=== PATIENT | female | born 1995 | race Caucasian/White ===

== ENCOUNTER 2025-02-17 19:46 | Outpatient (CLI) | payer OTHER, SELFPAY ==
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
--- OUTSIDE RECORDS SUMMARY | 2025-02-17 19:56 | XMS_ITS | Clinical Summary ---
Author Organization [facility] Address [address] [place] [address] Phone Care Team Providers Care Sinker Winder Name Role Phone Ophelia Belle MD Primary Care Provider [phone] Allergies Active Allergy Reactions Criticality Noted Date Comments Amoxicillin-Pot Clavulanate Unknown 03/10/20 24 Clavulanic Acid Vomiting High 02/14/2022 Iodine Unknown 03/10/2024 Medications albuterol 108 (90 Base) MCG/ACT Aerosol Solution take 2 Puffs by inhalation every 6 hours as needed for Cough. 6.7 g 1 Active famotidine (PEPCID) 40 MG Tablet Take 1 Tablet by mouth every evening. 90 Tablet 3 4 Active ondansetron (ZOFRAN) 4 MG TabletIndicatio ns:Nausea and Vomiting Take 1 Tablet by mouth every 8 hours as needed for Nausea - 1st line. Indications: Nausea and Vomiting 10 Tablet 5 Active Active Problems No known active problems Resolved Problems Problem Noted Date Diagnosed Date Resolved Date Ovarian cyst rupture 11/24/2017 018 Social History Tobacco Use Types Packs/Day Years Used Date Smoking Tobacco: Never Smokeless Tobacco: Never Tobacco Cessation:Counseling Given: Not Answered Alcohol Use Standard Drinks/Week Comments No 4 (1 standard drink = 0.6 oz pur e alcohol) Sexually Active Control Partners Comments Not Currently Comments No Sex and Gender Information Value Date Recorded Sex Assigned at Female 11/11/2023 4:58 AM CDT Legal Sex Female 8:11 PM CDT Gender Identity Female 11/11/2023 4:58 AM CDT Sexual Orientation Not on file Last Filed Vital Signs Vital Sign Reading Time Taken Comments Blood Pressure 127/73 08/18/2024 8:01 PM CDT Pulse 97 08/18/2024 8:01 PM CDT Temperature 37.1 C (98.8 F) 08/18/2024 5:13 PM CDT Respiratory Rate 17 08/18/2024 8:01 PM CDT Oxygen Saturation 100% 08/18/2024 8:01 PM CDT Inhaled Oxygen Concentration - - Weight 77.3 kg (170 lb 6.4 oz) 08/18/2024 5:13 P M CDT Height 154.9 cm (5' 1) 08/18/2024 5:13 PM CDT Body Mass Index 32.2 08/18/2024 5:13 PM CDT Plan of Treatment Health Maintenance Due Date Last Done Comments Hepatitis C Virus (HCV) Screening 1993 Human Papillomavirus (HPV) Immunization (2 - 2-dose series) 07/13/2007 01/11/2007 Pap Smear 2014 Varicella Immunization (2 of 2 - 13+ 2-dose series) 09/12/2020 08/15/2020 Cervical Cancer Screening (CCS) 11/19/2023 HPV/Cotest 11/19/2023 Influenza Immunization (#1) 2024 01/12/2021 SARS-COV-2 Immunization (2 - season) 2024 01/12/2021 Respiratory Syncytial Virus (RSV) Immunization (Adult) (1 - 1-dose 75+ series) 2068 Hepatitis B Immunization Completed 995, 1993, 1993 DTaP/Tdap/Td Immunization Discontinued 2020, 01/11/2007, 02/09/1998, Additional history exists TdaP Immunization Completed 08/15/2020, 01/11/2007 Meningococcal Immunization (ACWY) Aged Out No longer eligible based on patient's age to complete this topic Pneumococcal Immunization Combined Aged Out No longer eligible based on patient's age to complete this topic Rotavirus Immunization Aged Out No lo nger eligible based on patient's age to complete this topic Insurance MEDICAID [place] Advance Directives * Full Code (Latest Code Status on File) Date Activated Date Inactivated Comments 11/24/2017 3:10 PM 11/26/2017 3:43 PM CPR-Full Treat ment: FULL ARREST: Attempt Resuscitation/CPR wit intubation and mechanical ventilation. PRE-ARREST: Use entire range of life support measures to stabilize the patient. Care Teams Sinker Winder Relationship Specialty Start Date End Date Ophelia Belle MD PCP - General Family Medicine 09/22/23
--- OUTSIDE RECORDS SUMMARY | 2025-02-17 19:56 | XMS_ITS | Continuity of Care Document ---
Author Organization [facility] Address [address] [place] [address] [place] [address] Assessment No assessment recorded. Plan of Treatment Reminders Order Date Submit Date Provider Last Modified By Organization Details Last Modified Time Details Appointments U/S OB GROWTH 2024 03:30P M ULTRASOUND Not available Not available Not available OB ROUTINE 2024 03:45P M TRUONG MCGOWAN MD Not available Not available Not available U/S OB GROWTH 2024 11:30A M ULTRASOUND Not available Not available Not available OB ROUTINE 2024 01:00P Harriett MCGOWAN MD Not available Not available Not available SURG CSectio n 2025 07:30A M TRUONG MCGOWAN MD Not available Not available Not available SURG POST OP 2025 01:00P Harriett MCGOWAN MD Not available Not available Not available Lab None recorde d. Referral None recorde d. Procedures None recorde d. Surgeries None recorde d. Imaging US, obstetr ic, follow- up 2024 025 [email or web address] [place], [facility] [address], [place], [address], 01/26/2025 15:12:32 Medication Orders None recorde d. Patient TargetsNo targets recorded. Patient InstructionsNo instructions recorded. Reason for Referral None Reported. Results Created Date Observation Date Name Description Value Unit Range Abnormal Flag Note LastModifiedBy Organization Detail LastModifiedTime 10/18/19 25 10/17/2024 [UNIT Y] ANEUP LOIDY NIPT fraction 7.5% normal Not Available [facility] [address], [place], [address], 10/17/2024 23:58:00 10/18/19 25 10/17/2024 [UNIT Y] ANEUP LOIDY NIPT 22Q11.2 microdeletio n LOW RISK <1 in 10,000 normal Not Available [facility] [address], [place], [address], 10/17/2024 23:58:00 10/18/19 25 10/17/2024 [UNIT Y] ANEUP LOIDY NIPT sex chromosome aneuploidy NOT DETECT ED normal Not Available [facility] [address], [place], [address], 10/17/2024 23:58:00 10/18/19 25 10/17/2024 [UNIT Y] ANEUP LOIDY NIPT monosomy X LOW RISK <1 in 10,000 normal Not Available [facility] [address], [place], [address], 10/17/2024 23:58:00 10/18/19 25 10/17/2024 [UNIT Y] ANEUP LOIDY NIPT trisomy 13 LOW RISK <1 in 10,000 normal Not Available [facility] [address], [place], [address], 10/17/2024 23:58:00 10/18/19 25 10/17/2024 [UNIT Y] ANEUP LOIDY NIPT trisomy 18 LOW RISK <1 in 10,000 normal Not Available [facility] [address], [place], [address], 10/17/2024 23:58:00 10/18/19 25 10/17/2024 [UNIT Y] ANEUP LOIDY NIPT trisomy 21 LOW RISK <1 in 10,000 normal Not Available [facility] [address], [place], [address], 10/17/2024 23:58:00 10/18/19 25 10/17/2024 [UNIT Y] ANEUP LOIDY NIPT sex MALE normal Not Available [facility] [address], [place], [address], 10/17/2024 23:58:00 10/18/19 25 10/17/2024 [UNIT Y] ANEUP LOIDY NIPT gestation SINGLE TON normal Not Available [facility] [address], [place], [address], 10/17/2024 23:58:00 10/18/19 25 10/17/2024 [UNIT Y] ANEUP LOIDY NIPT for detailed report, see pdf See PDF normal Not Available [facility] [address], [place], [address], 10/17/2024 23:58:00 10/22/19 25 10/21/2024 [UNIT Y] MIKE Galvez sickle cell disease/beta -thalassemia /hemoglobino pathies carrier screen NEGATI VE normal Not Available [facility] [address], [place], [address], 10/21/2024 17:38:31 10/22/19 25 10/21/2024 [UNIT Y] MIKE Galvez alpha-thalas semia carrier screen NEGATI VE normal Not Available [facility] [address], [place], [address], 10/21/2024 17:38:31 10/22/19 25 10/21/2024 [UNIT Y] MIKE Galvez cystic fibrosis carrier screen NEGATI VE normal Not Available [facility] [address], [place], [address], 10/21/2024 17:38:31 10/22/19 25 10/21/2024 [UNIT Y] MIKE Galvez spinal muscular atrophy carrier screen NEGATI VE 2 SMN1 copies , SNP not presen t normal Not Available [facility] [address], [place], [address], 10/21/2024 17:38:31 10/22/19 25 10/21/2024 [UNIT Y] MIKE MACIAS Leonor for detailed report, see pdf See PDF normal Not Available [facility] [address], [place], [address], 10/21/2024 17:38:31 10/12/19 25 10/11/2024 CBC W/DIF F WBC 7.0 10'3/ uL 3.5-10 .5 Not Available [facility] (Lab) [address], [place], [address], 10/12/2024 13:07:49 10/12/19 25 10/11/2024 CBC W/DIF F RBC 3.94 10'6/ uL (based on docume nted legal sex) 3.80-5 .20 Not Available [facility] (Lab) [address], [place], [address], 10/12/2024 13:07:49 10/12/19 25 10/11/2024 CBC W/DIF F HGB 12.1 g/dL (based on docume nted legal sex) 11.6-1 5.4 Not Available [facility] (Lab) [address], [place], [address], 10/12/2024 13:07:49 10/12/19 25 10/11/2024 CBC W/DIF F HCT 36.3 % (based on docume nted legal sex) 34.0-4 5.0 Not Available [facility] (Lab) [address], [place], [address], 10/12/2024 13:07:49 10/12/19 25 10/11/2024 CBC W/DIF F MCV 92.1 fL 80.0-9 9.0 Not Available [facility] (Lab) [address], [place], [address], 10/12/2024 13:07:49 10/12/19 25 10/11/2024 CBC W/DIF F MCH 30.7 pg 27.0-3 4.0 Not Available [facility] (Lab) [address], [place], [address], 10/12/2024 13:07:49 10/12/19 25 10/11/2024 CBC W/DIF F MCHC 33.3 g/dL 32.0-3 5.5 Not Available [facility] (Lab) [address], [place], [address], 10/12/2024 13:07:49 10/12/19 25 10/11/2024 CBC W/DIF F RDW 12.4 % 11.0-1 5.0 Not Available [facility] (Lab) [address], [place], [address], 10/12/2024 13:07:49 10/12/19 25 10/11/2024 CBC W/DIF F plt 278 10'3/ uL 150-40 0 Not Available [facility] (Lab) [address], [place], [address], 10/12/2024 13:07:49 10/12/19 25 10/11/2024 CBC W/DIF F MPV 11.7 fL 8.8-12 .1 Not Available [facility] (Lab) [address], [place], [address], 10/12/2024 13:07:49 10/12/19 25 10/11/2024 CBC W/DIF F NRBC's 0.0 % 0.0 Not Available [facility] (Lab) [address], [place], [address], 10/12/2024 13:07:49 10/12/19 25 10/11/2024 CBC W/DIF F absolute NRBCs 0.0 10'3/ uL no refere nce range establ ished Not Available [facility] (Lab) [address], [place], [address], 10/12/2024 13:07:49 10/12/19 25 10/11/2024 CBC W/DIF F neutrophils 71.6 % 34.0-7 3.0 Not Available [facility] (Lab) [address], [place], [address], 10/12/2024 13:07:49 10/12/19 25 10/11/2024 CBC W/DIF F lymphocytes 22.8 % 15.0-5 0.0 Not Available [facility] (Lab) [address], [place], [address], 10/12/2024 13:07:49 10/12/19 25 10/11/2024 CBC W/DIF F monocytes 4.7 % 1.0-15 .0 Not Available [facility] (Lab) [address], [place], [address], 10/12/2024 13:07:49 10/12/19 25 10/11/2024 CBC W/DIF F eosinophils 0.3 % 0.0-8. 0 Not Available [facility] (Lab) [address], [place], [address], 10/12/2024 13:07:49 10/12/19 25 10/11/2024 CBC W/DIF F basophils 0.3 % 0.0-2. 0 Not Available [facility] (Lab) [address], [place], [address], 10/12/2024 13:07:49 10/12/19 25 10/11/2024 CBC W/DIF F immature granulocytes 0.3 % no define d refere nce range Immat ure Granu locyt es (IG) repre sents autom ated enume ratio n of Metam yeloc ytes, Myelo cytes and Promy elocy brenna when IG is < 5%. Blast s are not inclu ded in IG and repor nishant separ ately if prese nt. Not Available [facility] (Lab) [address], [place], [address], 10/12/2024 13:07:49 10/12/19 25 10/11/2024 CBC W/DIF F absolute neutrophils 5.0 10'3/ uL 1.5-8. 0 Not Available [facility] (Lab) [address], [place], [address], 10/12/2024 13:07:49 10/12/19 25 10/11/2024 CBC W/DIF F absolute lymphocytes 1.6 10'3/ uL 1.0-4. 0 Not Available [facility] (Lab) [address], [place], [address], 10/12/2024 13:07:49 10/12/19 25 10/11/2024 CBC W/DIF F absolute monocytes 0.3 10'3/ uL 0.2-1. 0 Not Available [facility] (Lab) [address], [place], [address], 10/12/2024 13:07:49 10/12/19 25 10/11/2024 CBC W/DIF F absolute eosinophils 0.0 10'3/ uL 0.0-0. 6 Not Available [facility] (Lab) [address], [place], [address], 10/12/2024 13:07:49 10/12/19 25 10/11/2024 CBC W/DIF F absolute basophils 0.0 10'3/ uL 0.0-0. 3 Not Available [facility] (Lab) [address], [place], [address], 10/12/2024 13:07:49 10/12/19 25 10/11/2024 CBC W/DIF F absolute immature granulocytes 0.0 10'3/ uL 0.00-0 .10 Refer ence range s for nonbi nary/ inter sex or unspe cifie d gende r patie nts have not been estab lishe d. Pleas e refer to the follo wing table for range s estab lishe d for cisge nder patie nts and evalu ate in the clini robinson leonard xt of the indiv idual patie nt: https :[email or web address] patterson book. nm.or g/gen derx Not Available [facility] (Lab) [address], [place], [address], 10/12/2024 13:07:49 10/12/19 25 10/11/2024 HIV 1/2 ANTIG EN/AN TIBOD Y, REFLE X CONFI RMATI ON HIV antigen/anti body Nonrea ctive nonrea ctive HIV-1 antig en and HIV-1 /HIV- 2 antib odies were not detec nishant. No labor atory evide nce of HIV infec tion. Not Available [facility] (Lab) [address], [place], [address], 10/12/2024 13:07:50 10/12/19 25 10/11/2024 HEPAT ITIS B SURFA CE ANTIG EN hepatitis B surface antigen Non-re active non-re active This assay was perfo rmed using [employer] ratio n reage nts and test kits. Value s obtai francois with other assay metho ds or kits canno t be used inter serna eably . Not Available [facility] (Lab) [address], [place], [address], 10/12/2024 13:07:50 10/12/19 25 10/11/2024 HEPAT ITIS C ANTIB KERI SCREE N, REFLE X TO CONFI RMATI ON hepatitis C antibody Non-re active non-re active Antib odies to HCV Not Detec nishant, does not exclu de the possi bilit y of expos ure to HCV. Not Available [facility] (Lab) [address] [place], [address], 10/12/2024 13:07:51 10/12/19 25 10/11/2024 RUBEL LA IGG ANTIB KERI, QUANT rubella antibodies, IgG Reacti ve reacti ve Not Available [facility] (Lab) [address], [place], [address], 10/12/2024 13:07:51 10/12/19 25 10/11/2024 RUBEL LA IGG ANTIB KERI, QUANT rubella antibodies, IgG quant 18.4 IU/mL >=10 Non-r eacti ve (Non- Immun e) <10 IU/mL React filippo (Immu ne) > or = 10 IU/mL Not Available [facility] (Lab) [address], [place], [address], 10/12/2024 13:07:51 10/12/19 25 10/11/2024 TYPE/ RH/SC REEN ABO/Rh type O POS Not Available [facility] (Lab) [address], [place], [address], 10/12/2024 13:07:51 10/12/19 25 10/11/2024 TYPE/ RH/SC REEN antibody screen NEG Not Available [facility] (Lab) [address], [place], [address], 10/12/2024 13:07:51 10/12/19 25 10/11/2024 TYPE/ RH/SC REEN exp date 2024 23:59 Not Available [facility] (Lab) [address], [place], [address], 10/12/2024 13:07:51 10/12/19 25 10/11/2024 HEMOG LOBIN A1C hemoglobin A1C 5.3 % 4.0-5. 6 The Ameri can Diabe brenna [employer] iatio n recom mends that a prima ry goal of thera py naima hand be a HBA1C of < 7% and that physi cians naima d reeva luate the treat ment regim en in patie nts with HBA1C value s consi stent ly > 8%. <5.7% Pooja l 5.7 - 6.4% Incre ased risk for diabe brenna >=6.5 % Diagn ostic of diabe brenna <7.0% Goal of thera py >8.0% Actio n sugge sted Not Available [facility] (Lab) [address], [place], [address], 10/12/2024 13:07:52 10/12/19 25 10/11/2024 RPR SCREE N, REFLE X TITER /CONF IRMAT ION RPR qualitative Nonrea ctive nonrea ctive Not Available [facility] (Lab) [address], [place], [address], 10/12/2024 13:07:53 10/12/19 25 10/11/2024 CULTU RE: URINE result report SEE RESULT S BELOW Test: Cultu re: Urine Speci men Sourc e: Urine Voide d Speci men Type: Urine Speci men Date: 2024 1251 Resul t Date: 2024 2146 Resul t Statu s: Final resul t Abnor mal: No Resul ting Lab: [facility] [address] [facility] [address] Tel: CULTU RE ----- ----- ----- --- No growt h in 1 day (dete ction level of 10,00 0 colon ies / ml.) Not Available [facility] (Lab) [address] [place], [address], 10/12/2024 22:51:14 10/12/19 25 10/11/2024 drug scree n, urine Amphetamines : negati ve Not Available [facility] [facility] [address], [place], [address], 10/11/2024 12:03:44 10/12/19 25 10/11/2024 drug scree n, urine Cannabinoids : negati ve Not Available [place] [address], [place], [address], 10/11/2024 12:03:44 10/12/19 25 10/11/2024 drug scree n, urine Cocaine: negati ve Not Available [place] [address], [place], [address], 10/11/2024 12:03:44 10/12/19 25 10/11/2024 drug scree n, urine Opiates: negati ve Not Available [place] [facility] [address], [place], [address], 10/11/2024 12:03:44 10/12/19 25 10/11/2024 drug scree n, urine Phenocyclidi ne: negati ve Not Available [place] [address], [place], [address], 10/11/2024 12:03:44 10/12/19 25 10/11/2024 drug scree n, urine Barbiturates : negati ve Not Available [place] [address], [place], [address], 10/11/2024 12:03:44 10/12/19 25 10/11/2024 drug scree n, urine Benzodiazepi aaron: negati ve Not Available [place] [address], [place], [address], 10/11/2024 12:03:44 10/12/19 25 10/11/2024 drug scree n, urine Ethanol: negati ve Not Available [place] [address], [place], [address], 10/11/2024 12:03:44 10/12/19 25 10/11/2024 drug scree n, urine Hallucinogen s: negati ve Not Available [place] [address], [place], [address], 10/11/2024 12:03:44 10/12/19 25 10/11/2024 drug scree n, urine Inhalants: negati ve Not Available [place] [address], [place], [address], 10/11/2024 12:03:44 12/03/1912/02/2024 CMP(C OMPRE HENSI VE METAB OLIC PANEL ) sodium 136 mmol/ L 133-14 6 Not Available [facility] (Lab) [address], [place], [address], 12/08/2024 16:08:48 12/03/19 25 12/02/2024 CMP(C OMPRE HENSI VE METAB OLIC PANEL ) potassium 4.4 mmol/ L 3.5-5. 1 Not Available [facility] (Lab) [address], [place], [address], 12/08/2024 16:08:48 12/03/19 25 12/02/2024 CMP(C OMPRE HENSI VE METAB OLIC PANEL ) chloride 107 mmol/ L 98-107 Not Available [facility] (Lab) [address], [place], [address], 12/08/2024 16:08:48 12/03/19 25 12/02/2024 CMP(C OMPRE HENSI VE METAB OLIC PANEL ) carbon dioxide 19 mmol/ L 21-31 low Not Available [facility] (Lab) [address], [place], [address], 12/08/2024 16:08:48 12/03/19 25 12/02/2024 CMP(C OMPRE HENSI VE METAB OLIC PANEL ) anion gap 10 mmol/ L 4-13 Not Available [facility] (Lab) [address], [place], [address], 12/08/2024 16:08:48 12/03/19 25 12/02/2024 CMP(C OMPRE HENSI VE METAB OLIC PANEL ) blood urea nitrogen 7 mg/dL 7-25 Not Available [facility] (Lab) [address], [place], [address], 12/08/2024 16:08:48 12/03/19 25 12/02/2024 CMP(C OMPRE HENSI VE METAB OLIC PANEL ) creatinine 0.48 mg/dL 0.60-1 .30 low Not Available [facility] (Lab) [address], [place], [address], 12/08/2024 16:08:48 12/03/19 25 12/02/2024 CMP(C OMPRE HENSI VE METAB OLIC PANEL ) egfrcr (CKD-epi 2020) >90 mL/mi n/1.7 3_m2 >=60 Not Available [facility] (Lab) [address], [place], [address], 12/08/2024 16:08:48 12/03/19 25 12/02/2024 CMP(C OMPRE HENSI VE METAB OLIC PANEL ) calcium 8.5 mg/dL 8.3-10 .5 Not Available [facility] (Lab) [address], [place], [address], 12/08/2024 16:08:48 12/03/19 25 12/02/2024 CMP(C OMPRE HENSI VE METAB OLIC PANEL ) glucose 74 mg/dL 70-100 Not Available [facility] (Lab) [address], [place], [address], 12/08/2024 16:08:48 12/03/19 25 12/02/2024 CMP(C OMPRE HENSI VE METAB OLIC PANEL ) protein, total 6.3 g/dL 6.4-8. 3 low Not Available [facility] (Lab) [address], [place], [address], 12/08/2024 16:08:48 12/03/19 25 12/02/2024 CMP(C OMPRE HENSI VE METAB OLIC PANEL ) albumin 3.5 g/dL 3.5-5. 0 Not Available [facility] (Lab) [address], [place], [address], 12/08/2024 16:08:48 12/03/19 25 12/02/2024 CMP(C OMPRE HENSI VE METAB OLIC PANEL ) ALT 8 units /L 9-43 low Not Available [facility] (Lab) [address], [place], [address], 12/08/2024 16:08:48 12/03/19 25 12/02/2024 CMP(C OMPRE HENSI VE METAB OLIC PANEL ) alkaline phosphatase 57 units /L 34-104 Not Available [facility] (Lab) [address], [place], [address], 12/08/2024 16:08:48 12/03/19 25 12/02/2024 CMP(C OMPRE HENSI VE METAB OLIC PANEL ) AST 17 units /L 13-39 Not Available [facility] (Lab) [address], [place], [address], 12/08/2024 16:08:48 12/03/19 25 12/02/2024 CMP(C OMPRE HENSI VE METAB OLIC PANEL ) bilirubin, total 0.4 mg/dL 0.2-1. 2 Not Available [facility] (Lab) [address], [place], [address], 12/08/2024 16:08:48 12/03/19 25 12/02/2024 FABIOLA TIN / IRON / TRANS FABIOLA N / TIBC iron 83 ug/dL 40-170 Not Available [facility] (Lab) [address] [place], [address], 12/08/2024 16:08:49 12/03/19 25 12/02/2024 FABIOLA TIN / IRON / TRANS FABIOLA N / TIBC transferrin 305 mg/dL 200-36 0 Not Available [facility] (Lab) [address] [place], [address], 12/08/2024 16:08:49 12/03/19 25 12/02/2024 FABIOLA TIN / IRON / TRANS FABIOLA N / TIBC ferritin 82.3 NG/mL 8.0-25 2.0 Not Available [facility] (Lab) [address], [place], [address], 12/08/2024 16:08:49 12/03/19 25 12/02/2024 FABIOLA TIN / IRON / TRANS FABIOLA N / TIBC TIBC 427 ug/dL 250-45 0 Not Available [facility] (Lab) [address], [place], [address], 12/08/2024 16:08:49 12/03/19 25 12/02/2024 FABIOLA TIN / IRON / TRANS FABIOLA N / TIBC iron saturation 19 % 20-55 low Not Available [facility] (Lab) [address], [place], [address], 12/08/2024 16:08:49 12/03/1912/02/2024 VITAM IN B12 / FOLAT E PANEL vitamin B12 202 pg/mL 180-91 4 Pooja l Range : 180-9 14 pg/mL . Indet ermin ate Range : 145-1 80 pg/mL . Defic ient Range : <=145 pg/mL . Not Available [facility] (Lab) [address], [place], [address], 12/08/2024 16:08:49 12/03/1912/02/2024 VITAM IN B12 / FOLAT E PANEL folate, serum >20.0 NG/mL 6.0-20 .0 high Not Available [facility] (Lab) [address], [place], [address], 12/08/2024 16:08:49 12/03/19 25 12/02/2024 VITAM IN D, 25-OH (TOTA L D2/D3 ) vitamin D, 25-hydroxy, total 28.2 NG/mL 30.0-1 00.0 low Sugge stive of Defic iency : <20 ng/mL Sugge stive of Insuf ficie ncy: 20-29 ng/mL Sugge stive of Suffi cienc y: 30-10 0 ng/mL Sugge stive of Toxic ity: >150 ng/mL Not Available [facility] (Lab) [address], [place], [address], 12/08/2024 16:08:49 12/03/1912/02/2024 LEAD, BLOOD (ADUL T/PED IATRI C) lead, whole blood <1.0 mcg/d L <3.5 See Note 1 Linda sis was perfo rmed by Gertrude Holloway ed Plasm a Mass Spect romet ry (ICPM S) Note 1 This test was devel oped and its linda tical perfo rmanc e che cteri stics have been deter mined by [facility]. It has not been clear ed or appro doug by the FDA. This assay has been valid ated pursu ant to the CLIA regul ation s and is used for clini robinson purpo ses. Perfo rming Organ izati on Infor naresh n: Site ID: [id number] Name: cisimple ostic s-Jared Lowry Addre ss: [address] [place] [address] Dire tor: Stanleyo anny V Lavon s Not Available [facility] (Lab) [address], [place], [address], 12/08/2024 16:08:50 12/03/1912/02/2024 VITAM IN A (RETI NOL) vitamin A 32 mcg/d L 38-98 low (Note ) Cli n Chem Vol. 34.No .8. pp162 5-162 1997 Vitam in suppl ement ation withi n 24 hours prior to blood draw may affec t the accur acy of resul ts. This test was devel oped and its linda tical perfo rmanc e che cteri stics have been deter mined by [facility]. It has not been clear ed or appro doug by the FDA. This assay has been valid ated pursu ant to the CLIA regul ation s and is used for clini robinson purpo ses. MDF med fusio n [address] [facility] [place] [address] [phone] Victorina Johnson MD, PhD Perfo rming Organ izati on Infor matio n: Site ID: [id number] Name: Park mariee Addre ss: [id number] [place] [address] Direc tor: Victorina Johnson MD,Ph D Not Available [facility] (Lab) [address], [place], [address], 12/08/2024 16:08:50 10/12/19 25 10/11/2024 US, obste tric, nucha l trans lucen cy No observ ation record ed. [email or web address] [facility] [address] [facility] [address], [place], [address], 10/11/2024 13:10:00 10/12/19 25 10/11/2024 US, obste tric, 1st trime ster No observ ation record ed. [email or web address] [place] [address] [facility] [address], [place], [address], 10/11/2024 13:10:09 10/12/19 25 10/11/2024 US, obste tric, nucha l trans lucen cy No observ ation record ed. [email or web address] [place] [address] [place] [address], [place], [address], 10/14/2024 09:45:42 11/17/19 25 11/16/2024 imagi ng/di agnos tic resul t No observ ation record ed. [facility] [address] [place], [address], 2024 21:39:44 11/19/19 25 11/16/2024 imagi ng/di agnos tic resul t No observ ation record ed. [facility] [address] [place], [address], 2024 21:39:44 12/17/19 25 12/16/2024 US, obste tric, follo w-up No observ ation record ed. [email or web address] [facility] [address], [address], 12/23/2024 13:18:27 12/17/19 25 12/16/2024 US, obste tric, follo w-up No observ ation record ed. [email or web address] [facility] [address], [address], 12/20/2024 09:13:00 01/14/2001/13/2025 US, obste tric, follo w-up No observ ation record ed. [email or web address] [facility] [address], [address], 01/17/2025 11:47:51 01/14/20 25 01/13/2025 US, obste tric, follo w-up No observ ation record ed. [email or web address] [facility] [address], [address], 01/17/2025 16:04:16 01/27/20 25 01/26/2025 US, obste tric, follo w-up No observ ation record ed. [email or web address] [address], [place], [address], 01/26/2025 15:11:31 01/27/20 25 01/26/2025 US, obste tric, follo w-up No observ ation record ed. NORI Haro [address], [place], [address], 01/29/2025 15:19:23 Result Notes None recorded. Problems Name Problem SNOMED Code Status Onset Date Resolution Date Notes Provider Name and Address Organization Details Recorded Time Pregnanc y 61361144 Active 2024 Freida Morales [place], [place] - [facility] 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 11:26:50 Past pregnanc y history of section 242661882 Active 2024 G2 under GETA, umbilical cord prolapse desires RCS TRUONG MCGOWAN MD [address], [place], [address], [facility] 11:24:36 Migraine 13973847 Active 2024 Eduar Gautam MD [address], [place], [address], [facility] 10:20:53 Problem Notes None recorded. Procedures Surgical History Date Name Laterality Status Provider Name and Address Organization Details Recorded Time 09/15/19 25 Date of Last Pap Smear completed [facility] 09/14/2024 10:20:33 05/11/19 25 Bariatric Surgery completed [facility] 09/14/2024 10:10:08 03/23/19 19 Appendectomy completed [facility] 09/14/2024 10:26:43 07/28/19 18 Caesarean Section completed [facility] 09/14/2024 10:10:08 03/23/19 09 Cholecystectomy completed [facility] 09/14/2024 10:26:22 03/23/19 00 Tonsillectomy completed [facility] 09/14/2024 10:26:04 Imaging Results None recorded. Procedure Notes None recorded. Medical Equipment None Reported. Allergies Allergen ID Allergen Name Allergen Category Reaction Reaction Severity Criticality Documentation Date Start Date Code Code System Note Provider Name and Address Organization Details Recorded Time 28865 iodine medicatio n palpitati ons severe Not available 09/14/2024 5933 RxNorm Elizabeth Hatfield [facility], [facility] 5 10:09:38 01794 Augmentin medicatio n hives moderate Not available 09/14/2024 13334 2 RxNorm Elizabeth Hatfield [facility], [facility] 5 10:09:38 52600 clavulani c acid Not available vomiting Not available high 02/03/20252021 46182 RxNorm Not Available [employer] - prod 09:16:51 68862 amoxicill in / clavulana te medicatio n hives rash Not available Not available high 02/03/20252023 75457 RxNorm VOMIT ING Not Available [employer] - prod 09:16:55 Medications Name Sig Start Date Stop Date Status Note LastModified by Organization Details LastModified Time benzonatate 200 mg capsule TAKE 1 CAPSULE BY MOUTH THREE TIMES DAILY FOR UP TO 14 DAYS NEEDED FOR COUGH 09/14 completed Not Available Not Available Not Available sumatriptan 50 mg tablet TAKE 1 TABLET BY MOUTH NEEDED active Not Available Not Available No t Available Reglan 10 mg tablet Take 1 tablet 4 times a day by oral route. 10/19 completed Not Available Not Available Not Available zolmitripta n 2.5 mg disintegrat ing tablet DISSOLVE ONE TABLET ON THE TONGUE EVERY 2 HOURS. MAX OF 2 TABLETS PER 24 HOURS. active Not Available Not Available No t Available dexamethaso ne 4 mg tablet TAKE 1 TABLET BY MOUTH TWICE DAILY FOR 5 DAYS 09/14 completed Not Available Not Available Not Available docusate sodium 100 mg capsule TAKE ONE CAPSULE BY MOUTH TWICE DAILY FOR 14 DAYS 09/14 completed Not Available Not Available Not Available furosemide 20 mg tablet TAKE 1 TABLET BY MOUTH EVERY DAY FOR 5 DAYS 09/14 completed Not Available Not Available Not Available nitrofurant oin monohydrate /macrocryst als 100 mg capsule TAKE 1 CAPSULE BY MOUTH TWICE DAILY FOR 7 DAYS FOR UTI 09/14 completed Not Available Not Available Not Available Excedrin Migraine active Not Available Not Available Not Available active Not Available Not Avai lable Not Available Vitals None Recorded Social History Question Answer Notes LastModified by Organizat ion Details LastModified Time Do You Have An Advance Directive? No Information n ot available 09/14/2024 Are You Blind Or Do You Have Difficulty Seeing? No Information n ot available 09/14/2024 What Is Your Level Of Caffeine Consumption? Occasional Information not available 09/14/2024 In The 14 Days Before Symptom Onset, Have You Had Close Contact With A Laboratory-confirm ed COVID-19 While That Case Was Ill? No Information n ot available 09/14/2024 In The 14 Days Before Symptom Onset, Have You Had Close Contact With A Person Who Is Under Investigation For COVID-19 While That Person Was Ill? No Information not available 09/14/2024 Have You Been To An Area Known To Be High Risk For COVID-19? No Information not available 09/14/2024 Are You Deaf Or Do You Have Serious Difficulty Hearing? No Information not available 09/14/2024 What Type Of Diet Are You Following? SPECIFIC Information n ot available 09/14/2024 What Is The Highest Grade Or Level Of School You Have Completed Or The Highest Degree You Have Received? [id number] Information not available 09/14/2024 Are There Any Guns Present In Your Home? Yes Information not available 09/14/2024 Do You Use Protection During Sex? No Information not available 09/14/2024 Do You Use Your Seat Belt Or Car Seat Routinely? No Information not available 09/14/2024 Do You Have Smoke And Carbon Monoxide Detectors In Your Home? Yes Information not available 09/14/2024 How Much Tobacco Do You Smoke? No Information not available 09/14/2024 Do You Use Sunscreen Routinely? Yes Information not available 09/14/2024 Have You Used IV Drugs? No Information not available 09/14/2024 Sex: Unknown Functional Status Question Answer Note LastModified by Organizat ion Details LastModified Time Do you use any illicit or recreational drugs? No Information not available 09/14/2024 What is your level of alcohol consumption? None Information not available 09/14/2024 Are you able to walk independently without assistance or assistive devices? 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 Moderate Information not available 09/14/2024 Mental Status Question Answer Note LastModified by Organization D etails LastModified Time Do you feel stressed (tense, restless, nervous, or anxious, or unable to sleep at night)? [id number] Information not available 09/14/2024 Family History Relationship Description Onset Age of this Age Resolved Age Notes LastModified by Organization Details LastModified Time Sister Diabetes mellitus Not available 2024 10:09:43 Father Heart disease Not available 2024 10:25:23 Father Malignant neoplasm of colon Not available 2024 10:25:38 Medical History Condition Response Polyps Y GI Problems Y Asthma Y Gynecological History Statement/Question Response Abnormal Pap N Flow Moderate Date of LMP 07/11/2024 On BCP's at Conception? N N Was last menstrual period normal Y STIs/STDs Y HPV Vaccine N Duration of Flow (days) 3 Current Control Method Age at First Child 21 Are cycles usually normal Y Frequency of Cycle (Q days) 26 Sexually Active? Y Menses Monthly Y Age of first menstrual cycle 11 Date of Last Pap Smear 09/14/2024 Sexual Problems? N LMP Definite N Obstetrics History GPAL:G 3 P 1 0 1 1 Type Value Full Term 1 Spontaneous 1 Living 1 Total 3 Past Encounters Encounter ID Performer Location Encounter Start Date Encounter Closed Date Diagnosis/Indication Diagnosis SNOMED-CT Code Diagnosis ICD10 Code Diagnosis IMO Codes Diagnosis Note [id number] Eduar Gautam MD [place] [address] [address] 12/30/2024 14:31:08 12/30/2024 16:29:45 care status 073862948 Z34.82 [id number] TRUONG MCGOWAN MD [place] [address] [address] 01/26/2025 11:47:35 01/26/2025 13:17:13 History of sleeve gastrectomy 3478254294 18215 Z90.3 O99.891 Z3A.28 [id number] - partial sleeve gastrectom y 04/2024- baseline labs ordered 10/11- plan for serial growth US Health Concerns Section Related Observation LastModified by Organization Detai ls LastModified Time None Recorded Concern Status LastModified by Organization Details LastModified Time None Recorded Payers Encounter Date Sequence Insurance Name Policy Number Policy Paez Covered Member ID Paez Member ID Guarantor Name 01/26/2025 1 [facility] (MEDICAID HMO) [id number] Radha Sheppard [id number] Radha Sheppard OBGyn Episode Ob Episode Information Episode Created Date Number of Fetuses Patient Bloodtype Patient rh Status Prepregnancy Weight lbs Domestic Partner Domestic Partner Phone Father Name Vascular Technologist Sonographer Status 10/12/19 25 1 O Positive 165 Kentrel l Harley OPEN Fetus Data First Name Last Name Admitted to NICU Weight (g) Sex Living Outcome Pediatric Complications Fetus ID Race Codes Race Delivery Type [id number] Problems Problem Notes Scheduled 11/16 1:00PM Level II US & office visit scheduled [facility] 01/13 0730 us only Problem Name Start Date End Date Resolution Snomed Code Not e Migraine 12/02/2024 35722252 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 597217641645196 - partial sl eeve gastrectomy 04/2024- baseline vitamin labs ordered at 12 weeks- serial growth US Past history of section 10/11/2024 [id number] G2 under GE TA, umbilical cord prolapsedesires RCS Mario Calculation Initial Mario Date Initial Exam Date Initial Exam Provider Initial Ultrasound Date Last Menstrual Period Date Ultra Sound Weeks Gestation 04/17/2025 10/11/2024 09/14/2024 07/11/2024 9 Eighteen To Twenty Week Mario Update Ultra Sound Date Fundal Height At Umbil Quickening Date Ultra Sound Latest Weeks Gestation Final Mario Confirmed By Final Mario Confirmed Date Final Mario Date Ultra Sound Latest Days Gestation 11/17/19 25 18 [email or web address] 10/11/2024 04/17/19 26 2 Pre-kaykay Flowsheet Flowsheet Date 10/11/2024 Espinoza Score Blood Edema Fundus Height Fundus Units Glucose Ketones Leukocytes Nitrite Labor Signs Protein Cervic Dilation Cervic Effacement Cervic Station Type Weight in lbs Pre/Post Dialysis Refused Weight 163.292536063035 BP Diastolic BP Location Tested BP Systolic BP Type 74 L arm 115 sitting Fetus Heart Rate Present Fetus Movement Comments Patient presents to [facility] care. Headaches still worsening, will send reglan and discussed B2. complicated by hx of 17 week delivery due to possible placental abruption, as well as c section under general anesthesia in G2 due to umbilical cord prolapse. She has a history of partial sleeve gastrectomy in 04/2024. Discussed vitamin labs q trimester, serial growth US q4 weeks. No nausea or cramping. NT/NB wnl today, desires NIPT. Will draw today with new OB labs. RTC 4 weeks for routine care. Flowsheet Date 11/02/2024 Espinoza Score Blood Edema Fundus Height Fundus Units Glucose Ketones Leukocytes Nitrite Labor Signs Protein Cervic Dilation Cervic Effacement Cervic Station Type Weight in lbs Pre/Post Dialysis Refused Weight 161.043651048954 BP Diastolic BP Location Tested BP Systolic BP Type 74 L arm 116 sitting Fetus Heart Rate Present Fetus Movement A Yes Comments Still having some nausea. Mi graines not improved with tylenol, reglan, and sumatriptan. Will send [facility] referral. LR male NIPT! All other OB labs wnl. Anatomy US next visit. RTC 4 weeks. Flowsheet Date 12/02/2024 Espinoza Score Blood Edema Fundus Height Fundus Units Glucose Ketones Leukocytes Nitrite Labor Signs Protein Cervic Dilation Cervic Effacement Cervic Station Type Weight in lbs Pre/Post Dialysis Refused 167.105634476213 BP Diastolic BP Location Tested BP Systolic BP Type 78 L arm 116 sitting Fetus Heart Rate Present A 140 Present Fetus Movement A Yes Comments Seen recently in the emergen cy department for migraine, patient was treated with sumatriptan, it was mostly ineffective. To try Zomig. We will consider other treatment options at future visits. Asked to return if she is still suffering. Seen at [facility]. Flowsheet Date 12/30/2024 Espinoza Score Blood Edema Fundus Height Fundus Units Glucose Ketones Leukocytes Nitrite Labor Signs Protein Cervic Dilation Cervic Effacement Cervic Station Type Weight in lbs Pre/Post Dialysis Refused 168.178829073819 BP Diastolic BP Location Tested BP Systolic BP Type 74 L arm 118 sitting Fetus Heart Rate Present A 139 Present Fetus Movement A Yes Comments no complaints, no problems, routine care, no contractions, no vaginal bleeding, no loss of fluid, no cramping Flowsheet Date 01/26/2025 Espinoza Score Blood Edema Fundus Height Fundus Units Glucose Ketones Leukocytes Nitrite Labor Signs Protein Cervic Dilation Cervic Effacement Cervic Station Type Weight in lbs Pre/Post Dialysis Refused BP Diastolic BP Location Tested BP Systolic BP Type Fetus Heart Rate Present Fetus Movement Comments Flowsheet Date 02/03/2025 Espinoza Score Blood Edema Fundus Height Fundus Units Glucose Ketones Leukocytes Nitrite Labor Signs Protein Cervic Dilation Cervic Effacement Cervic Station Type Weight in lbs Pre/Post Dialysis Refused 170.587291446555 BP Diastolic BP Location Tested BP Systolic BP Type 74 L arm 122 sitting Fetus Heart Rate Present A 140 Fetus Movement A Yes Comments Doing well, good movem ent. No cramping or bleeding. Having some gum pain, going to dentist. 28 week labs today, doing 2 weeks of glucose monitoring, all normal so far. Growth US last week wnl, EFW 30%. Transverse lie. RTC 2 weeks. Flowsheet Date 02/14/2025 Espinoza Score Blood Edema Fundus Height Fundus Units Glucose Ketones Leukocytes Nitrite Labor Signs Protein Cervic Dilation Cervic Effacement Cervic Station Type Weight in lbs Pre/Post Dialysis Refused Weight 172.821679084711 BP Diastolic BP Location Tested BP Systolic BP Type 72 L arm 108 sitting Fetus Heart Rate Present A 140 Fetus Movement A Yes Comments Good movement. No cram ping or bleeding. Still having gum pain. Glucose monitoring wnl, ok to d/c. No evidence of GDM. Would like repeat c section on 04/10. Discussed preadmission. RTC 2 weeks. Menstrual History Last Menstrual Date Menses Monthly On Bcp Conception Prior Menses Frequency Hcg Plus Date Menarche Onset Age 0407/11/20[birth year] Delivery Information Delivery Date Delivery Type Labor Anesthesia Weeks Gestation Incision Type Labor Labor Length Hrs Delivered By Post Complications Tubal Sterilization Discharge Date Comments Discharge Information Feeding Method Contraceptive Method Maternal HG B and HCT Levels
--- OUTSIDE RECORDS SUMMARY | 2025-02-17 19:56 | XMS_ITS | Continuity of Care Document ---
Author Organization [facility] Address [address] [place] [address] [place] [address] Assessment No assessment recorded. Plan of Treatment [...] available Not available OB ROUTINE 2024 01:00P M TRUONG MCGOWAN MD Not available Not available Not available SURG CSectio n 2025 07:30A M TRUONG MCGOWAN MD Not available Not available Not available SURG POST OP 2025 01:00P Harriett MCGOWAN MD Not available Not available Not available Lab None recorde d. Referral None recorde d. Procedures None recorde d. Surgeries cesarea n section (SURG) 2024 026 [id number] [facility], [facility] [address], [address], 02/14/2025 12:10:15 Imaging None recorde d. Medication Orders None recorde d. Patient TargetsNo targets recorded. Patient InstructionsNo instructions recorded. Reason for Referral None Reported. Results Created Date Observation Date Name Description Value Unit Range Abnormal Flag Note LastModifiedBy Organization Detail LastModifiedTime 10/18/19 25 10/17/2024 [UNIT Y] ANEUP LOIDY NIPT fraction 7.5% normal Not Available [facility] [address], [place], [address], 10/17/2024 23:58:00 10/18/19 25 10/17/2024 [UNIT Y] ANEUP LOIDY NIPT 22Q11.2 microdeletio n LOW RISK <1 in 10,000 normal Not Available [facility] [address], [place], [address], 10/17/2024 23:58:00 10/18/19 25 10/17/2024 [UNIT Y] ANEUP LOIDY NIPT sex chromosome aneuploidy NOT DETECT ED normal Not Available [facility] [address], [place], [address], 10/17/2024 23:58:00 10/18/19 25 10/17/2024 [UNIT Y] ANEUP LOIDY NIPT monosomy X LOW RISK <1 in 10,000 normal Not Available [facility] [address], [place], [address], 10/17/2024 23:58:00 10/18/19 25 10/17/2024 [UNIT Y] ANEUP LOIDY NIPT trisomy 13 LOW RISK <1 in 10,000 normal Not Available [facility] [address], [place], [address], 10/17/2024 23:58:00 10/18/19 25 10/17/2024 [UNIT Y] ANEUP LOIDY NIPT trisomy 18 LOW RISK <1 in 10,000 normal Not Available [facility] [address], [place], [address], 10/17/2024 23:58:00 10/18/19 25 10/17/2024 [UNIT Y] ANEUP LOIDY NIPT trisomy 21 LOW RISK <1 in 10,000 normal Not Available [facility] [address], [place], [address], 10/17/2024 23:58:00 10/18/19 25 10/17/2024 [UNIT Y] ANEUP LOIDY NIPT sex MALE normal Not Available [facility] [address], [place], [address], 10/17/2024 23:58:00 10/18/19 25 10/17/2024 [UNIT Y] ANEUP LOIDY NIPT gestation SINGLE TON normal Not Available [facility] [address], [place], [address], 10/17/2024 23:58:00 10/18/19 25 10/17/2024 [UNIT Y] ANEUP LOIDY NIPT for detailed report, see pdf See PDF normal Not Available [facility] [address], [place], [address], 10/17/2024 23:58:00 10/22/19 25 10/21/2024 [UNIT Y] MIKE Galvez sickle cell disease/beta -thalassemia /hemoglobino pathies carrier screen NEGATI VE normal Not Available [facility] [address], [place], [address], 10/21/2024 17:38:31 10/22/19 25 10/21/2024 [UNIT Y] MIKE Galvez alpha-thalas semia carrier screen NEGATI VE normal Not Available [facility] [address], [place], [address], 10/21/2024 17:38:31 10/22/19 25 10/21/2024 [UNIT Y] MIKE Galvez cystic fibrosis carrier screen NEGATI VE normal Not Available [facility] [address], [place], [address], 10/21/2024 17:38:31 10/22/19 25 10/21/2024 [UNIT Y] MIKE Galvez spinal muscular atrophy carrier screen NEGATI VE 2 SMN1 copies , SNP not presen t normal Not Available [facility] [address] [place], [address], 10/21/2024 17:38:31 10/22/19 25 10/21/2024 [UNIT Y] MIKE MACIAS Leonor for detailed report, see pdf See PDF normal Not Available [facility] [address], [place], [address], 10/21/2024 17:38:31 10/12/19 25 10/11/2024 CBC W/DIF F WBC 7.0 10'3/ uL 3.5-10 .5 Not Available [facility] (Lab) [address] [facility], [place], [address], 10/12/2024 13:07:49 10/12/19 25 10/11/2024 CBC W/DIF F RBC 3.94 10'6/ uL (based on docume nted legal sex) 3.80-5 .20 Not Available [facility] (Lab) [address], [place], [address], 10/12/2024 13:07:49 10/12/19 25 10/11/2024 CBC W/DIF F HGB 12.1 g/dL (based on docume nted legal sex) 11.6-1 5.4 Not Available [facility] (Lab) [address], [place], [address], 10/12/2024 13:07:49 10/12/19 25 10/11/2024 CBC W/DIF F HCT 36.3 % (based on docume nted legal sex) 34.0-4 5.0 Not Available [facility] (Lab) [address] , [place], [address], 10/12/2024 13:07:49 10/12/19 25 10/11/2024 CBC W/DIF F MCV 92.1 fL 80.0-9 9.0 Not Available [facility] (Lab) [address], [place], [address], 10/12/2024 13:07:49 10/12/19 25 10/11/2024 CBC W/DIF F MCH 30.7 pg 27.0-3 4.0 Not Available [facility] (Lab) [address], [place], [address], 10/12/2024 13:07:49 10/12/19 25 10/11/2024 CBC W/DIF F MCHC 33.3 g/dL 32.0-3 5.5 Not Available [facility] (Lab) [address], [place], [address], 10/12/2024 13:07:49 10/12/19 25 10/11/2024 CBC W/DIF F RDW 12.4 % 11.0-1 5.0 Not Available [facility] (Lab) [address], [place], [address], 10/12/2024 13:07:49 10/12/19 25 10/11/2024 CBC W/DIF F plt 278 10'3/ uL 150-40 0 Not Available [facility] (Lab) [address] [facility], [place], [address], 10/12/2024 13:07:49 10/12/19 25 10/11/2024 CBC W/DIF F MPV 11.7 fL 8.8-12 .1 Not Available [facility] (Lab) [address], [place], [address], 10/12/2024 13:07:49 10/12/19 25 10/11/2024 CBC W/DIF F NRBC's 0.0 % 0.0 Not Available [facility] (Lab) [address], [place], [address], 10/12/2024 13:07:49 10/12/19 25 10/11/2024 CBC W/DIF F absolute NRBCs 0.0 10'3/ uL no refere nce range establ ished Not Available [facility] (Lab) [address], [place], [address], 10/12/2024 13:07:49 10/12/19 25 10/11/2024 CBC W/DIF F neutrophils 71.6 % 34.0-7 3.0 Not Available [facility] (Lab) [address] [facility], [place], [address], 10/12/2024 13:07:49 10/12/19 25 10/11/2024 CBC W/DIF F lymphocytes 22.8 % 15.0-5 0.0 Not Available [facility] (Lab) [address] [facility], [place], [address], 10/12/2024 13:07:49 10/12/19 25 10/11/2024 CBC W/DIF F monocytes 4.7 % 1.0-15 .0 Not Available [facility] (Lab) [address] [place], [address], 10/12/2024 13:07:49 10/12/19 25 10/11/2024 CBC W/DIF F eosinophils 0.3 % 0.0-8. 0 Not Available [facility] (Lab) [address] [facility], [place], [address], 10/12/2024 13:07:49 10/12/19 25 10/11/2024 CBC W/DIF F basophils 0.3 % 0.0-2. 0 Not Available [facility] (Lab) [address] [facility], [place], [address], 10/12/2024 13:07:49 10/12/19 25 10/11/2024 CBC W/DIF [...] separ ately if prese nt. Not Available [facility] (Lab) [address] [facility], [place], [address], 10/12/2024 13:07:49 10/12/19 25 10/11/2024 CBC W/DIF F absolute neutrophils 5.0 10'3/ uL 1.5-8. 0 Not Available [facility] (Lab) [address] [facility], [place], [address], 10/12/2024 13:07:49 10/12/19 25 10/11/2024 CBC W/DIF F absolute lymphocytes 1.6 10'3/ uL 1.0-4. 0 Not Available [facility] (Lab) [address] [facility], [place], [address], 10/12/2024 13:07:49 10/12/19 25 10/11/2024 CBC W/DIF F absolute monocytes 0.3 10'3/ uL 0.2-1. 0 Not Available [facility] (Lab) [address] [facility], [place], [address], 10/12/2024 13:07:49 10/12/19 25 10/11/2024 CBC W/DIF F absolute eosinophils 0.0 10'3/ uL 0.0-0. 6 Not Available [facility] (Lab) [address] [facility], [place], [address], 10/12/2024 13:07:49 10/12/19 25 10/11/2024 CBC W/DIF F absolute basophils 0.0 10'3/ uL 0.0-0. 3 Not Available [facility] (Lab) [address] [facility], [place], [address], 10/12/2024 13:07:49 10/12/19 25 10/11/2024 CBC W/DIF F absolute immature granulocytes 0.0 10'3/ uL 0.00-0 .10 Refer ence range s for nonbi nary/ inter sex or unspe cifie d gende r patie nts have not been estab lishe d. Pleas e [facility] for range s estab lishe d for cisge nder patie nts and evalu ate in the clini robinson leonard xt of the indiv idual patie nt: https ://la yesenia book. nm.or g/gen derx Not Available [facility] (Lab) [address], [place], [address], 10/12/2024 13:07:49 10/12/19 25 10/11/2024 HIV 1/2 ANTIG EN/AN TIBOD Y, REFLE X CONFI RMATI ON HIV antigen/anti body Nonrea ctive nonrea ctive HIV-1 antig en and HIV-1 /HIV- 2 antib odies were not detec nishant. No labor atory evide nce of HIV infec tion. Not Available [facility] (Lab) [address], [place], [address], 10/12/2024 13:07:50 10/12/19 25 10/11/2024 HEPAT ITIS B SURFA CE ANTIG EN hepatitis B surface antigen Non-re active non-re active This assay was perfo rmed using [employer] ratio n reage nts and test kits. Value s obtai francois with other assay metho ds or kits canno t be used inter serna eably . Not Available [facility] (Lab) [address], [place], [address], 10/12/2024 13:07:50 10/12/19 25 10/11/2024 HEPAT ITIS C ANTIB KERI SCREE N, REFLE X TO CONFI RMATI ON hepatitis C antibody Non-re active non-re active Antib odies to HCV Not Detec nishant, does not exclu de the possi bilit y of expos ure to HCV. Not Available [facility] (Lab) [address], [place], [address], 10/12/2024 13:07:51 10/12/19 25 10/11/2024 RUBEL LA IGG ANTIB KERI, QUANT rubella antibodies, IgG Reacti ve reacti ve Not Available [facility] (Lab) [address] [place], [address], 10/12/2024 13:07:51 10/12/19 25 10/11/2024 RUBEL LA IGG ANTIB KERI, QUANT rubella antibodies, IgG quant 18.4 IU/mL >=10 Non-r eacti ve (Non- Immun e) <10 IU/mL React filippo (Immu ne) > or = 10 IU/mL Not Available [facility] (Lab) [address] [facility], [place], [address], 10/12/2024 13:07:51 10/12/19 25 10/11/2024 TYPE/ RH/SC REEN ABO/Rh type O POS Not Available [facility] (Lab) [address] [facility], [place], [address], 10/12/2024 13:07:51 10/12/19 25 10/11/2024 TYPE/ RH/SC REEN antibody screen NEG Not Available [facility] (Lab) [address] [facility], [place], [address], 10/12/2024 13:07:51 10/12/19 25 10/11/2024 TYPE/ RH/SC REEN exp date 2024 23:59 Not Available [facility] (Lab) [address] [facility], [place], [address], 10/12/2024 13:07:51 10/12/19 25 10/11/2024 HEMOG LOBIN [...] >8.0% Actio n sugge sted Not Available [facility] (Lab) [address] [facility], [place], [address], 10/12/2024 13:07:52 10/12/19 25 10/11/2024 RPR SCREE N, REFLE X TITER /CONF IRMAT ION RPR qualitative Nonrea ctive nonrea ctive Not Available [facility] (Lab) [address] [facility], [place], [address], 10/12/2024 13:07:53 10/12/19 25 10/11/2024 CULTU RE: URINE result report SEE RESULT S BELOW Test: Cultu re: Urine Speci men Sourc e: Urine Voide d Speci men Type: Urine Speci men Date: 2024 1251 Resul t Date: 20246 Resul t Statu s: Final resul t Abnor mal: No Resul ting Lab: [facility] [address] [facility] [address] Tel: CULTU RE ----- ----- ----- --- No growt h in 1 day (dete ction level of 10,00 0 colon ies / ml.) Not Available [facility] (Lab) [address] [facility], [place], [address], 10/12/2024 22:51:14 10/12/19 25 10/11/2024 drug scree n, urine Amphetamines : negati ve Not Available [facility] [address], [place], [address], 10/11/2024 12:03:44 10/12/19 25 10/11/2024 drug scree n, urine Cannabinoids : negati ve Not Available [facility] [address], [place], [address], 10/11/2024 12:03:44 10/12/19 25 10/11/2024 drug scree n, urine Cocaine: negati ve Not Available [facility] [address], [place], [address], 10/11/2024 12:03:44 10/12/19 25 10/11/2024 drug scree n, urine Opiates: negati ve Not Available [facility] [address], [place], [address], 10/11/2024 12:03:44 10/12/19 25 10/11/2024 drug scree n, urine Phenocyclidi ne: negati ve Not Available [facility] [address], [place], [address], 10/11/2024 12:03:44 10/12/19 25 10/11/2024 drug scree n, urine Barbiturates : negati ve Not Available [facility] [address], [place], [address], 10/11/2024 12:03:44 10/12/19 25 10/11/2024 drug scree n, urine Benzodiazepi aaron: negati ve Not Available [facility] [address], [place], [address], 10/11/2024 12:03:44 10/12/19 25 10/11/2024 drug scree n, urine Ethanol: negati ve Not Available [facility] [address], [place], [address], 10/11/2024 12:03:44 10/12/19 25 10/11/2024 drug scree n, urine Hallucinogen s: negati ve Not Available [facility] [address], [place], [address], 10/11/2024 12:03:44 10/12/19 25 10/11/2024 drug scree n, urine Inhalants: negati ve Not Available [facility] [address], [place], [address], 10/11/2024 12:03:44 12/03/19 25 12/02/2024 CMP(C OMPRE HENSI VE METAB OLIC PANEL ) sodium 136 mmol/ L 133-14 6 Not Available [facility] (Lab) [address] [facility], [place], [address], 12/08/2024 16:08:48 12/03/19 25 12/02/2024 CMP(C OMPRE HENSI VE METAB OLIC PANEL ) potassium 4.4 mmol/ L 3.5-5. 1 Not Available [facility] (Lab) [address] [facility], [place], [address], 12/08/2024 16:08:48 12/03/19 25 12/02/2024 CMP(C OMPRE HENSI VE METAB OLIC PANEL ) chloride 107 mmol/ L 98-107 Not Available [facility] (Lab) [address] [facility], [place], [address], 12/08/2024 16:08:48 12/03/19 25 12/02/2024 CMP(C OMPRE HENSI VE METAB OLIC PANEL ) carbon dioxide 19 mmol/ L 21-31 low Not Available [facility] (Lab) [address] [facility], [place], [address], 12/08/2024 16:08:48 12/03/19 25 12/02/2024 CMP(C OMPRE HENSI VE METAB OLIC PANEL ) anion gap 10 mmol/ L 4-13 Not Available [facility] (Lab) [address] [facility], [place], [address], 12/08/2024 16:08:48 12/03/19 25 12/02/2024 CMP(C OMPRE HENSI VE METAB OLIC PANEL ) blood urea nitrogen 7 mg/dL 7-25 Not Available [facility] (Lab) [address] [facility], [place], [address], 12/08/2024 16:08:48 12/03/19 25 12/02/2024 CMP(C OMPRE HENSI VE METAB OLIC PANEL ) creatinine 0.48 mg/dL 0.60-1 .30 low Not Available [facility] (Lab) [address] [facility], [place], [address], 12/08/2024 16:08:48 12/03/1912/02/2024 CMP(C OMPRE HENSI VE METAB OLIC PANEL ) egfrcr (CKD-epi 2020) >90 mL/mi n/1.7 3_m2 >=60 Not Available [facility] (Lab) [address] [facility], [place], [address], 12/08/2024 16:08:48 12/03/1912/02/2024 CMP(C OMPRE HENSI VE METAB OLIC PANEL ) calcium 8.5 mg/dL 8.3-10 .5 Not Available [facility] (Lab) [address] [facility], [place], [address], 12/08/2024 16:08:48 12/03/1912/02/2024 CMP(C OMPRE HENSI VE METAB OLIC PANEL ) glucose 74 mg/dL 70-100 Not Available [facility] (Lab) [address] [facility], [place], [address], 12/08/2024 16:08:48 12/03/1912/02/2024 CMP(C OMPRE HENSI VE METAB OLIC PANEL ) protein, total 6.3 g/dL 6.4-8. 3 low Not Available [facility] (Lab) [address] [facility], [place], [address], 12/08/2024 16:08:48 12/03/1912/02/2024 CMP(C OMPRE HENSI VE METAB OLIC PANEL ) albumin 3.5 g/dL 3.5-5. 0 Not Available [facility] (Lab) [address] [facility], [place], [address], 12/08/2024 16:08:48 12/03/19 25 12/02/2024 CMP(C OMPRE HENSI VE METAB OLIC PANEL ) ALT 8 units /L 9-43 low Not Available [facility] (Lab) [address] [facility], [place], [address], 12/08/2024 16:08:48 12/03/19 25 12/02/2024 CMP(C OMPRE HENSI VE METAB OLIC PANEL ) alkaline phosphatase 57 units /L 34-104 Not Available [facility] (Lab) [address] [facility], [place], [address], 12/08/2024 16:08:48 12/03/19 25 12/02/2024 CMP(C OMPRE HENSI VE METAB OLIC PANEL ) AST 17 units /L 13-39 Not Available [facility] (Lab) [address] [facility], [place], [address], 12/08/2024 16:08:48 12/03/19 25 12/02/2024 CMP(C OMPRE HENSI VE METAB OLIC PANEL ) bilirubin, total 0.4 mg/dL 0.2-1. 2 Not Available [facility] (Lab) [address] [facility], [place], [address], 12/08/2024 16:08:48 12/03/19 25 12/02/2024 FABIOLA TIN / IRON / TRANS FABIOLA N / TIBC iron 83 ug/dL 40-170 Not Available [facility] (Lab) [address] [place], [address], 12/08/2024 16:08:49 12/03/19 25 12/02/2024 FABIOLA TIN / IRON / TRANS FABIOLA N / TIBC transferrin 305 mg/dL 200-36 0 Not Available [facility] (Lab) [address] [place], [address], 12/08/2024 16:08:49 12/03/19 25 12/02/2024 FABIOLA TIN / IRON / TRANS FABIOLA N / TIBC ferritin 82.3 NG/mL 8.0-25 2.0 Not Available [facility] (Lab) [address] [facility], [place], [address], 12/08/2024 16:08:49 12/03/1912/02/2024 FABIOLA TIN / IRON / TRANS FABIOLA N / TIBC TIBC 427 ug/dL 250-45 0 Not Available [facility] (Lab) [address] [facility], [place], [address], 12/08/2024 16:08:49 12/03/1912/02/2024 FABIOLA TIN / IRON / TRANS FABIOLA N / TIBC iron saturation 19 % 20-55 low Not Available [facility] (Lab) [address] [facility], [place], [address], 12/08/2024 16:08:49 12/03/1912/02/2024 VITAM IN B12 / FOLAT E PANEL vitamin B12 202 pg/mL 180-91 4 Pooja l Range : 180-9 14 pg/mL . Indet ermin ate Range : 145-1 80 pg/mL . Defic ient Range : <=145 pg/mL . Not Available [facility] (Lab) [address] [facility], [place], [address], 12/08/2024 16:08:49 12/03/1912/02/2024 VITAM IN B12 / FOLAT E PANEL folate, serum >20.0 NG/mL 6.0-20 .0 high Not Available [facility] (Lab) [address] [place], [address], 12/08/2024 16:08:49 12/03/19 25 12/02/2024 VITAM IN D, 25-OH (TOTA L D2/D3 ) vitamin D, 25-hydroxy, total 28.2 NG/mL 30.0-1 00.0 low Sugge stive of Defic iency : <20 ng/mL Sugge stive of Insuf ficie ncy: 20-29 ng/mL Sugge stive of Suffi cienc y: 30-10 0 ng/mL Sugge stive of Toxic ity: >150 ng/mL Not Available [facility] (Lab) [address] [facility], [place], [address], 12/08/2024 16:08:49 12/03/19 25 12/02/2024 LEAD, BLOOD (ADUL T/PED IATRI C) lead, whole blood <1.0 mcg/d L <3.5 See Note 1 Linda sis was perfo rmed by Gertrude Holloway ed Plasm a Mass Spect romet ry (ICPM S) Note 1 This test was devel oped and its linda tical perfo rmanc e che cteri stics have been deter mined by [employer]. It has not been clear ed or appro doug by the FDA. This assay has been valid ated pursu ant to the CLIA regul ation s and is used for clini robinson purpo ses. Perfo rming Organ izati on Infor matmery n: Site ID: [id number] Name: [employer]stic [employer]-Jared Lowry Addre ss: [id number] [place] [address] Dire tor: Bhaskar Doll s Not Available [facility] (Lab) [address] [facility], [place], [address], 12/08/2024 16:08:50 12/03/1912/02/2024 VITAM IN A (RETI [...] stics have been deter mined by [facility]. It has not been clear ed or appro doug by the FDA. This assay has been valid ated pursu ant to the CLIA regul ation s and is used for clini robinson purpo ses. MDF med fusio n [address] [facility] [address] [facility] [address] [phone] Victorina Johnson MD, PhD Perfo rming Organ izati on Infor naresh n: Site ID: [id number] Name: Park mariee- Park mariee Addre ss: [address] [facility] [address] [place] [address] Direc tor: Victorina Johnson MD,Ph D Not Available [facility] (Lab) [address] [facility], [place], [address], 12/08/2024 16:08:50 02/04/20 25 02/03/2025 HEMAT OCRIT (HCT) HCT 31.1 % (based on docume nted legal sex) 34.0-4 5.0 low Not Available [facility] (Lab) [address] [facility], [place], [address], 02/06/2025 17:22:48 02/04/20 25 02/03/2025 HEMOG LOBIN (HGB) HGB 10.0 g/dL (based on docume nted legal sex) 11.6-1 5.4 low Not Available [facility] (Lab) [address] [facility], [place], [address], 02/06/2025 17:22:48 02/04/20 25 02/03/2025 HIV 1/2 ANTIG EN/AN TIBOD Y, REFLE X CONFI RMATI ON HIV antigen/anti body Nonrea ctive nonrea ctive HIV-1 antig en and HIV-1 /HIV- 2 antib odies were not detec nishant. No labor atory evide nce of HIV infec tion. Not Available [facility] (Lab) [address] [facility], [place], [address], 02/06/2025 17:22:48 02/04/20 25 02/03/2025 RPR SCREE N, REFLE X TITER /CONF IRMAT ION RPR qualitative Nonrea ctive nonrea ctive Not Available [facility] (Lab) [address] [facility], [place], [address], 02/06/2025 17:22:49 02/04/20 25 02/03/2025 LEAD, BLOOD (ADUL T/PED IATRI C) lead, whole blood <1.0 mcg/d L <3.5 See Note 1 Linda sis was perfo rmed by Gertrude Holloway ed Plasm a Mass Spect romet ry (ICPM S) Note 1 This test was devel oped and its linda tical perfo rmanc e che cteri stics have been deter mined by [employer]. It has not been clear ed or appro doug by the FDA. This assay has been valid ated pursu ant to the CLIA regul ation s and is used for clini robinson purpo ses. Perfo rming Organ izati on Infor matio n: Site ID: [id number] Name: [employer]-Coleman yazan Alen Addre ss: [id number] [place] [address] Direc tor: Bhaskar Doll s Not Available [facility] (Lab) [address] [facility], [place], [address], 02/06/2025 17:22:49 10/12/19 25 10/11/2024 US, obste tric, nucha l trans lucen cy No observ ation record ed. [email or web address] [facility] [address] [facility] [address], [place], [address], 10/11/2024 13:10:00 10/12/19 25 10/11/2024 , evgeny tric, 1st trime ster No observ ation record ed. [email or web address] [facility] [address], [place], [address], 10/11/2024 13:10:09 10/12/19 25 10/11/2024 US, obste tric, nucha l trans lucen cy No observ ation record ed. [email or web address] [place] [address] [address], [place], [address], 10/14/2024 09:45:42 08/27/11/16/2024 imagi ng/di agnos tic resul t No observ ation record ed. [facility] [address], [address], 2024 21:39:44 11/19/19 25 11/16/2024 imagi ng/di agnos tic resul t No observ ation record ed. [facility] [address], [id number], 2024 21:39:44 12/17/19 25 12/16/2024 US, obste tric, follo w-up No observ ation record ed. [facility] [address], [address], 12/23/2024 13:18:27 12/17/19 25 12/16/2024 US, obste tric, follo w-up No observ ation record ed. [email or web address] [facility] [address], [address], 12/20/2024 09:13:00 01/14/20 25 01/13/2025 US, obste tric, follo w-up No observ ation record ed. [email or web address] [facility] [address], [address], 01/17/2025 11:47:51 01/14/20 25 01/13/2025 US, obste tric, follo w-up No observ ation record ed. [email or web address] [facility] [address], [address], 01/17/2025 16:04:16 01/27/20 25 01/26/2025 US, obste tric, follo w-up No observ ation record ed. [email or web address] [address], [place], [address], 01/26/2025 15:11:31 01/27/20 25 01/26/2025 US, obste tric, follo w-up No observ ation record ed. NORI Haro [address], [place], [address], 01/29/2025 15:19:23 Result Notes None recorded. Problems Name Problem SNOMED Code Status Onset Date Resolution Date Notes Provider Name and Address Organization Details Recorded Time Pregnanc y 71615750 Active 2024 Freida Morales null, [facility] 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 11:26:50 Past pregnanc y history of section 015142565 Active 2024 G2 under GETA, umbilical cord prolapse desires RCS TRUONG MCGOWAN MD [address], [place], [address], [facility] 11:24:36 Migraine 54971672 Active 2024 Eduar Gautam MD [address], [place], [address], [facility] 10:20:53 Problem Notes None recorded. Procedures Surgical History Date Name Laterality Status Provider Name and Address Organization Details Recorded Time 09/15/19 Date of Last Pap Smear completed [facility] 09/14/2024 10:20:33 05/11/19 Bariatric Surgery completed Elizabeth Hatfield [facility] 09/14/2024 10:10:08 03/23/19 Appendectomy completed [facility] 09/14/2024 10:26:43 07/28/19 18 Caesarean Section completed [facility] 09/14/2024 10:10:08 03/23/19 09 Cholecystectomy [facility] 09/14/2024 10:26:22 03/23/19 00 Tonsillectomy completed [facility] 09/14/2024 10:26:04 Imaging Results None recorded. Procedure Notes None recorded. Medical Equipment None Reported. Allergies Allergen ID Allergen Name Allergen Category Reaction Reaction Severity Criticality Documentation Date Start Date Code Code System Note Provider Name and Address Organization Details Recorded Time 11631 iodine medicatio n palpitati ons severe Not available 09/14/2024 5933 RxNorm [facility] 5 10:09:38 08745 Augmentin medicatio n hives moderate Not available 09/14/2024 74639 2 RxNorm [facility] 10:09:38 51872 clavulani c acid Not available vomiting Not available high 02/03/20252021 97942 RxNorm Not Available [employer] - External Data Service - prod 09:16:51 07917 amoxicill in / clavulana te medicatio n hives rash Not available Not available high 02/03/20252023 92649 RxNorm VOMIT ING Not Available [employer] External Data Service - prod 09:16:55 Medications Name [...] 4 times a day by oral route. 10/195 completed Not Available Not Available Not Available [...] Available Not Avai lable Not Available Vitals Date Recorded Body height Body mass index (BMI) Body weight Systolic And Diastolic Provider Name and Address Organization Details Last Updated DateTime 02/14/2025 154.94 cm 32.5 kg/m2 74535.89 g 108/72 mm[Hg] Cristina Tubbs [facility] 02/14/2025 10:38:32 Social History Question Answer Notes LastModified by [...] Or The Highest Degree You Have Received? [id number] Information not available 09/14/2024 Are There Any [...] Functional Status Question Answer Note LastModified by [employer] ion Details LastModified Time Do you use [...] anxious, or unable to sleep at night)? [id number] Information not available 09/14/2024 Family History Relationship Description Onset Age of this Age Resolved Age Notes LastModified by Organization Details LastModified Time Sister Diabetes mellitus Not available 2024 10:09:43 Father Heart disease Not available 2024 10:25:23 Father Malignant neoplasm of colon Not available 2024 10:25:38 Medical History Condition Response Polyps Y Asthma Y GI Problems Y Gynecological History Statement/Question Response Abnormal Pap [...] ICD10 Code Diagnosis IMO Codes Diagnosis Note [id number] TRUONG MCGOWAN MD [facility] [address] [address] 01/26/2025 11:47:35 01/26/2025 13:17:13 History of sleeve gastrectomy 0934798565 47948 Z90.3 O99.891 Z3A.28 4438661061 - partial sleeve gastrectom y 04/2024- baseline labs ordered 10/11- plan for serial growth [place] [id number] TRUONG MCGOWAN MD [facility] [address] [address] 02/03/2025 09:16:35 02/03/2025 10:15:39 Past history of section 607084919 Z98.891 597839 - PLTCS under GETA for cord prolapse- desires RCS History of sleeve gastrectomy 7623381959 40872 Z90.3 9555472274 - partial sleeve gastrectom y 04/2024- baseline labs with mild vitamin A and vitamin D deficiency 10/11- plan for serial growth US q4 weeks Gestation period, 29 weeks 80054689 Z3A.29 5297049 - continue PNV [id number] TRUONG MCGOWAN MD [facility] [address] [address] 02/14/2025 10:26:25 02/14/2025 10:54:43 Past history of section 400485144 Z98.891 039099 - PLTCS under GETA for cord prolapse- desires RCS History of sleeve gastrectomy 7360262481 61329 Z90.3 2974939356 - partial sleeve gastrectom y 04/2024- baseline labs with mild vitamin A and vitamin D deficiency 10/11- plan for serial growth US q4 weeks Gestation period, 31 weeks 51970693 Z3A.31 1107290 - continue PNV Health Concerns Section Related Observation LastModified by Organization Detai ls LastModified Time None Recorded Concern Status LastModified by Organization Details LastModified Time None Recorded Payers Encounter Date Sequence Insurance Name Policy Number Policy Paez Covered Member ID Paez Member ID Guarantor Name 02/14/2025 1 [facility] (MEDICAID HMO) [id number] Radha Sheppard [id number] Radha Sheppard Notes Date Note Type Note Provider Name and Address Organization Details Recorded Time 02/14/2025 text/html Generic HPI TemplateReported by Patient TRUONG MCGOWAN MD [address], [place], [address], [facility] 02/14/2025 10:54:19 OBGyn Episode Ob Episode Information Episode Created Date Number of Fetuses Patient Bloodtype Patient rh Status Prepregnancy Weight lbs Domestic Partner Domestic Partner Phone Father Name [employer] Status 10/12/19 25 1 O Positive 165 [address] l Harley OPEN Fetus Data First Name Last Name Admitted to NICU Weight (g) Sex Living Outcome Pediatric Complications Fetus ID Race Codes Race Delivery Type [id number] Problems Problem Notes Scheduled 11/16 1:00PM Level II US & office visit scheduled [facility] 01/13 0730 us only Problem Name Start Date End Date Resolution Snomed Code Not e Migraine 12/02/2024 51149823 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 314378370511520 - partial sl eeve gastrectomy 04/2024- baseline vitamin labs ordered at 12 weeks- serial growth US Past history of section 10/11/2024 847180542 G2 under GE TA, umbilical cord prolapsedesires [facility] Mario Calculation Initial Mario Date Initial Exam Date Initial Exam Provider Initial Ultrasound Date Last Menstrual Period Date Ultra Sound Weeks Gestation 04/17/2025 10/11/2024 09/14/2024 07/11/2024 9 Eighteen To Twenty Week Mario Update Ultra Sound Date Fundal Height At Umbil Quickening Date Ultra Sound Latest Weeks Gestation Final Mario Confirmed By Final Amrio Confirmed Date Final Mario Date Ultra Sound Latest Days Gestation 11/17/19 25 18 [email or web address] 10/11/2024 04/17/19 26 2 Pre-kaykay Flowsheet Flowsheet Date 10/11/2024 Espinoza Score Blood Edema Fundus Height Fundus Units Glucose Ketones Leukocytes Nitrite Labor Signs Protein Cervic Dilation Cervic Effacement Cervic Station Type Weight in lbs Pre/Post Dialysis Refused Weight 163.496019757408 BP Diastolic BP Location Tested BP Systolic BP Type 74 L arm 115 sitting Fetus Heart Rate Present Fetus Movement Comments Patient presents to [facility]. Headaches still worsening, will send reglan [...] Weight in lbs Pre/Post Dialysis Refused Weight 161.646262112902 BP Diastolic BP Location Tested BP Systolic BP Type 74 L arm 116 sitting Fetus Heart Rate Present Fetus Movement A Yes Comments Still having some nausea. Mi graines not improved with tylenol, reglan, and sumatriptan. Will send MFM referral. LR male NIPT! All other OB labs wnl. Anatomy US next visit. RTC 4 weeks. Flowsheet Date 12/02/2024 Espinoza Score Blood Edema Fundus Height Fundus Units Glucose Ketones Leukocytes Nitrite Labor Signs Protein Cervic Dilation Cervic Effacement Cervic Station Type Weight in lbs Pre/Post Dialysis Refused 167.550411474328 BP Diastolic BP Location Tested BP Systolic [...] if she is still suffering. Seen at [facility]. Flowsheet Date 12/30/2024 Espinoza Score Blood Edema Fundus Height Fundus Units Glucose Ketones Leukocytes Nitrite Labor Signs Protein Cervic Dilation Cervic Effacement Cervic Station Type Weight in lbs Pre/Post Dialysis Refused 168.942128850127 BP Diastolic BP Location Tested BP Systolic [...] Type Weight in lbs Pre/Post Dialysis Refused 170.564265024513 BP Diastolic BP Location Tested BP Systolic [...] Weight in lbs Pre/Post Dialysis Refused Weight 172.349685223152 BP Diastolic BP Location Tested BP Systolic [...]
--- OUTSIDE RECORDS SUMMARY | 2025-02-17 19:56 | XMS_ITS | Data Portability ---
Author Organization [facility] Address [address] [place] [address] Assessment Encounter Date Assessment Date Assessment LastModified by Organization Details LastModified Time 12/02/2024 12/02/2024 Patient is ___weeks . Discussed plan. Not available 12/02/2024 10:03:37 12/30/2024 12/30/2024 Patient is ___weeks . Discussed plan. Not available 12/30/2024 15:30:45 Plan of Treatment Reminders Order Date Submit Date Provider Last Modified By Organization Details Last Modified Time Details Appointments U/S OB GROWTH 2024 03:30P M ULTRASOUND Not available Not available Not available OB ROUTINE 2024 03:45P Harriett MCGOWAN MD Not available Not available Not available U/S OB GROWTH 2024 11:30A M ULTRASOUND Not available Not available Not available OB ROUTINE 2024 01:00P Harriett MCGOWAN MD Not available Not available Not available SURG CSectio n 2025 07:30A Harriett MCGOWAN MD Not available Not available Not available SURG POST OP 2025 01:00P Harriett MCGOWAN MD Not available Not available Not available Lab None recorde d. Referral None recorde d. Procedures None recorde d. Surgeries cesarea n section (SURG) 2024 026 [email or web address] [facility], [address] [address], [place], [address], 02/14/2025 12:10:15 Imaging US, obstetr ic, follow- up 2024 025 [email or web address] , [address], [place], [address], 01/26/2025 15:12:32 Medication Orders zolmitr iptan 2.5 mg disinte grating tablet 2024 025 [id number], [address], [place], [place], [id number], 12/02/2024 10:26:46 Patient TargetsNo targets recorded. Patient InstructionsNo instructions recorded. Reason for Referral None Reported. Results Created Date Observation Date Name Description Value Unit Range Abnormal Flag Note LastModifiedBy Organization Detail LastModifiedTime 12/03/1912/02/2024 CMP(C OMPRE HENSI VE METAB OLIC PANEL ) sodium 136 mmol/ L 133-14 6 Not Available [facility] (Lab) [address], [place], [address], 12/08/2024 16:08:48 12/03/19 25 12/02/2024 CMP(C OMPRE HENSI VE METAB OLIC PANEL ) potassium 4.4 mmol/ L 3.5-5. 1 Not Available [facility] (Lab) [address], [place], [address], 12/08/2024 16:08:48 12/03/19 25 12/02/2024 CMP(C OMPRE HENSI VE METAB OLIC PANEL ) chloride 107 mmol/ L 98-107 Not Available [facility] (Lab) [address], [place], [address], 12/08/2024 16:08:48 12/03/19 25 12/02/2024 CMP(C OMPRE HENSI VE METAB OLIC PANEL ) carbon dioxide 19 mmol/ L 21-31 low Not Available [facility] (Lab) [address] [place], [address], 12/08/2024 16:08:48 12/03/19 25 12/02/2024 CMP(C OMPRE HENSI VE METAB OLIC PANEL ) anion gap 10 mmol/ L 4-13 Not Available [facility] (Lab) [address], [place], [address], 12/08/2024 16:08:48 12/03/19 25 12/02/2024 CMP(C OMPRE HENSI VE METAB OLIC PANEL ) blood urea nitrogen 7 mg/dL 7-25 Not Available [facility] (Lab) [address], [place], [address], 12/08/2024 16:08:48 12/03/19 25 12/02/2024 CMP(C OMPRE HENSI VE METAB OLIC PANEL ) creatinine 0.48 mg/dL 0.60-1 .30 low Not Available [facility] (Lab) [address], [place], [address], 12/08/2024 16:08:48 12/03/19 25 12/02/2024 CMP(C OMPRE HENSI VE METAB OLIC PANEL ) egfrcr (CKD-epi 2020) >90 mL/mi n/1.7 3_m2 >=60 Not Available [facility] (Lab) [address], [place], [address], 12/08/2024 16:08:48 12/03/19 25 12/02/2024 CMP(C OMPRE HENSI VE METAB OLIC PANEL ) calcium 8.5 mg/dL 8.3-10 .5 Not Available [facility] (Lab) [address], [place], [address], 12/08/2024 16:08:48 12/03/19 25 12/02/2024 CMP(C OMPRE HENSI VE METAB OLIC PANEL ) glucose 74 mg/dL 70-100 Not Available [facility] (Lab) [address] [place], [address], 12/08/2024 16:08:48 12/03/19 25 12/02/2024 CMP(C OMPRE HENSI VE METAB OLIC PANEL ) protein, total 6.3 g/dL 6.4-8. 3 low Not Available [facility] (Lab) [address], [place], [address], 12/08/2024 16:08:48 12/03/19 25 12/02/2024 CMP(C OMPRE HENSI VE METAB OLIC PANEL ) albumin 3.5 g/dL 3.5-5. 0 Not Available [facility] (Lab) [address], [place], [address], 12/08/2024 16:08:48 12/03/19 25 12/02/2024 CMP(C OMPRE HENSI VE METAB OLIC PANEL ) ALT 8 units /L 9-43 low Not Available [facility] (Lab) [address], [place], [address], 12/08/2024 16:08:48 12/03/19 25 12/02/2024 CMP(C OMPRE HENSI VE METAB OLIC PANEL ) alkaline phosphatase 57 units /L 34-104 Not Available [facility] (Lab) [address], [place], [address], 12/08/2024 16:08:48 12/03/19 25 12/02/2024 CMP(C OMPRE HENSI VE METAB OLIC PANEL ) AST 17 units /L 13-39 Not Available [facility] (Lab) [address], [place], [address], 12/08/2024 16:08:48 12/03/1912/02/2024 CMP(C OMPRE HENSI VE METAB OLIC PANEL ) bilirubin, total 0.4 mg/dL 0.2-1. 2 Not Available [facility] (Lab) [address], [place], [address], 12/08/2024 16:08:48 12/03/19 25 12/02/2024 FABIOLA TIN / IRON / TRANS FABIOLA N / TIBC iron 83 ug/dL 40-170 Not Available [facility] (Lab) [address], [place], [address], 12/08/2024 16:08:49 12/03/1912/02/2024 FABIOLA TIN / IRON / TRANS FABIOLA N / TIBC transferrin 305 mg/dL 200-36 0 Not Available [facility] (Lab) [address], [place], [address], 12/08/2024 16:08:49 12/03/1912/02/2024 FABIOLA TIN / IRON / TRANS FABIOLA N / TIBC ferritin 82.3 NG/mL 8.0-25 2.0 Not Available [facility] (Lab) [address] [facility] [address], [place], [address], 12/08/2024 16:08:49 12/03/1912/02/2024 FABIOLA TIN / IRON / TRANS FABIOLA N / TIBC TIBC 427 ug/dL 250-45 0 Not Available [facility] (Lab) [address], [place], [address], 12/08/2024 16:08:49 12/03/1912/02/2024 FABIOLA TIN / IRON / TRANS FABIOLA N / TIBC iron saturation 19 % 20-[address] [facility] (Lab) [address], [place], [address], 12/08/2024 16:08:49 12/03/1912/02/2024 VITAM IN B12 / FOLAT E PANEL vitamin B12 202 pg/mL 180-91 4 Pooja l Range : 180-9 14 pg/mL . Indet ermin ate Range : 145-1 80 pg/mL . Defic ient Range : <=145 pg/mL . Not Available [facility] (Lab) [address], [place], [address], 12/08/2024 16:08:49 12/03/19 25 12/02/2024 VITAM IN B12 / FOLAT E PANEL folate, serum >20.0 NG/mL 6.0-20 .0 high Not Available [facility] (Lab) [address], [place], [address], 12/08/2024 16:08:49 12/03/19 25 12/02/2024 VITAM IN D, 25-OH (TOTA L D2/D3 ) vitamin D, 25-hydroxy, total 28.2 NG/mL 30.0-1 00.0 [address] Sugge stive of Defic iency : <20 ng/mL Sugge stive of Insuf ficie ncy: 20-29 ng/mL Sugge stive of Suffi cienc y: 30-10 0 ng/mL Sugge stive of Toxic ity: >150 ng/mL Not Available [facility] (Lab) [address], [place], [address], 12/08/2024 16:08:49 12/03/19 25 12/02/2024 LEAD, BLOOD (ADUL T/PED IATRI C) lead, whole blood <1.0 mcg/d L <3.5 See Note 1 Linda sis was perfo rmed by Gertrude Holloway ed Plasm a Mass Spect romet ry (ICPM S) Note 1 This test was devel oped and its linda tical perfo rmanc e che cteri stics have been deter mined by [employer] [facility]. It has not been clear ed or appro doug by the FDA. This assay has been valid ated pursu ant to the CLIA regul ation s and is used for clini robinson purpo ses. Perfo rming Organ izati on Infor naresh n: Site ID: [id number] Name: [employer] [facility] [facility]-Jared Lowry Addre ss: [address] [place] [address] Direc tor: Bhaskar sears Not Available [facility] (Lab) [address], [place], [address], 12/08/2024 16:08:50 12/03/19 25 12/02/2024 VITAM IN A (RETI NOL) vitamin A 32 mcg/d L 38-98 low (Note ) Cli n Chem Vol. 34.No .8. pp162 5-162 81997 Vitam in suppl ement tristin withi n 24 hours prior to blood draw may affec t the accur acy of [facility]. This test was devel oped and its linda tical perfo rmanc e che cteri stics have been deter mined by [employer] [facility]. It has not been clear ed or appro doug by the FDA. This assay has been valid ated pursu ant to the CLIA regul ation s and is used for clini robinson purpo ses. MDF med fusio n [address] [place] [address] [phone] Victorina Johnson MD, PhD Perfo rming Organ izati on Infor matio n: Site ID: [id number] Name: [employer] jaylene- [facility] jaylene Addre ss: [address] [place] [address] Direc tor: Victorina Johnson MD,Ph D Not Available [facility] (Lab) [address], [place], [address], 12/08/2024 16:08:50 02/04/20 25 02/03/2025 HEMAT OCRIT (HCT) HCT 31.1 % (based on docume nted legal sex) 34.0-4 5.0 low Not Available [facility] (Lab) [address], [place], [address], 02/06/2025 17:22:48 02/04/20 25 02/03/2025 HEMOG LOBIN (HGB) HGB 10.0 g/dL (based on docume nted legal sex) 11.6-1 5.4 low Not Available [facility] (Lab) [address], [place], [address], 02/06/2025 17:22:48 02/04/20 25 02/03/2025 HIV 1/2 ANTIG EN/AN TIBOD Y, REFLE X CONFI RMATI ON HIV antigen/anti body Nonrea ctive nonrea ctive HIV-1 antig en and HIV-1 /HIV- 2 antib odies were not detec nishant. No labor atory evide nce of HIV infec tion. Not Available [facility] (Lab) [address], [place], [address], 02/06/2025 17:22:48 02/04/20 25 02/03/2025 RPR SCREE N, REFLE X TITER /CONF IRMAT ION RPR qualitative Nonrea ctive nonrea ctive Not Available [facility] (Lab) [address] [facility], [place], [address], 02/06/2025 17:22:49 02/04/2002/03/2025 LEAD, BLOOD (ADUL T/PED IATRI C) lead, whole blood <1.0 mcg/d L <3.5 See Note 1 Linda sis was perfo rmed by Gertrude Holloway ed Plasm a Mass Spect romet ry (ICPM S) Note 1 This test was devel oped and its linda tical perfo rmanc e che cteri stics have been deter mined by [employer] [facility]. It has not been clear ed or appro doug by the FDA. This assay has been valid ated pursu ant to the CLIA regul ation s and is used for clini robinson purpo ses. Perfo rming Organ izati on Infor matmery n: Site ID: CB Name: [facility]-Jared Lowry Addre ss: [address] [place] [address] Direc tor: Bhaskar Doll s Not Available [facility] (Lab) [address], [place], [address], 02/06/2025 17:22:49 11/17/1911/16/2024 imagi ng/di agnos tic resul t No observ ation record ed. NORI [facility] [address] [place] [address], [address], 2024 21:39:44 0811/16/2024 imagi ng/di agnos tic resul t No observ ation record ed. NORI [facility] [address] [place] [address], [address], 2024 21:39:44 12/17/19 25 12/16/2024 US, obste tric, follo w-up No observ ation record ed. [email or web address] [facility] [address], [address], 12/23/2024 13:18:27 12/17/19 25 12/16/2024 US, obste tric, follo w-up No observ ation record ed. [email or web address] [facility] [address], [address], 12/20/2024 09:13:00 01/14/20 25 01/13/2025 US, obste tric, follo w-up No observ ation record ed. [email or web address] [facility] [address], [address], 01/17/2025 11:47:51 01/14/2001/13/2025 US, obste tric, follo w-up No observ ation record ed. [email or web address] [facility] [address], [address], 01/17/2025 16:04:16 01/27/20 25 01/26/2025 US, obste tric, follo w-up No observ ation record ed. [email or web address] [place] [address], [place], [address], 01/26/2025 15:11:31 01/27/20 25 01/26/2025 US, obste tric, follo w-up No observ ation record ed. NORI Haro [address], [place], [address], 01/29/2025 15:19:23 Result Notes None recorded. Problems Name Problem SNOMED Code Status Onset Date Resolution Date Notes Provider Name and Address Organization Details Recorded Time Pregnanc y 68010503 Active 2024 Freida hand, [facility] 5 10:40:36 History of sleeve gastrect lety 84264506163 9107 Active 2024 - partial sleeve gastrecto my 04/2024 - baseline vitamin labs ordered at 12 weeks - serial growth TRUONG MCGOWAN MD [address], [place], [address], [facility] 11:26:50 Past pregnanc y history of section 396992737 Active 2024 G2 under GETA, umbilical cord prolapse desires [email or web address]] TRUONG MCGOWAN MD [address], [place], [address], [facility] 11:24:36 Migraine 18683358 Active 2024 Eduar Gautam MD [address], [place], [address], [facility] 10:20:53 Problem Notes None recorded. Procedures Surgical History Date Name Laterality Status Provider Name and Address Organization Details Recorded Time 09/15/19 25 Date of Last Pap Smear completed [facility] 09/14/2024 10:20:33 05/11/19 25 Bariatric Surgery completed [facility] 09/14/2024 10:10:08 03/23/19 19 Appendectomy completed [facility] 09/14/2024 10:26:43 07/28/19 18 Caesarean Section completed [facility] 09/14/2024 10:10:08 03/23/19 09 Cholecystectomy completed [facility] 09/14/2024 10:26:22 03/23/19 00 Tonsillectomy completed Elizabeth Hatfield [facility] 09/14/2024 10:26:04 Imaging Results None recorded. Procedure Notes None recorded. Medical Equipment None Reported. Allergies Allergen ID Allergen Name Allergen Category Reaction Reaction Severity Criticality Documentation Date Start Date Code Code System Note Provider Name and Address Organization Details Recorded Time 36212 iodine medicatio n palpitati ons severe Not available 09/14/2024 5933 [facility] 10:09:38 79486 Augmentin medicatio n hives moderate Not available 09/14/2024 67655 2 [facility] 10:09:38 85550 clavulani c acid Not available vomiting Not available high 02/03/20252021 63557 RxNorm Not Available [employer] - prod 09:16:51 15839 amoxicill in / clavulana te medicatio n hives rash Not available Not available high 02/03/20252023 21777 RxNorm VOMIT ING Not Available [employer] - prod 09:16:55 Medications Name [...] lable Not Available Vitals Date Recorded Body weight Systolic And Diastolic Provider Name and Address Organization Details Last Updated DateTime 12/02/2024 61874.39596 g 116/78 mm[Hg] [facility] 12/02/2024 10:07:28 Date Recorded Body weight Body mass index (BMI) Body height Systolic And Diastolic Provider Name and Address Organization Details Last Updated DateTime 12/30/2024 87867.518 16 g 31.7 kg/m2 154.94 cm 118/74 mm[Hg] [facility] 12/30/2024 15:31:43 Date Recorded Body weight Systolic And Diastolic Provider Name and Address Organization Details Last Updated DateTime 02/03/2025 52308.7029 g 122/74 mm[Hg] [facility] 02/03/2025 09:47:14 Date Recorded Body height Body mass index (BMI) Body weight Systolic And Diastolic Provider Name and Address Organization Details Last Updated DateTime 02/14/2025 154.94 cm 32.5 kg/m2 22650.89 g 108/72 mm[Hg] [facility] 02/14/2025 10:38:32 Social History Question Answer [...] Or The Highest Degree You Have Received? [id number] Information not available 09/14/2024 Are There Any [...] anxious, or unable to sleep at night)? [id number] Information not available 09/14/2024 Family History Relationship [...] ICD10 Code Diagnosis IMO Codes Diagnosis Note [id number] TRUONG MCGOWAN MD [place] [address] [address] 09/14/2024 09:13:31 09/14/2024 09:57:25 [id number] TRUONG MCGOWAN MD [place] [address] [address] 09/14/2024 09:14:41 09/14/2024 14:08:51 test positive 018462685 Z32.01 178273 1. Exam today within normal limits.2. Ultrasound today confirms GA and viability. EDC . GC/Clamydi a testing and pap smear done: will f/u as indicated. 4. ACOG guidelines and plan of care for reviewed with patient. All questions answered.5 . Return to office at 12 weeks for new OB visit6. Will need new OB labs at next visit.7. Genetic screening: declines. History of sleeve gastrectomy 4941660712 34265 Z90.3 1267618152 - partial sleeve gastrectom y 04/2024- will need baseline vitamin labs with new OB labs Past pregn carlos history of section 169731941 Z98.891 46997 - PLTCS under GETA for cord prolapse- desires TOLAC [id number] TRUONG MCGOWAN MD [place] [address],[place] [address] 10/11/2024 09:39:34 10/11/2024 10:23:39 screening 896487014 Z36.82 Z3A.13 4590243163 150020 TRUONG MCGOWAN MD [place] [address],[facility] [place] [address] 10/11/2024 09:40:17 10/11/2024 11:31:24 History of sleeve gastrectomy 0467929922 22515 Z90.3 0931423356 - partial sleeve gastrectom y 04/2024- baseline labs ordered 10/11- plan for serial growth US Past pregn carlos history of section 396559590 Z98.891 836397 - PLTCS under GETA for cord prolapse- desires RCS Migraine w ithout aura, not refractory 493607288 G43.287 8139031 - discussed B2 supplement ation Gestation period, 12 weeks 95074758 Z3A.12 9427223 Gestation period, 13 weeks 22249391 Z3A.13 2901404 [id number] TRUONG MCGOWAN MD [place] [address],[facility] [place] [address] 11/02/2024 16:10:12 11/02/2024 17:34:34 Past history of section 139009622 Z98.891 591637 - PLTCS under GETA for cord prolapse- desires RCS History of sleeve gastrectomy 3342619030 77262 Z90.3 4674423645 - partial sleeve gastrectom y 04/2024- baseline labs ordered 10/11- plan for serial growth US Migraine w ithout aura, not refractory 913614044 G43.252 8299313 - not improved with tylenol, B2, reglan/gina adryl, or sumatripta n- M consultati on ordered Gestation period, 16 weeks 18728629 Z3A.16 6704382 - continue PNV [id number] Eduar Gautam MD [place] [address],[place] [address] 12/02/2024 09:28:32 12/02/2024 10:41:35 Migraine 68189284 G43.909 89718017 [id number] Eduar Gautam MD [place] [address],[place] [address] 12/30/2024 14:31:08 12/30/2024 16:29:45 care status 100816565 Z34.82 32050586 [id number] TRUONG MCGOWAN MD [place] [address],[place] [address] 01/26/2025 11:47:35 01/26/2025 13:17:13 History of sleeve gastrectomy 4745399379 50732 Z90.3 O99.891 Z3A.28 6920160391 - partial sleeve gastrectom y 04/2024- baseline labs ordered 10/11- plan for serial growth [place] [id number] TRUONG MCGOWAN MD [place] [address],[place] [address] 02/03/2025 09:16:35 02/03/2025 10:15:39 Past history of section 702213133 Z98.891 137374 - PLTCS under GETA for cord prolapse- desires RCS History of sleeve gastrectomy 0751179047 31936 Z90.3 9399822876 - partial sleeve gastrectom y 04/2024- baseline labs with mild vitamin A and vitamin D deficiency 10/11- plan for serial growth US q4 weeks Gestation period, 29 weeks 76482718 Z3A.29 1496113 - continue PNV [id number] MD Garret DIAMOND [address],[place] [address] 02/14/2025 10:26:25 02/14/2025 10:54:43 Past history of section 598688403 Z98.891 214587 - PLTCS under GETA for cord prolapse- desires RCS History of sleeve gastrectomy 4250885236 63491 Z90.3 0737536111 - partial sleeve gastrectom y 04/2024- baseline labs with mild vitamin A and vitamin D deficiency 10/11- plan for serial growth US q4 weeks Gestation period, 31 weeks 15717105 Z3A.31 0694201 - continue PNV Health Concerns Section Related Observation LastModified by Organization Detai ls LastModified Time None Recorded Concern Status LastModified by Organization Details LastModified Time None Recorded Advance Directives Directive N: Payers Insurance Date Sequence Insurance Name Policy Number Policy Paez Covered Member ID Paez Member ID Guarantor Name 02/14/2025 1 [employer] [place] (MEDICAID HMO) [id number] Radha Araseliderecksven [id number] Radha Sheppard Notes Date Note Type Note Provider Name and Address Organization Details Recorded Time 12/02/2024 text/html Generic HPI TemplateReported by Patient Eduar Gautam MD [address], [place], [address], [facility] 12/02/2024 10:39:41 12/30/2024 text/html Generic HPI TemplateReported by Patient Eduar Gautam MD [address], [place], [address], [facility] 12/30/2024 16:12:30 02/03/2025 text/html Generic HPI TemplateReported by Patient TRUONG MCGOWAN MD [address], [place], [address], [facility] 02/03/2025 10:12:38 02/14/2025 text/html Generic HPI TemplateReported by Patient TRUONG MCGOWAN MD [address], [place], [address], [facility] 02/14/2025 10:54:19 OBGyn Episode Ob Episode Information Episode Created Date Number of Fetuses Patient Bloodtype Patient rh Status Prepregnancy Weight lbs Domestic Partner Domestic Partner Phone Father Name Data Lead Status 10/12/19 25 1 O Positive 165 Kentrel l Harley OPEN Fetus Data First Name Last Name Admitted to NICU Weight (g) Sex Living Outcome Pediatric Complications Fetus ID Race Codes Race Delivery Type [id number] Problems Problem Notes Scheduled 11/16 1:00PM Level II US & office visit scheduled SS MF 01/13 0730 us only Problem Name Start Date End Date Resolution Snomed Code Not e Migraine 12/02/2024 93220052 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 055512662488299 - partial sl eeve gastrectomy 04/2024- baseline vitamin labs ordered at 12 weeks- serial growth US Past history of section 10/11/2024 408293531 G2 under GE TA, umbilical cord prolapsedesires [...] Sound Latest Days Gestation 11/17/19 25 18 [email or web address] 10/11/2024 04/17/19 26 2 Pre- Flowsheet Flowsheet Date 10/11/2024 Espinoza Score Blood Edema Fundus Height Fundus Units Glucose Ketones Leukocytes Nitrite Labor Signs Protein Cervic Dilation Cervic Effacement Cervic Station Type Weight in lbs Pre/Post Dialysis Refused Weight 163.421992388647 BP Diastolic BP Location Tested BP Systolic BP Type 74 L arm 115 sitting Fetus Heart Rate Present Fetus Movement Comments Patient presents to [facility] care. Headaches still worsening, will send reglan [...] Weight in lbs Pre/Post Dialysis Refused Weight 161.788859255785 BP Diastolic BP Location Tested BP Systolic BP Type 74 L arm 116 sitting Fetus Heart Rate Present Fetus Movement A Yes Comments Still having some nausea. Mi graines not improved with tylenol, reglan, and sumatriptan. Will send [facility] referral. LR male NIPT! All other OB labs wnl. Anatomy US next visit. RTC 4 weeks. Flowsheet Date 12/02/2024 Espinoza Score Blood Edema Fundus Height Fundus Units Glucose Ketones Leukocytes Nitrite Labor Signs Protein Cervic Dilation Cervic Effacement Cervic Station Type Weight in lbs Pre/Post Dialysis Refused [id number] BP Diastolic BP Location Tested BP Systolic [...] if she is still suffering. Seen at [facility]. Flowsheet Date 12/30/2024 Espinoza Score Blood Edema Fundus Height Fundus Units Glucose Ketones Leukocytes Nitrite Labor Signs Protein Cervic Dilation Cervic Effacement Cervic Station Type Weight in lbs Pre/Post Dialysis Refused [id number] BP Diastolic BP Location Tested BP Systolic [...] Type Weight in lbs Pre/Post Dialysis Refused [phone] BP Diastolic BP Location Tested BP Systolic [...] Weight in lbs Pre/Post Dialysis Refused Weight 172.987553114746 BP Diastolic BP Location Tested BP Systolic [...] Method Maternal HG B and HCT Levels Ob Episode Information Episode Created Date Number of Fetuses Patient Bloodtype Patient rh Status Prepregnancy Weight lbs Domestic Partner Domestic Partner Phone Father Name Data Lead Status 09/15/19 1 CLOSED Fetus Data First Name Last Name Admitted to NICU Weight (g) Sex Living Outcome Pediatric Complications Fetus ID Race Codes Race Delivery Type M Demise [id number] Mario Calculation Initial Mario Date Initial Exam Date Initial Exam Provider Initial Ultrasound Date Last Menstrual Period Date Ultra Sound Weeks Gestation 0 Eighteen To Twenty Week Mario Update Ultra Sound Date Fundal Height At Umbil Quickening Date Ultra Sound Latest Weeks Gestation Final Mario Confirmed By Final Mario Confirmed Date Final Mario Date Ultra Sound Latest Days Gestation 0 0 Menstrual History Last Menstrual Date Menses Monthly On Bcp Conception Prior Menses Frequency Hcg Plus Date Menarche Onset Age Delivery Information Delivery Date Delivery Type Labor Anesthesia Weeks Gestation Incision Type Labor Labor Length Hrs Delivered By Post Complications Tubal Sterilization Discharge Date Comments 6 17.6 Discharge Information Feeding Method Contraceptive Method Maternal HG B and HCT Levels Ob Episode Information Episode Created Date Number of Fetuses Patient Bloodtype Patient rh Status Prepregnancy Weight lbs Domestic Partner Domestic Partner Phone Father Name Data Lead Status 06/25/20 25 1 CLOSED Fetus Data First Name Last Name Admitted to NICU Weight (g) Sex Living Outcome Pediatric Complications Fetus ID Race Codes Race Delivery Type [id number] F Full Term [id number] Primary Mario Calculation Initial Mario Date Initial Exam Date Initial Exam Provider Initial Ultrasound Date Last Menstrual Period Date Ultra Sound Weeks Gestation 0 Eighteen To Twenty Week Mario Update Ultra Sound Date Fundal Height At Umbil Quickening Date Ultra Sound Latest Weeks Gestation Final Mario Confirmed By Final Mario Confirmed Date Final Mario Date Ultra Sound Latest Days Gestation 0 0 Menstrual History Last Menstrual Date Menses Monthly On Bcp Conception Prior Menses Frequency Hcg Plus Date Menarche Onset Age Delivery Information Delivery Date Delivery Type Labor Anesthesia Weeks Gestation Incision Type Labor Labor Length Hrs Delivered By Post Complications Tubal Sterilization Discharge Date Comments 8 41 Discharge Information Feeding Method Contraceptive Method Maternal HG B and HCT Levels
--- OUTSIDE RECORDS SUMMARY | 2025-02-17 19:56 | XMS_ITS | Continuity of Care Document ---
Author Organization [facility] Address [address] [place] [place] [address] Assessment Encounter Date Assessment Date Assessment LastModified by Organization Details LastModified Time 12/30/2024 12/30/2024 Patient is ___weeks . Discussed [...] recorde d. Surgeries None recorde d. Imaging None recorde d. Medication Orders None recorde d. Patient TargetsNo targets recorded. Patient InstructionsNo instructions recorded. Reason for Referral None Reported. Results Created Date Observation Date Name Description Value Unit Range Abnormal Flag Note LastModifiedBy Organization Detail LastModifiedTime 10/18/19 25 10/17/2024 [UNIT Y] ANEUP LOIDY NIPT fraction 7.5% normal Not Available [facility] [address], [place], [address], 10/17/2024 23:58:00 10/18/19 25 10/17/2024 [UNIT Y] ANEUP LOIDY NIPT 22Q11.2 microdeletio n LOW RISK <1 in 10,000 normal Not Available [facility] [address], [place], [address], 10/17/2024 23:58:00 10/18/19 25 10/17/2024 [UNIT Y] ANEUP LOIDY NIPT sex chromosome aneuploidy NOT DETECT ED normal Not Available [facility] [address], [place], [address], 10/17/2024 23:58:00 10/18/19 25 10/17/2024 [UNIT Y] ANEUP LOIDY NIPT monosomy X LOW RISK <1 in 10,000 normal Not Available [facility] [address], [place], [address], 10/17/2024 23:58:00 10/18/19 25 10/17/2024 [UNIT Y] ANEUP LOIDY NIPT trisomy 13 LOW RISK <1 in 10,000 normal Not Available [facility] [address], [place], [address], 10/17/2024 23:58:00 10/18/19 25 10/17/2024 [UNIT Y] ANEUP LOIDY NIPT trisomy 18 LOW RISK <1 in 10,000 normal Not Available [facility] [address], [place], [address], 10/17/2024 23:58:00 10/18/19 25 10/17/2024 [UNIT Y] ANEUP LOIDY NIPT trisomy 21 LOW RISK <1 in 10,000 normal Not Available [facility] [address], [place], [address], 10/17/2024 23:58:00 10/18/19 25 10/17/2024 [UNIT Y] ANEUP LOIDY NIPT sex MALE normal Not Available [facility] [address], [place], [address], 10/17/2024 23:58:00 10/18/19 25 10/17/2024 [UNIT Y] ANEUP LOIDY NIPT gestation SINGLE TON normal Not Available [facility] [address], [place], [address], 10/17/2024 23:58:00 10/18/19 25 10/17/2024 [UNIT Y] ANEUP LOIDY NIPT for detailed report, see pdf See PDF normal Not Available [facility] [address], [place], [address], 10/17/2024 23:58:00 10/22/19 25 10/21/2024 [UNIT Y] MIKE Galvez sickle cell disease/beta -thalassemia /hemoglobino pathies carrier screen NEGATI VE normal Not Available [facility] [address], [place], [address], 10/21/2024 17:38:31 10/22/19 25 10/21/2024 [UNIT Y] MIKE Galvez alpha-thalas semia carrier screen NEGATI VE normal Not Available [facility] [address], [place], [address], 10/21/2024 17:38:31 10/22/19 25 10/21/2024 [UNIT Y] MIKE Galvez cystic fibrosis carrier screen NEGATI VE normal Not Available [facility] [address], [place], [address], 10/21/2024 17:38:31 10/22/19 25 10/21/2024 [UNIT Y] MIKE Galvez spinal muscular atrophy carrier screen NEGATI VE 2 SMN1 copies , SNP not presen t normal Not Available [facility] [address], [place], [address], 10/21/2024 17:38:31 10/22/19 25 10/21/2024 [UNIT Y] MIKE MACIAS Leonor for detailed report, see pdf See PDF normal Not Available [facility] [address], [place], [address], 10/21/2024 17:38:31 10/12/19 25 10/11/2024 CBC W/DIF F WBC 7.0 10'3/ uL 3.5-10 .5 Not Available [facility] (Lab) [address], [place], [address], 10/12/2024 13:07:49 10/12/19 25 10/11/2024 CBC W/DIF F RBC 3.94 10'6/ uL (based on docume nted legal sex) 3.80-5 .20 Not Available [facility] (Lab) [address], [place], [address], 10/12/2024 13:07:49 10/12/19 25 10/11/2024 CBC W/DIF F HGB 12.1 g/dL (based on docume nted legal sex) 11.6-1 5.4 Not Available [facility] (Lab) [address] , [place], [address], 10/12/2024 13:07:49 10/12/19 25 10/11/2024 CBC W/DIF F HCT 36.3 % (based on docume nted legal sex) 34.0-4 5.0 Not Available [facility] (Lab) [address], [place], [address], 10/12/2024 13:07:49 10/12/19 25 10/11/2024 CBC W/DIF F MCV 92.1 fL 80.0-9 9.0 Not Available [facility] (Lab) [address], [place], [address], 10/12/2024 13:07:49 10/12/19 25 10/11/2024 CBC W/DIF F MCH 30.7 pg 27.0-3 4.0 Not Available [facility] (Lab) [address], [place], [address], 10/12/2024 13:07:49 10/12/19 25 10/11/2024 CBC W/DIF F MCHC 33.3 g/dL 32.0-3 5.5 Not Available [facility] (Lab) [address] [facility], [place], [address], 10/12/2024 13:07:49 10/12/19 25 10/11/2024 CBC W/DIF F RDW 12.4 % 11.0-1 5.0 Not Available [facility] (Lab) [address] [facility], [place], [address], 10/12/2024 13:07:49 10/12/19 25 10/11/2024 CBC W/DIF F plt 278 10'3/ uL 150-40 0 Not Available [facility] (Lab) [address], [place], [address], 10/12/2024 13:07:49 10/12/19 25 10/11/2024 CBC W/DIF F MPV 11.7 fL 8.8-12 .1 Not Available [facility] (Lab) [address] [facility], [place], [address], 10/12/2024 13:07:49 10/12/19 25 10/11/2024 CBC W/DIF F NRBC's 0.0 % 0.0 Not Available [facility] (Lab) [address] [facility], [place], [address], 10/12/2024 13:07:49 10/12/19 25 10/11/2024 CBC W/DIF F absolute NRBCs 0.0 10'3/ uL no refere nce range establ ished Not Available [facility] (Lab) [address], [place], [address], 10/12/2024 13:07:49 10/12/19 25 10/11/2024 CBC W/DIF F neutrophils 71.6 % 34.0-7 3.0 Not Available [facility] (Lab) [address] [facility], [place], [address], 10/12/2024 13:07:49 10/12/19 25 10/11/2024 CBC W/DIF F lymphocytes 22.8 % 15.0-5 0.0 Not Available [facility] (Lab) [address] [facility], [place], [address], 10/12/2024 13:07:49 10/12/19 25 10/11/2024 CBC W/DIF F monocytes 4.7 % 1.0-15 .0 Not Available [facility] (Lab) [address] [facility], [place], [address], 10/12/2024 13:07:49 10/12/19 25 10/11/2024 CBC W/DIF F eosinophils 0.3 % 0.0-8. 0 Not Available [facility] (Lab) [address] [facility], [place], [address], 10/12/2024 13:07:49 10/12/19 25 10/11/2024 CBC W/DIF F basophils 0.3 % 0.0-2. 0 Not Available [facility] (Lab) [address] [facility], [place], [address], 10/12/2024 13:07:49 10/12/19 25 10/11/2024 CBC W/DIF [...] separ ately if prese nt. Not Available [facility] (Lab) [address] [facility], [place], [address], 10/12/2024 13:07:49 10/12/19 25 10/11/2024 CBC W/DIF F absolute neutrophils 5.0 10'3/ uL 1.5-8. 0 Not Available [facility] (Lab) [address] [facility], [place], [address], 10/12/2024 13:07:49 10/12/19 25 10/11/2024 CBC W/DIF F absolute lymphocytes 1.6 10'3/ uL 1.0-4. 0 Not Available [facility] (Lab) [address] [facility], [place], [address], 10/12/2024 13:07:49 10/12/19 25 10/11/2024 CBC W/DIF F absolute monocytes 0.3 10'3/ uL 0.2-1. 0 Not Available [facility] (Lab) [address] [facility], [place], [address], 10/12/2024 13:07:49 10/12/19 25 10/11/2024 CBC W/DIF F absolute eosinophils 0.0 10'3/ uL 0.0-0. 6 Not Available [facility] (Lab) [address] [facility], [place], [address], 10/12/2024 13:07:49 10/12/19 25 10/11/2024 CBC W/DIF F absolute basophils 0.0 10'3/ uL 0.0-0. 3 Not Available [facility] (Lab) [address] [facility], [place], [address], 10/12/2024 13:07:49 10/12/19 25 10/11/2024 CBC W/DIF [...] the indiv idual patie nt: https ://la bhand book. nm.or g/gen derx Not Available [facility] (Lab) [address], [place], [address], 10/12/2024 13:07:49 10/12/19 25 10/11/2024 HIV 1/2 ANTIG EN/AN TIBOD Y, REFLE X CONFI RMATI ON HIV antigen/anti body Nonrea ctive nonrea ctive HIV-1 antig en and HIV-1 /HIV- 2 antib odies were not detec nishant. No labor atory evide nce of HIV infec tion. Not Available [facility] (Lab) [address], [place], [address], 10/12/2024 13:07:50 10/12/19 25 10/11/2024 HEPAT ITIS B SURFA CE ANTIG EN hepatitis B surface antigen Non-re active non-re active This assay was perfo rmed using [employer] ratio n reage nts and test kits. Value s obtai francois with other assay metho ds or kits canno t be used inter serna eably . Not Available [facility] (Lab) [address], [place], [address], 10/12/2024 13:07:50 10/12/19 25 10/11/2024 HEPAT ITIS C ANTIB KERI SCREE N, REFLE X TO CONFI RMATI ON hepatitis C antibody Non-re active non-re active Antib odies to HCV Not Detec nishant, does not exclu de the possi bilit y of expos ure to HCV. Not Available [facility] (Lab) [address], [place], [address], 10/12/2024 13:07:51 10/12/19 25 10/11/2024 RUBEL LA IGG ANTIB KERI, QUANT rubella antibodies, IgG Reacti ve reacti ve Not Available [facility] (Lab) [address], [place], [address], 10/12/2024 13:07:51 10/12/19 25 10/11/2024 RUBEL LA IGG ANTIB KERI, QUANT rubella antibodies, IgG quant 18.4 IU/mL >=10 Non-r eacti ve (Non- Immun e) <10 IU/mL React filippo (Immu ne) > or = 10 IU/mL Not Available [facility] (Lab) [address] [facility], [place], [address], 10/12/2024 13:07:51 10/12/19 25 10/11/2024 TYPE/ RH/SC REEN ABO/Rh type O POS Not Available [facility] (Lab) [address] [facility], [place], [address], 10/12/2024 13:07:51 10/12/19 25 10/11/2024 TYPE/ RH/SC REEN antibody screen NEG Not Available [facility] (Lab) [address] [facility], [place], [address], 10/12/2024 13:07:51 10/12/19 25 10/11/2024 TYPE/ RH/SC REEN exp date 2024 23:59 Not Available [facility] (Lab) [address] [facility], [place], [address], 10/12/2024 13:07:51 10/12/19 25 10/11/2024 HEMOG LOBIN [...] >8.0% Actio n sugge sted Not Available [facility] (Lab) [address] [facility], [place], [address], 10/12/2024 13:07:52 10/12/19 25 10/11/2024 RPR SCREE N, REFLE X TITER /CONF IRMAT ION RPR qualitative Nonrea ctive nonrea ctive Not Available [facility] (Lab) [address] [facility], [place], [address], 10/12/2024 13:07:53 10/12/19 25 10/11/2024 CULTU RE: URINE result report SEE RESULT S BELOW Test: Cultu re: Urine Speci men Sourc e: Urine Voide d Speci men Type: Urine Speci men Date: 2024 1251 Resul t Date: 20246 Resul t Statu s: Final resul t Abnor mal: No Resul ting Lab: [facility] [address] [facility] [address] Tel: CULTU RE ----- ----- ----- --- No growt h in 1 day (dete ction level of 10,00 0 colon ies / ml.) Not Available [facility] (Lab) [address] [facility], [place], [address], 10/12/2024 22:51:14 10/12/19 25 10/11/2024 drug scree n, urine Amphetamines : negati ve Not Available [place] [address], [place], [address], 10/11/2024 12:03:44 10/12/19 25 10/11/2024 drug scree n, urine Cannabinoids : negati ve Not Available [place] [address], [place], [address], 10/11/2024 12:03:44 10/12/19 25 10/11/2024 drug scree n, urine Cocaine: negati ve Not Available [place] [address], [place], [address], 10/11/2024 12:03:44 10/12/19 25 10/11/2024 drug scree n, urine Opiates: negati ve Not Available [place] [address], [place], [address], 10/11/2024 12:03:44 10/12/19 25 10/11/2024 drug scree n, urine Phenocyclidi ne: negati ve Not Available [place] [address], [place], [address], 10/11/2024 12:03:44 10/12/19 25 10/11/2024 drug scree n, urine Barbiturates : negati ve Not Available [place] [address], [place], [address], 10/11/2024 12:03:44 10/12/19 25 10/11/2024 drug scree n, urine Benzodiazepi aaron: negati ve Not Available [place] [address], [place], [address], 10/11/2024 12:03:44 10/12/19 25 10/11/2024 drug scree n, urine Ethanol: negati ve Not Available [place] [address], [place], [address], 10/11/2024 12:03:44 10/12/19 25 10/11/2024 drug scree n, urine Hallucinogen s: negati ve Not Available [place] [address], [place], [address], 10/11/2024 12:03:44 10/12/19 25 10/11/2024 drug scree n, urine Inhalants: negati ve Not Available [place] [address], [place], [address], 10/11/2024 12:03:44 12/03/19 25 12/02/2024 CMP(C OMPRE HENSI VE METAB OLIC PANEL ) sodium 136 mmol/ L 133-14 6 Not Available [facility] (Lab) [address] [facility], [place], [address], 12/08/2024 16:08:48 12/03/19 25 12/02/2024 CMP(C OMPRE HENSI VE METAB OLIC PANEL ) potassium 4.4 mmol/ L 3.5-5. 1 Not Available [facility] (Lab) [address] [facility], [place], [address], 12/08/2024 16:08:48 12/03/19 25 12/02/2024 CMP(C OMPRE HENSI VE METAB OLIC PANEL ) chloride 107 mmol/ L 98-107 Not Available [facility] (Lab) [address] [facility], [place], [address], 12/08/2024 16:08:48 12/03/19 25 12/02/2024 CMP(C OMPRE HENSI VE METAB OLIC PANEL ) carbon dioxide 19 mmol/ L 21-31 low Not Available [facility] (Lab) [address] [facility], [place], [address], 12/08/2024 16:08:48 12/03/19 25 12/02/2024 CMP(C OMPRE HENSI VE METAB OLIC PANEL ) anion gap 10 mmol/ L 4-13 Not Available [facility] (Lab) [address] [facility], [place], [address], 12/08/2024 16:08:48 12/03/19 25 12/02/2024 CMP(C OMPRE HENSI VE METAB OLIC PANEL ) blood urea nitrogen 7 mg/dL 7-25 Not Available [facility] (Lab) [address] [facility], [place], [address], 12/08/2024 16:08:48 12/03/19 25 12/02/2024 CMP(C OMPRE HENSI VE METAB OLIC PANEL ) creatinine 0.48 mg/dL 0.60-1 .30 low Not Available [facility] (Lab) [address] [facility], [place], [address], 12/08/2024 16:08:48 12/03/1912/02/2024 CMP(C OMPRE HENSI VE METAB OLIC PANEL ) egfrcr (CKD-epi 2020) >90 mL/mi n/1.7 3_m2 >=60 Not Available [facility] (Lab) [address] [facility], [place], [address], 12/08/2024 16:08:48 12/03/1912/02/2024 CMP(C OMPRE HENSI VE METAB OLIC PANEL ) calcium 8.5 mg/dL 8.3-10 .5 Not Available [facility] (Lab) [address] [facility], [place], [address], 12/08/2024 16:08:48 12/03/1912/02/2024 CMP(C OMPRE HENSI VE METAB OLIC PANEL ) glucose 74 mg/dL 70-100 Not Available [facility] (Lab) [address] [facility], [place], [address], 12/08/2024 16:08:48 12/03/1912/02/2024 CMP(C OMPRE HENSI VE METAB OLIC PANEL ) protein, total 6.3 g/dL 6.4-8. 3 low Not Available [facility] (Lab) [address] [facility], [place], [address], 12/08/2024 16:08:48 12/03/1912/02/2024 CMP(C OMPRE HENSI VE METAB OLIC PANEL ) albumin 3.5 g/dL 3.5-5. 0 Not Available [facility] (Lab) [address] [place], [address], 12/08/2024 16:08:48 12/03/1912/02/2024 CMP(C OMPRE HENSI VE METAB OLIC PANEL ) ALT 8 units /L 9-43 low Not Available [facility] (Lab) [address] [facility], [place], [address], 12/08/2024 16:08:48 12/03/19 25 12/02/2024 CMP(C OMPRE HENSI VE METAB OLIC PANEL ) alkaline phosphatase 57 units /L 34-104 Not Available [facility] (Lab) [address] [facility], [place], [address], 12/08/2024 16:08:48 12/03/19 25 12/02/2024 CMP(C OMPRE HENSI VE METAB OLIC PANEL ) AST 17 units /L 13-39 Not Available [facility] (Lab) [address] [facility], [place], [address], 12/08/2024 16:08:48 12/03/19 25 12/02/2024 CMP(C OMPRE HENSI VE METAB OLIC PANEL ) bilirubin, total 0.4 mg/dL 0.2-1. 2 Not Available [facility] (Lab) [address] [facility], [place], [address], 12/08/2024 16:08:48 12/03/19 25 12/02/2024 FABIOLA TIN / IRON / TRANS FABIOLA N / TIBC iron 83 ug/dL 40-170 Not Available [facility] (Lab) [address] [place], [address], 12/08/2024 16:08:49 12/03/1912/02/2024 FABIOLA TIN / IRON / TRANS FABIOLA N / TIBC transferrin 305 mg/dL 200-36 0 Not Available [facility] (Lab) [address] [place], [address], 12/08/2024 16:08:49 12/03/19 25 12/02/2024 FABIOLA TIN / IRON / TRANS FBAIOLA N / TIBC ferritin 82.3 NG/mL 8.0-25 2.0 Not Available [facility] (Lab) [address] [facility] [place], [address], 12/08/2024 16:08:49 12/03/19 25 12/02/2024 FABIOLA TIN / IRON / TRANS FABIOLA N / TIBC TIBC 427 ug/dL 250-45 0 Not Available [facility] (Lab) [address] [facility], [place], [address], 12/08/2024 16:08:49 12/03/19 25 12/02/2024 FABIOLA TIN / IRON / TRANS FABIOLA N / TIBC iron saturation 19 % 20-55 low Not Available [facility] (Lab) [address] [facility], [place], [address], 12/08/2024 16:08:49 12/03/1912/02/2024 VITAM IN B12 / FOLAT E PANEL vitamin B12 202 pg/mL 180-91 4 Pooja l Range : 180-9 14 pg/mL . Indet ermin ate Range : 145-1 80 pg/mL . Defic ient Range : <=145 pg/mL . Not Available [facility] (Lab) [address] [facility], [place], [address], 12/08/2024 16:08:49 12/03/19 25 12/02/2024 VITAM IN B12 / FOLAT E PANEL folate, serum >20.0 NG/mL 6.0-20 .0 high Not Available [facility] (Lab) [address] [place], [address], 12/08/2024 16:08:49 12/03/19 25 12/02/2024 VITAM IN D, 25-OH (TOTA L D2/D3 ) vitamin D, 25-hydroxy, total 28.2 NG/mL 30.0-1 00.0 low Sugge stive of Defic iency : <20 ng/mL Sugge stive of Insuf ficie ncy: 20-29 ng/mL Sugge stive of Suffi cienc y: 30-10 0 ng/mL Sugge stive of Toxic ity: >150 ng/mL Not Available [facility] (Lab) [address] [facility], [place], [address], 12/08/2024 16:08:49 12/03/1912/02/2024 LEAD, BLOOD (ADUL T/PED [...] Infor naresh n: Site ID: [id number] Name: Inxero ostic s-Jared Lowry Add ss: [address] [place] [address] Dire tor: Bhaskar sears Not Available [facility] (Lab) [address] [facility], [place], [address], 12/08/2024 16:08:50 12/03/19 25 12/02/2024 VITAM IN A (RETI NOL) vitamin A 32 mcg/d L 38-98 low (Note ) Cli n Chem Vol. 34.No .8. pp162 5-162 1997 Vitam in suppl ement ation withi n 24 hours prior to blood draw may affec t the accur acy of [facility]. This test was devel oped and its linda tical perfo rmanc e che cteri stics have been deter mined by [facility]. It has not been clear ed or appro doug by the FDA. This assay has been valid ated pursu ant to the CLIA regul ation s and is used for clini robinson purpo ses. MDF med fusio n [address] [place] [address] [phone] Victorina Johnson MD, PhD Perfo rming Organ izati on Infor matmery n: Site ID: [id number] Name: Park mariee- Park Tinsley ss: [address], [address] [place] [address] Direc tor: Victorina Johnson MD,Ph D Not Available [facility] (Lab) [address] [facility], [place], [address], 12/08/2024 16:08:50 10/12/19 25 10/11/2024 US, obste tric, nucha l trans lucen cy No observ ation record ed. [email or web address] [place] [address], [place], [address], 10/11/2024 13:10:00 10/12/19 25 10/11/2024 US, obste tric, 1st trime ster No observ ation record ed. [email or web address] [place] [address], [place], [address], 10/11/2024 13:10:09 10/12/19 25 10/11/2024 US, obste tric, nucha l trans lucen cy No observ ation record ed. [email or web address] [place] [address] [place] [address], [place], [address], 10/14/2024 09:45:42 11/17/19 25 11/16/2024 imagi ng/di agnos tic resul t No observ ation record ed. [facility] [address] [place], [address], 2024 21:39:44 11/19/19 25 11/16/2024 imagi ng/di agnos tic resul t No observ ation record ed. [facility] [address] [place], [address], 2024 21:39:44 12/17/19 25 12/16/2024 US, obste tric, follo w-up No observ ation record ed. [email or web address] [facility] [address] [place], [address], 12/23/2024 13:18:27 12/17/19 25 12/16/2024 US, obste tric, follo w-up No observ ation record ed. [email or web address] [facility] [address] [place], [address], 12/20/2024 09:13:00 01/14/20 25 01/13/2025 US, obste tric, follo w-up No observ ation record ed. [email or web address] [facility] [address], [address], 01/17/2025 11:47:51 01/14/2001/13/2025 US, obste tric, follo w-up No observ ation record ed. [email or web address] [facility] [address], [address], 01/17/2025 16:04:16 01/27/20 25 01/26/2025 US, obste tric, follo w-up No observ ation record ed. [email or web address] [place] [address], [place], [address], 01/26/2025 15:11:31 01/27/20 25 01/26/2025 US, obste tric, follo w-up No observ ation record ed. NORI Haro [address], [place], [address], 01/29/2025 15:19:23 Result Notes None recorded. Problems Name Problem SNOMED Code Status Onset Date Resolution Date Notes Provider Name and Address Organization Details Recorded Time Pregnanc y 28895004 Active 2024 Freida Morales [place], [place] - [facility] 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 11:26:50 Past pregnanc y history of section 921811453 Active 2024 G2 under GETA, umbilical cord prolapse desires [facility] TRUONG MCGOWAN MD [address], [place], [address], [facility] 11:24:36 Migraine 87823842 Active 2024 Eduar Gautam MD [address], [place], [address], [facility] 10:20:53 Problem Notes None recorded. Procedures Surgical History Date Name Laterality Status Provider Name and Address Organization Details Recorded Time 09/15/19 25 Date of Last Pap Smear completed [facility] 09/14/2024 10:20:33 05/11/19 25 Bariatric Surgery completed [facility] 09/14/2024 10:10:08 03/23/19 19 Appendectomy completed [facility] 09/14/2024 10:26:43 07/28/19 18 Caesarean Section completed [facility] 09/14/2024 10:10:08 03/23/19 09 Cholecystectomy completed [facility] 09/14/2024 10:26:22 03/23/19 00 Tonsillectomy completed [facility] 09/14/2024 10:26:04 Imaging Results None recorded. Procedure Notes None recorded. Medical Equipment None Reported. Allergies Allergen ID Allergen Name Allergen Category Reaction Reaction Severity Criticality Documentation Date Start Date Code Code System Note Provider Name and Address Organization Details Recorded Time 70655 iodine medicatio n palpitati ons severe Not available 09/14/2024 5933 RxNorm Elizabeth Hatfield [facility], [facility] 5 10:09:38 23481 Augmentin medicatio n hives moderate Not available 09/14/2024 74278 2 RxNorm Elizabeth Hatfield [facility], [facility] 5 10:09:38 59979 clavulani c acid Not available vomiting Not available [facility] 02/03/20252021 58125 RxNorm Not Available [employer] - prod 09:16:51 56359 amoxicill in / clavulana te medicatio n hives rash Not available Not available [facility] 02/03/20252023 08283 RxNorm VOMIT ING Not Available [employer] - prod 09:16:55 Medications [...] Not Available Vitals Date Recorded Body weight Body mass index (BMI) Body height Systolic And Diastolic Provider Name and Address Organization Details Last Updated DateTime 12/30/2024 42702.518 16 g 31.7 kg/m2 154.94 cm 118/74 mm[Hg] Elizabeth Hatfield [facility] 12/30/2024 15:31:43 Social History Question Answer Notes LastModified by [...] Or The Highest Degree You Have Received? [id number] Information not available 09/14/2024 Are There Any [...] anxious, or unable to sleep at night)? [id number] Information not available 09/14/2024 Family History Relationship [...] ICD10 Code Diagnosis IMO Codes Diagnosis Note [id number] Eduar Gautam MD [place] [address] [address] 12/02/2024 09:28:32 12/02/2024 10:41:35 Migraine [id number] G43.909 [id number] Eduar Gautam MD [place] [address] [address] 12/30/2024 14:31:08 12/30/2024 16:29:45 care status [id number] Z34.82 [id number] Health Concerns Section Related Observation LastModified by Organization Detai ls LastModified Time None Recorded Concern Status LastModified by Organization Details LastModified Time None Recorded Payers Encounter Date Sequence Insurance Name Policy Number Policy Paez Covered Member ID Paez Member ID Guarantor Name 12/30/2024 1 [facility] (MEDICAID HMO) [id number] Radha Sheppard [id number] Radha Sheppard Notes Date Note Type Note Provider Name and Address Organization Details Recorded Time 12/30/2024 text/html Generic HPI TemplateReported by Patient Eduar Gautam MD [address], [place], [address], [facility] 12/30/2024 16:12:30 OBGyn Episode Ob Episode Information Episode Created Date Number of Fetuses Patient Bloodtype Patient rh Status Prepregnancy Weight lbs Domestic Partner Domestic Partner Phone Father Name Sales Specialist Status 10/12/19 25 1 O Positive 165 [address] l Harley OPEN Fetus Data First Name Last Name Admitted to NICU Weight (g) Sex Living Outcome Pediatric Complications Fetus ID Race Codes Race Delivery Type [id number] Problems Problem Notes Scheduled 11/16 1:00PM Level II US & office visit scheduled [facility] 01/13 0730 us only Problem Name Start Date End Date Resolution Snomed Code Not e Migraine 12/02/2024 [id number] 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 [id number] - partial sl eeve gastrectomy 04/2024- baseline vitamin labs ordered at 12 weeks- serial growth US Past history of section 10/11/2024 [id number] G2 under GE TA, umbilical cord prolapsedesires [facility] Mario Calculation Initial Mario Date Initial Exam [...] Sound Latest Days Gestation 11/17/19 25 18 [email or web address] 10/11/2024 04/17/19 26 2 Pre- Flowsheet Flowsheet Date 10/11/2024 Espinoza Score Blood Edema Fundus Height Fundus Units Glucose Ketones Leukocytes Nitrite Labor Signs Protein Cervic Dilation Cervic Effacement Cervic Station Type Weight in lbs Pre/Post Dialysis Refused Weight 163.749137649970 BP Diastolic BP Location Tested BP Systolic BP Type 74 L arm 115 sitting Fetus Heart Rate Present Fetus Movement Comments Patient presents to [facility] care. Headaches still worsening, will send reglan [...] Weight in lbs Pre/Post Dialysis Refused Weight 161.899063692891 BP Diastolic BP Location Tested BP Systolic [...] Type Weight in lbs Pre/Post Dialysis Refused 167.403644989929 BP Diastolic BP Location Tested BP Systolic [...] if she is still suffering. Seen at [facility]. Flowsheet Date 12/30/2024 Espinoza Score Blood Edema Fundus Height Fundus Units Glucose Ketones Leukocytes Nitrite Labor Signs Protein Cervic Dilation Cervic Effacement Cervic Station Type Weight in lbs Pre/Post Dialysis Refused 168.165500526582 BP Diastolic BP Location Tested BP Systolic [...] Type Weight in lbs Pre/Post Dialysis Refused 170.016696402775 BP Diastolic BP Location Tested BP Systolic [...] Weight in lbs Pre/Post Dialysis Refused Weight 172.830061430690 BP Diastolic BP Location Tested BP Systolic [...]
--- OUTSIDE RECORDS SUMMARY | 2025-02-17 19:56 | XMS_ITS | Continuity of Care Document ---
Author Organization [facility] Address [address] [place] [address] Assessment Encounter Date Assessment Date Assessment LastModified by Organization Details LastModified Time 12/02/2024 12/02/2024 Patient is ___weeks . Discussed plan. Not available 12/02/2024 10:03:37 Plan of Treatment Reminders Order Date Submit [...] d. Imaging None recorde d. Medication Orders zolmitr iptan 2.5 mg disinte grating tablet 2024 025 [id number], [address] , [place], [place], [id number], 12/02/2024 10:26:46 Patient TargetsNo targets recorded. Patient InstructionsNo instructions recorded. Reason for Referral None Reported. Results Created Date Observation Date Name Description Value Unit Range Abnormal Flag Note LastModifiedBy Organization Detail LastModifiedTime 10/18/19 25 10/17/2024 [UNIT Y] ANEUP LOIDY NIPT fraction 7.5% normal Not Available [facility] [address], [place], [address], 10/17/2024 23:58:00 10/18/19 25 10/17/2024 [UNIT Y] ANEUP LOIDY NIPT 22Q11.2 microdeletio n LOW RISK <1 in 10,000 normal Not Available [facility] [address], [place], [address], 10/17/2024 23:58:00 10/18/19 25 10/17/2024 [UNIT Y] ANEUP LOIDY NIPT sex chromosome aneuploidy NOT DETECT ED normal Not Available [facility] [address], [place], [address], 10/17/2024 23:58:00 10/18/19 25 10/17/2024 [UNIT Y] ANEUP LOIDY NIPT monosomy X LOW RISK <1 in 10,000 normal Not Available [facility] [address], [place], [address], 10/17/2024 23:58:00 10/18/19 25 10/17/2024 [UNIT Y] ANEUP LOIDY NIPT trisomy 13 LOW RISK <1 in 10,000 normal Not Available [facility] [address], [place], [address], 10/17/2024 23:58:00 10/18/19 25 10/17/2024 [UNIT Y] ANEUP LOIDY NIPT trisomy 18 LOW RISK <1 in 10,000 normal Not Available [facility] [address], [place], [address], 10/17/2024 23:58:00 10/18/19 25 10/17/2024 [UNIT Y] ANEUP LOIDY NIPT trisomy 21 LOW RISK <1 in 10,000 normal Not Available [facility] [address], [place], [address], 10/17/2024 23:58:00 10/18/19 25 10/17/2024 [UNIT Y] ANEUP LOIDY NIPT sex MALE normal Not Available [facility] [address], [place], [address], 10/17/2024 23:58:00 10/18/19 25 10/17/2024 [UNIT Y] ANEUP LOIDY NIPT gestation SINGLE TON normal Not Available [facility] [address], [place], [address], 10/17/2024 23:58:00 10/18/19 25 10/17/2024 [UNIT Y] ANEUP LOIDY NIPT for detailed report, see pdf See PDF normal Not Available [facility] [address], [place], [address], 10/17/2024 23:58:00 10/22/19 25 10/21/2024 [UNIT Y] MIKE Galvez sickle cell disease/beta -thalassemia /hemoglobino pathies carrier screen NEGATI VE normal Not Available [facility] [address], [place], [address], 10/21/2024 17:38:31 10/22/19 25 10/21/2024 [UNIT Y] MIKE Galvez alpha-thalas semia carrier screen NEGATI VE normal Not Available [facility] [address], [place], [address], 10/21/2024 17:38:31 10/22/19 25 10/21/2024 [UNIT Y] MIKE Galvez cystic fibrosis carrier screen NEGATI VE normal Not Available [facility] [address], [place], [address], 10/21/2024 17:38:31 10/22/19 25 10/21/2024 [UNIT Y] MIKE Galvez spinal muscular atrophy carrier screen NEGATI VE 2 SMN1 copies , SNP not presen t normal Not Available [facility] [address], [place], [address], 10/21/2024 17:38:31 10/22/19 25 10/21/2024 [UNIT Y] MIKE SIERRA Galvez for detailed report, see pdf See PDF normal Not Available [facility] [address], [place], [address], 10/21/2024 17:38:31 10/12/19 25 10/11/2024 CBC W/DIF F WBC 7.0 10'3/ uL 3.5-10 .5 Not Available [facility] (Lab) [address], [place], [address], 10/12/2024 13:07:49 10/12/19 25 10/11/2024 CBC W/DIF F RBC 3.94 10'6/ uL (based on docume nted legal sex) 3.80-5 .20 Not Available [facility] (Lab) [address] , [place], [address], 10/12/2024 13:07:49 10/12/19 25 10/11/2024 CBC W/DIF F HGB 12.1 g/dL (based on docume nted legal sex) 11.6-1 5.4 Not Available [facility] (Lab) [address] , [place], [address], 10/12/2024 13:07:49 10/12/19 25 10/11/2024 CBC W/DIF F HCT 36.3 % (based on docume nted legal sex) 34.0-4 5.0 Not Available [facility] (Lab) [address] , [place], [address], 10/12/2024 13:07:49 10/12/19 25 10/11/2024 CBC W/DIF F MCV 92.1 fL 80.0-9 9.0 Not Available [facility] (Lab) [address], [place], [address], 10/12/2024 13:07:49 10/12/19 25 10/11/2024 CBC W/DIF F MCH 30.7 pg 27.0-3 4.0 Not Available [facility] (Lab) [address] [facility], [place], [address], 10/12/2024 13:07:49 10/12/19 25 10/11/2024 CBC W/DIF F MCHC 33.3 g/dL 32.0-3 5.5 Not Available [facility] (Lab) [address], [place], [address], 10/12/2024 13:07:49 10/12/19 25 10/11/2024 CBC W/DIF F RDW 12.4 % 11.0-1 5.0 Not Available [facility] (Lab) [address], [place], [address], 10/12/2024 13:07:49 10/12/19 25 10/11/2024 CBC W/DIF F plt 278 10'3/ uL 150-40 0 Not Available [facility] (Lab) [address], [place], [address], 10/12/2024 13:07:49 10/12/19 25 10/11/2024 CBC W/DIF F MPV 11.7 fL 8.8-12 .1 Not Available [facility] (Lab) [address] [facility], [place], [address], 10/12/2024 13:07:49 10/12/19 25 10/11/2024 CBC W/DIF F NRBC's 0.0 % 0.0 Not Available [facility] (Lab) [address], [place], [address], 10/12/2024 13:07:49 10/12/19 25 10/11/2024 CBC W/DIF F absolute NRBCs 0.0 10'3/ uL no refere nce range establ ished Not Available [facility] (Lab) [address] [facility], [place], [address], 10/12/2024 13:07:49 10/12/19 25 10/11/2024 CBC W/DIF F neutrophils 71.6 % 34.0-7 3.0 Not Available [facility] (Lab) [address] [facility], [place], [address], 10/12/2024 13:07:49 10/12/19 25 10/11/2024 CBC W/DIF F lymphocytes 22.8 % 15.0-5 0.0 Not Available [facility] (Lab) [address] [facility], [place], [address], 10/12/2024 13:07:49 10/12/19 25 10/11/2024 CBC W/DIF F monocytes 4.7 % 1.0-15 .0 Not Available [facility] (Lab) [address] [facility], [place], [address], 10/12/2024 13:07:49 10/12/19 25 10/11/2024 CBC W/DIF F eosinophils 0.3 % 0.0-8. 0 Not Available [facility] (Lab) [address] [facility], [place], [address], 10/12/2024 13:07:49 10/12/19 25 10/11/2024 CBC W/DIF F basophils 0.3 % 0.0-2. 0 Not Available [facility] (Lab) [address] [facility], [place], [address], 10/12/2024 13:07:49 10/12/19 25 10/11/2024 CBC W/DIF [...] separ ately if prese nt. Not Available [facility] (Lab) [address] [facility], [place], [address], 10/12/2024 13:07:49 10/12/19 25 10/11/2024 CBC W/DIF F absolute neutrophils 5.0 10'3/ uL 1.5-8. 0 Not Available [facility] (Lab) [address] [facility], [place], [address], 10/12/2024 13:07:49 10/12/19 25 10/11/2024 CBC W/DIF F absolute lymphocytes 1.6 10'3/ uL 1.0-4. 0 Not Available [facility] (Lab) [address] [facility], [place], [address], 10/12/2024 13:07:49 10/12/19 25 10/11/2024 CBC W/DIF F absolute monocytes 0.3 10'3/ uL 0.2-1. 0 Not Available [facility] (Lab) [address] [facility], [place], [address], 10/12/2024 13:07:49 10/12/19 25 10/11/2024 CBC W/DIF F absolute eosinophils 0.0 10'3/ uL 0.0-0. 6 Not Available [facility] (Lab) [address] [facility], [place], [address], 10/12/2024 13:07:49 10/12/19 25 10/11/2024 CBC W/DIF F absolute basophils 0.0 10'3/ uL 0.0-0. 3 Not Available [facility] (Lab) [address] [facility], [place], [address], 10/12/2024 13:07:49 10/12/19 25 10/11/2024 CBC W/DIF F absolute immature granulocytes 0.0 10'3/ uL 0.00-0 .10 Refer ence range s for nonbi nary/ inter sex or unspe cifie d gende r patie nts have not been estab lishe d. Barber machuca refer to the mitzi nicholas table for range s estab lishe d for cisge nder patie nts and evalu ate in the clini robinson leonard xt of the indiv idual patie nt: https ://la bhand book. nm.or g/gen derx Not Available [facility] (Lab) [address], [place], [address], 10/12/2024 13:07:49 10/12/19 25 10/11/2024 HIV 1/2 ANTIG EN/AN TIBOD Y, REFLE X CONFI RMATI ON HIV antigen/anti body Nonrea ctive nonrea ctive HIV-1 antig en and HIV-1 /HIV- 2 antib odies were not detec nishant. No labor atory evide nce of HIV infec tion. Not Available [facility] (Lab) [address], [place], [address], 10/12/2024 13:07:50 10/12/19 25 10/11/2024 HEPAT ITIS B SURFA CE ANTIG EN hepatitis B surface antigen Non-re active non-re active This assay was perfo rmed using [employer] ratio n reage nts and test kits. Value s obtai francois with other assay metho ds or kits canno t be used inter serna eably . Not Available [facility] (Lab) [address], [place], [address], 10/12/2024 13:07:50 10/12/19 25 10/11/2024 HEPAT ITIS C ANTIB KERI SCREE N, REFLE X TO CONFI RMATI ON hepatitis C antibody Non-re active non-re active Antib odies to HCV Not Detec nishant, does not exclu de the possi bilit y of expos ure to HCV. Not Available [facility] (Lab) [address], [place], [address], 10/12/2024 13:07:51 10/12/19 25 10/11/2024 RUBEL LA IGG ANTIB KERI, QUANT rubella antibodies, IgG Reacti ve reacti ve Not Available [facility] (Lab) [address] [facility], [place], [address], 10/12/2024 13:07:51 10/12/19 25 10/11/2024 RUBEL LA IGG ANTIB KERI, QUANT rubella antibodies, IgG quant 18.4 IU/mL >=10 Non-r eacti ve (Non- Immun e) <10 IU/mL React filippo (Immu ne) > or = 10 IU/mL Not Available [facility] (Lab) [address] [facility], [place], [address], 10/12/2024 13:07:51 10/12/19 25 10/11/2024 TYPE/ RH/SC REEN ABO/Rh type O POS Not Available [facility] (Lab) [address] [facility] [facility], [place], [address], 10/12/2024 13:07:51 10/12/19 25 10/11/2024 TYPE/ RH/SC REEN antibody screen NEG Not Available [facility] (Lab) [address] [facility] [facility], [place], [address], 10/12/2024 13:07:51 10/12/19 25 10/11/2024 TYPE/ RH/SC REEN exp date 2024 23:59 Not Available [facility] (Lab) [address] [facility], [place], [address], 10/12/2024 13:07:51 10/12/19 25 10/11/2024 HEMOG LOBIN A1C hemoglobin A1C 5.3 % 4.0-5. 6 The Ameri can Diabe brenna Ass[employer] iatio n recom mends that a prima ry goal of thera erik mcnamara d be a HBA1C of < 7% and that physi ciasheldon mcnamara d reeva luate the treat ment regim en in patie nts with HBA1C value s consi stent ly > 8%. <5.7% Pooja l 5.7 - 6.4% Incre ased risk for diabe brenna >=6.5 % Diagn ostic of diabe brenna <7.0% Goal of thera py >8.0% Actio n sugge sted Not Available [facility] (Lab) [address] [facility], [place], [address], 10/12/2024 13:07:52 10/12/19 25 10/11/2024 RPR SCREE N, REFLE X TITER /CONF IRMAT ION RPR qualitative Nonrea ctive nonrea ctive Not Available [facility] (Lab) [address] [facility], [place], [address], 10/12/2024 13:07:53 10/12/19 25 10/11/2024 CULTU RE: URINE result report SEE RESULT S BELOW Test: Cultu re: Urine Speci men Sourc e: Urine Voide d Speci men Type: Urine Speci men Date: 2024 1251 Resul t Date: 2024 2146 Resul t Statu s: Final resul t Abnor mal: No Resul ting Lab: [facility] [address] [facility] [address] Tel: CULTU RE ----- ----- ----- --- No growt h in 1 day (dete ction level of 10,00 0 colon ies / ml.) Not Available [facility] (Lab) [address] [facility], [place], [address], 10/12/2024 22:51:14 10/12/19 25 10/11/2024 drug scree n, urine Amphetamines : negati ve Not Available [facility] [address], [place], [address], 10/11/2024 12:03:44 10/12/19 25 10/11/2024 drug scree n, urine Cannabinoids : negati ve Not Available [facility] [address], [place], [address], 10/11/2024 12:03:44 10/12/19 25 10/11/2024 drug scree n, urine Cocaine: negati ve Not Available [facility] [address], [place], [address], 10/11/2024 12:03:44 10/12/19 25 10/11/2024 drug scree n, urine Opiates: negati ve Not Available [facility] [address], [place], [address], 10/11/2024 12:03:44 10/12/19 25 10/11/2024 drug scree n, urine Phenocyclidi ne: negati ve Not Available [facility] [address], [place], [address], 10/11/2024 12:03:44 10/12/19 25 10/11/2024 drug scree n, urine Barbiturates : negati ve Not Available [facility] [address], [place], [address], 10/11/2024 12:03:44 10/12/19 25 10/11/2024 drug scree n, urine Benzodiazepi aaron: negati ve Not Available [facility] [address], [place], [address], 10/11/2024 12:03:44 10/12/19 25 10/11/2024 drug scree n, urine Ethanol: negati ve Not Available [facility] [address], [place], [address], 10/11/2024 12:03:44 10/12/19 25 10/11/2024 drug scree n, urine Hallucinogen s: negati ve Not Available [facility] [address], [place], [address], 10/11/2024 12:03:44 10/12/19 25 10/11/2024 drug scree n, urine Inhalants: negati ve Not Available [facility] [address], [place], [address], 10/11/2024 12:03:44 12/03/19 25 12/02/2024 CMP(C OMPRE HENSI VE METAB OLIC PANEL ) sodium 136 mmol/ L 133-14 6 Not Available [facility] (Lab) [address] [facility], [place], [address], 12/08/2024 16:08:48 12/03/19 25 12/02/2024 CMP(C OMPRE HENSI VE METAB OLIC PANEL ) potassium 4.4 mmol/ L 3.5-5. 1 Not Available [facility] (Lab) [address] [facility], [place], [address], 12/08/2024 16:08:48 12/03/19 25 12/02/2024 CMP(C OMPRE HENSI VE METAB OLIC PANEL ) chloride 107 mmol/ L 98-107 Not Available [facility] (Lab) [address] [facility], [place], [address], 12/08/2024 16:08:48 12/03/19 25 12/02/2024 CMP(C OMPRE HENSI VE METAB OLIC PANEL ) carbon dioxide 19 mmol/ L 21-31 low Not Available [facility] (Lab) [address] [facility], [place], [address], 12/08/2024 16:08:48 12/03/19 25 12/02/2024 CMP(C OMPRE HENSI VE METAB OLIC PANEL ) anion gap 10 mmol/ L 4-13 Not Available [facility] (Lab) [address] [facility], [place], [address], 12/08/2024 16:08:48 12/03/19 25 12/02/2024 CMP(C OMPRE HENSI VE METAB OLIC PANEL ) blood urea nitrogen 7 mg/dL 7-25 Not Available [facility] (Lab) [address] [facility] [facility] [facility], [place], [address], 12/08/2024 16:08:48 12/03/19 25 12/02/2024 CMP(C OMPRE HENSI VE METAB OLIC PANEL ) creatinine 0.48 mg/dL 0.60-1 .30 low Not Available [facility] (Lab) [address] [facility], [place], [address], 12/08/2024 16:08:48 12/03/19 25 12/02/2024 CMP(C OMPRE HENSI VE METAB OLIC PANEL ) egfrcr (CKD-epi 2020) >90 mL/mi n/1.7 3_m2 >=60 Not Available [facility] (Lab) [address] [facility], [place], [address], 12/08/2024 16:08:48 12/03/19 25 12/02/2024 CMP(C OMPRE HENSI VE METAB OLIC PANEL ) calcium 8.5 mg/dL 8.3-10 .5 Not Available [facility] (Lab) [address] [facility], [place], [address], 12/08/2024 16:08:48 12/03/19 25 12/02/2024 CMP(C OMPRE HENSI VE METAB OLIC PANEL ) glucose 74 mg/dL 70-100 Not Available [facility] (Lab) [address] [facility], [place], [address], 12/08/2024 16:08:48 12/03/1912/02/2024 CMP(C OMPRE HENSI VE METAB OLIC PANEL ) protein, total 6.3 g/dL 6.4-8. 3 low Not Available [facility] (Lab) [address] [facility], [place], [address], 12/08/2024 16:08:48 12/03/19 25 12/02/2024 CMP(C OMPRE HENSI VE METAB OLIC PANEL ) albumin 3.5 g/dL 3.5-5. 0 Not Available [facility] (Lab) [address] [facility], [place], [address], 12/08/2024 16:08:48 12/03/19 25 12/02/2024 CMP(C OMPRE HENSI VE METAB OLIC PANEL ) ALT 8 units /L 9-43 low Not Available [facility] (Lab) [address] [facility], [place], [address], 12/08/2024 16:08:48 12/03/19 25 12/02/2024 CMP(C OMPRE HENSI VE METAB OLIC PANEL ) alkaline phosphatase 57 units /L 34-104 Not Available [facility] (Lab) [address] [facility], [place], [address], 12/08/2024 16:08:48 12/03/19 25 12/02/2024 CMP(C OMPRE HENSI VE METAB OLIC PANEL ) AST 17 units /L 13-39 Not Available [facility] (Lab) [address] [facility], [place], [address], 12/08/2024 16:08:48 12/03/19 25 12/02/2024 CMP(C OMPRE HENSI VE METAB OLIC PANEL ) bilirubin, total 0.4 mg/dL 0.2-1. 2 Not Available [facility] (Lab) [address] [place], [address], 12/08/2024 16:08:48 12/03/1912/02/2024 FABIOLA TIN / IRON / TRANS FABIOLA N / TIBC iron 83 ug/dL 40-170 Not Available [facility] (Lab) [address] [place], [address], 12/08/2024 16:08:49 12/03/1912/02/2024 FABIOLA TIN / IRON / TRANS FABIOLA N / TIBC transferrin 305 mg/dL 200-36 0 Not Available [facility] (Lab) [address] [place], [address], 12/08/2024 16:08:49 12/03/19 25 12/02/2024 FABIOLA TIN / IRON / TRANS FABIOLA N / TIBC ferritin 82.3 NG/mL 8.0-25 2.0 Not Available [facility] (Lab) [address] [place], [address], 12/08/2024 16:08:49 12/03/19 25 12/02/2024 FABIOLA TIN / IRON / TRANS FABIOLA N / TIBC TIBC 427 ug/dL 250-45 0 Not Available [facility] (Lab) [address] [facility], [place], [address], 12/08/2024 16:08:49 12/03/19 25 12/02/2024 FABIOLA TIN / IRON / TRANS FABIOLA N / TIBC iron saturation 19 % 20-55 low Not Available [facility] (Lab) [address] [place], [address], 12/08/2024 16:08:49 12/03/19 25 12/02/2024 VITAM IN B12 / FOLAT E PANEL vitamin B12 202 pg/mL 180-91 4 Pooja l Range : 180-9 14 pg/mL . Indet ermin ate Range : 145-1 80 pg/mL . Defic ient Range : <=145 pg/mL . Not Available [facility] (Lab) [address] [place], [address], 12/08/2024 16:08:49 12/03/19 25 12/02/2024 VITAM IN B12 / FOLAT E PANEL folate, serum >20.0 NG/mL 6.0-20 .0 high Not Available [facility] (Lab) [address] [place], [address], 12/08/2024 16:08:49 12/03/19 25 12/02/2024 VITAM IN D, 25-OH (TOTA L D2/D3 ) vitamin D, 25-hydroxy, total 28.2 NG/mL 30.0-1 00.0 low Sugge stive of Defic iency : <20 ng/mL Sugge stive of Insuf ficie ncy: 20-29 ng/mL Sugge stive of Suffi cienc y: 30-10 0 ng/mL Sugge stive of Toxic ity: >150 ng/mL Not Available [facility] (Lab) [address] [facility], [place], [address], 12/08/2024 16:08:49 12/03/19 25 12/02/2024 LEAD, BLOOD (ADUL T/PED IATRI C) lead, whole blood <1.0 mcg/d L <3.5 See Note 1 Linda sis was perfo rmed by Gertrude Holloway ed Plasm a Mass Spect romet ry (ICPM S) Note 1 This test was devel oped and its linda tical perfo rmanc e che cteri stics have been deter mined by [employer]. It has not been clear ed or appro doug by the FDA. This assay has been valid ated pursu ant to the CLIA regul ation s and is used for clini robinson purpo ses. Perfo rming Organ izati on Infor naresh n: Site ID: [id number] Name: [facility]-Jared hand Alen Addre ss: [address] [facility] [address] [place] [address] Dire tor: Bhaskar Doll s Not Available [facility] (Lab) [address] [facility], [place], [address], 12/08/2024 16:08:50 12/03/19 25 12/02/2024 VITAM IN [...] purpo ses. MDF med fusio n [address] [facility] [address] [place] [facility] [place] [address] [phone] Victorina Johnson MD, PhD Perfo rming Organ izati on Infor matio n: Site ID: [id number] Name: Med[facility] jaylene- MedFu jaylene Addre ss: [address] [facility] [address], [address] [facility] , [place] [phone] Direc tor: Victorina Johnson MD,Ph D Not Available [facility] (Lab) [address], [place], [address], 12/08/2024 16:08:50 10/12/19 25 10/11/2024 US, obste tric, nucha l trans lucen cy No observ ation record ed. [email or web address] [facility] [address], [place], [address], 10/11/2024 13:10:00 10/12/19 25 10/11/2024 US, obste tric, 1st trime ster No observ ation record ed. [email or web address] [facility] [address], [place], [address], 10/11/2024 13:10:09 10/12/19 25 10/11/2024 US, obste tric, nucha l trans lucen cy No observ ation record ed. [email or web address] [address] [address], [place], [address], 10/14/2024 09:45:42 11/17/19 25 11/16/2024 imagi ng/di agnos tic resul t No observ ation record ed. [facility] [address] [facility] [facility] [place], [address], 2024 21:39:44 11/19/19 25 11/16/2024 imagi ng/di agnos tic resul t No observ ation record ed. [facility] [address], [address], 2024 21:39:44 12/17/19 25 12/16/2024 US, obste tric, follo w-up No observ ation record ed. gulshan [facility] [address], [address], 12/23/2024 13:18:27 12/17/19 25 12/16/2024 US, obste tric, follo w-up No observ ation record ed. [facility] [address], [address], 12/20/2024 09:13:00 01/14/20 25 01/13/2025 US, obste tric, follo w-up No observ ation record ed. [facility] [address], [address], 01/17/2025 11:47:51 01/14/2001/13/2025 US, obste tric, follo w-up No observ ation record ed. gulshan [facility] [address], [address], 01/17/2025 16:04:16 01/27/20 25 01/26/2025 US, obste tric, follo w-up No observ ation record ed. [email or web address] [facility] [address] [place], [address], 01/26/2025 15:11:31 01/27/20 25 01/26/2025 US, obste tric, follo w-up No observ ation record ed. NORI [facility] [address], [place], [address], 01/29/2025 15:19:23 Result Notes None recorded. Problems Name Problem SNOMED Code Status Onset Date Resolution Date Notes Provider Name and Address Organization Details Recorded Time Pregnanc y 79537782 Active 2024 Freida hand, [facility] 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 5 11:26:50 Past pregnanc y history of section 434728988 Active 2024 G2 under GETA, umbilical cord prolapse desires RCS TRUONG MCGOWAN MD [address], [place], [address], [facility] 5 11:24:36 Migraine 15907542 Active 2024 Eduar Gautam MD [address], [place], [address], [facility] 10:20:53 Problem Notes None recorded. Procedures Surgical History Date Name Laterality Status Provider Name and Address Organization Details Recorded Time 09/15/19 25 Date of Last Pap Smear completed [facility] 09/14/2024 10:20:33 05/11/19 25 Bariatric Surgery completed [facility] 09/14/2024 10:10:08 03/23/19 19 Appendectomy completed [facility] 09/14/2024 10:26:43 07/28/19 18 Caesarean Section completed [facility] 09/14/2024 10:10:08 03/23/19 09 Cholecystectomy completed [facility] 09/14/2024 10:26:22 03/23/19 00 Tonsillectomy completed Elizabeth Hatfield [facility] 09/14/2024 10:26:04 Imaging Results None recorded. Procedure Notes None recorded. Medical Equipment None Reported. Allergies Allergen ID Allergen Name Allergen Category Reaction Reaction Severity Criticality Documentation Date Start Date Code Code System Note Provider Name and Address Organization Details Recorded Time 01426 iodine medicatio n palpitati ons severe Not available 09/14/2024 5933 RxNorm Elizabeth hand, [facility] 5 10:09:38 61064 Augmentin medicatio n hives moderate Not available 09/14/2024 90441 2 RxNorm Elizabeth hand, [facility] 5 10:09:38 03155 clavulani c acid Not available vomiting Not available high 02/03/20252021 87923 RxNorm Not Available [employer] [facility] [employer] - prod 09:16:51 00393 amoxicill in / clavulana te medicatio n hives rash Not available Not available high 02/03/20252023 07078 RxNorm VOMIT ING Not Available [employer] - prod 09:16:55 Medications Name [...] Address Organization Details Last Updated DateTime 12/02/2024 49386.38048 g 116/78 mm[Hg] Elizabeth Hatfield [facility] 12/02/2024 10:07:28 Social History Question Answer Notes LastModified by [...] Or The Highest Degree You Have Received? [id number] Information not available 09/14/2024 Are There Any [...] anxious, or unable to sleep at night)? [id number] Information not available 09/14/2024 Family History Relationship [...] ICD10 Code Diagnosis IMO Codes Diagnosis Note [id number] TRUONG MCGOWAN MD [facility] [address] [address] 11/02/2024 16:10:12 11/02/2024 17:34:34 Past history of section 532064889 Z98.891 866204 - PLTCS under GETA for cord prolapse- desires RCS History of sleeve gastrectomy 9955000776 60657 Z90.3 1993832011 - partial sleeve gastrectom y 04/2024- baseline labs ordered 10/11- plan for serial growth US Migraine w ithout aura, not refractory 504428168 G43.056 1931517 - not improved with tylenol, B2, reglan/gina adryl, or sumatripta n- MFM consultati on ordered Gestation period, 16 weeks 90056013 Z3A.16 2801014 - continue PNV [id number] Eduar Gautam MD [facility] [address] [address] 12/02/2024 09:28:32 12/02/2024 10:41:35 Migraine 11031358 G43.909 [id number] Health Concerns Section Related Observation LastModified by Organization Detai ls LastModified Time None Recorded Concern Status LastModified by Organization Details LastModified Time None Recorded Payers Encounter Date Sequence Insurance Name Policy Number Policy Paez Covered Member ID Paez Member ID Guarantor Name 12/02/2024 1 [facility] (MEDICAID HMO) [id number] Radha Sheppard [id number] Radha Sheppard Notes Date Note Type Note Provider Name and Address Organization Details Recorded Time 12/02/2024 text/html Generic HPI TemplateReported by Patient Eduar Gautam MD [address], [place], [address], [facility] 12/02/2024 10:39:41 OBGyn Episode Ob Episode Information Episode Created Date Number of Fetuses Patient Bloodtype Patient rh Status Prepregnancy Weight lbs Domestic Partner Domestic Partner Phone Father Name Controls Designer Status 10/12/19 25 1 O Positive 165 Radha Souza OPEN Fetus Data First Name Last Name Admitted to NICU Weight (g) Sex Living Outcome Pediatric Complications Fetus ID Race Codes Race Delivery Type [id number] Problems Problem Notes Scheduled 11/16 1:00PM Level II US & office visit scheduled [facility] 01/13 0730 us only Problem Name Start Date End Date Resolution Snomed Code Not e Migraine 12/02/2024 [id number] 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 [id number] - partial sl eeve gastrectomy 04/2024- baseline vitamin labs ordered at 12 weeks- serial growth US Past history of section 10/11/2024 [id number] G2 under GE TA, umbilical cord prolapsedesires [...] Sound Latest Days Gestation 11/17/19 25 18 [email or web address] 10/11/2024 04/17/19 26 2 Pre- Flowsheet Flowsheet Date 10/11/2024 Espinoza Score Blood Edema Fundus Height Fundus Units Glucose Ketones Leukocytes Nitrite Labor Signs Protein Cervic Dilation Cervic Effacement Cervic Station Type Weight in lbs Pre/Post Dialysis Refused Weight 163.226787086131 BP Diastolic BP Location Tested BP Systolic [...] Weight in lbs Pre/Post Dialysis Refused Weight 161.286815819963 BP Diastolic BP Location Tested BP Systolic BP Type 74 L arm 116 sitting Fetus Heart Rate Present Fetus Movement A Yes Comments Still having some nausea. Mi graines not improved with tylenol, reglan, and sumatriptan. Will send [facility] referral. LR male NIPT! All other OB labs wnl. Anatomy US next visit. RTC 4 weeks. Flowsheet Date 12/02/2024 Espinoza Score Blood Edema Fundus Height Fundus Units Glucose Ketones Leukocytes Nitrite Labor Signs Protein Cervic Dilation Cervic Effacement Cervic Station Type Weight in lbs Pre/Post Dialysis Refused 167.875942674774 BP Diastolic BP Location Tested BP Systolic [...] if she is still suffering. Seen at [facility]. Flowsheet Date 12/30/2024 Espinoza Score Blood Edema Fundus Height Fundus Units Glucose Ketones Leukocytes Nitrite Labor Signs Protein Cervic Dilation Cervic Effacement Cervic Station Type Weight in lbs Pre/Post Dialysis Refused 168.109176802063 BP Diastolic BP Location Tested BP Systolic [...] Type Weight in lbs Pre/Post Dialysis Refused 170.918338996867 BP Diastolic BP Location Tested BP Systolic [...] Weight in lbs Pre/Post Dialysis Refused Weight 172.749660721085 BP Diastolic BP Location Tested BP Systolic [...]
--- OUTSIDE RECORDS SUMMARY | 2025-02-17 19:56 | XMS_ITS | Continuity of Care Document ---
Author Organization [facility] Address [address] [place] [address] [place] [address] Assessment No assessment recorded. Plan of Treatment [...] NIPT fraction 7.5% normal Not Available [facility] [address], [place], [address], 10/17/2024 23:58:00 10/18/19 25 10/17/2024 [UNIT Y] ANEUP LOIDY NIPT 22Q11.2 microdeletio n LOW RISK <1 in 10,000 normal Not Available [facility] [address], [place], [address], 10/17/2024 23:58:00 10/18/19 25 10/17/2024 [UNIT Y] ANEUP LOIDY NIPT sex chromosome aneuploidy NOT DETECT ED normal Not Available [facility] [address], [place], [address], 10/17/2024 23:58:00 10/18/19 25 10/17/2024 [UNIT Y] ANEUP LOIDY NIPT monosomy X LOW RISK <1 in 10,000 normal Not Available [facility] [address], [place], [address], 10/17/2024 23:58:00 10/18/19 25 10/17/2024 [UNIT Y] ANEUP LOIDY NIPT trisomy 13 LOW RISK <1 in 10,000 normal Not Available [facility] [address], [place], [address], 10/17/2024 23:58:00 10/18/19 25 10/17/2024 [UNIT Y] ANEUP LOIDY NIPT trisomy 18 LOW RISK <1 in 10,000 normal Not Available [facility] [address], [place], [address], 10/17/2024 23:58:00 10/18/19 25 10/17/2024 [UNIT Y] ANEUP LOIDY NIPT trisomy 21 LOW RISK <1 in 10,000 normal Not Available [facility] [address], [place], [address], 10/17/2024 23:58:00 10/18/19 25 10/17/2024 [UNIT Y] ANEUP LOIDY NIPT sex MALE normal Not Available [facility] [address], [place], [address], 10/17/2024 23:58:00 10/18/19 25 10/17/2024 [UNIT Y] ANEUP LOIDY NIPT gestation SINGLE TON normal Not Available [facility] [address], [place], [address], 10/17/2024 23:58:00 10/18/19 25 10/17/2024 [UNIT Y] ANEUP LOIDY NIPT for detailed report, see pdf See PDF normal Not Available [facility] [address], [place], [address], 10/17/2024 23:58:00 10/22/19 25 10/21/2024 [UNIT Y] MIKE Galvez sickle cell disease/beta -thalassemia /hemoglobino pathies carrier screen NEGATI VE normal Not Available [facility] [address], [place], [address], 10/21/2024 17:38:31 10/22/19 25 10/21/2024 [UNIT Y] MIKE Galvez alpha-thalas semia carrier screen NEGATI VE normal Not Available [facility] [address], [place], [address], 10/21/2024 17:38:31 10/22/19 25 10/21/2024 [UNIT Y] MIKE Galvez cystic fibrosis carrier screen NEGATI VE normal Not Available [facility] [address], [place], [address], 10/21/2024 17:38:31 10/22/19 25 10/21/2024 [UNIT Y] MIKE Galvez spinal muscular atrophy carrier screen NEGATI VE 2 SMN1 copies , SNP not presen t normal Not Available [facility] [address], [place], [address], 10/21/2024 17:38:31 10/22/19 25 10/21/2024 [UNIT Y] MIKE Galvez for detailed report, see pdf See PDF normal Not Available [facility] [address], [place], [address], 10/21/2024 17:38:31 10/12/19 25 10/11/2024 CBC W/DIF F WBC 7.0 10'3/ uL 3.5-10 .5 Not Available [facility] (Lab) [address], [place], [address], 10/12/2024 13:07:49 10/12/19 25 10/11/2024 CBC W/DIF F RBC 3.94 10'6/ uL (based on docume nted legal sex) 3.80-5 .20 Not Available [facility] (Lab) [address], [place], [address], 10/12/2024 13:07:49 10/12/19 25 10/11/2024 CBC W/DIF F HGB 12.1 g/dL (based on docume nted legal sex) 11.6-1 5.4 Not Available [facility] (Lab) [address], [place], [address], 10/12/2024 13:07:49 10/12/19 25 10/11/2024 CBC W/DIF F HCT 36.3 % (based on docume nted legal sex) 34.0-4 5.0 Not Available [facility] (Lab) [address], [place], [address], 10/12/2024 13:07:49 10/12/19 25 10/11/2024 CBC W/DIF F MCV 92.1 fL 80.0-9 9.0 Not Available [facility] (Lab) [address] [place], [address], 10/12/2024 13:07:49 10/12/19 25 10/11/2024 CBC W/DIF F MCH 30.7 pg 27.0-3 4.0 Not Available [facility] (Lab) [address] [place], [address], 10/12/2024 13:07:49 10/12/19 25 10/11/2024 CBC W/DIF F MCHC 33.3 g/dL 32.0-3 5.5 Not Available [facility] (Lab) [address], [place], [address], 10/12/2024 13:07:49 10/12/19 25 10/11/2024 CBC W/DIF F RDW 12.4 % 11.0-1 5.0 Not Available [facility] (Lab) [address], [place], [address], 10/12/2024 13:07:49 10/12/19 25 10/11/2024 CBC W/DIF F plt 278 10'3/ uL 150-40 0 Not Available [facility] (Lab) [address], [place], [address], 10/12/2024 13:07:49 10/12/19 25 10/11/2024 CBC W/DIF F MPV 11.7 fL 8.8-12 .1 Not Available [facility] (Lab) [address], [place], [address], 10/12/2024 13:07:49 10/12/19 25 10/11/2024 CBC W/DIF F NRBC's 0.0 % 0.0 Not Available [facility] (Lab) [address], [place], [address], 10/12/2024 13:07:49 10/12/19 25 10/11/2024 CBC W/DIF F absolute NRBCs 0.0 10'3/ uL no refere nce range establ ished Not Available [facility] (Lab) [address], [place], [address], 10/12/2024 13:07:49 10/12/19 25 10/11/2024 CBC W/DIF F neutrophils 71.6 % 34.0-7 3.0 Not Available [facility] (Lab) [address] [facility], [place], [address], 10/12/2024 13:07:49 10/12/19 25 10/11/2024 CBC W/DIF F lymphocytes 22.8 % 15.0-5 0.0 Not Available [facility] (Lab) [address] [facility], [place], [address], 10/12/2024 13:07:49 10/12/19 25 10/11/2024 CBC W/DIF F monocytes 4.7 % 1.0-15 .0 Not Available [facility] (Lab) [address] [facility], [place], [address], 10/12/2024 13:07:49 10/12/19 25 10/11/2024 CBC W/DIF F eosinophils 0.3 % 0.0-8. 0 Not Available [facility] (Lab) [address] [facility], [place], [address], 10/12/2024 13:07:49 10/12/19 25 10/11/2024 CBC W/DIF F basophils 0.3 % 0.0-2. 0 Not Available [facility] (Lab) [address] [facility], [place], [address], 10/12/2024 13:07:49 10/12/19 25 10/11/2024 CBC W/DIF [...] separ ately if prese nt. Not Available [facility] (Lab) [address] [facility], [place], [address], 10/12/2024 13:07:49 10/12/19 25 10/11/2024 CBC W/DIF F absolute neutrophils 5.0 10'3/ uL 1.5-8. 0 Not Available [facility] (Lab) [address] [facility], [place], [address], 10/12/2024 13:07:49 10/12/19 25 10/11/2024 CBC W/DIF F absolute lymphocytes 1.6 10'3/ uL 1.0-4. 0 Not Available [facility] (Lab) [address] [facility], [place], [address], 10/12/2024 13:07:49 10/12/19 25 10/11/2024 CBC W/DIF F absolute monocytes 0.3 10'3/ uL 0.2-1. 0 Not Available [facility] (Lab) [address] [facility], [place], [address], 10/12/2024 13:07:49 10/12/19 25 10/11/2024 CBC W/DIF F absolute eosinophils 0.0 10'3/ uL 0.0-0. 6 Not Available [facility] (Lab) [address] [facility], [place], [address], 10/12/2024 13:07:49 10/12/19 25 10/11/2024 CBC W/DIF F absolute basophils 0.0 10'3/ uL 0.0-0. 3 Not Available [facility] (Lab) [address] [facility], [place], [address], 10/12/2024 13:07:49 10/12/19 25 10/11/2024 CBC W/DIF F absolute immature granulocytes 0.0 10'3/ uL 0.00-0 .10 Refer ence range s for nonbi nary/ inter sex or unspe cifie d gende r patie nts have not been estab lishe d. Pleas e refer to the gretao wing table for range s estab lishe d for cisge nder patie nts and evalu ate in the clini robinson leonard xt of the indiv idual patie nt: https ://la yesenia book. nm.or g/gen derx Not Available [facility] (Lab) [address] [facility], [place], [address], 10/12/2024 13:07:49 10/12/19 25 10/11/2024 HIV 1/2 ANTIG EN/AN TIBOD Y, REFLE X CONFI RMATI ON HIV antigen/anti body Nonrea ctive nonrea ctive HIV-1 antig en and HIV-1 /HIV- 2 antib odies were not detec nishant. No labor atory evide nce of HIV infec tion. Not Available [facility] (Lab) [address] [facility], [place], [address], 10/12/2024 13:07:50 10/12/19 25 10/11/2024 HEPAT ITIS B SURFA CE ANTIG EN hepatitis B surface antigen Non-re active non-re active This assay was perfo rmed using [employer] ratio n reage nts and test kits. Value s obtai francois with other assay metho ds or kits canno t be used inter serna eably . Not Available [facility] (Lab) [address] [facility], [place], [address], 10/12/2024 13:07:50 10/12/19 25 10/11/2024 HEPAT ITIS C ANTIB KERI SCREE N, REFLE X TO CONFI RMATI ON hepatitis C antibody Non-re active non-re active Antib odies to HCV Not Detec nishant, does not exclu de the possi bilit y of expos ure to HCV. Not Available [facility] (Lab) [address] [facility], [place], [address], 10/12/2024 13:07:51 10/12/19 25 10/11/2024 RUBEL LA IGG ANTIB KERI, QUANT rubella antibodies, IgG Reacti ve reacti ve Not Available [facility] (Lab) [address] [facility], [place], [address], 10/12/2024 13:07:51 10/12/19 25 10/11/2024 RUBEL LA IGG ANTIB KERI, QUANT rubella antibodies, IgG quant 18.4 IU/mL >=10 Non-r eacti ve (Non- Immun e) <10 IU/mL React filippo (Immu ne) > or = 10 IU/mL Not Available [facility] (Lab) [address] [facility], [place], [address], 10/12/2024 13:07:51 10/12/19 25 10/11/2024 TYPE/ RH/SC REEN ABO/Rh type O POS Not Available [facility] (Lab) [address] [facility], [place], [address], 10/12/2024 13:07:51 10/12/19 25 10/11/2024 TYPE/ RH/SC REEN antibody screen NEG Not Available [facility] (Lab) [address] [facility], [place], [address], 10/12/2024 13:07:51 10/12/19 25 10/11/2024 TYPE/ RH/SC REEN exp date 2024 23:59 Not Available [facility] (Lab) [address] [facility], [place], [address], 10/12/2024 13:07:51 10/12/19 25 10/11/2024 HEMOG LOBIN [...] s consi stent ly > 8%. <5.7% Pooaj l 5.7 - 6.4% Incre ased risk for diabe brenna >=6.5 % Diagn ostic of diabe brenna <7.0% Goal of thera py >8.0% Actio n sugge sted Not Available [facility] (Lab) [address], [place], [address], 10/12/2024 13:07:52 10/12/19 25 10/11/2024 RPR SCREE N, REFLE X TITER /CONF IRMAT ION RPR qualitative Nonrea ctive nonrea ctive Not Available [facility] (Lab) [address] [facility], [place], [address], 10/12/2024 13:07:53 10/12/19 25 10/11/2024 CULTU RE: URINE result report SEE RESULT S BELOW Test: Cultu re: Urine Speci men Sourc e: Urine Voide d Speci men Type: Urine Speci men Date: 2024 1251 Resul t Date: 2024 2146 Resul t Statu s: Final resul t Abnor mal: No Resul ting Lab: [facility] [address] [facility] [address] Tel: CULTU RE ----- ----- ----- --- No growt h in 1 day (dete ction level of 10,00 0 colon ies / ml.) Not Available [facility] (Lab) [address] [facility], [place], [address], 10/12/2024 22:51:14 10/12/19 25 10/11/2024 drug scree n, urine Amphetamines : negati ve Not Available [facility] [address], [place], [address], 10/11/2024 12:03:44 10/12/19 25 10/11/2024 drug scree n, urine Cannabinoids : negati ve Not Available [facility] [address], [place], [address], 10/11/2024 12:03:44 10/12/19 25 10/11/2024 drug scree n, urine Cocaine: negati ve Not Available [facility] [address], [place], [address], 10/11/2024 12:03:44 10/12/19 25 10/11/2024 drug scree n, urine Opiates: negati ve Not Available [facility] [address], [place], [address], 10/11/2024 12:03:44 10/12/19 25 10/11/2024 drug scree n, urine Phenocyclidi ne: negati ve Not Available [facility] [address], [place], [address], 10/11/2024 12:03:44 10/12/19 25 10/11/2024 drug scree n, urine Barbiturates : negati ve Not Available [facility] [address], [place], [address], 10/11/2024 12:03:44 10/12/19 25 10/11/2024 drug scree n, urine Benzodiazepi aaron: negati ve Not Available [facility] [address], [place], [address], 10/11/2024 12:03:44 10/12/19 25 10/11/2024 drug scree n, urine Ethanol: negati ve Not Available [facility] [address], [place], [address], 10/11/2024 12:03:44 10/12/19 25 10/11/2024 drug scree n, urine Hallucinogen s: negati ve Not Available [facility] [address], [place], [address], 10/11/2024 12:03:44 10/12/19 25 10/11/2024 drug scree n, urine Inhalants: negati ve Not Available [facility] [address], [place], [address], 10/11/2024 12:03:44 12/03/19 25 12/02/2024 CMP(C OMPRE HENSI VE METAB OLIC PANEL ) sodium 136 mmol/ L 133-14 6 Not Available [facility] (Lab) [address] [facility], [place], [address], 12/08/2024 16:08:48 12/03/19 25 12/02/2024 CMP(C OMPRE HENSI VE METAB OLIC PANEL ) potassium 4.4 mmol/ L 3.5-5. 1 Not Available [facility] (Lab) [address] [facility], [place], [address], 12/08/2024 16:08:48 12/03/19 25 12/02/2024 CMP(C OMPRE HENSI VE METAB OLIC PANEL ) chloride 107 mmol/ L 98-107 Not Available [facility] (Lab) [address] [facility], [place], [address], 12/08/2024 16:08:48 12/03/19 25 12/02/2024 CMP(C OMPRE HENSI VE METAB OLIC PANEL ) carbon dioxide 19 mmol/ L 21-31 low Not Available [facility] (Lab) [address] [facility], [place], [address], 12/08/2024 16:08:48 12/03/1912/02/2024 CMP(C OMPRE HENSI VE METAB OLIC PANEL ) anion gap 10 mmol/ L 4-13 Not Available [facility] (Lab) [address] [facility], [place], [address], 12/08/2024 16:08:48 12/03/1912/02/2024 CMP(C OMPRE HENSI VE METAB OLIC PANEL ) blood urea nitrogen 7 mg/dL 7-25 Not Available [facility] (Lab) [address] [facility], [place], [address], 12/08/2024 16:08:48 12/03/1912/02/2024 CMP(C OMPRE HENSI VE METAB OLIC PANEL ) creatinine 0.48 mg/dL 0.60-1 .30 low Not Available [facility] (Lab) [address] [facility], [place], [address], 12/08/2024 16:08:48 12/03/19 25 12/02/2024 CMP(C OMPRE HENSI VE METAB OLIC PANEL ) egfrcr (CKD-epi 2020) >90 mL/mi n/1.7 3_m2 >=60 Not Available [facility] (Lab) [address] [facility], [place], [address], 12/08/2024 16:08:48 12/03/19 25 12/02/2024 CMP(C OMPRE HENSI VE METAB OLIC PANEL ) calcium 8.5 mg/dL 8.3-10 .5 Not Available [facility] (Lab) [address] [facility], [place], [address], 12/08/2024 16:08:48 12/03/19 25 12/02/2024 CMP(C OMPRE HENSI VE METAB OLIC PANEL ) glucose 74 mg/dL 70-100 Not Available [facility] (Lab) [address] [facility], [place], [address], 12/08/2024 16:08:48 12/03/19 25 12/02/2024 CMP(C OMPRE HENSI VE METAB OLIC PANEL ) protein, total 6.3 g/dL 6.4-8. 3 low Not Available [facility] (Lab) [address] [facility], [place], [address], 12/08/2024 16:08:48 12/03/19 25 12/02/2024 CMP(C OMPRE HENSI VE METAB OLIC PANEL ) albumin 3.5 g/dL 3.5-5. 0 Not Available [facility] (Lab) [address] [facility], [place], [address], 12/08/2024 16:08:48 12/03/19 25 12/02/2024 CMP(C OMPRE HENSI VE METAB OLIC PANEL ) ALT 8 units /L 9-43 low Not Available [facility] (Lab) [address] [facility], [place], [address], 12/08/2024 16:08:48 12/03/19 25 12/02/2024 CMP(C OMPRE HENSI VE METAB OLIC PANEL ) alkaline phosphatase 57 units /L 34-104 Not Available [facility] (Lab) [address] [facility], [place], [address], 12/08/2024 16:08:48 12/03/19 25 12/02/2024 CMP(C OMPRE HENSI VE METAB OLIC PANEL ) AST 17 units /L 13-39 Not Available [facility] (Lab) [address] [facility], [place], [address], 12/08/2024 16:08:48 12/03/19 25 12/02/2024 CMP(C OMPRE HENSI VE METAB OLIC PANEL ) bilirubin, total 0.4 mg/dL 0.2-1. 2 Not Available [facility] (Lab) [address] [facility], [place], [address], 12/08/2024 16:08:48 12/03/19 25 12/02/2024 FABIOLA TIN / IRON / TRANS FABIOLA N / TIBC iron 83 ug/dL 40-170 Not Available [facility] (Lab) [address] [facility], [place], [address], 12/08/2024 16:08:49 12/03/19 25 12/02/2024 FABIOLA TIN / IRON / TRANS FABIOLA N / TIBC transferrin 305 mg/dL 200-36 0 Not Available [facility] (Lab) [address] [facility], [place], [address], 12/08/2024 16:08:49 12/03/19 25 12/02/2024 FABIOLA TIN / IRON / TRANS FABIOLA N / TIBC ferritin 82.3 NG/mL 8.0-25 2.0 Not Available [facility] (Lab) [address] [facility], [place], [address], 12/08/2024 16:08:49 12/03/19 25 12/02/2024 FABIOLA TIN / IRON / TRANS FABIOLA N / TIBC TIBC 427 ug/dL 250-45 0 Not Available [facility] (Lab) [address] [place], [address], 12/08/2024 16:08:49 12/03/19 25 12/02/2024 FABIOLA TIN / IRON / TRANS FABIOLA N / TIBC iron saturation 19 % 20-55 low Not Available [facility] (Lab) [address] [place], [address], 12/08/2024 16:08:49 12/03/19 25 12/02/2024 VITAM IN B12 / FOLAT E PANEL vitamin B12 202 pg/mL 180-91 4 Pooja l Range : 180-9 14 pg/mL . Indet ermin ate Range : 145-1 80 pg/mL . Defic ient Range : <=145 pg/mL . Not Available [facility] (Lab) [address] [facility], [place], [address], 12/08/2024 16:08:49 12/03/19 25 12/02/2024 VITAM IN B12 / FOLAT E PANEL folate, serum >20.0 NG/mL 6.0-20 .0 high Not Available [facility] (Lab) [address] [place], [address], 12/08/2024 16:08:49 12/03/1912/02/2024 VITAM IN D, 25-OH (TOTA L D2/D3 ) vitamin D, 25-hydroxy, total 28.2 NG/mL 30.0-1 00.0 low Sugge stive of Defic iency : <20 ng/mL Sugge stive of Insuf ficie ncy: 20-29 ng/mL Sugge stive of Suffi cienc y: 30-10 0 ng/mL Sugge stive of Toxic ity: >150 ng/mL Not Available [facility] (Lab) [address] [place], [address], 12/08/2024 16:08:49 12/03/1912/02/2024 LEAD, BLOOD (ADUL T/PED IATRI C) lead, whole blood <1.0 mcg/d L <3.5 See Note 1 Linda sis was perfo rmed by Gertrude Holloway ed Plasm a Mass Spect romet ry (ICPM S) Note 1 This test was devel oped and its linda tical perfo rmanc e che cteri stics have been deter mined by [facility] [employer] [facility]stic [facility]. It has not been clear ed or appro doug by the FDA. This assay has been valid ated pursu ant to the CLIA regul ation s and is used for clini robinson purpo ses. Perfo rming Organ izati on Infor matio n: Site ID: [id number] Name: [facility] [employer] [facility]stic [facility]-Jared hand Alen Addre ss: [address] [facility] [place] [address] [facility] tor: Bhaskar mccormick V Lavon s Not Available [facility] (Lab) [address] [facility], [place], [address], 12/08/2024 16:08:50 12/03/1912/02/2024 VITAM IN A (RETI [...] is used for clini robinson purpo ses. GRACIELA med fusio n [address] [facility] [address] [employer] [address] [phone] Victorina Johnson MD, PhD Perfo rming Organ izati on Infor matio n: Site ID: [id number] Name: [facility] jaylene- [facility] jaylene Addre ss: [address] [facility] [address] [place] [address] Direc tor: Victorina Johnson MD,Ph D Not Available [facility] (Lab) [address] [facility], [place], [address], 12/08/2024 16:08:50 02/04/20 25 02/03/2025 HEMAT OCRIT (HCT) HCT 31.1 % (based on docume nted legal sex) 34.0-4 5.0 low Not Available [facility] (Lab) [address] [facility], [place], [address], 02/06/2025 17:22:48 02/04/20 25 02/03/2025 HEMOG LOBIN (HGB) HGB 10.0 g/dL (based on docume nted legal sex) 11.6-1 5.4 low Not Available [facility] (Lab) [address] [facility], [place], [address], 02/06/2025 17:22:48 02/04/20 25 02/03/2025 HIV 1/2 ANTIG EN/AN TIBOD Y, REFLE X CONFI RMATI ON HIV antigen/anti body Nonrea ctive nonrea ctive HIV-1 antig en and HIV-1 /HIV- 2 antib odies were not detec nishant. No labor atory evide nce of HIV infec tion. Not Available [facility] (Lab) [address] [facility], [place], [address], 02/06/2025 17:22:48 02/04/20 25 02/03/2025 RPR SCREE N, REFLE X TITER /CONF IRMAT ION RPR qualitative Nonrea ctive nonrea ctive Not Available [facility] (Lab) [address] [place], [address], 02/06/2025 17:22:49 02/04/20 25 02/03/2025 LEAD, BLOOD (ADUL T/PED IATRI C) lead, whole blood <1.0 mcg/d L <3.5 See Note 1 Linda sis was perfo rmed by Gertrude Holloway ed Plasm a Mass Spect romet ry (ICPM S) Note 1 This test was devel oped and its linda tical perfo rmanc e che cteri stics have been deter mined by [employer] ostic s. It has not been clear ed or appro doug by the FDA. This assay has been valid ated pursu ant to the CLIA regul ation s and is used for clini robinson purpo ses. Perfo rming Organ izati on Infor matio n: Site ID: [id number] Name: [employer] [facility]-Coleman d Alen Addre ss: [address] [place] [address] Direc tor: Bhaskar Doll s Not Available [facility] (Lab) [address] [facility], [place], [address], 02/06/2025 17:22:49 10/12/19 25 10/11/2024 US, obste tric, nucha l trans lucen cy No observ ation record ed. [email or web address] [facility] [address], [place], [address], 10/11/2024 13:10:00 10/12/19 25 10/11/2024 US, obste tric, 1st trime ster No observ ation record ed. [email or web address] [facility] [address], [place], [address], 10/11/2024 13:10:09 10/12/19 25 10/11/2024 US, obste tric, nucha l trans lucen cy No observ ation record ed. [email or web address] [facility] [address], [place], [address], 10/14/2024 09:45:42 11/17/19 25 11/16/2024 imagi ng/di agnos tic resul t No observ ation record ed. [facility] [address] [place], [address], 2024 21:39:44 11/19/19 25 11/16/2024 imagi ng/di agnos tic resul t No observ ation record ed. NORI [facility] [address], [address], 2024 21:39:44 12/17/19 25 12/16/2024 US, obste tric, follo w-up No observ ation record ed. gulshan [facility] [address], [address], 12/23/2024 13:18:27 12/17/19 25 12/16/2024 US, obste tric, follo w-up No observ ation record ed. [email or web address] [facility] [address], [address], 12/20/2024 09:13:00 01/14/20 25 01/13/2025 US, obste tric, follo w-up No observ ation record ed. [email or web address] [facility] [address], [address], 01/17/2025 11:47:51 01/14/20 25 01/13/2025 US, obste tric, follo w-up No observ ation record ed. [email or web address] [place] [address], [address], 01/17/2025 16:04:16 01/27/20 25 01/26/2025 US, obste tric, follo w-up No observ ation record ed. [email or web address] [address], [place], [address], 01/26/2025 15:11:31 01/27/20 25 01/26/2025 US, obste tric, follo w-up No observ ation record ed. NORI Haro [address], [place], [address], 01/29/2025 15:19:23 Result Notes None recorded. Problems Name Problem SNOMED Code Status Onset Date Resolution Date Notes Provider Name and Address Organization Details Recorded Time Pregnanc y 23697882 Active 2024 Freida hand, [facility] 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 11:26:50 Past pregnanc y history of section [id number] Active 2024 G2 under GETA, umbilical cord prolapse desires RCS TRUONG MCGOWAN MD [address], [place], [address], [facility] 11:24:36 Migraine [id number] Active 2024 Eduar Gautam MD [address], [place], [address], [facility] 10:20:53 Problem Notes None recorded. Procedures Surgical History Date Name Laterality Status Provider Name and Address Organization Details Recorded Time 09/15/19 25 Date of Last Pap Smear completed [facility] 09/14/2024 10:20:33 05/11/19 25 Bariatric Surgery completed [facility] 09/14/2024 10:10:08 03/23/19 19 Appendectomy completed [facility] 09/14/2024 10:26:43 07/28/19 18 Caesarean Section completed [facility] 09/14/2024 10:10:08 03/23/19 09 Cholecystectomy completed Elizabeth Hatfield [facility] 09/14/2024 10:26:22 03/23/19 00 Tonsillectomy completed Elizabeth Hatfield [facility] 09/14/2024 10:26:04 Imaging Results None recorded. Procedure Notes None recorded. Medical Equipment None Reported. Allergies Allergen ID Allergen Name Allergen Category Reaction Reaction Severity Criticality Documentation Date Start Date Code Code System Note Provider Name and Address Organization Details Recorded Time 19133 iodine medicatio n palpitati ons severe Not available 09/14/2024 5933 RxNorm Elizabeth [facility] 5 10:09:38 23405 Augmentin medicatio n hives moderate Not available 09/14/2024 98698 2 [facility] 10:09:38 73917 clavulani c acid Not available vomiting Not available high 02/03/20252021 30187 RxNorm Not Available [employer] - prod 09:16:51 85297 amoxicill in / clavulana te medicatio n hives rash Not available Not available high 02/03/20252023 07484 RxNorm VOMIT ING Not Available [employer] - prod 09:16:55 Medications Name [...] Address Organization Details Last Updated DateTime 02/03/2025 22471.7029 g 122/74 mm[Hg] Cristina Lorenzana [facility] 02/03/2025 09:47:14 Social History Question Answer Notes LastModified by [...] Or The Highest Degree You Have Received? QR51557-7 Information not available 09/14/2024 Are There Any [...] anxious, or unable to sleep at night)? [id number] Information not available 09/14/2024 Family History Relationship [...] ICD10 Code Diagnosis IMO Codes Diagnosis Note [id number] TRUONG MCGOWAN MD [place] [address] [address] 01/26/2025 11:47:35 01/26/2025 13:17:13 History of sleeve gastrectomy 3933786187 85984 Z90.3 O99.891 Z3A.28 [id number] - partial sleeve gastrectom y 04/2024- baseline labs ordered 10/11- plan for serial growth [place] [id number] TRUONG MCGOWAN MD [place] [address] [address] 02/03/2025 09:16:35 02/03/2025 10:15:39 Past history of section 081431031 Z98.891 637761 - PLTCS under GETA for cord prolapse- desires RCS History of sleeve gastrectomy 1896195466 66209 Z90.3 6294721880 - partial sleeve gastrectom y 04/2024- baseline labs with mild vitamin A and vitamin D deficiency 10/11- plan for serial growth US q4 weeks Gestation period, 29 weeks 05820340 Z3A.29 [id number] - continue [facility] Concerns Section Related Observation LastModified by Organization Detai ls LastModified Time None Recorded Concern Status LastModified by Organization Details LastModified Time None Recorded Payers Encounter Date Sequence Insurance Name Policy Number Policy Paez Covered Member ID Paez Member ID Guarantor Name 02/03/2025 1 [facility] (MEDICAID HMO) [id number] Radha Sheppard [id number] Radha Sheppard Notes Date Note Type Note Provider Name and Address Organization Details Recorded Time 02/03/2025 text/html Generic HPI TemplateReported by Patient TRUONG MCGOWAN MD [address], [place], [address], [place] [facility] 02/03/2025 10:12:38 OBGyn Episode Ob Episode Information Episode Created Date Number of Fetuses Patient Bloodtype Patient rh Status Prepregnancy Weight lbs Domestic Partner Domestic Partner Phone Father Name Lathe Hand Status 10/12/19 25 1 O Positive 165 Radha Souza OPEN Fetus Data First Name Last Name Admitted to NICU Weight (g) Sex Living Outcome Pediatric Complications Fetus ID Race Codes Race Delivery Type [id number] Problems Problem Notes Scheduled 11/16 1:00PM Level II US & office visit scheduled [facility] 01/13 0730 us only Problem Name Start Date End Date Resolution Snomed Code Not e Migraine 12/02/2024 [id number] 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 127210409143144 - partial sl eeve gastrectomy 04/2024- baseline vitamin labs ordered at 12 weeks- serial growth US Past history of section 10/11/2024 633521526 G2 under GE TA, umbilical cord prolapsedesires [...] Sound Latest Days Gestation 11/17/19 25 18 [email or web address] 10/11/2024 04/17/19 26 2 Pre-kaykay Flowsheet Flowsheet Date 10/11/2024 Espinoza Score Blood Edema Fundus Height Fundus Units Glucose Ketones Leukocytes Nitrite Labor Signs Protein Cervic Dilation Cervic Effacement Cervic Station Type Weight in lbs Pre/Post Dialysis Refused Weight 163.017282535704 BP Diastolic BP Location Tested BP Systolic BP Type 74 L arm 115 sitting Fetus Heart Rate Present Fetus Movement Comments Patient presents to [facility] care. Headaches still worsening, will send [...] Weight in lbs Pre/Post Dialysis Refused Weight 161.490485738063 BP Diastolic BP Location Tested BP Systolic BP Type 74 L arm 116 sitting Fetus Heart Rate Present Fetus Movement A Yes Comments Still having some nausea. Mi graines not improved with tylenol, reglan, and sumatriptan. Will send [facility] referral. LR male NIPT! All other OB labs wnl. Anatomy US next visit. RTC 4 weeks. Flowsheet Date 12/02/2024 Espinoza Score Blood Edema Fundus Height Fundus Units Glucose Ketones Leukocytes Nitrite Labor Signs Protein Cervic Dilation Cervic Effacement Cervic Station Type Weight in lbs Pre/Post Dialysis Refused 167.162375444062 BP Diastolic BP Location Tested BP Systolic [...] if she is still suffering. Seen at [facility]. Flowsheet Date 12/30/2024 Espinoza Score Blood Edema Fundus Height Fundus Units Glucose Ketones Leukocytes Nitrite Labor Signs Protein Cervic Dilation Cervic Effacement Cervic Station Type Weight in lbs Pre/Post Dialysis Refused 168.203714940902 BP Diastolic BP Location Tested BP Systolic [...] Type Weight in lbs Pre/Post Dialysis Refused 170.029516327819 BP Diastolic BP Location Tested BP Systolic [...] Weight in lbs Pre/Post Dialysis Refused Weight 172.600741650249 BP Diastolic BP Location Tested BP Systolic [...]
--- NOTE | 2025-02-17 20:02 | OBADM ---
This patient, Radha Sheppard, admitted to the OB room Labor/Delivery/Recovery 118 for observation. Patient/family oriented to hospital policies and general routines including ID bracelet, bed and alarms, visiting hours, pain management, procedures, bathroom and other care routines, personal items, smoking policy, room service/diet, and visiting hours. Patient/Family are encouraged to report perceived risks to care and to ask questions if they do not understand what they are told or what they should do.
--- NOTE | 2025-02-17 20:15 | PC.NURSE ---
Pt states the last time she felt movement was @ 1500 today (02/17/25).
[2025-02-17 20:16] VITALS: BP 111/60; PULSE 74; BMI 32.5
[2025-02-17 20:45] VITALS: BP 108/69; PULSE 66
[2025-02-17 21:00] VITALS: BP 103/69; PULSE 67
[2025-02-17 21:28] LABS: Add Urine Microscopic? YES; Appearance Urine Clear (Clear); Glucose Urine UA Negative (Negative); Leukocyte Esterase Ur Negative LEU/UL (Negative); Nitrate Urine Negative (Negative); Non Pathogenic Casts 0-2; Specific Grav Ur 1.025 (1.001-1.035)
--- NOTE | 2025-02-17 22:05 | PC.NURSE ---
Dr. Lees notified of pts reactive FHT, labs, feeling lack of movement. MD orders pt to remain on monitor until she is feeling movement. Can be discharged once pt verbalizes movement.
[2025-02-17 22:10] VITALS: BP 103/69; PULSE 67
--- NOTE | 2025-02-17 22:10 | PC.NURSE ---
Pt states that she is feeling movement again. Pt to be DC to home.
== END 2025-02-17 22:20 | disposition home or self-care (01) ==
LOC: ANHOBOP 19:54 → ANHLDR 19:56
PROVIDERS: Visit Provider Obstetrics & Gynecology
DX: O36.8190 Decreased fetal movements, unspecified trimester, not applicable or unspecified (principal); Z3A.00 Weeks of gestation of pregnancy not specified
CPT/HCPCS: 59025; 81001; 99199

== ENCOUNTER 2025-03-21 00:20 | Observation (INO) | payer OTHER, SELFPAY ==
[2025-03-21] VITALS (72 sets, daily range): BP systolic 98–125; BP diastolic 49–68; PULSE 57–126; TEMP 36.8; O2SAT 92–100; BMI 33.1
--- OUTSIDE RECORDS SUMMARY | 2025-03-21 01:20 | XMS_ITS | Continuity of Care Document ---
Author Name [facility] Organization [facility] Care Team Providers Care Installer [employer] Name Role Phone [facility] Unavailable Unavailable Results Combined list of recent chemistry, hematology and other laboratory results from [facility], ranging from 15 months to all on record, depending upon the facility. Order Name Results Value Reference Range Date Interpretation Specimen Comments Source Chemistry POC U HCG Negative (08/03/24 8:01 AM) Negative 08/[address] [place] [address] Vital Signs Combined list of inpatient and outpatient Vital Signs from [facility], ranging from 12 months to all on record, depending upon the facility. Vital Sign Value Date Comments Source Peripheral Pulse Rate 84 bpm 08/03/2024 11:56:[address] [place] [address] Systolic Blood Pressure 117 mm[Hg] 08/03/2024 11:56:[address] [place] [address] Diastolic Blood Pressure 77 mm[Hg] 08/03/2024 11:56:[address] [place] [address] Encounters Combined list of: 1) Encounters from [facility] facilities going backup to the last 18 months, not all [facility] inpatient encounters are included; 2) Encounters from the [facility] Defense facilities going backup to 280 months. Location Location Details Encounter Type Encounter Number Reason For Visit Attending Provider ADM Date DC Date Status Disposition Source Ambulator y Pharmacy Lifetime Pharmacy [id number] 07/01 Ambulat ory Pharmac y [address] [place] [address] Outside Documentat ion Only [id number] 07/01 Discharge Disposition: Home or Self Care [address] [place] [address] Between Visit [id number] 07/01 Discharge Disposition: Home or Self Care [address] [place] [address] Mass Readiness [id number] 07/22 Discharge Disposition: Released Without Limitations [address] [place] [address] Mass Readiness [id number] 08/02 Discharge Disposition: Released Without Limitations [address] [place] [address] Procedures Combined list of: 1) Procedures from [facility] facilities going back up to thelast 18 months, not all [place] non-surgical procedures are included; 2) All procedures from the [facility] facilities. Procedure Procedure Type Code Date Perfomer Comments Sourc e No data available for this section Ambulatory P harmacy Social History Combined list of available smoking, tobacco, and other social history from [facility] facilities. Social History Type Response Date Comment Sourc e Sexual Orientation Ambula tory Pharmacy Gender identity Ambulator y Pharmacy Sex Representation Female (finding) Unknown Organization Assessment and Plan Combined list of future care activities from [facility] and [facility] facilities (e.g., assessment and plan notes, appointments, orders, and referrals). Additional future care activities may be listed in the Plan of Care section. Result Assessment and Plan Date Source Assessment and Plan Extracted from:Title : Education Note Author: KWAME GREENBERG Date: 08/03/24 Extracted from:Title: Education Note Author: MODESTA CHOPRA Date: 07/25/24 03/21/[address] [place] [address] Functional Status Combined list of recent functional and cognitive assessments recorded at [facility] [place] Functional [place] Measurement (FIM) Scale: 1 = Total Assistance (Subject = 0% +), 2 = Maximal Assistance (Subject = 25% +), 3 = Moderate Assistance (Subject = 50% +), 4 = Minimal Assistance (Subject = 75% +), 5 = Supervision, 6 = Modified [place] (Device), 7 = Complete [place] (Timely, Safely). Assessment Date/Time Source Assessment Type Assessment Skill Assessment Score Assessment Details No data available for this section
--- OUTSIDE RECORDS SUMMARY | 2025-03-21 01:21 | XMS_ITS | Continuity of Care Document ---
Author Organization [facility] Address [address] [place] [address] Assessment No assessment recorded. Plan of Treatment Reminders Order Date Submit Date Provider Last Modified By Organization Details Last Modified Time Details Appointments U/S OB GROWTH 2024 10:00A M ULTRASOUND Not available Not available Not available OB ROUTINE 2024 10:45A Harriett GAUTAM MD Not available Not available Not available OB ROUTINE 2025 08:30A Harriett MCGOWAN MD Not available Not available Not available OB ROUTINE 2025 09:15A Harriett MCGOWAN MD Not available Not available Not available SURG CSectio n 2025 07:30A Harriett MCGOWAN MD Not available Not available Not available SURG POST OP 2025 01:00P Harriett MCGOWAN MD Not available Not available Not available Lab CBC w/ auto diff 2024 025 [facility] (Lab), [address], [place], [address], 03/02/2025 21:12:32 iron + TIBC + ferriti n, serum 2024 025 [facility] (Lab), [address], [place], [address], 03/03/2025 04:03:20 vitamin B12 + folate, serum or blood 2024 025 [facility] (Lab), [address], [place], [address], 03/02/2025 21:12:34 CMP, serum or plasma 2024 025 [facility] (Lab), [address], [place], [address], 03/02/2025 21:12:33 vitamin A (retino l), serum 2024 025 [facility] (Lab), [address], [place], [address], 03/02/2025 21:12:34 Referral None recorde d. Procedures None recorde d. Surgeries None recorde d. Imaging None recorde d. Medication Orders None recorde d. Patient TargetsNo targets recorded. Patient Instructions Encounter Date Encounter Id Patient Instructions Last Modified By Organization Details Last Modified Time 02/24/2025 [id number] vitamin D [id number] Not available 07/2024 16:58:31 Reason for Referral None Reported. Results Created Date Observation Date Name Description Value Unit Range Abnormal Flag Note LastModifiedBy Organization Detail LastModifiedTime 10/18/1910/17/2024 [UNIT Y] ANEUP LOIDY NIPT fraction 7.5% normal Not Available [facility] [address], [place], [address], 10/17/2024 23:58:00 10/18/19 25 10/17/2024 [UNIT Y] ANEUP LOIDY NIPT 22Q11.2 microdeletio n LOW RISK <1 in 10,000 normal Not Available [facility] [address], [place], [address], 10/17/2024 23:58:00 10/18/19 25 10/17/2024 [UNIT Y] ANEUP LOIDY NIPT sex chromosome aneuploidy NOT DETECT ED normal Not Available [facility] [address], [place], [address], 10/17/2024 23:58:00 10/18/19 25 10/17/2024 [UNIT Y] ANEUP LOIDY NIPT monosomy X LOW RISK <1 in 10,000 normal Not Available [facility] [address], [place], [address], 10/17/2024 23:58:00 10/18/19 25 10/17/2024 [UNIT Y] ANEUP LOIDY NIPT trisomy 13 LOW RISK <1 in 10,000 normal Not Available [facility] [address], [place], [address], 10/17/2024 23:58:00 10/18/19 25 10/17/2024 [UNIT Y] ANEUP LOIDY NIPT trisomy 18 LOW RISK <1 in 10,000 normal Not Available [facility] [address], [place], [address], 10/17/2024 23:58:00 10/18/19 25 10/17/2024 [UNIT Y] ANEUP LOIDY NIPT trisomy 21 LOW RISK <1 in 10,000 normal Not Available [facility] [address], [place], [address], 10/17/2024 23:58:00 10/18/19 25 10/17/2024 [UNIT Y] ANEUP LOIDY NIPT sex MALE normal Not Available [facility] [address], [place], [address], 10/17/2024 23:58:00 10/18/19 25 10/17/2024 [UNIT Y] ANEUP LOIDY NIPT gestation SINGLE TON normal Not Available [facility] [address], [place], [address], 10/17/2024 23:58:00 10/18/19 25 10/17/2024 [UNIT Y] ANEUP LOIDY NIPT for detailed report, see pdf See PDF normal Not Available [facility] [address], [place], [address], 10/17/2024 23:58:00 10/22/19 25 10/21/2024 [UNIT Y] MKIE SIERRA Galvez sickle cell disease/beta -thalassemia /hemoglobino pathies carrier screen NEGATI VE normal Not Available [facility] [address], [place], [address], 10/21/2024 17:38:31 10/22/19 25 10/21/2024 [UNIT Y] MIKE SIERRA Galvez alpha-thalas semia carrier screen NEGATI VE normal Not Available [facility] [address], [place], [address], 10/21/2024 17:38:31 10/22/19 25 10/21/2024 [UNIT Y] MIKE SIERRA Galvez cystic fibrosis carrier screen NEGATI VE normal Not Available [facility] [address], [place], [address], 10/21/2024 17:38:31 10/22/19 25 10/21/2024 [UNIT Y] MIKE SIERRA Galvez spinal muscular atrophy carrier screen NEGATI VE 2 SMN1 copies , SNP not presen t normal Not Available [facility] [address], [place], [address], 10/21/2024 17:38:31 10/22/19 25 10/21/2024 [UNIT Y] MIKE SIERRA Galvez for detailed report, see pdf See PDF normal Not Available [facility] [address], [place], [address], 10/21/2024 17:38:31 10/12/19 25 10/11/2024 CBC W/DIF F WBC 7.0 10'3/ uL 3.5-10 .5 Not Available [facility] (Lab) [address], [place], [address], 10/12/2024 13:07:49 10/12/19 25 10/11/2024 CBC W/DIF F RBC 3.94 10'6/ uL (based on docume nted legal sex) 3.80-5 .20 Not Available [facility] (Lab) [address], [place], [address], 10/12/2024 13:07:49 10/12/19 25 10/11/2024 CBC W/DIF F HGB 12.1 g/dL (based on docume nted legal sex) 11.6-1 5.4 Not Available [facility] (Lab) [address], [place], [address], 10/12/2024 13:07:49 10/12/19 25 10/11/2024 CBC W/DIF F HCT 36.3 % (based on docume nted legal sex) 34.0-4 5.0 Not Available [facility] (Lab) [address], [place], [address], 10/12/2024 13:07:49 10/12/19 25 10/11/2024 CBC W/DIF F MCV 92.1 fL 80.0-9 9.0 Not Available [facility] (Lab) [address], [place], [address], 10/12/2024 13:07:49 10/12/19 25 10/11/2024 CBC W/DIF F MCH 30.7 pg 27.0-3 4.0 Not Available [facility] (Lab) [address], [place], [address], 10/12/2024 13:07:49 10/12/19 25 10/11/2024 CBC W/DIF F MCHC 33.3 g/dL 32.0-3 5.5 Not Available [facility] (Lab) [address] [place], [address], 10/12/2024 13:07:49 10/12/19 25 10/11/2024 CBC W/DIF F RDW 12.4 % 11.0-1 5.0 Not Available [facility] (Lab) [address] [place], [address], 10/12/2024 13:07:49 10/12/19 25 10/11/2024 CBC W/DIF F plt 278 10'3/ uL 150-40 0 Not Available [facility] (Lab) [address] [facility], [place], [address], 10/12/2024 13:07:49 10/12/19 25 10/11/2024 CBC W/DIF F MPV 11.7 fL 8.8-12 .1 Not Available [facility] (Lab) [address] [facility], [place], [address], 10/12/2024 13:07:49 10/12/19 25 10/11/2024 CBC W/DIF F NRBC's 0.0 % 0.0 Not Available [facility] (Lab) [address] [facility], [place], [address], 10/12/2024 13:07:49 10/12/19 25 10/11/2024 CBC W/DIF F absolute NRBCs 0.0 10'3/ uL no refere nce range establ ished Not Available [facility] (Lab) [address] [facility], [place], [address], 10/12/2024 13:07:49 10/12/19 25 10/11/2024 CBC W/DIF F neutrophils 71.6 % 34.0-7 3.0 Not Available [facility] (Lab) [address] [facility], [place], [address], 10/12/2024 13:07:49 10/12/19 25 10/11/2024 CBC W/DIF F lymphocytes 22.8 % 15.0-5 0.0 Not Available [facility] (Lab) [address] [facility], [place], [address], 10/12/2024 13:07:49 10/12/19 25 10/11/2024 CBC W/DIF F monocytes 4.7 % 1.0-15 .0 Not Available [facility] (Lab) [address] [facility], [place], [address], 10/12/2024 13:07:49 10/12/19 25 10/11/2024 CBC W/DIF F eosinophils 0.3 % 0.0-8. 0 Not Available [facility] (Lab) [address] [facility], [place], [address], 10/12/2024 13:07:49 10/12/19 25 10/11/2024 CBC W/DIF F basophils 0.3 % 0.0-2. 0 Not Available [facility] (Lab) [address] [facility], [place], [address], 10/12/2024 13:07:49 10/12/19 25 10/11/2024 CBC W/DIF [...] separ ately if prese nt. Not Available [facility] (Lab) [address] [facility], [place], [address], 10/12/2024 13:07:49 10/12/19 25 10/11/2024 CBC W/DIF F absolute neutrophils 5.0 10'3/ uL 1.5-8. 0 Not Available [facility] (Lab) [address] [facility], [place], [address], 10/12/2024 13:07:49 10/12/19 25 10/11/2024 CBC W/DIF F absolute lymphocytes 1.6 10'3/ uL 1.0-4. 0 Not Available [facility] (Lab) [address] [facility], [place], [address], 10/12/2024 13:07:49 10/12/19 25 10/11/2024 CBC W/DIF F absolute monocytes 0.3 10'3/ uL 0.2-1. 0 Not Available [facility] (Lab) [address], [place], [address], 10/12/2024 13:07:49 10/12/19 25 10/11/2024 CBC W/DIF F absolute eosinophils 0.0 10'3/ uL 0.0-0. 6 Not Available [facility] (Lab) [address], [place], [address], 10/12/2024 13:07:49 10/12/19 25 10/11/2024 CBC W/DIF F absolute basophils 0.0 10'3/ uL 0.0-0. 3 Not Available [facility] (Lab) [address], [place], [address], 10/12/2024 13:07:49 10/12/19 25 10/11/2024 CBC W/DIF [...] patterson book. nm.or g/gen derx Not Available [facility] (Lab) [address], [place], [address], 10/12/2024 13:07:49 10/12/19 25 10/11/2024 HIV 1/2 ANTIG EN/AN TIBOD Y, REFLE X CONFI RMATI ON HIV antigen/anti body Nonrea ctive nonrea ctive HIV-1 antig en and HIV-1 /HIV- 2 antib odies were not detec nishant. No labor atory evide nce of HIV infec tion. Not Available [facility] (Lab) [address], [place], [address], 10/12/2024 13:07:50 10/12/19 25 10/11/2024 HEPAT ITIS B SURFA CE ANTIG EN hepatitis B surface antigen Non-re active non-re active This assay was perfo rmed using [employer] ratio n reage nts and test kits. Value s obtai francois with other assay metho ds or kits canno t be used inter serna eably . Not Available [facility] (Lab) [address], [place], [address], 10/12/2024 13:07:50 10/12/19 25 10/11/2024 HEPAT ITIS C ANTIB KERI SCREE N, REFLE X TO CONFI RMATI ON hepatitis C antibody Non-re active non-re active Antib odies to HCV Not Detec nishant, does not exclu de the possi bilit y of expos ure to HCV. Not Available [facility] (Lab) [address], [place], [address], 10/12/2024 13:07:51 10/12/19 25 10/11/2024 RUBEL LA IGG ANTIB KERI, QUANT rubella antibodies, IgG Reacti ve reacti ve Not Available [facility] (Lab) [address], [place], [address], 10/12/2024 13:07:51 10/12/19 25 10/11/2024 RUBEL LA IGG ANTIB KERI, QUANT rubella antibodies, IgG quant 18.4 IU/mL >=10 Non-r eacti ve (Non- Immun e) <10 IU/mL React filippo (Immu ne) > or = 10 IU/mL Not Available [facility] (Lab) [address], [place], [address], 10/12/2024 13:07:51 10/12/19 25 10/11/2024 TYPE/ RH/SC REEN ABO/Rh type O POS Not Available [facility] (Lab) [address], [place], [address], 10/12/2024 13:07:51 10/12/19 25 10/11/2024 TYPE/ RH/SC REEN antibody screen NEG Not Available [facility] (Lab) [address] [facility], [place], [address], 10/12/2024 13:07:51 10/12/19 25 10/11/2024 TYPE/ RH/SC REEN exp date 2024 23:59 Not Available [facility] (Lab) [address] [facility], [place], [address], 10/12/2024 13:07:51 10/12/19 25 10/11/2024 HEMOG LOBIN A1C hemoglobin A1C 5.3 % 4.0-5. 6 The Ameri can Diabe brenna Ass[employer] iatio n recom mends that a prima ry goal of thera py shoul d be a HBA1C of < 7% and that physi cians shoul d reeva luate the treat ment regim en in patie nts with HBA1C value s consi stent ly > 8%. <5.7% Pooja l 5.7 - 6.4% Incre ased risk for diabe brenna >=6.5 % Diagn ostic of diabe brenna <7.0% Goal of thera py >8.0% Actio n sugge sted Not Available [facility] (Lab) [address] [facility], [place], [address], 10/12/2024 13:07:52 10/12/19 25 10/11/2024 RPR SCREE N, REFLE X TITER /CONF IRMAT ION RPR qualitative Nonrea ctive nonrea ctive Not Available [facility] (Lab) [address] [facility], [place], [address], 10/12/2024 13:07:53 10/12/19 25 10/11/2024 CULTU RE: URINE result report SEE RESULT S BELOW Test: Cultu re: Urine Speci men Sourc e: Urine Voide d Speci men Type: Urine Speci men Date: 2024 1251 Resul t Date: 20246 Resul t Statu s: Final resul t Abnor mal: No Resul alixg Lab: [facility] [address] [facility] [address] Tel: CULTU RE ----- ----- ----- --- No growt h in 1 day (dete ction level of 10,00 0 colon ies / ml.) Not Available [facility] (Lab) [address] [facility], [place], [address], 10/12/2024 22:51:14 10/12/19 25 10/11/2024 drug scree n, urine Amphetamines : negati ve Not Available [facility] [address], [place], [address], 10/11/2024 12:03:44 10/12/19 25 10/11/2024 drug scree n, urine Cannabinoids : negati ve Not Available [facility] [address], [place], [address], 10/11/2024 12:03:44 10/12/19 25 10/11/2024 drug scree n, urine Cocaine: negati ve Not Available [facility] [address], [place], [address], 10/11/2024 12:03:44 10/12/19 25 10/11/2024 drug scree n, urine Opiates: negati ve Not Available [facility] [address], [place], [address], 10/11/2024 12:03:44 10/12/19 25 10/11/2024 drug scree n, urine Phenocyclidi ne: negati ve Not Available [facility] [address], [place], [address], 10/11/2024 12:03:44 10/12/19 25 10/11/2024 drug scree n, urine Barbiturates : negati ve Not Available [facility] [address], [place], [address], 10/11/2024 12:03:44 10/12/19 25 10/11/2024 drug scree n, urine Benzodiazepi aaron: negati ve Not Available [facility] [address], [place], [address], 10/11/2024 12:03:44 10/12/19 25 10/11/2024 drug scree n, urine Ethanol: negati ve Not Available [facility] [address], [place], [address], 10/11/2024 12:03:44 10/12/19 25 10/11/2024 drug scree n, urine Hallucinogen s: negati ve Not Available [facility] [address], [place], [address], 10/11/2024 12:03:44 10/12/19 25 10/11/2024 drug scree n, urine Inhalants: negati ve Not Available [facility] [address], [place], [address], 10/11/2024 12:03:44 12/03/19 25 12/02/2024 CMP(C OMPRE HENSI VE METAB OLIC PANEL ) sodium 136 mmol/ L 133-14 6 Not Available [facility] (Lab) [address] [place], [address], 12/08/2024 16:08:48 12/03/19 25 12/02/2024 CMP(C OMPRE HENSI VE METAB OLIC PANEL ) potassium 4.4 mmol/ L 3.5-5. 1 Not Available [facility] (Lab) [address] [place], [address], 12/08/2024 16:08:48 12/03/19 25 12/02/2024 CMP(C OMPRE HENSI VE METAB OLIC PANEL ) chloride 107 mmol/ L 98-107 Not Available [facility] (Lab) [address] [facility], [place], [address], 12/08/2024 16:08:48 12/03/19 25 12/02/2024 CMP(C OMPRE HENSI VE METAB OLIC PANEL ) carbon dioxide 19 mmol/ L 21-31 low Not Available [facility] (Lab) [address] [facility], [place], [address], 12/08/2024 16:08:48 12/03/19 25 12/02/2024 CMP(C OMPRE HENSI VE METAB OLIC PANEL ) anion gap 10 mmol/ L 4-13 Not Available [facility] (Lab) [address] [facility], [place], [address], 12/08/2024 16:08:48 12/03/19 25 12/02/2024 CMP(C OMPRE HENSI VE METAB OLIC PANEL ) blood urea nitrogen 7 mg/dL 7-25 Not Available [facility] (Lab) [address] [facility], [place], [address], 12/08/2024 16:08:48 12/03/1912/02/2024 CMP(C OMPRE HENSI VE METAB OLIC PANEL ) creatinine 0.48 mg/dL 0.60-1 .30 low Not Available [facility] (Lab) [address] [facility], [place], [address], 12/08/2024 16:08:48 12/03/19 25 12/02/2024 CMP(C OMPRE HENSI VE METAB OLIC PANEL ) egfrcr (CKD-epi 2020) >90 mL/mi n/1.7 3_m2 >=60 Not Available [facility] (Lab) [address] [facility], [place], [address], 12/08/2024 16:08:48 12/03/19 25 12/02/2024 CMP(C OMPRE HENSI VE METAB OLIC PANEL ) calcium 8.5 mg/dL 8.3-10 .5 Not Available [facility] (Lab) [address] [facility], [place], [address], 12/08/2024 16:08:48 12/03/19 25 12/02/2024 CMP(C OMPRE HENSI VE METAB OLIC PANEL ) glucose 74 mg/dL 70-100 Not Available [facility] (Lab) [address] [facility], [place], [address], 12/08/2024 16:08:48 12/03/19 25 12/02/2024 CMP(C OMPRE HENSI VE METAB OLIC PANEL ) protein, total 6.3 g/dL 6.4-8. 3 low Not Available [facility] (Lab) [address] [facility], [place], [address], 12/08/2024 16:08:48 12/03/19 25 12/02/2024 CMP(C OMPRE HENSI VE METAB OLIC PANEL ) albumin 3.5 g/dL 3.5-5. 0 Not Available [facility] (Lab) [address] [facility], [place], [address], 12/08/2024 16:08:48 12/03/1912/02/2024 CMP(C OMPRE HENSI VE METAB OLIC PANEL ) ALT 8 units /L 9-43 low Not Available [facility] (Lab) [address] [place], [address], 12/08/2024 16:08:48 12/03/1912/02/2024 CMP(C OMPRE HENSI VE METAB OLIC PANEL ) alkaline phosphatase 57 units /L 34-104 Not Available [facility] (Lab) [address] [place], [address], 12/08/2024 16:08:48 12/03/19 25 12/02/2024 CMP(C OMPRE HENSI VE METAB OLIC PANEL ) AST 17 units /L 13-39 Not Available [facility] (Lab) [address] [facility], [place], [address], 12/08/2024 16:08:48 12/03/19 25 12/02/2024 CMP(C OMPRE HENSI VE METAB OLIC PANEL ) bilirubin, total 0.4 mg/dL 0.2-1. 2 Not Available [facility] (Lab) [address] [facility], [place], [address], 12/08/2024 16:08:48 12/03/19 25 12/02/2024 FABIOLA TIN / IRON / TRANS FABIOLA N / TIBC iron 83 ug/dL 40-170 Not Available [facility] (Lab) [address] [facility], [place], [address], 12/08/2024 16:08:49 12/03/19 25 12/02/2024 FABIOLA TIN / IRON / TRANS FABIOLA N / TIBC transferrin 305 mg/dL 200-36 0 Not Available [facility] (Lab) [address] [facility], [place], [address], 12/08/2024 16:08:49 12/03/19 25 12/02/2024 FABIOLA TIN / IRON / TRANS FABIOLA N / TIBC ferritin 82.3 NG/mL 8.0-25 2.0 Not Available [facility] (Lab) [address] [facility], [place], [address], 12/08/2024 16:08:49 12/03/19 25 12/02/2024 FABIOLA TIN / IRON / TRANS FABIOLA N / TIBC TIBC 427 ug/dL 250-45 0 Not Available [facility] (Lab) [address] [facility], [place], [address], 12/08/2024 16:08:49 12/03/19 25 12/02/2024 FABIOLA TIN / IRON / TRANS FABIOLA N / TIBC iron saturation 19 % 20-55 low Not Available [facility] (Lab) [address] [facility], [place], [address], 12/08/2024 16:08:49 12/03/19 12/02/2024 VITAM IN B12 / FOLAT E PANEL vitamin B12 202 pg/mL 180-91 4 Pooja l Range : 180-9 14 pg/mL . Indet ermin ate Range : 145-1 80 pg/mL . Defic ient Range : <=145 pg/mL . Not Available [facility] (Lab) [address] [facility], [place], [address], 12/08/2024 16:08:49 12/03/1912/02/2024 VITAM IN B12 / FOLAT E PANEL folate, serum >20.0 NG/mL 6.0-20 .0 high Not Available [facility] (Lab) [address] [facility], [place], [address], 12/08/2024 16:08:49 12/03/1912/02/2024 VITAM IN D, 25-OH (TOTA L D2/D3 ) vitamin D, 25-hydroxy, total 28.2 NG/mL 30.0-1 00.0 low Sugge stive of Defic iency : <20 ng/mL Sugge stive of Insuf ficie ncy: 20-29 ng/mL Sugge stive of Suffi cienc y: 30-10 0 ng/mL Sugge stive of Toxic ity: >150 ng/mL Not Available [facility] (Lab) [address] [place], [address], 12/08/2024 16:08:49 12/03/1912/02/2024 LEAD, BLOOD (ADUL T/PED [...] matio n: Site ID: [id number] Name: [facility]Jared Lowry Addre ss: [address] [place] [address] Dire tor: Bhaskar Doll s Not Available [facility] (Lab) [address] [facility], [place], [address], 12/08/2024 16:08:50 12/03/19 25 12/02/2024 VITAM IN A (RETI NOL) vitamin A 32 mcg/d L 38-98 low (Note ) Cli n Chem Vol. 34.No .8. pp162 5-162 1997 Vitam in suppl ement ation withi n 24 hours prior to blood draw may affec t the accur acy of [facility] ts. This test was devel oped and its linda tical perfo rmanc e che cteri stics have been deter mined by [employer]. It has not been clear ed or appro doug by the FDA. This assay has been valid ated pursu ant to the CLIA regul ation s and is used for clini robinson purpo ses. MDF med fusio n [address] [facility] [address] [facility] [address] [phone] Victorina Johnson MD, PhD Perfo rming Organ izati on Infor matio n: Site ID: [id number] Name: [facility] jaylene- [facility] jaylene Addre ss: [address] [facility] [address] [place] [address] Dire tor: Victorina Johnson MD,Ph D Not Available [facility] (Lab) [address], [place], [address], 12/08/2024 16:08:50 02/04/2002/03/2025 HEMAT OCRIT (HCT) HCT 31.1 % (based on docume nted legal sex) 34.0-4 5.0 low Not Available [facility] (Lab) [address], [place], [address], 02/06/2025 17:22:48 02/04/20 25 02/03/2025 HEMOG LOBIN (HGB) HGB 10.0 g/dL (based on docume nted legal sex) 11.6-1 5.4 low Not Available [facility] (Lab) [address] [facility], [place], [address], 02/06/2025 17:22:48 02/04/20 25 02/03/2025 HIV 1/2 ANTIG EN/AN TIBOD Y, REFLE X CONFI RMATI ON HIV antigen/anti body Nonrea ctive nonrea ctive HIV-1 antig en and HIV-1 /HIV- 2 antib odies were not detec nishant. No labor atory evide nce of HIV infec tion. Not Available [facility] (Lab) [address] [facility], [place], [address], 02/06/2025 17:22:48 02/04/2002/03/2025 RPR SCREE N, REFLE X TITER /CONF IRMAT ION RPR qualitative Nonrea ctive nonrea ctive Not Available [facility] (Lab) [address] [facility], [place], [address], 02/06/2025 17:22:49 02/04/20 25 02/03/2025 LEAD, BLOOD (ADUL T/PED IATRI C) lead, whole blood <1.0 mcg/d L <3.5 See Note 1 Linda sis was perfo rmed by Gertrude Holloway ed Plasm a Mass Spect romet ry (ICPM S) Note 1 This test was devel oped and its linda tical perfo rmanc e che cteri stics have been deter mined by [facility]. It has not been clear ed or appro doug by the FDA. This assay has been valid ated pursu ant to the CLIA regul ation s and is used for clini robinson purpo ses. Perfo rming Organ izati on Infor matio n: Site ID: [id number] Name: [facility] [place] Addre ss: [id number] [place] [phone] [facility] tor: Bhaskar sears Not Available [facility] (Lab) [address] [facility], [place], [address], 02/06/2025 17:22:49 02/25/20 25 02/24/2025 CBC W/DIF F WBC 7.7 10'3/ uL 3.5-10 .5 Not Available [facility] (Lab) [address] [facility], [place], [address], 03/02/2025 21:12:32 02/25/20 25 02/24/2025 CBC W/DIF F RBC 3.34 10'6/ uL (based on docume nted legal sex) 3.80-5 .20 low Not Available [facility] (Lab) [address], [place], [address], 03/02/2025 21:12:32 02/25/20 25 02/24/2025 CBC W/DIF F HGB 10.1 g/dL (based on docume nted legal sex) 11.6-1 5.4 low Not Available [facility] (Lab) [address] [facility], [place], [address], 03/02/2025 21:12:32 02/25/20 25 02/24/2025 CBC W/DIF F HCT 31.4 % (based on docume nted legal sex) 34.0-4 5.0 low Not Available [facility] (Lab) [address] [facility], [place], [address], 03/02/2025 21:12:32 02/25/20 25 02/24/2025 CBC W/DIF F MCV 94.0 fL 80.0-9 9.0 Not Available [facility] (Lab) [address] [facility], [place], [address], 03/02/2025 21:12:32 02/25/20 25 02/24/2025 CBC W/DIF F MCH 30.2 pg 27.0-3 4.0 Not Available [facility] (Lab) [address] [facility], [place], [address], 03/02/2025 21:12:32 02/25/20 25 02/24/2025 CBC W/DIF F MCHC 32.2 g/dL 32.0-3 5.5 Not Available [facility] (Lab) [address] [facility], [place], [address], 03/02/2025 21:12:32 02/25/20 25 02/24/2025 CBC W/DIF F RDW 13.2 % 11.0-1 5.0 Not Available [facility] (Lab) [address] [facility], [place], [address], 03/02/2025 21:12:32 02/25/20 25 02/24/2025 CBC W/DIF F plt 272 10'3/ uL 150-40 0 Not Available [facility] (Lab) [address] [facility], [place], [address], 03/02/2025 21:12:32 02/25/20 25 02/24/2025 CBC W/DIF F MPV 11.6 fL 8.8-12 .1 Not Available [facility] (Lab) [address] [facility], [place], [address], 03/02/2025 21:12:32 02/25/20 25 02/24/2025 CBC W/DIF F NRBC's 0.0 % 0.0 Not Available [facility] (Lab) [address] [facility], [place], [address], 03/02/2025 21:12:32 02/25/20 25 02/24/2025 CBC W/DIF F absolute NRBCs 0.0 10'3/ uL no refere nce range establ ished Not Available [facility] (Lab) [address] [facility], [place], [address], 03/02/2025 21:12:32 02/25/20 25 02/24/2025 CBC W/DIF F neutrophils 69.4 % 34.0-7 3.0 Not Available [facility] (Lab) [address] [facility], [place], [address], 03/02/2025 21:12:32 02/25/20 25 02/24/2025 CBC W/DIF F lymphocytes 24.0 % 15.0-5 0.0 Not Available [facility] (Lab) [address] [facility], [place], [address], 03/02/2025 21:12:32 02/25/20 25 02/24/2025 CBC W/DIF F monocytes 5.6 % 1.0-15 .0 Not Available [facility] (Lab) [address] [facility], [place], [address], 03/02/2025 21:12:32 02/25/20 25 02/24/2025 CBC W/DIF F eosinophils 0.3 % 0.0-8. 0 Not Available [facility] (Lab) [address] [facility], [place], [address], 03/02/2025 21:12:32 02/25/20 25 02/24/2025 CBC W/DIF F basophils 0.3 % 0.0-2. 0 Not Available [facility] (Lab) [address] [facility], [place], [address], 03/02/2025 21:12:32 02/25/20 25 02/24/2025 CBC W/DIF F immature granulocytes 0.4 % no define d refere nce range Immat ure Granu locyt es (IG) repre sents autom ated enume ratio n of Metam yeloc ytes, Myelo cytes and Promy elocy brenna when IG is < 5%. Blast s are not inclu ded in IG and repor nishant separ ately if prese nt. Not Available [facility] (Lab) [address] [place], [address], 03/02/2025 21:12:32 02/25/20 25 02/24/2025 CBC W/DIF F absolute neutrophils 5.3 10'3/ uL 1.5-8. 0 Not Available [facility] (Lab) [address] [facility], [place], [address], 03/02/2025 21:12:32 02/25/20 25 02/24/2025 CBC W/DIF F absolute lymphocytes 1.8 10'3/ uL 1.0-4. 0 Not Available [facility] (Lab) [address] [facility], [place], [address], 03/02/2025 21:12:32 02/25/20 25 02/24/2025 CBC W/DIF F absolute monocytes 0.4 10'3/ uL 0.2-1. 0 Not Available [facility] (Lab) [address] [facility], [place], [address], 03/02/2025 21:12:32 02/25/20 25 02/24/2025 CBC W/DIF F absolute eosinophils 0.0 10'3/ uL 0.0-0. 6 Not Available [facility] (Lab) [address] [facility], [place], [address], 03/02/2025 21:12:32 02/25/20 25 02/24/2025 CBC W/DIF F absolute basophils 0.0 10'3/ uL 0.0-0. 3 Not Available [facility] (Lab) [address] [place], [address], 03/02/2025 21:12:32 02/25/20 25 02/24/2025 CBC W/DIF F absolute immature granulocytes 0.0 10'3/ uL 0.00-0 .10 Refer ence range s for nonbi nary/ inter sex or unspe cifie d gende r patie nts have not been estab lishe d. [facility]as e [facility] for range s estab lishe d for cisge nder patie nts and evalu ate in the clini robinson leonard xt of the indiv idual patie nt: https ://la bhand book. nm.or g/gen derx Not Available [facility] (Lab) [address] [facility], [place], [address], 03/02/2025 21:12:32 02/25/20 25 02/24/2025 CMP(C OMPRE HENSI VE METAB OLIC PANEL ) sodium 139 mmol/ L 133-14 6 Not Available [facility] (Lab) [address] [facility], [place], [address], 03/02/2025 21:12:33 02/25/20 25 02/24/2025 CMP(C OMPRE HENSI VE METAB OLIC PANEL ) potassium 3.7 mmol/ L 3.5-5. 1 Not Available [facility] (Lab) [address] [facility], [place], [address], 03/02/2025 21:12:33 02/25/20 25 02/24/2025 CMP(C OMPRE HENSI VE METAB OLIC PANEL ) chloride 108 mmol/ L 98-107 high Not Available [facility] (Lab) [address] [facility], [place], [address], 03/02/2025 21:12:33 02/25/20 25 02/24/2025 CMP(C OMPRE HENSI VE METAB OLIC PANEL ) carbon dioxide 23 mmol/ L 21-31 Not Available [facility] (Lab) [address] [facility], [place], [address], 03/02/2025 21:12:33 02/25/20 25 02/24/2025 CMP(C OMPRE HENSI VE METAB OLIC PANEL ) anion gap 8 mmol/ L 4-13 Not Available [facility] (Lab) [address] [facility], [place], [address], 03/02/2025 21:12:33 02/25/20 25 02/24/2025 CMP(C OMPRE HENSI VE METAB OLIC PANEL ) blood urea nitrogen 7 mg/dL 7-25 Not Available [facility] (Lab) [address] [place], [address], 03/02/2025 21:12:33 02/25/20 25 02/24/2025 CMP(C OMPRE HENSI VE METAB OLIC PANEL ) creatinine 0.45 mg/dL 0.60-1 .30 low Not Available [facility] (Lab) [address] [facility], [place], [address], 03/02/2025 21:12:33 02/25/20 25 02/24/2025 CMP(C OMPRE HENSI VE METAB OLIC PANEL ) egfrcr (CKD-epi 2020) >90 mL/mi n/1.7 3_m2 >=60 Not Available [facility] (Lab) [address] [facility], [place], [address], 03/02/2025 21:12:33 02/25/20 25 02/24/2025 CMP(C OMPRE HENSI VE METAB OLIC PANEL ) calcium 8.1 mg/dL 8.3-10 .5 low Not Available [facility] (Lab) [address] [facility], [place], [address], 03/02/2025 21:12:33 02/25/20 25 02/24/2025 CMP(C OMPRE HENSI VE METAB OLIC PANEL ) glucose 74 mg/dL 70-100 Not Available [facility] (Lab) [address] [facility], [place], [address], 03/02/2025 21:12:33 02/25/20 25 02/24/2025 CMP(C OMPRE HENSI VE METAB OLIC PANEL ) protein, total 5.7 g/dL 6.4-8. 3 low Not Available [facility] (Lab) [address] [place], [address], 03/02/2025 21:12:33 02/25/20 25 02/24/2025 CMP(C OMPRE HENSI VE METAB OLIC PANEL ) albumin 3.2 g/dL 3.5-5. 0 low Not Available [facility] (Lab) [address] [facility], [place], [address], 03/02/2025 21:12:33 02/25/20 25 02/24/2025 CMP(C OMPRE HENSI VE METAB OLIC PANEL ) ALT 6 units /L 9-43 low Not Available [facility] (Lab) [address] [facility], [place], [address], 03/02/2025 21:12:33 02/25/20 25 02/24/2025 CMP(C OMPRE HENSI VE METAB OLIC PANEL ) alkaline phosphatase 89 units /L 34-104 Not Available [facility] (Lab) [address] [facility], [place], [address], 03/02/2025 21:12:33 02/25/20 25 02/24/2025 CMP(C OMPRE HENSI VE METAB OLIC PANEL ) AST 9 units /L 13-39 low Not Available [facility] (Lab) [address] [facility], [place], [address], 03/02/2025 21:12:33 02/25/20 25 02/24/2025 CMP(C OMPRE HENSI VE METAB OLIC PANEL ) bilirubin, total 0.2 mg/dL 0.2-1. 2 Not Available [facility] (Lab) [address] [place], [address], 03/02/2025 21:12:33 02/25/20 25 02/24/2025 FABIOLA TIN / IRON / TRANS FABIOLA N / TIBC iron 35 ug/dL 40-170 low Not Available [facility] (Lab) [address] [place], [address], 03/02/2025 21:12:33 02/25/20 25 02/24/2025 FABIOLA TIN / IRON / TRANS FABIOLA N / TIBC transferrin 378 mg/dL 200-36 0 high Not Available [facility] (Lab) [address] [place], [address], 03/02/2025 21:12:33 02/25/20 25 02/24/2025 FABIOLA TIN / IRON / TRANS FABIOLA N / TIBC ferritin 12.1 NG/mL 8.0-25 2.0 Not Available [facility] (Lab) [address] [place], [address], 03/02/2025 21:12:33 02/25/20 25 02/24/2025 FABIOLA TIN / IRON / TRANS FABIOLA N / TIBC TIBC 529 ug/dL 250-45 0 high Not Available [facility] (Lab) [address] [facility], [place], [address], 03/02/2025 21:12:33 02/25/20 25 02/24/2025 FABIOLA TIN / IRON / TRANS FABIOLA N / TIBC iron saturation 7 % 20-55 low Not Available [facility] (Lab) [address] [place], [address], 03/02/2025 21:12:33 02/25/20 25 02/24/2025 VITAM IN B12 / FOLAT E PANEL vitamin B12 186 pg/mL 180-91 4 Pooja l Range : 180-9 14 pg/mL . Indet ermin ate Range : 145-1 80 pg/mL . Defic ient Range : <=145 pg/mL . Not Available [facility] (Lab) [address] [facility], [place], [address], 03/02/2025 21:12:33 02/25/20 25 02/24/2025 VITAM IN B12 / FOLAT E PANEL folate, serum 19.8 NG/mL >=6.0 Not Available [facility] (Lab) [address] [place], [address], 03/02/2025 21:12:33 02/25/20 25 02/24/2025 VITAM IN A (RETI NOL) vitamin A 26 mcg/d L 38-98 low (Note ) Cli n Chem Vol. 34.No .8. pp162 5-162 81997 Vitam in suppl ement ation withi n 24 hours prior to blood draw may affec t the accur acy of resul ts. This test was devel oped and its linda tical perfo rmanc e che cteri stics have been deter mined by [facility]. It has not been clear ed or appro doug by the FDA. This assay has been valid ated pursu ant to the CLIA regul ation s and is used for clini robinson purpo ses. MDF med fusio n [address] [facility] [address] [place] [address] [phone] Victorina Johnson MD, PhD Perfo rming Organ izati on Infor matio n: Site ID: [id number] Name: MedFu jaylene- MedFu jaylene Addre ss: [address] [facility] [address] [place] [address] Direc tor: Victorina Johnson MD,Ph D Not Available [facility] (Lab) [address] [facility], [place], [address], 03/02/2025 21:12:34 10/12/19 25 10/11/2024 US, obste tric, nucha l trans lucen cy No observ ation record ed. [email or web address] [place] [address] [facility] [address], [place], [address], 10/11/2024 13:10:00 10/12/19 25 10/11/2024 US, evgeny tric, 1st trime ster No observ ation record ed. [email or web address] [place] [address] [facility] [address], [place], [address], 10/11/2024 13:10:09 10/12/19 25 10/11/2024 US, obste tric, nucha l trans lucen cy No observ ation record ed. [email or web address] [place] [address], [place], [address], 10/14/2024 09:45:42 11/17/19 25 11/16/2024 imagi ng/di agnos tic resul t No observ ation record ed. ILAN [facility] [address] [place] [address], [address], 2024 21:39:44 11/19/19 25 11/16/2024 imagi ng/genaro bennettos tic resul t No observ ation record ed. [facility] [address], [address], 2024 21:39:44 12/17/19 25 12/16/2024 US, obste tric, follo w-up No observ ation record ed. [email or web address] [facility] [address], [address], 12/23/2024 13:18:27 12/17/19 25 12/16/2024 US, obste tric, follo w-up No observ ation record ed. [email or web address] [facility] [address], [address], 12/20/2024 09:13:00 01/14/20 25 01/13/2025 US, obste tric, follo w-up No observ ation record ed. [email or web address] [facility] [address], [address], 01/17/2025 11:47:51 01/14/20 25 01/13/2025 US, obste tric, follo w-up No observ ation record ed. [email or web address] [facility] [address], [address], 01/17/2025 16:04:16 01/27/20 25 01/26/2025 US, obste tric, follo w-up No observ ation record ed. [email or web address] [address], [place], [address], 01/26/2025 15:11:31 01/27/20 25 01/26/2025 US, obste tric, follo w-up No observ ation record ed. ILAN Haro [address], [place], [address], 01/29/2025 15:19:23 02/18/20 25 02/17/2025 imagi ng/di agnos tic resul t No observ ation record ed. [facility] [address], [place], [address], 02/21/2025 12:50:54 02/25/20 25 02/24/2025 US, obste tric, follo w-up No observ ation record ed. ILAN Haro [address], [place], [address], 02/25/2025 15:24:35 02/25/20 25 02/24/2025 US, obste tric, follo w-up No observ ation record ed. [facility] [address], [place], [address], 02/24/2025 16:55:50 Result Notes None recorded. Problems Name Problem SNOMED Code Status Onset Date Resolution Date Notes Provider Name and Address Organization Details Recorded Time Pregnanc y 83972069 Active [address] [facility], [facility] 5 10:40:36 History of sleeve gastrect lety 25816637192 9107 Active 2024 - partial sleeve gastrecto 04/2024 - baseline vitamin labs ordered at 12 weeks - serial growth US TRUONG MCGOWAN MD [address], [place], [address], [facility] 5 11:26:50 Past pregnanc y history of section 290200935 Active 2024 G2 under GETA, umbilical cord prolapse desires [facility] TRUONG MCGOWAN MD [address], [place], [address], [facility] 11:24:36 Migraine 64632704 Active 2024 Eduar Gautam MD [address], [place], [address], [facility] 10:20:53 Problem Notes None recorded. Procedures Surgical History Date Name Laterality Status Provider Name and Address Organization Details Recorded Time 09/15/19 25 Date of Last Pap Smear completed [facility] 09/14/2024 10:20:33 05/11/19 25 Bariatric Surgery completed [facility] 09/14/2024 10:10:08 03/23/19 19 Appendectomy completed [facility] 09/14/2024 10:26:43 07/28/19 18 Caesarean Section completed [facility] 09/14/2024 10:10:08 03/23/19 09 Cholecystectomy completed [facility] 09/14/2024 10:26:22 03/23/19 00 Tonsillectomy completed [facility] 09/14/2024 10:26:04 Imaging Results None recorded. Procedure Notes None recorded. Medical Equipment None Reported. Allergies Allergen ID Allergen Name Allergen Category Reaction Reaction Severity Criticality Documentation Date Start Date Code Code System Note Provider Name and Address Organization Details Recorded Time 13764 iodine medicatio n palpitati ons severe Not available 09/14/2024 5933 RxNorm [facility] 10:09:38 14073 Augmentin medicatio n hives moderate Not available 09/14/2024 36802 2 RxNorm Elizabeth [facility] 10:09:38 96218 clavulani c acid Not available vomiting Not available high 02/03/2025202116 RxNorm Not Available ilan - External Data Service - prod 09:16:51 98502 amoxicill in / clavulana te medicatio n hives rash Not available Not available [facility] 02/03/20252023 71179 RxNorm VOMIT ING Not Available [facility], [facility] External Data Service - prod 09:16:55 Medications [...] and Address Organization Details Last Updated DateTime 02/24/2025 154.94 cm 32.9 kg/m2 99976.07 g 119/76 mm[Hg] ANNMARIE GONZALEZ [facility] [place] 02/24/2025 16:46:16 Social History Question Answer Notes LastModified by [...] Or The Highest Degree You Have Received? [id number] Information not available 09/14/2024 Are There Any [...] anxious, or unable to sleep at night)? [id number] Information not available 09/14/2024 Family History Relationship [...] ICD10 Code Diagnosis IMO Codes Diagnosis Note [id number] TRUONG MCGOWAN MD [place] [address] [address] 01/26/2025 11:47:35 01/26/2025 13:17:13 History of sleeve gastrectomy 4915050934 28636 Z90.3 O99.891 Z3A.28 2883453867 - partial sleeve gastrectom y 04/2024- baseline labs ordered 10/11- plan for serial growth [id number] MD Garret DIAMOND [address] [address] 02/03/2025 09:16:35 02/03/2025 10:15:39 Past history of section 351364014 Z98.891 926231 - PLTCS under GETA for cord prolapse- desires [facility] History of sleeve gastrectomy 3959668300 94375 Z90.3 3730348276 - partial sleeve gastrectom y 04/2024- baseline labs with mild vitamin A and vitamin D deficiency 10/11- plan for serial growth US q4 weeks Gestation period, 29 weeks 82657006 Z3A.29 5425067 - continue PNV [id number] TRUONG MCGOWAN MD [place] [address],[place] [address] 02/14/2025 10:26:25 02/14/2025 10:54:43 Past history of section 762099417 Z98.891 935273 - PLTCS under GETA for cord prolapse- desires [facility]CS History of sleeve gastrectomy 8289587568 95352 Z90.3 8461853865 - partial sleeve gastrectom y 04/2024- baseline labs with mild vitamin A and vitamin D deficiency 10/11- plan for serial growth US q4 weeks Gestation period, 31 weeks 50017263 Z3A.31 0112926 - continue PNV [id number] TRUONG MCGOWAN MD [place] [address],[place] [address] 02/24/2025 16:09:06 02/24/2025 16:58:25 History of bariatric surgical procedure 464509026 Z98.84 Z3A.32 980018 [id number] TRUONG MCGOWAN MD [place] [address],[place] [address] 02/24/2025 16:09:40 02/27/2025 09:14:00 Iron deficiency anemia 92739541 D50.9 05253332 - Hgb 9.3 at [facility] last weekend- repeat labs today- plan to start Fe infusions Past pregn carlos history of section 984807699 Z98.891 828160 - PLTCS under GETA for cord prolapse- desires [facility]CS History of sleeve gastrectomy 9134478724 76798 Z90.3 2168511852 - partial sleeve gastrectom y 04/2024- baseline labs with mild vitamin A and vitamin D deficiency 10/11- plan for serial growth US q4 weeks- repeat labs today Health Concerns Section Related Observation LastModified by Organization Detai ls LastModified Time None Recorded Concern Status LastModified by Organization Details LastModified Time None Recorded Payers Encounter Date Sequence Insurance Name Policy Number Policy Paez Covered Member ID Paez Member ID Guarantor Name 02/24/2025 1 [facility] (MEDICAID HMO) [id number] Radha Sheppard [id number] Radha Sheppard Notes Date Note Type Note Provider Name and Address Organization Details Recorded Time 02/24/2025 text/html Generic HPI TemplateReported by Patient TRUONG MCGOWAN MD [address], [place], [address], [facility] 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 Status 10/12/19 25 1 O Positive 165 Kentrel l Harley OPEN Fetus Data First Name Last Name Admitted to NICU Weight (g) Sex Living Outcome Pediatric Complications Fetus ID Race Codes Race Delivery Type [id number] Problems Problem Notes Scheduled 11/16 1:00PM Level II [facility] us only Problem Name Start Date End Date Resolution Snomed Code Not e Migraine 12/02/2024 89632908 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 660559038234980 - partial sl eeve gastrectomy 04/2024- baseline vitamin labs ordered at 12 weeks- serial growth US Past history of section 10/11/2024 433217061 G2 under GE TA, umbilical cord prolapsedesires [...] Sound Latest Days Gestation 11/17/19 25 18 [email or web address] 10/11/2024 04/17/19 26 2 Pre- Flowsheet Flowsheet Date 10/11/2024 Espinoza Score Blood Edema Fundus Height Fundus Units Glucose Ketones Leukocytes Nitrite Labor Signs Protein Cervic Dilation Cervic Effacement Cervic Station Type Weight in lbs Pre/Post Dialysis Refused Weight 163.108467460613 BP Diastolic BP Location Tested BP Systolic [...] Weight in lbs Pre/Post Dialysis Refused Weight 161.554699312250 BP Diastolic BP Location Tested BP Systolic BP Type 74 L arm 116 sitting Fetus Heart Rate Present Fetus Movement A Yes Comments Still having some nausea. Mi graines not improved with tylenol, reglan, and sumatriptan. Will send [facility] referral. LR male NIPT! All other OB labs wnl. Anatomy US next visit. RTC 4 weeks. Flowsheet Date 12/02/2024 Espinoza Score Blood Edema Fundus Height Fundus Units Glucose Ketones Leukocytes Nitrite Labor Signs Protein Cervic Dilation Cervic Effacement Cervic Station Type Weight in lbs Pre/Post Dialysis Refused 167.385638584395 BP Diastolic BP Location Tested BP Systolic [...] if she is still suffering. Seen at [facility]. Flowsheet Date 12/30/2024 Espinoza Score Blood Edema Fundus Height Fundus Units Glucose Ketones Leukocytes Nitrite Labor Signs Protein Cervic Dilation Cervic Effacement Cervic Station Type Weight in lbs Pre/Post Dialysis Refused 168.259868073593 BP Diastolic BP Location Tested BP Systolic [...] Type Weight in lbs Pre/Post Dialysis Refused 170.823320145539 BP Diastolic BP Location Tested BP Systolic [...] Weight in lbs Pre/Post Dialysis Refused Weight 172.667992350125 BP Diastolic BP Location Tested BP Systolic BP Type 72 L arm 108 sitting Fetus Heart Rate Present A 140 Fetus Movement A Yes Comments Good movement. No cram ping or bleeding. Still having gum pain. Glucose monitoring wnl, ok to d/c. No evidence of GDM. Would like repeat c section on 04/10. Discussed preadmission. RTC 2 weeks. Flowsheet Date 02/24/2025 Espinoza Score Blood Edema Fundus Height Fundus Units Glucose Ketones Leukocytes Nitrite Labor Signs Protein Cervic Dilation Cervic Effacement Cervic Station Type Weight in lbs Pre/Post Dialysis Refused BP Diastolic BP Location Tested BP Systolic BP Type Fetus Heart Rate Present Fetus Movement Comments Flowsheet Date 02/24/2025 Espinoza Score Blood Edema Fundus Height Fundus Units Glucose Ketones Leukocytes Nitrite Labor Signs Protein Cervic Dilation Cervic Effacement Cervic Station Type Weight in lbs Pre/Post Dialysis Refused Weight 174.597315144854 BP Diastolic BP Location Tested BP Systolic BP Type 76 L arm 119 sitting Fetus Heart Rate Present A Present Fetus Movement A Yes Comments Baby active. Feeling more fa tigued. Was seen on Thursday at [facility] Center for low blood pressures, found to be anemic to Hgb 9.3. Will draw labs today and start Fe infusions. EFW 21%, vertex! Flowsheet Date 03/10/2025 Espinoza Score Blood Edema Fundus Height Fundus Units Glucose Ketones Leukocytes Nitrite Labor Signs Protein Cervic Dilation Cervic Effacement Cervic Station Type Weight in lbs Pre/Post Dialysis Refused Weight [id number] BP Diastolic BP Location Tested BP Systolic BP Type 78 L arm 129 sitting Fetus Heart Rate Present A 140 Fetus Movement A Yes Comments Good movement. Some ir regular contractions. Fe infusions start Thursday. Preadmission today. Discussed GBS for next visit. RTC 2 weeks. Menstrual History Last Menstrual [...]
--- OUTSIDE RECORDS SUMMARY | 2025-03-21 01:21 | XMS_ITS | Data Portability ---
Author Organization [facility] Address [address] [place] [address] Assessment No assessment recorded. Plan of Treatment [...] Lab CBC w/ auto diff 2024 025 [facility] (Lab), [address], [place], [address], 03/02/2025 21:12:32 iron + TIBC + ferriti n, serum 2024 025 [facility] (Lab), [address], [place], [address], 03/03/2025 04:03:20 vitamin B12 + folate, serum or blood 2024 025 [facility] (Lab), [address], [place], [address], 03/02/2025 21:12:34 CMP, serum or plasma 2024 025 [facility] (Lab), [address], [place], [address], 03/02/2025 21:12:33 vitamin A (retino l), serum 2024 025 [facility] (Lab), [address], [place], [address], 03/02/2025 21:12:34 Referral None recorde d. Procedures None recorde d. Surgeries cesarea n section (SURG) 2024 026 [email or web address] [facility], [address] [address], [place], [address], 02/14/2025 12:10:15 Imaging US, obstetr ic, follow- up 2024 025 [facility], [address], [place], [address], 02/24/2025 17:42:58 Medication Orders None recorde d. Patient TargetsNo targets recorded. Patient Instructions Encounter Date Encounter Id Patient Instructions Last Modified By Organization Details Last Modified Time 02/24/2025 [id number] vitamin D [email or web address] Not available 07/2024 16:58:31 Reason for Referral None Reported. Results Created Date Observation Date Name Description Value Unit Range Abnormal Flag Note LastModifiedBy Organization Detail LastModifiedTime 02/04/2002/03/2025 HEMAT OCRIT (HCT) HCT 31.1 % (based on docume nted legal sex) 34.0-[address] [facility] (Lab) [address], [place], [address], 02/06/2025 17:22:48 02/04/20 25 02/03/2025 HEMOG LOBIN (HGB) HGB 10.0 g/dL (based on docume nted legal sex) 11.6-1 [address] [facility] (Lab) [address], [place], [address], 02/06/2025 17:22:48 02/04/20 25 02/03/2025 HIV 1/2 ANTIG EN/AN TIBOD Y, REFLE X CONFI RMATI ON HIV antigen/anti body Nonrea ctive nonrea ctive HIV-1 antig en and HIV-1 /HIV- 2 antib odies were not detec nishant. No labor atory evide nce of HIV infec tion. Not Available [facility] (Lab) [address], [place], [address], 02/06/2025 17:22:48 02/04/2002/03/2025 RPR SCREE N, REFLE X TITER /CONF IRMAT ION RPR qualitative Nonrea ctive nonrea ctive Not Available [facility] (Lab) [address], [place], [address], 02/06/2025 17:22:49 02/04/20 25 02/03/2025 LEAD, BLOOD [...] Infor naresh n: Site ID: CB Name: [facility] Addre ss: [address] [place] [address] Direc tor: Bhaskar ny V Lavon s Not Available [facility] (Lab) [address], [place], [address], 02/06/2025 17:22:49 02/25/20 25 02/24/2025 CBC W/DIF F WBC 7.7 10'3/ uL 3.5-[address] [facility] (Lab) [address], [place], [address], 03/02/2025 21:12:32 02/25/20 25 02/24/2025 CBC W/DIF F RBC 3.34 10'6/ uL (based on docume nted legal sex) 3.80-5 [address] [facility] (Lab) [address], [place], [address], 03/02/2025 21:12:32 02/25/20 25 02/24/2025 CBC W/DIF F HGB 10.1 g/dL (based on docume nted legal sex) 11.6-1 [address] [facility] (Lab) [address], [place], [address], 03/02/2025 21:12:32 02/25/20 25 02/24/2025 CBC W/DIF F HCT 31.4 % (based on docume nted legal sex) 34.0-[address] [facility] (Lab) [address], [place], [address], 03/02/2025 21:12:32 02/25/20 25 02/24/2025 CBC W/DIF F MCV 94.0 fL 80.0-[address] [facility] (Lab) [address], [place], [address], 03/02/2025 21:12:32 02/25/20 25 02/24/2025 CBC W/DIF F MCH 30.2 pg 27.0-[address] [facility] (Lab) [address], [place], [address], 03/02/2025 21:12:32 02/25/20 25 02/24/2025 CBC W/DIF F MCHC 32.2 g/dL 32.0-[address] [facility] (Lab) [address], [place], [address], 03/02/2025 21:12:32 02/25/20 25 02/24/2025 CBC W/DIF F RDW 13.2 % 11.0-[address] [facility] (Lab) [address], [place], [address], 03/02/2025 21:12:32 02/25/20 25 02/24/2025 CBC W/DIF F plt 272 10'3/ uL 150-[address] [facility] (Lab) [address], [place], [address], 03/02/2025 21:12:32 02/25/20 25 02/24/2025 CBC W/DIF F MPV 11.6 fL 8.8-[address] [facility] (Lab) [address], [place], [address], 03/02/2025 21:12:32 02/25/20 25 02/24/2025 CBC W/DIF F NRBC's 0.0 % 0.[address] [facility] (Lab) [address], [place], [address], 03/02/2025 21:12:32 02/25/20 25 02/24/2025 CBC W/DIF F absolute NRBCs 0.0 10'3/ uL no refere nce range establ ished Not Available [facility] (Lab) [address], [place], [address], 03/02/2025 21:12:32 02/25/20 25 02/24/2025 CBC W/DIF F neutrophils 69.4 % 34.0-[address] [facility] (Lab) [address], [place], [address], 03/02/2025 21:12:32 02/25/20 25 02/24/2025 CBC W/DIF F lymphocytes 24.0 % 15.0-[address] [facility] (Lab) [address], [place], [address], 03/02/2025 21:12:32 02/25/20 25 02/24/2025 CBC W/DIF F monocytes 5.6 % 1.0-[address] [facility] (Lab) [address], [place], [address], 03/02/2025 21:12:32 02/25/20 25 02/24/2025 CBC W/DIF F eosinophils 0.3 % 0.0-8. [address] [facility] (Lab) [address], [place], [address], 03/02/2025 21:12:32 02/25/20 25 02/24/2025 CBC W/DIF F basophils 0.3 % 0.0-2. [address] [facility] (Lab) [address], [place], [address], 03/02/2025 21:12:32 02/25/20 25 02/24/2025 CBC W/DIF [...] separ ately if prese nt. Not Available [facility] (Lab) [address], [place], [address], 03/02/2025 21:12:32 02/25/20 25 02/24/2025 CBC W/DIF F absolute neutrophils 5.3 10'3/ uL 1.5-8. [address] [facility] (Lab) [address], [place], [address], 03/02/2025 21:12:32 02/25/20 25 02/24/2025 CBC W/DIF F absolute lymphocytes 1.8 10'3/ uL 1.0-4. [address] [facility] (Lab) [address] , [place], [address], 03/02/2025 21:12:32 02/25/20 25 02/24/2025 CBC W/DIF F absolute monocytes 0.4 10'3/ uL 0.2-1. 0 Not Available [facility] (Lab) [address], [place], [address], 03/02/2025 21:12:32 02/25/20 25 02/24/2025 CBC W/DIF F absolute eosinophils 0.0 10'3/ uL 0.0-0. [address] [facility] (Lab) [address], [place], [address], 03/02/2025 21:12:32 02/25/20 25 02/24/2025 CBC W/DIF F absolute basophils 0.0 10'3/ uL 0.0-0. [address] [facility] (Lab) [address], [place], [address], 03/02/2025 21:12:32 02/25/20 25 02/24/2025 CBC W/DIF [...] patterson book. nm.or g/gen derx Not Available [facility] (Lab) [address], [place], [address], 03/02/2025 21:12:32 02/25/20 25 02/24/2025 CMP(C OMPRE HENSI VE METAB OLIC PANEL ) sodium 139 mmol/ L 133-[address] [facility] (Lab) [address], [place], [address], 03/02/2025 21:12:33 02/25/20 25 02/24/2025 CMP(C OMPRE HENSI VE METAB OLIC PANEL ) potassium 3.7 mmol/ L 3.5-5. [address] [facility] (Lab) [address], [place], [address], 03/02/2025 21:12:33 02/25/20 25 02/24/2025 CMP(C OMPRE HENSI VE METAB OLIC PANEL ) chloride 108 mmol/ L 98-[address] [facility] (Lab) [address], [place], [address], 03/02/2025 21:12:33 02/25/20 25 02/24/2025 CMP(C OMPRE HENSI VE METAB OLIC PANEL ) carbon dioxide 23 mmol/ L 21-[address] [facility] (Lab) [address], [place], [address], 03/02/2025 21:12:33 02/25/20 25 02/24/2025 CMP(C OMPRE HENSI VE METAB OLIC PANEL ) anion gap 8 mmol/ L 4-[address] [facility] (Lab) [address], [place], [address], 03/02/2025 21:12:33 02/25/20 25 02/24/2025 CMP(C OMPRE HENSI VE METAB OLIC PANEL ) blood urea nitrogen 7 mg/dL 7-25 Not Available [facility] (Lab) [address], [place], [address], 03/02/2025 21:12:33 02/25/20 25 02/24/2025 CMP(C OMPRE HENSI VE METAB OLIC PANEL ) creatinine 0.45 mg/dL 0.60-1 .[address] [facility] (Lab) [address], [place], [address], 03/02/2025 21:12:33 02/25/20 25 02/24/2025 CMP(C OMPRE HENSI VE METAB OLIC PANEL ) egfrcr (CKD-epi 2020) >90 mL/mi n/1.7 3_m2 >=[address] [facility] (Lab) [address], [place], [address], 03/02/2025 21:12:33 02/25/20 25 02/24/2025 CMP(C OMPRE HENSI VE METAB OLIC PANEL ) calcium 8.1 mg/dL 8.3-10 .[address] [facility] (Lab) [address], [place], [address], 03/02/2025 21:12:33 02/25/20 25 02/24/2025 CMP(C OMPRE HENSI VE METAB OLIC PANEL ) glucose 74 mg/dL 70-[address] [facility] (Lab) [address], [place], [address], 03/02/2025 21:12:33 02/25/20 25 02/24/2025 CMP(C OMPRE HENSI VE METAB OLIC PANEL ) protein, total 5.7 g/dL 6.4-8. [address] [facility] (Lab) [address], [place], [address], 03/02/2025 21:12:33 02/25/20 25 02/24/2025 CMP(C OMPRE HENSI VE METAB OLIC PANEL ) albumin 3.2 g/dL 3.5-5. [address] [facility] (Lab) [address], [place], [address], 03/02/2025 21:12:33 02/25/20 25 02/24/2025 CMP(C OMPRE HENSI VE METAB OLIC PANEL ) ALT 6 units /L 9-[address] [facility] (Lab) [address], [place], [address], 03/02/2025 21:12:33 02/25/20 25 02/24/2025 CMP(C OMPRE HENSI VE METAB OLIC PANEL ) alkaline phosphatase 89 units /L 34-[address] [facility] (Lab) [address], [place], [address], 03/02/2025 21:12:33 02/25/20 25 02/24/2025 CMP(C OMPRE HENSI VE METAB OLIC PANEL ) AST 9 units /L 13-[address] [facility] (Lab) [address], [place], [address], 03/02/2025 21:12:33 02/25/20 25 02/24/2025 CMP(C OMPRE HENSI VE METAB OLIC PANEL ) bilirubin, total 0.2 mg/dL 0.2-1. [address] [facility] (Lab) [address], [place], [address], 03/02/2025 21:12:33 02/25/20 25 02/24/2025 FABIOLA TIN / IRON / TRANS FABIOLA N / TIBC iron 35 ug/dL 40-[address] [facility] (Lab) [address] [place], [address], 03/02/2025 21:12:33 02/25/20 25 02/24/2025 FABIOLA TIN / IRON / TRANS FABIOLA N / TIBC transferrin 378 mg/dL 200-[address] [facility] (Lab) [address] [place], [address], 03/02/2025 21:12:33 02/25/20 25 02/24/2025 FABIOLA TIN / IRON / TRANS FABIOLA N / TIBC ferritin 12.1 NG/mL 8.0-[address] [facility] (Lab) [address] [place], [address], 03/02/2025 21:12:33 02/25/20 25 02/24/2025 FABIOLA TIN / IRON / TRANS FABIOLA N / TIBC TIBC 529 ug/dL 250-[address] [facility] (Lab) [address], [place], [address], 03/02/2025 21:12:33 02/25/20 25 02/24/2025 FABIOLA TIN / IRON / TRANS FABIOLA N / TIBC iron saturation 7 % 20-55 low Not Available [facility] (Lab) [address], [place], [address], 03/02/2025 21:12:33 02/25/20 25 02/24/2025 VITAM IN B12 / FOLAT E PANEL vitamin B12 186 pg/mL 180-91 4 Pooja l Range : 180-9 14 pg/mL . Indet ermin ate Range : 145-1 80 pg/mL . Defic ient Range : <=145 pg/mL . Not Available [facility] (Lab) [address], [place], [address], 03/02/2025 21:12:33 02/25/20 25 02/24/2025 VITAM IN B12 / FOLAT E PANEL folate, serum 19.8 NG/mL >=6.0 Not Available [facility] (Lab) [address], [place], [address], 03/02/2025 21:12:33 02/25/20 25 02/24/2025 VITAM IN [...] stics have been deter mined by [facility]. It has not been clear ed or appro doug by the FDA. This assay has been valid ated pursu ant to the CLIA regul ation s and is used for clini robinson purpo ses. MDF med fusio n [address] [facility] [address] [place] [address] [phone] Victorina Johnson MD, PhD Perfo rming Organ izati on Infor matmery n: Site ID: [id number] Name: MedFu jaylene- MedFu jaylene Addre ss: [address] [facility] [address], [address] [place] [address] Direc tor: Victorina Johnson MD,Ph D Not Available [facility] (Lab) [address], [place], [address], 03/02/2025 21:12:34 01/14/20 25 01/13/2025 US, obste tric, follo w-up No observ ation record ed. [email or web address] [facility] [address] [place], [address], 01/17/2025 11:47:51 01/14/20 25 01/13/2025 US, obste tric, follo w-up No observ ation record ed. [email or web address] [facility] [address] [place], [address], 01/17/2025 16:04:16 01/27/20 25 01/26/2025 US, obste tric, follo w-up No observ ation record ed. [email or web address] [address], [place], [address], 01/26/2025 15:11:31 01/27/20 25 01/26/2025 US, obste tric, follo w-up No observ ation record ed. ILAN Haro [address], [place], [address], 01/29/2025 15:19:23 02/18/20 25 02/17/2025 imagi ng/di agnos tic resul t No observ ation record ed. [facility] [address], [place], [address], 02/21/2025 12:50:54 02/25/20 25 02/24/2025 US, obste tric, follo w-up No observ ation record ed. [facility] [address], [place], [address], 02/25/2025 15:24:35 02/25/20 25 02/24/2025 US, obste tric, follo w-up No observ ation record ed. [facility] [address], [place], [address], 02/24/2025 16:55:50 Result Notes None recorded. Problems Name Problem SNOMED Code Status Onset Date Resolution Date Notes Provider Name and Address Organization Details Recorded Time Pregnanc y 52823803 Active 2024 Freida Morales [facility] 5 10:40:36 History of sleeve gastrect lety 12941848382 9107 Active 2024 - partial sleeve gastrecto my 04/2024 - baseline vitamin labs ordered at 12 weeks - serial growth US TRUONG MCGOWAN MD [address], [place], [address], [facility] 5 11:26:50 Past pregnanc y history of section 028310544 Active 2024 G2 under GETA, umbilical cord prolapse desires [facility] TRUONG MCGOWAN MD [address], [place], [address], [facility] 5 11:24:36 Migraine 78616092 Active 2024 Eduar Gautam MD [address], [place], [address], [facility] 5 10:20:53 Problem Notes None recorded. Procedures Surgical History Date Name Laterality Status Provider Name and Address Organization Details Recorded Time 09/15/19 25 Date of Last Pap Smear completed [facility] 09/14/2024 10:20:33 05/11/19 25 Bariatric Surgery completed [facility] 09/14/2024 10:10:08 03/23/19 19 Appendectomy completed [facility] 09/14/2024 10:26:43 07/28/19 18 Caesarean Section completed [facility] 09/14/2024 10:10:08 03/23/19 09 Cholecystectomy completed [facility] 09/14/2024 10:26:22 03/23/19 00 Tonsillectomy completed [facility] 09/14/2024 10:26:04 Imaging Results None recorded. Procedure Notes None recorded. Medical Equipment None Reported. Allergies Allergen ID Allergen Name Allergen Category Reaction Reaction Severity Criticality Documentation Date Start Date Code Code System Note Provider Name and Address Organization Details Recorded Time 58833 iodine medicatio n palpitati ons severe Not available 09/14/2024 5933 RxNorm [facility] 5 10:09:38 95349 Augmentin medicatio n hives moderate Not available 09/14/2024 17758 2 [facility] 5 10:09:38 90231 clavulani c acid Not available vomiting Not available high 02/03/20252021 28598 RxNorm Not Available ilan - External Data Service - prod 09:16:51 26123 amoxicill in / clavulana te medicatio n hives rash Not available Not available high 02/03/20252023 85169 RxNorm VOMIT ING Not Available ahsahka - External Data Service - prod 09:16:55 Medications [...] Address Organization Details Last Updated DateTime 02/03/2025 97359.7029 g 122/74 mm[Hg] Cristina Tubbs [facility] 02/03/2025 09:47:14 Date Recorded Body height Body mass index (BMI) Body weight Systolic And Diastolic Provider Name and Address Organization Details Last Updated DateTime 02/14/2025 154.94 cm 32.5 kg/m2 49076.89 g 108/72 mm[Hg] Cristina Tubbs [facility] 02/14/2025 10:38:32 Date Recorded Body height Body mass index (BMI) Body weight Systolic And Diastolic Provider Name and Address Organization Details Last Updated DateTime 02/24/2025 154.94 cm 32.9 kg/m2 45342.07 g 119/76 mm[Hg] ANNMARIE [facility] 02/24/2025 16:46:16 Date Recorded Body height Body mass index (BMI) Body weight Systolic And Diastolic Provider Name and Address Organization Details Last Updated DateTime 03/10/2025 154.94 cm 33.6 kg/m2 34135.44 g 129/78 mm[Hg] ANNMARIE [facility] 03/10/2025 14:08:27 Social History Question Answer Notes LastModified by [...] Or The Highest Degree You Have Received? AM04038-4 Information not available 09/14/2024 Are There Any [...] anxious, or unable to sleep at night)? [id number] Information not available 09/14/2024 Family History Relationship [...] ICD10 Code Diagnosis IMO Codes Diagnosis Note [id number] TRUONG MCGOWAN MD [facility] [address] [address] 09/14/2024 09:13:31 09/14/2024 09:57:25 [id number] TRUONG MCGOWAN MD [facility] [address] [address] 09/14/2024 09:14:41 09/14/2024 14:08:51 test positive 521830308 Z32.01 444890 1. Exam today within normal limits.2. Ultrasound [...] Genetic screening: declines. History of sleeve gastrectomy 5671397247 59804 Z90.3 1083631704 - partial sleeve gastrectom y 04/2024- will need baseline vitamin labs with new OB labs Past pregn carlos history of section 820277360 Z98.891 36359 - PLTCS under GETA for cord prolapse- desires TOLAC [id number] TRUONG MCGOWAN MD [facility] [address],[place] [address] 10/11/2024 09:39:34 10/11/2024 10:23:39 screening 333385033 Z36.82 Z3A.13 9503314082 [id number] TRUONG MCGOWAN MD [facility] [address],[place] [address] 10/11/2024 09:40:17 10/11/2024 11:31:24 History of sleeve gastrectomy 3247877537 76399 Z90.3 8290841308 - partial sleeve gastrectom y 04/2024- baseline labs ordered 10/11- plan for serial growth US Past pregn carlos history of section 843044457 Z98.891 286501 - PLTCS under GETA for cord prolapse- desires RCS Migraine w ithout aura, not refractory 327154354 G43.763 3086664 - discussed B2 supplement ation Gestation period, 12 weeks 14560705 Z3A.12 5080406 Gestation period, 13 weeks 89791036 Z3A.13 0368353 [id number] TRUONG MCGOWAN MD [facility] [address],[place] [address] 11/02/2024 16:10:12 11/02/2024 17:34:34 Past history of section 300391647 Z98.891 807379 - PLTCS under GETA for cord prolapse- desires RCS History of sleeve gastrectomy 7959009976 56783 Z90.3 6668896039 - partial sleeve gastrectom y 04/2024- baseline labs ordered 10/11- plan for serial growth US Migraine w [facility] aura, not refractory 513906940 G43.657 8406592 - not improved with tylenol, B2, reglan/gina adryl, or sumatripta n- MFM consultati on ordered Gestation period, 16 weeks 74086963 Z3A.16 2351015 - continue PNV [id number] Eduar Gautam MD [facility] [address],[place] [address] 12/02/2024 09:28:32 12/02/2024 10:41:35 Migraine 35768459 G43.909 84901748 [id number] Eduar Gautam MD [facility] [address],[place] [address] 12/30/2024 14:31:08 12/30/2024 16:29:45 care status 460543431 Z34.82 67869038 [id number] TRUONG MCGOWAN MD [facility] [address],[place] [address] 01/26/2025 11:47:35 01/26/2025 13:17:13 History of sleeve gastrectomy 5330135569 05804 Z90.3 O99.891 Z3A.28 5863002028 - partial sleeve gastrectom y 04/2024- baseline labs ordered 10/11- plan for serial growth [place] [id number] TRUONG MCGOWAN MD [facility] [address],[place] [address] 02/03/2025 09:16:35 02/03/2025 10:15:39 Past history of section 605451144 Z98.891 501058 - PLTCS under GETA for cord prolapse- desires RCS History of sleeve gastrectomy 5954836852 32697 Z90.3 8750098574 - partial sleeve gastrectom y 04/2024- baseline labs with mild vitamin A and vitamin D deficiency 10/11- plan for serial growth US q4 weeks Gestation period, 29 weeks 49998642 Z3A.29 8491745 - continue PNV [id number] TRUONG MCGOWAN MD [facility] [address] [address] 02/14/2025 10:26:25 02/14/2025 10:54:43 Past history of section 033975586 Z98.891 824927 - PLTCS under GETA for cord prolapse- desires RCS History of sleeve gastrectomy 7487437634 64789 Z90.3 9099838557 - partial sleeve gastrectom y 04/2024- baseline labs with mild vitamin A and vitamin D deficiency 10/11- plan for serial growth US q4 weeks Gestation period, 31 weeks 17844787 Z3A.31 4401822 - continue PNV [id number] TRUONG MCGOWAN MD [facility] [address],[place] [address] 02/24/2025 16:09:06 02/24/2025 16:58:25 History of bariatric surgical procedure 179217914 Z98.84 Z3A.32 432417 [id number] TRUONG MCGOWAN MD [facility] [address] [address] 02/24/2025 16:09:40 02/27/2025 09:14:00 Iron deficiency anemia 68784609 D50.9 11484962 - Hgb 9.3 at [facility] last weekend- repeat labs today- plan to start Fe infusions Past pregn carlos history of section 032694135 Z98.891 372804 - PLTCS under GETA for cord prolapse- desires RCS History of sleeve gastrectomy 8148167448 83535 Z90.3 8694183579 - partial sleeve gastrectom y 04/2024- baseline labs with mild vitamin A and vitamin D deficiency 10/11- plan for serial growth US q4 weeks- repeat labs today [id number] TRUONG MCGOWAN MD [facility] [address] [address] 03/10/2025 13:44:50 03/10/2025 14:28:33 Past history of section [id number] Z98.891 [id number] - PLTCS under GETA for cord prolapse- desires RCS History of sleeve gastrectomy [id number] 71423 Z90.3 [id number] - partial sleeve gastrectom y 04/2024- baseline labs with mild vitamin A and vitamin D deficiency 10/11- plan for serial growth US q4 weeks Gestation period, 34 weeks [id number] Z3A.34 [id number] - continue [facility] Concerns Section Related Observation LastModified by Organization Detai ls LastModified Time None Recorded Concern Status LastModified by Organization Details LastModified Time None Recorded Advance Directives Directive N: Payers Insurance Date Sequence Insurance Name Policy Number Policy Paez Covered Member ID Paez Member ID Guarantor Name 03/19/2025 1 [facility] (MEDICAID HMO) [id number] Radha Sheppard [id number] Radha Sheppard Notes Date Note Type Note Provider Name and Address Organization Details Recorded Time 02/03/2025 text/html Generic HPI TemplateReported by Patient TRUONG MCGOWAN MD [address], [place], [address], [facility] 02/03/2025 10:12:38 02/14/2025 text/html Generic HPI TemplateReported by Patient TRUONG MCGOWAN MD [address], [place], [address], [facility] 02/14/2025 10:54:19 02/24/2025 text/html Generic HPI TemplateReported by Patient TRUONG MCGOWAN MD [address], [place], [address], [facility] 02/24/2025 17:01:16 03/10/2025 text/html Generic HPI TemplateReported by Patient TRUONG MCGOWAN MD [address], [place], [address], [place] [facility] [facility] 03/10/2025 14:26:18 OBGyn Episode Ob Episode Information Episode Created Date Number of Fetuses Patient Bloodtype Patient rh Status Prepregnancy Weight lbs Domestic Partner Domestic Partner Phone Father Name Event Planner Status 10/12/19 25 1 O Positive 165 Kentrel l Harley OPEN Fetus Data First Name Last Name Admitted to NICU Weight (g) Sex Living Outcome Pediatric Complications Fetus ID Race Codes Race Delivery Type [id number] Problems Problem Notes Scheduled 11/16 1:00PM Level II [facility] & [facility] 0730 us only Problem Name Start Date End Date Resolution Snomed Code Not e Migraine 12/02/2024 [id number] 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 [id number] - partial sl eeve gastrectomy 04/2024- baseline vitamin labs ordered at 12 weeks- serial growth US Past history of section 10/11/2024 [id number] G2 under GE TA, umbilical cord prolapsedesires [...] Sound Latest Days Gestation 11/17/19 25 18 [email or web address] 10/11/2024 04/17/19 26 2 Pre- Flowsheet Flowsheet Date 10/11/2024 Espinoza Score Blood Edema Fundus Height Fundus Units Glucose Ketones Leukocytes Nitrite Labor Signs Protein Cervic Dilation Cervic Effacement Cervic Station Type Weight in lbs Pre/Post Dialysis Refused Weight 163.897755707950 BP Diastolic BP Location Tested BP Systolic BP Type 74 L arm 115 sitting Fetus Heart Rate Present Fetus Movement Comments [facility]. Headaches still worsening, will send [...] Weight in lbs Pre/Post Dialysis Refused Weight 161.513693123274 BP Diastolic BP Location Tested BP Systolic BP Type 74 L arm 116 sitting Fetus Heart Rate Present Fetus Movement A Yes Comments Still having some nausea. Mi graines not improved with tylenol, reglan, and sumatriptan. Will send [facility] referral. LR male NIPT! All other OB labs wnl. Anatomy US next visit. RTC 4 weeks. Flowsheet Date 12/02/2024 Espinoza Score Blood Edema Fundus Height Fundus Units Glucose Ketones Leukocytes Nitrite Labor Signs Protein Cervic Dilation Cervic Effacement Cervic Station Type Weight in lbs Pre/Post Dialysis Refused 167.285837313794 BP Diastolic BP Location Tested BP Systolic [...] if she is still suffering. Seen at [facility]. Flowsheet Date 12/30/2024 Espinoza Score Blood Edema Fundus Height Fundus Units Glucose Ketones Leukocytes Nitrite Labor Signs Protein Cervic Dilation Cervic Effacement Cervic Station Type Weight in lbs Pre/Post Dialysis Refused 168.423446589580 BP Diastolic BP Location Tested BP Systolic [...] Type Weight in lbs Pre/Post Dialysis Refused 170.363499510645 BP Diastolic BP Location Tested BP Systolic [...] Weight in lbs Pre/Post Dialysis Refused Weight 172.696418274276 BP Diastolic BP Location Tested BP Systolic [...] Weight in lbs Pre/Post Dialysis Refused Weight 174.319085441616 BP Diastolic BP Location Tested BP Systolic BP Type 76 L arm 119 sitting Fetus Heart Rate Present A Present Fetus Movement A Yes Comments Baby active. Feeling more fa tigued. Was seen on Thursday at [facility] for low blood pressures, found to be anemic to Hgb 9.3. Will draw labs today and start Fe infusions. EFW 21%, vertex! Flowsheet Date 03/10/2025 Espinoza Score Blood Edema Fundus Height Fundus Units Glucose Ketones Leukocytes Nitrite Labor Signs Protein Cervic Dilation Cervic Effacement Cervic Station Type Weight in lbs Pre/Post Dialysis Refused Weight 178.198160042529 BP Diastolic BP Location Tested BP Systolic [...] Domestic Partner Domestic Partner Phone Father Name Event Planner Status 09/15/19 1 CLOSED Fetus Data First Name Last Name Admitted to NICU Weight (g) Sex Living Outcome Pediatric Complications Fetus ID Race Codes Race Delivery Type M Demise [id number] Mario Calculation Initial Mario Date Initial Exam [...] Domestic Partner Domestic Partner Phone Father Name Event Planner Status 09/15/19 25 1 CLOSED Fetus Data First Name Last Name Admitted to NICU Weight (g) Sex Living Outcome Pediatric Complications Fetus ID Race Codes Race Delivery Type 3316.66 [id number] F Full Term [id number] Primary Mario Calculation Initial Mario Date Initial [...]
--- OUTSIDE RECORDS SUMMARY | 2025-03-21 01:21 | XMS_ITS | Continuity of Care Document ---
Author Organization [facility] Address [address] [place] [address] [address] Assessment No assessment recorded. Plan of Treatment [...] US, obstetr ic, follow- up 2024 025 [facility], [facility] [address], [place], [address], 02/24/2025 17:42:58 Medication Orders None recorde d. Patient TargetsNo targets recorded. Patient InstructionsNo instructions recorded. Reason for Referral None Reported. Results Created Date Observation Date Name Description Value Unit Range Abnormal Flag Note LastModifiedBy Organization Detail LastModifiedTime 10/18/19 25 10/17/2024 [UNIT Y] ANEUP LOIDY NIPT fraction 7.5% normal Not Available [facility] [address], [place], [address], 10/17/2024 23:58:00 10/18/19 25 10/17/2024 [UNIT Y] ANEUP LOIDY NIPT 22Q11.2 microdeletio n LOW RISK <1 in 10,000 normal Not Available [facility] [address], [place], [address], 10/17/2024 23:58:00 10/18/19 25 10/17/2024 [UNIT Y] ANEUP LOIDY NIPT sex chromosome aneuploidy NOT DETECT ED normal Not Available [facility] [address], [place], [address], 10/17/2024 23:58:00 10/18/19 25 10/17/2024 [UNIT Y] ANEUP LOIDY NIPT monosomy X LOW RISK <1 in 10,000 normal Not Available [facility] [address], [place], [address], 10/17/2024 23:58:00 10/18/19 25 10/17/2024 [UNIT Y] ANEUP LOIDY NIPT trisomy 13 LOW RISK <1 in 10,000 normal Not Available [facility] [address], [place], [address], 10/17/2024 23:58:00 10/18/19 25 10/17/2024 [UNIT Y] ANEUP LOIDY NIPT trisomy 18 LOW RISK <1 in 10,000 normal Not Available [facility] [address], [place], [address], 10/17/2024 23:58:00 10/18/19 25 10/17/2024 [UNIT Y] ANEUP LOIDY NIPT trisomy 21 LOW RISK <1 in 10,000 normal Not Available [facility] [address], [place], [address], 10/17/2024 23:58:00 10/18/19 25 10/17/2024 [UNIT Y] ANEUP LOIDY NIPT sex MALE normal Not Available [facility] [address], [place], [address], 10/17/2024 23:58:00 10/18/19 25 10/17/2024 [UNIT Y] ANEUP LOIDY NIPT gestation SINGLE TON normal Not Available [facility] [address], [place], [address], 10/17/2024 23:58:00 10/18/19 25 10/17/2024 [UNIT Y] ANEUP LOIDY NIPT for detailed report, see pdf See PDF normal Not Available [facility] [address], [place], [address], 10/17/2024 23:58:00 10/22/19 25 10/21/2024 [UNIT Y] MIKE Galvez sickle cell disease/beta -thalassemia /hemoglobino pathies carrier screen NEGATI VE normal Not Available [facility] [address], [place], [address], 10/21/2024 17:38:31 10/22/19 25 10/21/2024 [UNIT Y] MIKE Galvez alpha-thalas semia carrier screen NEGATI VE normal Not Available [facility] [address], [place], [address], 10/21/2024 17:38:31 10/22/19 25 10/21/2024 [UNIT Y] MIKE Galvez cystic fibrosis carrier screen NEGATI VE normal Not Available [facility] [address], [place], [address], 10/21/2024 17:38:31 10/22/19 25 10/21/2024 [UNIT Y] MIKE Galvez spinal muscular atrophy carrier screen NEGATI VE 2 SMN1 copies , SNP not presen t normal Not Available [facility] [address] [place], [address], 10/21/2024 17:38:31 10/22/19 25 10/21/2024 [UNIT Y] MIKE MACIAS Leonor for detailed report, see pdf See PDF normal Not Available [facility] [address], [place], [address], 10/21/2024 17:38:31 10/12/19 25 10/11/2024 CBC W/DIF F WBC 7.0 10'3/ uL 3.5-10 .5 Not Available [facility] (Lab) [address], [place], [address], 10/12/2024 13:07:49 10/12/19 25 10/11/2024 CBC W/DIF F RBC 3.94 10'6/ uL (based on docume nted legal sex) 3.80-5 .20 Not Available [facility] (Lab) [address], [place], [address], 10/12/2024 13:07:49 10/12/19 25 10/11/2024 CBC W/DIF F HGB 12.1 g/dL (based on docume nted legal sex) 11.6-1 5.4 Not Available [facility] (Lab) [address], [place], [address], 10/12/2024 13:07:49 10/12/19 25 10/11/2024 CBC W/DIF F HCT 36.3 % (based on docume nted legal sex) 34.0-4 5.0 Not Available [facility] (Lab) [address], [place], [address], 10/12/2024 13:07:49 10/12/19 25 10/11/2024 CBC W/DIF F MCV 92.1 fL 80.0-9 9.0 Not Available [facility] (Lab) [address], [place], [address], 10/12/2024 13:07:49 10/12/19 25 10/11/2024 CBC W/DIF F MCH 30.7 pg 27.0-3 4.0 Not Available [facility] (Lab) [address], [place], [address], 10/12/2024 13:07:49 10/12/19 25 10/11/2024 CBC W/DIF F MCHC 33.3 g/dL 32.0-3 5.5 Not Available [facility] (Lab) [address], [place], [address], 10/12/2024 13:07:49 10/12/19 25 10/11/2024 CBC W/DIF F RDW 12.4 % 11.0-1 5.0 Not Available [facility] (Lab) [address], [place], [address], 10/12/2024 13:07:49 10/12/19 25 10/11/2024 CBC W/DIF F plt 278 10'3/ uL 150-40 0 Not Available [facility] (Lab) [address], [place], [address], 10/12/2024 13:07:49 10/12/19 25 10/11/2024 CBC W/DIF F MPV 11.7 fL 8.8-12 .1 Not Available [facility] (Lab) [address], [place], [address], 10/12/2024 13:07:49 10/12/19 25 10/11/2024 CBC W/DIF F NRBC's 0.0 % 0.0 Not Available [facility] (Lab) [address], [place], [address], 10/12/2024 13:07:49 10/12/19 25 10/11/2024 CBC W/DIF F absolute NRBCs 0.0 10'3/ uL no refere nce range establ ished Not Available [facility] (Lab) [address] [facility], [place], [address], 10/12/2024 13:07:49 10/12/19 25 10/11/2024 CBC W/DIF F neutrophils 71.6 % 34.0-7 3.0 Not Available [facility] (Lab) [address] [facility], [place], [address], 10/12/2024 13:07:49 10/12/19 25 10/11/2024 CBC W/DIF F lymphocytes 22.8 % 15.0-5 0.0 Not Available [facility] (Lab) [address] [facility], [place], [address], 10/12/2024 13:07:49 10/12/19 25 10/11/2024 CBC W/DIF F monocytes 4.7 % 1.0-15 .0 Not Available [facility] (Lab) [address] [place], [address], 10/12/2024 13:07:49 10/12/19 25 10/11/2024 CBC W/DIF F eosinophils 0.3 % 0.0-8. 0 Not Available [facility] (Lab) [address] [facility], [place], [address], 10/12/2024 13:07:49 10/12/19 25 10/11/2024 CBC W/DIF F basophils 0.3 % 0.0-2. 0 Not Available [facility] (Lab) [address] [facility], [place], [address], 10/12/2024 13:07:49 10/12/19 25 10/11/2024 CBC W/DIF [...] separ ately if prese nt. Not Available [facility] (Lab) [address] [facility], [place], [address], 10/12/2024 13:07:49 10/12/19 25 10/11/2024 CBC W/DIF F absolute neutrophils 5.0 10'3/ uL 1.5-8. 0 Not Available [facility] (Lab) [address] [facility], [place], [address], 10/12/2024 13:07:49 10/12/19 25 10/11/2024 CBC W/DIF F absolute lymphocytes 1.6 10'3/ uL 1.0-4. 0 Not Available [facility] (Lab) [address] [facility], [place], [address], 10/12/2024 13:07:49 10/12/19 25 10/11/2024 CBC W/DIF F absolute monocytes 0.3 10'3/ uL 0.2-1. 0 Not Available [facility] (Lab) [address] [facility], [place], [address], 10/12/2024 13:07:49 10/12/19 25 10/11/2024 CBC W/DIF F absolute eosinophils 0.0 10'3/ uL 0.0-0. 6 Not Available [facility] (Lab) [address] [facility], [place], [address], 10/12/2024 13:07:49 10/12/19 25 10/11/2024 CBC W/DIF F absolute basophils 0.0 10'3/ uL 0.0-0. 3 Not Available [facility] (Lab) [address] [facility], [place], [address], 10/12/2024 13:07:49 10/12/19 25 10/11/2024 CBC W/DIF F absolute immature granulocytes 0.0 10'3/ uL 0.00-0 .10 Refer ence range s for nonbi nary/ inter sex or unspe cifie d gende r patie nts have not been estab lishe d. Pleinessa e refer to the follo wing table for range s estab lishe d for cisge nder patie nts and evalu ate in the clini robinson leonard xt of the indiv idual patie nt: https :[email or web address] [email or web address] book. nm.or g/gen derx Not Available [facility] (Lab) [address] , [place], [address], 10/12/2024 13:07:49 10/12/19 25 10/11/2024 HIV 1/2 ANTIG EN/AN TIBOD Y, REFLE X CONFI RMATI ON HIV antigen/anti body Nonrea ctive nonrea ctive HIV-1 antig en and HIV-1 /HIV- 2 antib odies were not detec nishant. No labor atory evide nce of HIV infec tion. Not Available [facility] (Lab) [address], [place], [address], 10/12/2024 13:07:50 10/12/19 25 10/11/2024 HEPAT ITIS B SURFA CE ANTIG EN hepatitis B surface antigen Non-re active non-re active This assay was perfo rmed using [employer] ratio n reage nts and test kits. Value s obtai francois with other assay metho ds or kits canno t be used inter serna eably . Not Available [facility] (Lab) [address], [place], [address], 10/12/2024 13:07:50 10/12/19 25 10/11/2024 HEPAT ITIS C ANTIB KERI SCREE N, REFLE X TO CONFI RMATI ON hepatitis C antibody Non-re active non-re active Antib odies to HCV Not Detec nishant, does not exclu de the possi bilit y of expos ure to HCV. Not Available [facility] (Lab) [address] [place], [address], 10/12/2024 13:07:51 10/12/19 25 10/11/2024 RUBEL LA IGG ANTIB KERI, QUANT rubella antibodies, IgG Reacti ve reacti ve Not Available [facility] (Lab) [address] [facility], [place], [address], 10/12/2024 13:07:51 10/12/19 25 10/11/2024 RUBEL LA IGG ANTIB KERI, QUANT rubella antibodies, IgG quant 18.4 IU/mL >=10 Non-r eacti ve (Non- Immun e) <10 IU/mL React filippo (Immu ne) > or = 10 IU/mL Not Available [facility] (Lab) [address] [facility], [place], [address], 10/12/2024 13:07:51 10/12/19 25 10/11/2024 TYPE/ RH/SC REEN ABO/Rh type O POS Not Available [facility] (Lab) [address] [facility], [place], [address], 10/12/2024 13:07:51 10/12/19 25 10/11/2024 TYPE/ RH/SC REEN antibody screen NEG Not Available [facility] (Lab) [address] [facility], [place], [address], 10/12/2024 13:07:51 10/12/19 25 10/11/2024 TYPE/ RH/SC REEN exp date 2024 23:59 Not Available [facility] (Lab) [address] [facility], [place], [address], 10/12/2024 13:07:51 10/12/19 25 10/11/2024 HEMOG LOBIN [...] >8.0% Actio n sugge sted Not Available [facility] (Lab) [address] [facility], [place], [address], 10/12/2024 13:07:52 10/12/19 25 10/11/2024 RPR SCREE N, REFLE X TITER /CONF IRMAT ION RPR qualitative Nonrea ctive nonrea ctive Not Available [facility] (Lab) [address] [facility], [place], [address], 10/12/2024 13:07:53 10/12/19 25 10/11/2024 CULTU RE: URINE result report SEE RESULT S BELOW Test: Cultu re: Urine Speci men Sourc e: Urine Voide d Speci men Type: Urine Speci men Date: 2024 1251 Resul t Date: 2024 2146 Resul t Statu s: Final resul t Abnor mal: No Resul ting Lab: [facility] [address] [facility] [address] Tel: CULTU RE ----- ----- ----- --- No growt h in 1 day (dete ction level of 10,00 0 colon ies / ml.) Not Available [facility] (Lab) [address] [place], [address], 10/12/2024 22:51:14 10/12/19 25 10/11/2024 drug scree n, urine Amphetamines : negati ve Not Available [facility] [address], [place], [address], 10/11/2024 12:03:44 10/12/19 25 10/11/2024 drug scree n, urine Cannabinoids : negati ve Not Available [facility] [address], [place], [address], 10/11/2024 12:03:44 10/12/19 25 10/11/2024 drug scree n, urine Cocaine: negati ve Not Available [facility] [address], [place], [address], 10/11/2024 12:03:44 10/12/19 25 10/11/2024 drug scree n, urine Opiates: negati ve Not Available [facility] [address], [place], [address], 10/11/2024 12:03:44 10/12/19 25 10/11/2024 drug scree n, urine Phenocyclidi ne: negati ve Not Available [facility] [address], [place], [address], 10/11/2024 12:03:44 10/12/19 25 10/11/2024 drug scree n, urine Barbiturates : negati ve Not Available [facility] [address], [place], [address], 10/11/2024 12:03:44 10/12/19 25 10/11/2024 drug scree n, urine Benzodiazepi aaron: negati ve Not Available [facility] [address], [place], [address], 10/11/2024 12:03:44 10/12/19 25 10/11/2024 drug scree n, urine Ethanol: negati ve Not Available [facility] [address], [place], [address], 10/11/2024 12:03:44 10/12/19 25 10/11/2024 drug scree n, urine Hallucinogen s: negati ve Not Available [facility] [address], [place], [address], 10/11/2024 12:03:44 10/12/19 25 10/11/2024 drug scree n, urine Inhalants: negati ve Not Available [facility] [address], [place], [address], 10/11/2024 12:03:44 12/03/19 25 12/02/2024 CMP(C OMPRE HENSI VE METAB OLIC PANEL ) sodium 136 mmol/ L 133-14 6 Not Available [facility] (Lab) [address] [facility], [place], [address], 12/08/2024 16:08:48 12/03/19 25 12/02/2024 CMP(C OMPRE HENSI VE METAB OLIC PANEL ) potassium 4.4 mmol/ L 3.5-5. 1 Not Available [facility] (Lab) [address] [facility], [place], [address], 12/08/2024 16:08:48 12/03/19 25 12/02/2024 CMP(C OMPRE HENSI VE METAB OLIC PANEL ) chloride 107 mmol/ L 98-107 Not Available [facility] (Lab) [address] [facility], [place], [address], 12/08/2024 16:08:48 12/03/19 25 12/02/2024 CMP(C OMPRE HENSI VE METAB OLIC PANEL ) carbon dioxide 19 mmol/ L 21-31 low Not Available [facility] (Lab) [address] [facility], [place], [address], 12/08/2024 16:08:48 12/03/19 25 12/02/2024 CMP(C OMPRE HENSI VE METAB OLIC PANEL ) anion gap 10 mmol/ L 4-13 Not Available [facility] (Lab) [address] [place], [address], 12/08/2024 16:08:48 12/03/19 25 12/02/2024 CMP(C OMPRE HENSI VE METAB OLIC PANEL ) blood urea nitrogen 7 mg/dL 7-25 Not Available [facility] (Lab) [address] [place], [address], 12/08/2024 16:08:48 12/03/19 25 12/02/2024 CMP(C OMPRE HENSI VE METAB OLIC PANEL ) creatinine 0.48 mg/dL 0.60-1 .30 low Not Available [facility] (Lab) [address] [facility], [place], [address], 12/08/2024 16:08:48 12/03/19 25 12/02/2024 CMP(C OMPRE HENSI VE METAB OLIC PANEL ) egfrcr (CKD-epi 2020) >90 mL/mi n/1.7 3_m2 >=60 Not Available [facility] (Lab) [address] [facility], [place], [address], 12/08/2024 16:08:48 12/03/19 25 12/02/2024 CMP(C OMPRE HENSI VE METAB OLIC PANEL ) calcium 8.5 mg/dL 8.3-10 .5 Not Available [facility] (Lab) [address] [facility], [place], [address], 12/08/2024 16:08:48 12/03/19 25 12/02/2024 CMP(C OMPRE HENSI VE METAB OLIC PANEL ) glucose 74 mg/dL 70-100 Not Available [facility] (Lab) [address] [facility], [place], [address], 12/08/2024 16:08:48 12/03/19 25 12/02/2024 CMP(C OMPRE HENSI VE METAB OLIC PANEL ) protein, total 6.3 g/dL 6.4-8. 3 low Not Available [facility] (Lab) [address] [facility], [place], [address], 12/08/2024 16:08:48 12/03/19 25 12/02/2024 CMP(C OMPRE HENSI VE METAB OLIC PANEL ) albumin 3.5 g/dL 3.5-5. 0 Not Available [facility] (Lab) [address] [facility], [place], [address], 12/08/2024 16:08:48 12/03/19 25 12/02/2024 CMP(C OMPRE HENSI VE METAB OLIC PANEL ) ALT 8 units /L 9-43 low Not Available [facility] (Lab) [address] [facility], [place], [address], 12/08/2024 16:08:48 12/03/19 25 12/02/2024 CMP(C OMPRE HENSI VE METAB OLIC PANEL ) alkaline phosphatase 57 units /L 34-104 Not Available [facility] (Lab) [address] [facility], [place], [address], 12/08/2024 16:08:48 12/03/19 25 12/02/2024 CMP(C OMPRE HENSI VE METAB OLIC PANEL ) AST 17 units /L 13-39 Not Available [facility] (Lab) [address] [facility], [place], [address], 12/08/2024 16:08:48 12/03/19 25 12/02/2024 CMP(C OMPRE HENSI VE METAB OLIC PANEL ) bilirubin, total 0.4 mg/dL 0.2-1. 2 Not Available [facility] (Lab) [address] [facility], [place], [address], 12/08/2024 16:08:48 12/03/19 25 12/02/2024 FABIOLA TIN / IRON / TRANS FABIOLA N / TIBC iron 83 ug/dL 40-170 Not Available [facility] (Lab) [address] [facility], [place], [address], 12/08/2024 16:08:49 12/03/19 25 12/02/2024 FABIOLA TIN / IRON / TRANS FABIOLA N / TIBC transferrin 305 mg/dL 200-36 0 Not Available [facility] (Lab) [address] [facility], [place], [address], 12/08/2024 16:08:49 12/03/19 25 12/02/2024 FABIOLA TIN / IRON / TRANS FABIOLA N / TIBC ferritin 82.3 NG/mL 8.0-25 2.0 Not Available [facility] (Lab) [address] [facility], [place], [address], 12/08/2024 16:08:49 12/03/19 25 12/02/2024 FABIOLA TIN / IRON / TRANS FABIOLA N / TIBC TIBC 427 ug/dL 250-45 0 Not Available [facility] (Lab) [address] [facility], [place], [address], 12/08/2024 16:08:49 12/03/19 25 12/02/2024 FABIOLA TIN / IRON / TRANS FABIOLA N / TIBC iron saturation 19 % 20-[address] [facility] (Lab) [address] [facility], [place], [address], 12/08/2024 16:08:49 12/03/19 25 12/02/2024 VITAM IN B12 / FOLAT E PANEL vitamin B12 202 pg/mL 180-91 4 Pooja l Range : 180-9 14 pg/mL . Indet ermin ate Range : 145-1 80 pg/mL . Defic ient Range : <=145 pg/mL . Not Available [facility] (Lab) [address] [facility], [place], [address], 12/08/2024 16:08:49 12/03/1912/02/2024 VITAM IN B12 / FOLAT E PANEL folate, serum >20.0 NG/mL 6.0-20 .0 high Not Available [facility] (Lab) [address] [facility], [place], [address], 12/08/2024 16:08:49 12/03/19 25 12/02/2024 VITAM IN D, 25-OH (TOTA L D2/D3 ) vitamin D, 25-hydroxy, total 28.2 NG/mL 30.0-1 00.0 low Sugge stive of Defic iency : <20 ng/mL Sugge stive of Insuf ficie ncy: 20-29 ng/mL Sugge stive of Suffi cienc y: 30-10 0 ng/mL Sugge stive of Toxic ity: >150 ng/mL Not Available [facility] (Lab) [address] [facility], [place], [address], 12/08/2024 16:08:49 12/03/1912/02/2024 LEAD, BLOOD (ADUL T/PED IATRI C) lead, whole blood <1.0 mcg/d L <3.5 See Note 1 Linda sis was perfo rmed by Gertrude Holloway ed Plasm a Mass Spect romet ry (ICPM S) Note 1 This test was devel oped and its linda tical perfo rmanc e che cteri stics have been deter mined by [employer]. It has not been clear ed or appro doug by the FDA. This assay has been valid ated pursu ant to the CLIA regul ation s and is used for clini robinson purpo ses. Perfo rming Organ izati on Infor naresh n: Site ID: [id number] Name: [employer] [facility] [facility]-Jared Lowry Addre ss: [address] [place] [address] Dire tor: Bhaskar mccormick V Lavon s Not Available [facility] (Lab) [address] [facility], [place], [address], 12/08/2024 16:08:50 12/03/1912/02/2024 VITAM IN A (RETI [...] [facility] [address] [place] [address] [phone] Victorina Johnson MD, PhD Perfo rming Organ izati on Infor matmrey n: Site ID: [id number] Name: Park mariee- Park mariee Addre ss: [id number] [facility] [address] [place] [address] Direc tor: Victorina Johnson MD,Ph D Not Available [facility] (Lab) [address], [place], [address], 12/08/2024 16:08:50 02/04/20 25 02/03/2025 HEMAT OCRIT (HCT) HCT 31.1 % (based on docume nted legal sex) 34.0-4 5.0 low Not Available [facility] (Lab) [address], [place], [address], 02/06/2025 17:22:48 02/04/20 25 02/03/2025 HEMOG LOBIN (HGB) HGB 10.0 g/dL (based on docume nted legal sex) 11.6-1 5.4 low Not Available [facility] (Lab) [address] [facility], [place], [address], 02/06/2025 17:22:48 02/04/20 25 02/03/2025 HIV 1/2 ANTIG EN/AN TIBOD Y, REFLE X CONFI RMATI ON HIV antigen/anti body Nonrea ctive nonrea ctive HIV-1 antig en and HIV-1 /HIV- 2 antib odies were not detec nishant. No labor atory evide nce of HIV infec tion. Not Available [facility] (Lab) [address], [place], [address], 02/06/2025 17:22:48 02/04/20 25 02/03/2025 RPR SCREE N, REFLE X TITER /CONF IRMAT ION RPR qualitative Nonrea ctive nonrea ctive Not Available [facility] (Lab) [address], [place], [address], 02/06/2025 17:22:49 02/04/20 25 02/03/2025 LEAD, BLOOD (ADUL T/PED IATRI C) lead, whole blood <1.0 mcg/d L <3.5 See Note 1 Linda sis was perfo rmed by Gertrude Holloway ed Plasm a Mass Spect romet ry (ICPM S) Note 1 This test was devel oped and its linda tical perfo rmanc e che cteri stics have been deter mined by [employer] s. It has not been clear ed or appro doug by the FDA. This assay has been valid ated pursu ant to the CLIA regul ation s and is used for clini robinson purpo ses. Perfo rming Organ izati on Infor matio n: Site ID: [id number] Name: [employer] shannon s-Jared hand Alen Addre ss: [address] [place] [address] Direc tor: Bhaskar sears Not Available [facility] (Lab) [address] [facility], [place], [address], 02/06/2025 17:22:49 02/25/20 25 02/24/2025 CBC W/DIF F WBC 7.7 10'3/ uL 3.5-10 .5 Not Available [facility] (Lab) [address] [place], [address], 03/02/2025 21:12:32 02/25/20 25 02/24/2025 CBC W/DIF F RBC 3.34 10'6/ uL (based on docume nted legal sex) 3.80-5 .20 low Not Available [facility] (Lab) [address] [place], [address], 03/02/2025 21:12:32 02/25/20 25 02/24/2025 CBC W/DIF F HGB 10.1 g/dL (based on docume nted legal sex) 11.6-1 5.4 low Not Available [facility] (Lab) [address] [place], [address], 03/02/2025 21:12:32 02/25/20 25 02/24/2025 CBC W/DIF F HCT 31.4 % (based on docume nted legal sex) 34.0-4 5.0 low Not Available [facility] (Lab) [address] [facility], [place], [address], 03/02/2025 21:12:32 02/25/20 25 02/24/2025 CBC W/DIF F MCV 94.0 fL 80.0-9 9.0 Not Available [facility] (Lab) [address] [facility], [place], [address], 03/02/2025 21:12:32 02/25/20 25 02/24/2025 CBC W/DIF F MCH 30.2 pg 27.0-3 4.0 Not Available [facility] (Lab) [address] [facility], [place], [address], 03/02/2025 21:12:32 02/25/20 25 02/24/2025 CBC W/DIF F MCHC 32.2 g/dL 32.0-3 5.5 Not Available [facility] (Lab) [address] [facility], [place], [address], 03/02/2025 21:12:32 02/25/20 25 02/24/2025 CBC W/DIF F RDW 13.2 % 11.0-1 5.0 Not Available [facility] (Lab) [address] [facility], [place], [address], 03/02/2025 21:12:32 02/25/20 25 02/24/2025 CBC W/DIF F plt 272 10'3/ uL 150-40 0 Not Available [facility] (Lab) [address] [facility], [place], [address], 03/02/2025 21:12:32 02/25/20 25 02/24/2025 CBC W/DIF F MPV 11.6 fL 8.8-12 .1 Not Available [facility] (Lab) [address] [facility], [place], [address], 03/02/2025 21:12:32 02/25/20 25 02/24/2025 CBC W/DIF F NRBC's 0.0 % 0.0 Not Available [facility] (Lab) [address] [facility], [place], [address], 03/02/2025 21:12:32 02/25/20 25 02/24/2025 CBC W/DIF F absolute NRBCs 0.0 10'3/ uL no refere nce range establ ished Not Available [facility] (Lab) [address] [facility], [place], [address], 03/02/2025 21:12:32 02/25/20 25 02/24/2025 CBC W/DIF F neutrophils 69.4 % 34.0-7 3.0 Not Available [facility] (Lab) [address] [facility], [place], [address], 03/02/2025 21:12:32 02/25/20 25 02/24/2025 CBC W/DIF F lymphocytes 24.0 % 15.0-5 0.0 Not Available [facility] (Lab) [address] [facility], [place], [address], 03/02/2025 21:12:32 02/25/20 25 02/24/2025 CBC W/DIF F monocytes 5.6 % 1.0-15 .0 Not Available [facility] (Lab) [address] [facility], [place], [address], 03/02/2025 21:12:32 02/25/20 25 02/24/2025 CBC W/DIF F eosinophils 0.3 % 0.0-8. 0 Not Available [facility] (Lab) [address], [place], [address], 03/02/2025 21:12:32 02/25/20 25 02/24/2025 CBC W/DIF F basophils 0.3 % 0.0-2. 0 Not Available [facility] (Lab) [address], [place], [address], 03/02/2025 21:12:32 02/25/20 25 02/24/2025 CBC W/DIF [...] separ ately if prese nt. Not Available [facility] (Lab) [address], [place], [address], 03/02/2025 21:12:32 02/25/20 25 02/24/2025 CBC W/DIF F absolute neutrophils 5.3 10'3/ uL 1.5-8. 0 Not Available [facility] (Lab) [address], [place], [address], 03/02/2025 21:12:32 02/25/20 25 02/24/2025 CBC W/DIF F absolute lymphocytes 1.8 10'3/ uL 1.0-4. 0 Not Available [facility] (Lab) [address], [place], [address], 03/02/2025 21:12:32 02/25/20 25 02/24/2025 CBC W/DIF F absolute monocytes 0.4 10'3/ uL 0.2-1. 0 Not Available [facility] (Lab) [address], [place], [address], 03/02/2025 21:12:32 02/25/20 25 02/24/2025 CBC W/DIF F absolute eosinophils 0.0 10'3/ uL 0.0-0. 6 Not Available [facility] (Lab) [address], [place], [address], 03/02/2025 21:12:32 02/25/20 25 02/24/2025 CBC W/DIF F absolute basophils 0.0 10'3/ uL 0.0-0. 3 Not Available [facility] (Lab) [address], [place], [address], 03/02/2025 21:12:32 02/25/20 25 02/24/2025 CBC W/DIF [...] patterson book. nm.or g/gen derx Not Available [facility] (Lab) [address], [place], [address], 03/02/2025 21:12:32 02/25/20 25 02/24/2025 CMP(C OMPRE HENSI VE METAB OLIC PANEL ) sodium 139 mmol/ L 133-14 6 Not Available [facility] (Lab) [address], [place], [address], 03/02/2025 21:12:33 02/25/20 25 02/24/2025 CMP(C OMPRE HENSI VE METAB OLIC PANEL ) potassium 3.7 mmol/ L 3.5-5. 1 Not Available [facility] (Lab) [address], [place], [address], 03/02/2025 21:12:33 02/25/20 25 02/24/2025 CMP(C OMPRE HENSI VE METAB OLIC PANEL ) chloride 108 mmol/ L 98-107 high Not Available [facility] (Lab) [address] [place], [address], 03/02/2025 21:12:33 02/25/20 25 02/24/2025 CMP(C OMPRE HENSI VE METAB OLIC PANEL ) carbon dioxide 23 mmol/ L 21-31 Not Available [facility] (Lab) [address], [place], [address], 03/02/2025 21:12:33 02/25/20 25 02/24/2025 CMP(C OMPRE HENSI VE METAB OLIC PANEL ) anion gap 8 mmol/ L 4-13 Not Available [facility] (Lab) [address], [place], [address], 03/02/2025 21:12:33 02/25/20 25 02/24/2025 CMP(C OMPRE HENSI VE METAB OLIC PANEL ) blood urea nitrogen 7 mg/dL 7-25 Not Available [facility] (Lab) [address], [place], [address], 03/02/2025 21:12:33 02/25/20 25 02/24/2025 CMP(C OMPRE HENSI VE METAB OLIC PANEL ) creatinine 0.45 mg/dL 0.60-1 .30 low Not Available [facility] (Lab) [address], [place], [address], 03/02/2025 21:12:33 02/25/20 25 02/24/2025 CMP(C OMPRE HENSI VE METAB OLIC PANEL ) egfrcr (CKD-epi 2020) >90 mL/mi n/1.7 3_m2 >=60 Not Available [facility] (Lab) [address], [place], [address], 03/02/2025 21:12:33 02/25/20 25 02/24/2025 CMP(C OMPRE HENSI VE METAB OLIC PANEL ) calcium 8.1 mg/dL 8.3-10 .5 low Not Available [facility] (Lab) [address], [place], [address], 03/02/2025 21:12:33 02/25/20 25 02/24/2025 CMP(C OMPRE HENSI VE METAB OLIC PANEL ) glucose 74 mg/dL 70-100 Not Available [facility] (Lab) [address], [place], [address], 03/02/2025 21:12:33 02/25/20 25 02/24/2025 CMP(C OMPRE HENSI VE METAB OLIC PANEL ) protein, total 5.7 g/dL 6.4-8. 3 low Not Available [facility] (Lab) [address], [place], [address], 03/02/2025 21:12:33 02/25/20 25 02/24/2025 CMP(C OMPRE HENSI VE METAB OLIC PANEL ) albumin 3.2 g/dL 3.5-5. 0 low Not Available [facility] (Lab) [address], [place], [address], 03/02/2025 21:12:33 02/25/20 25 02/24/2025 CMP(C OMPRE HENSI VE METAB OLIC PANEL ) ALT 6 units /L 9-43 low Not Available [facility] (Lab) [address], [place], [address], 03/02/2025 21:12:33 02/25/20 25 02/24/2025 CMP(C OMPRE HENSI VE METAB OLIC PANEL ) alkaline phosphatase 89 units /L 34-104 Not Available [facility] (Lab) [address], [place], [address], 03/02/2025 21:12:33 02/25/20 25 02/24/2025 CMP(C OMPRE HENSI VE METAB OLIC PANEL ) AST 9 units /L 13-39 low Not Available [facility] (Lab) [address], [place], [address], 03/02/2025 21:12:33 02/25/20 25 02/24/2025 CMP(C OMPRE HENSI VE METAB OLIC PANEL ) bilirubin, total 0.2 mg/dL 0.2-1. 2 Not Available [facility] (Lab) [address], [place], [address], 03/02/2025 21:12:33 02/25/20 25 02/24/2025 FABIOLA TIN / IRON / TRANS FABIOLA N / TIBC iron 35 ug/dL 40-170 low Not Available [facility] (Lab) [address], [place], [address], 03/02/2025 21:12:33 02/25/20 25 02/24/2025 FABIOLA TIN / IRON / TRANS FABIOLA N / TIBC transferrin 378 mg/dL 200-36 0 high Not Available [facility] (Lab) [address], [place], [address], 03/02/2025 21:12:33 02/25/20 25 02/24/2025 FABIOLA TIN / IRON / TRANS FABIOLA N / TIBC ferritin 12.1 NG/mL 8.0-25 2.0 Not Available [facility] (Lab) [address], [place], [address], 03/02/2025 21:12:33 02/25/20 25 02/24/2025 FABIOLA TIN / IRON / TRANS FABIOLA N / TIBC TIBC 529 ug/dL 250-45 0 high Not Available [facility] (Lab) [address] [place], [address], 03/02/2025 21:12:33 02/25/20 25 02/24/2025 FABIOLA TIN / IRON / TRANS FABIOLA N / TIBC iron saturation 7 % 20-[address] [facility] (Lab) [address] [place], [address], 03/02/2025 21:12:33 02/25/20 25 02/24/2025 VITAM IN B12 / FOLAT E PANEL vitamin B12 186 pg/mL 180-91 4 Pooja l Range : 180-9 14 pg/mL . Indet ermin ate Range : 145-1 80 pg/mL . Defic ient Range : <=145 pg/mL . Not Available [facility] (Lab) [address], [place], [address], 03/02/2025 21:12:33 02/25/20 25 02/24/2025 VITAM IN B12 / FOLAT E PANEL folate, serum 19.8 NG/mL >=6.0 Not Available [facility] (Lab) [address], [place], [address], 03/02/2025 21:12:33 02/25/20 25 02/24/2025 VITAM IN [...] [facility] [address] [place] [address] [phone] Victorina Johnson MD, PhD Perfo rming Organ izati on Infor matio n: Site ID: [id number] Name: MedFu jaylene- MedFu jaylene Addre ss: [address] [facility] [address] [place] [address] Direc tor: Victorina Johnson MD,Ph D Not Available [facility] (Lab) [address], [place], [address], 03/02/2025 21:12:34 10/12/19 25 10/11/2024 US, obste tric, nucha l trans [place] No observ ation record ed. [email or web address] [facility] [address], [place], [address], 10/11/2024 13:10:00 10/12/19 25 10/11/2024 US, obste tric, 1st trime ster No observ ation record ed. [email or web address] [facility] [address], [place], [address], 10/11/2024 13:10:09 10/12/19 25 10/11/2024 US, obste tric, nucha l trans [place] No observ ation record ed. [email or web address] [facility] [address], [place], [address], 10/14/2024 09:45:42 11/17/19 25 11/16/2024 imagi ng/di agnos tic resul t No observ ation record ed. [facility] [address] [place] [address], [address], 2024 21:39:44 11/19/19 25 11/16/2024 imagi ng/di agnos tic resul t No observ ation record ed. [facility] [address] [place] [address], [address], 2024 21:39:44 12/17/19 25 12/16/2024 US, obste tric, follo w-up No observ ation record ed. [email or web address] [facility] [address] [place] [address], [address], 12/23/2024 13:18:27 12/17/19 25 12/16/2024 US, obste tric, follo w-up No observ ation record ed. [email or web address] [facility] [address] [place] [address], [address], 12/20/2024 09:13:00 01/14/20 25 01/13/2025 US, obste tric, follo w-up No observ ation record ed. [email or web address] [facility] [address] [place], [address], 01/17/2025 11:47:51 01/14/20 25 01/13/2025 US, obste tric, follo w-up No observ ation record ed. [email or web address] [facility] [address] [place], [address], 01/17/2025 16:04:16 01/27/20 25 01/26/2025 US, obste tric, follo w-up No observ ation record ed. [email or web address] [facility] [address], [place], [address], 01/26/2025 15:11:31 01/27/20 25 01/26/2025 US, obste tric, follo w-up No observ ation record ed. [facility] [address], [place], [address], 01/29/2025 15:19:23 02/18/20 25 02/17/2025 imagi ng/di agnos tic resul t No observ ation record ed. [facility] [address] [facility] [address], [place], [address], 02/21/2025 12:50:54 02/25/20 25 02/24/2025 US, obste tric, follo w-up No observ ation record ed. [facility] [address], [place], [address], 02/25/2025 15:24:35 02/25/20 25 02/24/2025 US, obste tric, follo w-up No observ ation record ed. [email or web address] [address], [place], [address], 02/24/2025 16:55:50 Result Notes None recorded. Problems Name Problem SNOMED Code Status Onset Date Resolution Date Notes Provider Name and Address Organization Details Recorded Time Pregnanc y 54577588 Active 2024 Freida Morales null, [facility] 5 10:40:36 History of sleeve gastrect lety 42888718629 9107 Active 2024 - partial sleeve gastrecto my 04/2024 - baseline vitamin labs ordered at 12 weeks - serial growth US TRUONG MCGOWAN MD [address], [place], [address], [facility] 11:26:50 Past pregnanc y history of section 316126480 Active 2024 G2 under GETA, umbilical cord prolapse desires RCS TRUONG MCGOWAN MD [address], [place], [address], [facility] 11:24:36 Migraine 29348321 Active 2024 Eduar Gautam MD [address], [place], [address], [facility] 10:20:53 Problem Notes None recorded. Procedures Surgical History Date Name Laterality Status Provider Name and Address Organization Details Recorded Time 09/15/19 25 Date of Last Pap Smear completed [facility] 09/14/2024 10:20:33 05/11/19 25 Bariatric Surgery completed [facility] 09/14/2024 10:10:08 03/23/19 19 Appendectomy completed [facility] 09/14/2024 10:26:43 07/28/19 18 Caesarean Section completed [facility] 09/14/2024 10:10:08 03/23/19 09 Cholecystectomy completed [facility] 09/14/2024 10:26:22 03/23/19 00 Tonsillectomy completed Elizabeth Hatfield [facility] 09/14/2024 10:26:04 Imaging Results None recorded. Procedure Notes None recorded. Medical Equipment None Reported. Allergies Allergen ID Allergen Name Allergen Category Reaction Reaction Severity Criticality Documentation Date Start Date Code Code System Note Provider Name and Address Organization Details Recorded Time 62732 iodine medicatio n palpitati ons severe Not available 09/14/2024 5933 RxNorm [facility] 10:09:38 88754 Augmentin medicatio n hives moderate Not available 09/14/2024 96409 2 RxNorm [facility] 10:09:38 08771 clavulani c acid Not available vomiting Not available high 02/03/20252021 56753 RxNorm Not Available [employer] - prod 09:16:51 19638 amoxicill in / clavulana te medicatio n hives rash Not available Not available high 02/03/20252023 36422 RxNorm VOMIT ING Not Available [employer] - prod 09:16:55 Medications Name [...] Updated DateTime 02/24/2025 154.94 cm 32.9 kg/m2 06967.07 g 119/76 mm[Hg] ANNMARIE GONZALEZ [facility] 02/24/2025 16:46:16 Social History Question Answer [...] Or The Highest Degree You Have Received? [id number] Information not available 09/14/2024 Are There Any [...] anxious, or unable to sleep at night)? [id number] Information not available 09/14/2024 Family History Relationship [...] ICD10 Code Diagnosis IMO Codes Diagnosis Note [id number] TRUONG MCGOWAN MD [facility] [address],[place] [address] 01/26/2025 11:47:35 01/26/2025 13:17:13 History of sleeve gastrectomy 5777944551 91904 Z90.3 O99.891 Z3A.28 9408186868 - partial sleeve gastrectom y 04/2024- baseline labs ordered 10/11- plan for serial growth [place] [id number] TRUONG MCGOWAN MD [facility] [address],[place] [address] 02/03/2025 09:16:35 02/03/2025 10:15:39 Past history of section 609300048 Z98.891 638714 - PLTCS under GETA for cord prolapse- desires RCS History of sleeve gastrectomy 0056199124 68309 Z90.3 7432860706 - partial sleeve gastrectom y 04/2024- baseline labs with mild vitamin A and vitamin D deficiency 10/11- plan for serial growth US q4 weeks Gestation period, 29 weeks 14818814 Z3A.29 7093342 - continue PNV [id number] TRUONG MCGOWAN MD [facility] [address],[place] [address] 02/14/2025 10:26:25 02/14/2025 10:54:43 Past history of section 776325129 Z98.891 437151 - PLTCS under GETA for cord prolapse- desires RCS History of sleeve gastrectomy 0913372535 74237 Z90.3 5474630114 - partial sleeve gastrectom y 04/2024- baseline labs with mild vitamin A and vitamin D deficiency 10/11- plan for serial growth US q4 weeks Gestation period, 31 weeks 21083530 Z3A.31 9378661 - continue PNV [id number] TRUONG MCGOWAN MD [facility] [address],[place] [address] 02/24/2025 16:09:06 02/24/2025 16:58:25 History of bariatric surgical procedure 352615780 Z98.84 Z3A.32 844173 [id number] TRUONG MCGOWAN MD [facility] [address] [address] 02/24/2025 16:09:40 02/27/2025 09:14:00 Iron deficiency anemia 71515882 D50.9 49687952 - Hgb 9.3 at [facility] last weekend- repeat labs today- plan to start Fe infusions Past pregn carlos history of section 729872734 Z98.891 205266 - PLTCS under GETA for cord prolapse- desires RCS History of sleeve gastrectomy 6257652147 91231 Z90.3 5548654524 - partial sleeve gastrectom y 04/2024- baseline [...] Paez Member ID Guarantor Name 02/24/2025 1 [facility] (MEDICAID HMO) [id number] Radha Sheppard [id number] Radha Sheppard Notes Date Note Type Note Provider Name and Address Organization Details Recorded Time 02/24/2025 text/html Generic HPI TemplateReported by Patient TRUONG MCGOWAN MD [address], [place], [address], [facility] 02/24/2025 17:01:16 OBGyn Episode Ob Episode Information Episode Created Date Number of Fetuses Patient Bloodtype Patient rh Status Prepregnancy Weight lbs Domestic Partner Domestic Partner Phone Father Name Blister Pack Operator Status 10/12/19 25 1 O Positive 165 Kentrel l Harley OPEN Fetus Data First Name Last Name Admitted to NICU Weight (g) Sex Living Outcome Pediatric Complications Fetus ID Race Codes Race Delivery Type [id number] Problems Problem Notes Scheduled 11/16 1:00PM Level II US & office visit scheduled [facility] 10/24 0730 us only Problem Name Start Date End Date Resolution Snomed Code Not e Migraine 12/02/2024 23917985 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 036118823778961 - partial sl eeve gastrectomy 04/2024- baseline vitamin labs ordered at 12 weeks- serial growth US Past history of section 10/11/2024 267967773 G2 under GE TA, umbilical cord prolapsedesires [facility] Mario Calculation Initial Mario Date Initial Exam [...] Date Ultra Sound Latest Days Gestation 11/17/19 18 [email or web address] 10/11/2024 04/17/19 26 2 Pre-kayaky Flowsheet Flowsheet Date 10/11/2024 Espinoza Score Blood Edema Fundus Height Fundus Units Glucose Ketones Leukocytes Nitrite Labor Signs Protein Cervic Dilation Cervic Effacement Cervic Station Type Weight in lbs Pre/Post Dialysis Refused Weight 163.211866884624 BP Diastolic BP Location Tested BP Systolic BP Type 74 L arm 115 sitting Fetus Heart Rate Present Fetus Movement Comments Patient presents to [facility] care. Headaches still worsening, will send [...] Weight in lbs Pre/Post Dialysis Refused Weight 161.301583431606 BP Diastolic BP Location Tested BP Systolic BP Type 74 L arm 116 sitting Fetus Heart Rate Present Fetus Movement A Yes Comments Still having some nausea. Mi graines not improved with tylenol, reglan, and sumatriptan. Will send [facility] referral. LR male NIPT! All other OB labs wnl. Anatomy US next visit. RTC 4 weeks. Flowsheet Date 12/02/2024 Espinoza Score Blood Edema Fundus Height Fundus Units Glucose Ketones Leukocytes Nitrite Labor Signs Protein Cervic Dilation Cervic Effacement Cervic Station Type Weight in lbs Pre/Post Dialysis Refused 167.239280815365 BP Diastolic BP Location Tested BP Systolic [...] if she is still suffering. Seen at [facility]. Flowsheet Date 12/30/2024 Espinoza Score Blood Edema Fundus Height Fundus Units Glucose Ketones Leukocytes Nitrite Labor Signs Protein Cervic Dilation Cervic Effacement Cervic Station Type Weight in lbs Pre/Post Dialysis Refused 168.133496840225 BP Diastolic BP Location Tested BP Systolic [...] Type Weight in lbs Pre/Post Dialysis Refused 170.019769674149 BP Diastolic BP Location Tested BP Systolic [...] Weight in lbs Pre/Post Dialysis Refused Weight 172.635254318362 BP Diastolic BP Location Tested BP Systolic [...] Weight in lbs Pre/Post Dialysis Refused Weight 174.351377688745 BP Diastolic BP Location Tested BP Systolic BP Type 76 L arm 119 sitting Fetus Heart Rate Present A Present Fetus Movement A Yes Comments Baby active. Feeling more fa tigued. Was seen on Thursday at [facility] for low blood pressures, found to be anemic to Hgb 9.3. Will draw labs today and start Fe infusions. EFW 21%, vertex! Flowsheet Date 03/10/2025 Espinoza Score Blood Edema Fundus Height Fundus Units Glucose Ketones Leukocytes Nitrite Labor Signs Protein Cervic Dilation Cervic Effacement Cervic Station Type Weight in lbs Pre/Post Dialysis Refused Weight 178.097424741673 BP Diastolic BP Location Tested BP Systolic [...]
--- OUTSIDE RECORDS SUMMARY | 2025-03-21 01:21 | XMS_ITS | Continuity of Care Document ---
Author Organization [facility] Address [address] [place] [address] Assessment No assessment recorded. Plan of Treatment [...] Not Available [facility] [address], [place], [address], 10/17/2024 23:58:00 10/18/19 25 10/17/2024 [UNIT Y] ANEUP LOIDY NIPT 22Q11.2 microdeletio n LOW RISK <1 in 10,000 normal Not Available [facility] [address], [place], [address], 10/17/2024 23:58:00 10/18/19 25 10/17/2024 [UNIT Y] ANEUP LOIDY NIPT sex chromosome aneuploidy NOT DETECT ED normal Not Available [facility] [address], [place], [address], 10/17/2024 23:58:00 10/18/19 25 10/17/2024 [UNIT Y] ANEUP LOIDY NIPT monosomy X LOW RISK <1 in 10,000 normal Not Available [facility] [address], [place], [address], 10/17/2024 23:58:00 10/18/19 25 10/17/2024 [UNIT Y] ANEUP LOIDY NIPT trisomy 13 LOW RISK <1 in 10,000 normal Not Available [facility] [address], [place], [address], 10/17/2024 23:58:00 10/18/19 25 10/17/2024 [UNIT Y] ANEUP LOIDY NIPT trisomy 18 LOW RISK <1 in 10,000 normal Not Available [facility] [address], [place], [address], 10/17/2024 23:58:00 10/18/19 25 10/17/2024 [UNIT Y] ANEUP LOIDY NIPT trisomy 21 LOW RISK <1 in 10,000 normal Not Available [facility] [address], [place], [address], 10/17/2024 23:58:00 10/18/19 25 10/17/2024 [UNIT Y] ANEUP LOIDY NIPT sex MALE normal Not Available [facility] [address], [place], [address], 10/17/2024 23:58:00 10/18/19 25 10/17/2024 [UNIT Y] ANEUP LOIDY NIPT gestation SINGLE TON normal Not Available [facility] [address], [place], [address], 10/17/2024 23:58:00 10/18/19 25 10/17/2024 [UNIT Y] ANEUP LOIDY NIPT for detailed report, see pdf See PDF normal Not Available [facility] [address], [place], [address], 10/17/2024 23:58:00 10/22/19 25 10/21/2024 [UNIT Y] MIKE Galvez sickle cell disease/beta -thalassemia /hemoglobino pathies carrier screen NEGATI VE normal Not Available [facility] [address], [place], [address], 10/21/2024 17:38:31 10/22/19 25 10/21/2024 [UNIT Y] MIKE Galvez alpha-thalas semia carrier screen NEGATI VE normal Not Available [facility] [address], [place], [address], 10/21/2024 17:38:31 10/22/19 25 10/21/2024 [UNIT Y] MIKE Galvez cystic fibrosis carrier screen NEGATI VE normal Not Available [facility] [address], [place], [address], 10/21/2024 17:38:31 10/22/19 25 10/21/2024 [UNIT Y] MIKE Galvez spinal muscular atrophy carrier screen NEGATI VE 2 SMN1 copies , SNP not presen t normal Not Available [facility] [address], [place], [address], 10/21/2024 17:38:31 10/22/19 25 10/21/2024 [UNIT Y] MIKE Galvez for detailed report, see pdf See PDF normal Not Available [facility] [address], [place], [address], 10/21/2024 17:38:31 10/12/19 25 10/11/2024 CBC W/DIF F WBC 7.0 10'3/ uL 3.5-10 .5 Not Available [facility] (Lab) [address], [place], [address], 10/12/2024 13:07:49 10/12/19 25 10/11/2024 CBC W/DIF F RBC 3.94 10'6/ uL (based on docume nted legal sex) 3.80-5 .20 Not Available [facility] (Lab) [address], [place], [address], 10/12/2024 13:07:49 10/12/19 25 10/11/2024 CBC W/DIF F HGB 12.1 g/dL (based on docume nted legal sex) 11.6-1 5.4 Not Available [facility] (Lab) [address], [place], [address], 10/12/2024 13:07:49 10/12/19 25 10/11/2024 CBC W/DIF F HCT 36.3 % (based on docume nted legal sex) 34.0-4 5.0 Not Available [facility] (Lab) [address], [place], [address], 10/12/2024 13:07:49 10/12/19 25 10/11/2024 CBC W/DIF F MCV 92.1 fL 80.0-9 9.0 Not Available [facility] (Lab) [address] [place], [address], 10/12/2024 13:07:49 10/12/19 25 10/11/2024 CBC W/DIF F MCH 30.7 pg 27.0-3 4.0 Not Available [facility] (Lab) [address] [place], [address], 10/12/2024 13:07:49 10/12/19 25 10/11/2024 CBC W/DIF F MCHC 33.3 g/dL 32.0-3 5.5 Not Available [facility] (Lab) [address], [place], [address], 10/12/2024 13:07:49 10/12/19 25 10/11/2024 CBC W/DIF F RDW 12.4 % 11.0-1 5.0 Not Available [facility] (Lab) [address], [place], [address], 10/12/2024 13:07:49 10/12/19 25 10/11/2024 CBC W/DIF F plt 278 10'3/ uL 150-40 0 Not Available [facility] (Lab) [address], [place], [address], 10/12/2024 13:07:49 10/12/19 25 10/11/2024 CBC W/DIF F MPV 11.7 fL 8.8-12 .1 Not Available [facility] (Lab) [address], [place], [address], 10/12/2024 13:07:49 10/12/19 25 10/11/2024 CBC W/DIF F NRBC's 0.0 % 0.0 Not Available [facility] (Lab) [address], [place], [address], 10/12/2024 13:07:49 10/12/19 25 10/11/2024 CBC W/DIF F absolute NRBCs 0.0 10'3/ uL no refere nce range establ ished Not Available [facility] (Lab) [address], [place], [address], 10/12/2024 13:07:49 10/12/19 25 10/11/2024 CBC W/DIF F neutrophils 71.6 % 34.0-7 3.0 Not Available [facility] (Lab) [address] [facility], [place], [address], 10/12/2024 13:07:49 10/12/19 25 10/11/2024 CBC W/DIF F lymphocytes 22.8 % 15.0-5 0.0 Not Available [facility] (Lab) [address] [facility], [place], [address], 10/12/2024 13:07:49 10/12/19 25 10/11/2024 CBC W/DIF F monocytes 4.7 % 1.0-15 .0 Not Available [facility] (Lab) [address] [facility], [place], [address], 10/12/2024 13:07:49 10/12/19 25 10/11/2024 CBC W/DIF F eosinophils 0.3 % 0.0-8. 0 Not Available [facility] (Lab) [address] [facility], [place], [address], 10/12/2024 13:07:49 10/12/19 25 10/11/2024 CBC W/DIF F basophils 0.3 % 0.0-2. 0 Not Available [facility] (Lab) [address] [facility], [place], [address], 10/12/2024 13:07:49 10/12/19 25 10/11/2024 CBC W/DIF [...] separ ately if prese nt. Not Available [facility] (Lab) [address] [facility], [place], [address], 10/12/2024 13:07:49 10/12/19 25 10/11/2024 CBC W/DIF F absolute neutrophils 5.0 10'3/ uL 1.5-8. 0 Not Available [facility] (Lab) [address] [facility], [place], [address], 10/12/2024 13:07:49 10/12/19 25 10/11/2024 CBC W/DIF F absolute lymphocytes 1.6 10'3/ uL 1.0-4. 0 Not Available [facility] (Lab) [address] [facility], [place], [address], 10/12/2024 13:07:49 10/12/19 25 10/11/2024 CBC W/DIF F absolute monocytes 0.3 10'3/ uL 0.2-1. 0 Not Available [facility] (Lab) [address] [facility], [place], [address], 10/12/2024 13:07:49 10/12/19 25 10/11/2024 CBC W/DIF F absolute eosinophils 0.0 10'3/ uL 0.0-0. 6 Not Available [facility] (Lab) [address] [facility], [place], [address], 10/12/2024 13:07:49 10/12/19 25 10/11/2024 CBC W/DIF F absolute basophils 0.0 10'3/ uL 0.0-0. 3 Not Available [facility] (Lab) [address] [facility], [place], [address], 10/12/2024 13:07:49 10/12/19 25 10/11/2024 CBC W/DIF [...] patterson book. nm.or g/gen derx Not Available [facility] (Lab) [address] [facility], [place], [address], 10/12/2024 13:07:49 10/12/19 25 10/11/2024 HIV 1/2 ANTIG EN/AN TIBOD Y, REFLE X CONFI RMATI ON HIV antigen/anti body Nonrea ctive nonrea ctive HIV-1 antig en and HIV-1 /HIV- 2 antib odies were not detec nishant. No labor atory evide nce of HIV infec tion. Not Available [facility] (Lab) [address] [facility], [place], [address], 10/12/2024 13:07:50 10/12/19 25 10/11/2024 HEPAT ITIS B SURFA CE ANTIG EN hepatitis B surface antigen Non-re active non-re active This assay was perfo rmed using [employer] ratio n reage nts and test kits. Value s obtai francois with other assay metho ds or kits canno t be used inter serna eably . Not Available [facility] (Lab) [address] [facility], [place], [address], 10/12/2024 13:07:50 10/12/19 25 10/11/2024 HEPAT ITIS C ANTIB KERI SCREE N, REFLE X TO CONFI RMATI ON hepatitis C antibody Non-re active non-re active Antib odies to HCV Not Detec nishant, does not exclu de the possi bilit y of expos ure to HCV. Not Available [facility] (Lab) [address] [facility], [place], [address], 10/12/2024 13:07:51 10/12/19 25 10/11/2024 RUBEL LA IGG ANTIB KERI, QUANT rubella antibodies, IgG Reacti ve reacti ve Not Available [facility] (Lab) [address] [facility], [place], [address], 10/12/2024 13:07:51 10/12/19 25 10/11/2024 RUBEL LA IGG ANTIB KERI, QUANT rubella antibodies, IgG quant 18.4 IU/mL >=10 Non-r eacti ve (Non- Immun e) <10 IU/mL React filippo (Immu ne) > or = 10 IU/mL Not Available [facility] (Lab) [address] [facility], [place], [address], 10/12/2024 13:07:51 10/12/19 25 10/11/2024 TYPE/ RH/SC REEN ABO/Rh type O POS Not Available [facility] (Lab) [address] [facility], [place], [address], 10/12/2024 13:07:51 10/12/19 25 10/11/2024 TYPE/ RH/SC REEN antibody screen NEG Not Available [facility] (Lab) [address] [facility], [place], [address], 10/12/2024 13:07:51 10/12/19 25 10/11/2024 TYPE/ RH/SC REEN exp date 2024 23:59 Not Available [facility] (Lab) [address] [facility], [place], [address], 10/12/2024 13:07:51 10/12/19 25 10/11/2024 HEMOG LOBIN A1C hemoglobin A1C 5.3 % 4.0-5. 6 The Ameri can [employer] brenna [employer] iatio n recom mends that a prima ry goal of thera py naima hand be a HBA1C of < 7% and that physi cians naima hand reeva luate the treat ment regim en in patie nts with HBA1C value s consi stent ly > 8%. <5.7% Pooja l 5.7 - 6.4% Incre ased risk for diabe brenna >=6.5 % Diagn ostic of diabe brenna <7.0% Goal of thera py >8.0% Actio n sugge sted Not Available [facility] (Lab) [address] [facility], [place], [address], 10/12/2024 13:07:52 10/12/19 25 10/11/2024 RPR SCREE N, REFLE X TITER /CONF IRMAT ION RPR qualitative Nonrea ctive nonrea ctive Not Available [facility] (Lab) [address] [place], [address], 10/12/2024 13:07:53 10/12/19 25 10/11/2024 CULTU RE: URINE result report SEE RESULT S BELOW Test: Cultu re: Urine Speci men Sourc e: Urine Voide d Speci men Type: Urine Speci men Date: 2024 1251 Resul t Date: 2024 2146 Resul t Statu s: Final resul t Abnor mal: No Resul ting Lab: [facility] [address] [facility] [address] Tel: CULTU RE ----- ----- ----- --- No growt h in 1 day (dete ction level of 10,00 0 colon ies / ml.) Not Available [facility] (Lab) [address] [facility], [place], [address], 10/12/2024 22:51:14 10/12/19 25 10/11/2024 drug scree n, urine Amphetamines : negati ve Not Available [facility] [address] [place], [address], 10/11/2024 12:03:44 10/12/19 25 10/11/2024 drug scree n, urine Cannabinoids : negati ve Not Available [facility] [address], [place], [address], 10/11/2024 12:03:44 10/12/19 25 10/11/2024 drug scree n, urine Cocaine: negati ve Not Available [facility] [address], [place], [address], 10/11/2024 12:03:44 10/12/19 25 10/11/2024 drug scree n, urine Opiates: negati ve Not Available [facility] [address], [place], [address], 10/11/2024 12:03:44 10/12/19 25 10/11/2024 drug scree n, urine Phenocyclidi ne: negati ve Not Available [facility] [address], [place], [address], 10/11/2024 12:03:44 10/12/19 25 10/11/2024 drug scree n, urine Barbiturates : negati ve Not Available [facility] [address], [place], [address], 10/11/2024 12:03:44 10/12/19 25 10/11/2024 drug scree n, urine Benzodiazepi aaron: negati ve Not Available [facility] [address], [place], [address], 10/11/2024 12:03:44 10/12/19 25 10/11/2024 drug scree n, urine Ethanol: negati ve Not Available [address] [address], [place], [address], 10/11/2024 12:03:44 10/12/19 25 10/11/2024 drug scree n, urine Hallucinogen s: negati ve Not Available [address] [address], [place], [address], 10/11/2024 12:03:44 10/12/19 25 10/11/2024 drug scree n, urine Inhalants: negati ve Not Available [address] [address], [place], [address], 10/11/2024 12:03:44 12/03/19 25 12/02/2024 CMP(C OMPRE HENSI VE METAB OLIC PANEL ) sodium 136 mmol/ L 133-14 6 Not Available [facility] (Lab) [address] [facility], [place], [address], 12/08/2024 16:08:48 12/03/19 25 12/02/2024 CMP(C OMPRE HENSI VE METAB OLIC PANEL ) potassium 4.4 mmol/ L 3.5-5. 1 Not Available [facility] (Lab) [address] [facility], [place], [address], 12/08/2024 16:08:48 12/03/19 25 12/02/2024 CMP(C OMPRE HENSI VE METAB OLIC PANEL ) chloride 107 mmol/ L 98-107 Not Available [facility] (Lab) [address] [facility], [place], [address], 12/08/2024 16:08:48 12/03/19 25 12/02/2024 CMP(C OMPRE HENSI VE METAB OLIC PANEL ) carbon dioxide 19 mmol/ L 21-31 low Not Available [facility] (Lab) [address] [facility], [place], [address], 12/08/2024 16:08:48 12/03/1912/02/2024 CMP(C OMPRE HENSI VE METAB OLIC PANEL ) anion gap 10 mmol/ L 4-13 Not Available [facility] (Lab) [address] [facility], [place], [address], 12/08/2024 16:08:48 12/03/19 25 12/02/2024 CMP(C OMPRE HENSI VE METAB OLIC PANEL ) blood urea nitrogen 7 mg/dL 7-25 Not Available [facility] (Lab) [address] [place], [address], 12/08/2024 16:08:48 12/03/19 25 12/02/2024 CMP(C OMPRE HENSI VE METAB OLIC PANEL ) creatinine 0.48 mg/dL 0.60-1 .30 low Not Available [facility] (Lab) [address] [facility], [place], [address], 12/08/2024 16:08:48 12/03/19 25 12/02/2024 CMP(C OMPRE HENSI VE METAB OLIC PANEL ) egfrcr (CKD-epi 2020) >90 mL/mi n/1.7 3_m2 >=60 Not Available [facility] (Lab) [address], [place], [address], 12/08/2024 16:08:48 12/03/19 25 12/02/2024 CMP(C OMPRE HENSI VE METAB OLIC PANEL ) calcium 8.5 mg/dL 8.3-10 .5 Not Available [facility] (Lab) [address], [place], [address], 12/08/2024 16:08:48 12/03/19 25 12/02/2024 CMP(C OMPRE HENSI VE METAB OLIC PANEL ) glucose 74 mg/dL 70-100 Not Available [facility] (Lab) [address], [place], [address], 12/08/2024 16:08:48 12/03/19 25 12/02/2024 CMP(C OMPRE HENSI VE METAB OLIC PANEL ) protein, total 6.3 g/dL 6.4-8. 3 low Not Available [facility] (Lab) [address], [place], [address], 12/08/2024 16:08:48 12/03/19 25 12/02/2024 CMP(C OMPRE HENSI VE METAB OLIC PANEL ) albumin 3.5 g/dL 3.5-5. 0 Not Available [facility] (Lab) [address], [place], [address], 12/08/2024 16:08:48 12/03/19 25 12/02/2024 CMP(C OMPRE HENSI VE METAB OLIC PANEL ) ALT 8 units /L 9-43 low Not Available [facility] (Lab) [address], [place], [address], 12/08/2024 16:08:48 12/03/19 25 12/02/2024 CMP(C OMPRE HENSI VE METAB OLIC PANEL ) alkaline phosphatase 57 units /L 34-104 Not Available [facility] (Lab) [address] [facility], [place], [address], 12/08/2024 16:08:48 12/03/19 25 12/02/2024 CMP(C OMPRE HENSI VE METAB OLIC PANEL ) AST 17 units /L 13-39 Not Available [facility] (Lab) [address] [facility], [place], [address], 12/08/2024 16:08:48 12/03/1912/02/2024 CMP(C OMPRE HENSI VE METAB OLIC PANEL ) bilirubin, total 0.4 mg/dL 0.2-1. 2 Not Available [facility] (Lab) [address] [facility], [place], [address], 12/08/2024 16:08:48 12/03/19 25 12/02/2024 FABIOLA TIN / IRON / TRANS FABIOLA N / TIBC iron 83 ug/dL 40-170 Not Available [facility] (Lab) [address] [facility], [place], [address], 12/08/2024 16:08:49 12/03/19 25 12/02/2024 FABIOLA TIN / IRON / TRANS FABIOLA N / TIBC transferrin 305 mg/dL 200-36 0 Not Available [facility] (Lab) [address] [facility], [place], [address], 12/08/2024 16:08:49 12/03/19 25 12/02/2024 FABIOLA TIN / IRON / TRANS FABIOLA N / TIBC ferritin 82.3 NG/mL 8.0-25 2.0 Not Available [facility] (Lab) [address] [facility], [place], [address], 12/08/2024 16:08:49 12/03/19 25 12/02/2024 FABIOLA TIN / IRON / TRANS FABIOLA N / TIBC TIBC 427 ug/dL 250-45 0 Not Available [facility] (Lab) [address] [facility], [place], [address], 12/08/2024 16:08:49 12/03/19 25 12/02/2024 FABIOLA TIN / IRON / TRANS FABIOLA N / TIBC iron saturation 19 % 20-55 low Not Available [facility] (Lab) [address] [facility], [place], [address], 12/08/2024 16:08:49 12/03/19 25 12/02/2024 VITAM IN B12 / FOLAT E PANEL vitamin B12 202 pg/mL 180-91 4 Pooja l Range : 180-9 14 pg/mL . Indet ermin ate Range : 145-1 80 pg/mL . Defic ient Range : <=145 pg/mL . Not Available [facility] (Lab) [address] [facility], [place], [address], 12/08/2024 16:08:49 12/03/19 25 12/02/2024 VITAM IN B12 / FOLAT E PANEL folate, serum >20.0 NG/mL 6.0-20 .0 high Not Available [facility] (Lab) [address] [facility], [place], [address], 12/08/2024 16:08:49 12/03/19 25 12/02/2024 VITAM IN D, 25-OH (TOTA L D2/D3 ) vitamin D, 25-hydroxy, total 28.2 NG/mL 30.0-1 00.0 low Sugge stive of Defic iency : <20 ng/mL Sugge stive of Insuf ficie ncy: 20-29 ng/mL Sugge stive of Suffi cienc y: 30-10 0 ng/mL Sugge stive of Toxic ity: >150 ng/mL Not Available [facility] (Lab) [address] [facility], [place], [address], 12/08/2024 16:08:49 09/03/11 2512/02/2024 LEAD, BLOOD (ADUL T/PED IATRI C) lead, whole blood <1.0 mcg/d L <3.5 See Note 1 Linda sis was perfo rmed by Gertrude Holloway ed Plasm a Mass Spect romet ry (ICPM S) Note 1 This test was devel oped and its linda tical perfo rmanc e che cteri stics have been deter mined by [employer]. It has not been clear ed or appro doug by the FDA. This assay has been valid ated pursu ant to the CLIA regul ation s and is used for clini robinson purpo ses. Perfo rming Organ izati on Infor mat n: Site ID: [id number] Name: [facility] [facility] [facility]-Jared hand Alen Addre ss: [id number] [place] [address] [facility] tor: Bhaskar sears Not Available [facility] (Lab) [address] [facility], [place], [address], 12/08/2024 16:08:50 12/03/1912/02/2024 VITAM IN A (RETI [...] purpo ses. GRACIELA med fusio n [address] [address] [facility] [place] [address] [phone] Victorina Johnson MD, PhD Perfo rming Organ izati on Infor matio n: Site ID: [id number] Name: Med[employer] jaylene- Med[employer] jaylene Addre ss: [address] [address] [place] [address] Direc tor: Victorina Johnson MD,Ph D Not Available [facility] (Lab) [address] [facility], [place], [address], 12/08/2024 16:08:50 02/04/20 25 02/03/2025 HEMAT OCRIT (HCT) HCT 31.1 % (based on docume nted legal sex) 34.0-4 5.0 low Not Available [facility] (Lab) [address] [facility], [place], [address], 02/06/2025 17:22:48 02/04/20 25 02/03/2025 HEMOG LOBIN (HGB) HGB 10.0 g/dL (based on docume nted legal sex) 11.6-1 5.4 low Not Available [facility] (Lab) [address] [facility], [place], [address], 02/06/2025 17:22:48 02/04/20 25 02/03/2025 HIV 1/2 ANTIG EN/AN TIBOD Y, REFLE X CONFI RMATI ON HIV antigen/anti body Nonrea ctive nonrea ctive HIV-1 antig en and HIV-1 /HIV- 2 antib odies were not detec nishant. No labor atory evide nce of HIV infec tion. Not Available [facility] (Lab) [address] [facility], [place], [address], 02/06/2025 17:22:48 02/04/20 25 02/03/2025 RPR SCREE N, REFLE X TITER /CONF IRMAT ION RPR qualitative Nonrea ctive nonrea ctive Not Available [facility] (Lab) [address] [place], [address], 02/06/2025 17:22:49 02/04/20 25 02/03/2025 LEAD, BLOOD (ADUL T/PED IATRI C) lead, whole blood <1.0 mcg/d L <3.5 See Note 1 Linda sis was perfo rmed by Induc tivel y Coupl ed Plasm a Mass Spect romet ry (ICPM S) Note 1 This test was devel oped and its linda tical perfo rmanc e che cteri stics have been deter mined by [employer]. It has not been clear ed or appro doug by the FDA. This assay has been valid ated pursu ant to the CLIA regul ation s and is used for clini robinson purpo ses. Perfo rming Organ izati on Infor matio n: Site ID: [id number] Name: [facility]ilo[facility] s-Coleman yazan Alen Addre ss: [address] [place] [address] Direc tor: Bhaskar sears Not Available [facility] (Lab) [address] [facility], [place], [address], 02/06/2025 17:22:49 02/25/20 25 02/24/2025 CBC W/DIF F WBC 7.7 10'3/ uL 3.5-10 .5 Not Available [facility] (Lab) [address] [facility], [place], [address], 03/02/2025 21:12:32 02/25/20 25 02/24/2025 CBC W/DIF F RBC 3.34 10'6/ uL (based on docume nted legal sex) 3.80-5 .20 low Not Available [facility] (Lab) [address] [place], [address], 03/02/2025 21:12:32 02/25/20 25 02/24/2025 CBC W/DIF F HGB 10.1 g/dL (based on docume nted legal sex) 11.6-1 5.4 low Not Available [facility] (Lab) [address] [place], [address], 03/02/2025 21:12:32 02/25/20 25 02/24/2025 CBC W/DIF F HCT 31.4 % (based on docume nted legal sex) 34.0-4 5.0 low Not Available [facility] (Lab) [address] [facility], [place], [address], 03/02/2025 21:12:32 02/25/20 25 02/24/2025 CBC W/DIF F MCV 94.0 fL 80.0-9 9.0 Not Available [facility] (Lab) [address] [facility], [place], [address], 03/02/2025 21:12:32 02/25/20 25 02/24/2025 CBC W/DIF F MCH 30.2 pg 27.0-3 4.0 Not Available [facility] (Lab) [address] [facility], [place], [address], 03/02/2025 21:12:32 02/25/20 25 02/24/2025 CBC W/DIF F MCHC 32.2 g/dL 32.0-3 5.5 Not Available [facility] (Lab) [address] [facility], [place], [address], 03/02/2025 21:12:32 02/25/20 25 02/24/2025 CBC W/DIF F RDW 13.2 % 11.0-1 5.0 Not Available [facility] (Lab) [address] [facility], [place], [address], 03/02/2025 21:12:32 02/25/20 25 02/24/2025 CBC W/DIF F plt 272 10'3/ uL 150-40 0 Not Available [facility] (Lab) [address] [facility], [place], [address], 03/02/2025 21:12:32 02/25/20 25 02/24/2025 CBC W/DIF F MPV 11.6 fL 8.8-12 .1 Not Available [facility] (Lab) [address] [facility], [place], [address], 03/02/2025 21:12:32 02/25/20 25 02/24/2025 CBC W/DIF F NRBC's 0.0 % 0.0 Not Available [facility] (Lab) [address] [facility], [place], [address], 03/02/2025 21:12:32 02/25/20 25 02/24/2025 CBC W/DIF F absolute NRBCs 0.0 10'3/ uL no refere nce range establ ished Not Available [facility] (Lab) [address] [facility], [place], [address], 03/02/2025 21:12:32 02/25/20 25 02/24/2025 CBC W/DIF F neutrophils 69.4 % 34.0-7 3.0 Not Available [facility] (Lab) [address], [place], [address], 03/02/2025 21:12:32 02/25/20 25 02/24/2025 CBC W/DIF F lymphocytes 24.0 % 15.0-5 0.0 Not Available [facility] (Lab) [address], [place], [address], 03/02/2025 21:12:32 02/25/20 25 02/24/2025 CBC W/DIF F monocytes 5.6 % 1.0-15 .0 Not Available [facility] (Lab) [address], [place], [address], 03/02/2025 21:12:32 02/25/20 25 02/24/2025 CBC W/DIF F eosinophils 0.3 % 0.0-8. 0 Not Available [facility] (Lab) [address], [place], [address], 03/02/2025 21:12:32 02/25/20 25 02/24/2025 CBC W/DIF F basophils 0.3 % 0.0-2. 0 Not Available [facility] (Lab) [address] [place], [address], 03/02/2025 21:12:32 02/25/20 25 02/24/2025 CBC W/DIF [...] separ ately if prese nt. Not Available [facility] (Lab) [address], [place], [address], 03/02/2025 21:12:32 02/25/20 25 02/24/2025 CBC W/DIF F absolute neutrophils 5.3 10'3/ uL 1.5-8. 0 Not Available [facility] (Lab) [address], [place], [address], 03/02/2025 21:12:32 02/25/20 25 02/24/2025 CBC W/DIF F absolute lymphocytes 1.8 10'3/ uL 1.0-4. 0 Not Available [facility] (Lab) [address], [place], [address], 03/02/2025 21:12:32 02/25/20 25 02/24/2025 CBC W/DIF F absolute monocytes 0.4 10'3/ uL 0.2-1. 0 Not Available [facility] (Lab) [address] [place], [address], 03/02/2025 21:12:32 02/25/20 25 02/24/2025 CBC W/DIF F absolute eosinophils 0.0 10'3/ uL 0.0-0. 6 Not Available [facility] (Lab) [address] [place], [address], 03/02/2025 21:12:32 02/25/20 25 02/24/2025 CBC W/DIF F absolute basophils 0.0 10'3/ uL 0.0-0. 3 Not Available [facility] (Lab) [address] [place], [address], 03/02/2025 21:12:32 02/25/20 25 02/24/2025 CBC W/DIF [...] the indiv idual patie nt: https :[email or web address] [email or web address] nm.or g/gen derx Not Available [facility] (Lab) [address] , [place], [address], 03/02/2025 21:12:32 02/25/20 25 02/24/2025 CMP(C OMPRE HENSI VE METAB OLIC PANEL ) sodium 139 mmol/ L 133-14 6 Not Available [facility] (Lab) [address], [place], [address], 03/02/2025 21:12:33 02/25/20 25 02/24/2025 CMP(C OMPRE HENSI VE METAB OLIC PANEL ) potassium 3.7 mmol/ L 3.5-5. 1 Not Available [facility] (Lab) [address], [place], [address], 03/02/2025 21:12:33 02/25/20 25 02/24/2025 CMP(C OMPRE HENSI VE METAB OLIC PANEL ) chloride 108 mmol/ L 98-107 high Not Available [facility] (Lab) [address] [place], [address], 03/02/2025 21:12:33 02/25/20 25 02/24/2025 CMP(C OMPRE HENSI VE METAB OLIC PANEL ) carbon dioxide 23 mmol/ L 21-31 Not Available [facility] (Lab) [address] [place], [address], 03/02/2025 21:12:33 02/25/20 25 02/24/2025 CMP(C OMPRE HENSI VE METAB OLIC PANEL ) anion gap 8 mmol/ L 4-13 Not Available [facility] (Lab) [address], [place], [address], 03/02/2025 21:12:33 02/25/20 25 02/24/2025 CMP(C OMPRE HENSI VE METAB OLIC PANEL ) blood urea nitrogen 7 mg/dL 7-25 Not Available [facility] (Lab) [address], [place], [address], 03/02/2025 21:12:33 02/25/20 25 02/24/2025 CMP(C OMPRE HENSI VE METAB OLIC PANEL ) creatinine 0.45 mg/dL 0.60-1 .30 low Not Available [facility] (Lab) [address], [place], [address], 03/02/2025 21:12:33 02/25/20 25 02/24/2025 CMP(C OMPRE HENSI VE METAB OLIC PANEL ) egfrcr (CKD-epi 2020) >90 mL/mi n/1.7 3_m2 >=60 Not Available [facility] (Lab) [address], [place], [address], 03/02/2025 21:12:33 02/25/20 25 02/24/2025 CMP(C OMPRE HENSI VE METAB OLIC PANEL ) calcium 8.1 mg/dL 8.3-10 .5 low Not Available [facility] (Lab) [address], [place], [address], 03/02/2025 21:12:33 02/25/20 25 02/24/2025 CMP(C OMPRE HENSI VE METAB OLIC PANEL ) glucose 74 mg/dL 70-100 Not Available [facility] (Lab) [address], [place], [address], 03/02/2025 21:12:33 02/25/20 25 02/24/2025 CMP(C OMPRE HENSI VE METAB OLIC PANEL ) protein, total 5.7 g/dL 6.4-8. 3 low Not Available [facility] (Lab) [address], [place], [address], 03/02/2025 21:12:33 02/25/20 25 02/24/2025 CMP(C OMPRE HENSI VE METAB OLIC PANEL ) albumin 3.2 g/dL 3.5-5. 0 low Not Available [facility] (Lab) [address], [place], [address], 03/02/2025 21:12:33 02/25/20 25 02/24/2025 CMP(C OMPRE HENSI VE METAB OLIC PANEL ) ALT 6 units /L 9-43 low Not Available [facility] (Lab) [address], [place], [address], 03/02/2025 21:12:33 02/25/20 25 02/24/2025 CMP(C OMPRE HENSI VE METAB OLIC PANEL ) alkaline phosphatase 89 units /L 34-104 Not Available [facility] (Lab) [address], [place], [address], 03/02/2025 21:12:33 02/25/20 25 02/24/2025 CMP(C OMPRE HENSI VE METAB OLIC PANEL ) AST 9 units /L 13-39 low Not Available [facility] (Lab) [address], [place], [address], 03/02/2025 21:12:33 02/25/20 25 02/24/2025 CMP(C OMPRE HENSI VE METAB OLIC PANEL ) bilirubin, total 0.2 mg/dL 0.2-1. 2 Not Available [facility] (Lab) [address], [place], [address], 03/02/2025 21:12:33 02/25/20 25 02/24/2025 FABIOLA TIN / IRON / TRANS FABIOLA N / TIBC iron 35 ug/dL 40-170 low Not Available [facility] (Lab) [address], [place], [address], 03/02/2025 21:12:33 02/25/20 25 02/24/2025 FABIOLA TIN / IRON / TRANS FABIOLA N / TIBC transferrin 378 mg/dL 200-36 0 high Not Available [facility] (Lab) [address], [place], [address], 03/02/2025 21:12:33 02/25/20 25 02/24/2025 FABIOLA TIN / IRON / TRANS FABIOLA N / TIBC ferritin 12.1 NG/mL 8.0-25 2.0 Not Available [facility] (Lab) [address], [place], [address], 03/02/2025 21:12:33 02/25/20 25 02/24/2025 FABIOLA TIN / IRON / TRANS FABIOLA N / TIBC TIBC 529 ug/dL 250-45 0 high Not Available [facility] (Lab) [address] [place], [address], 03/02/2025 21:12:33 02/25/20 25 02/24/2025 FABIOLA TIN / IRON / TRANS FABIOLA N / TIBC iron saturation 7 % 20-55 low Not Available [facility] (Lab) [address] [place], [address], 03/02/2025 21:12:33 02/25/20 25 02/24/2025 VITAM IN B12 / FOLAT E PANEL vitamin B12 186 pg/mL 180-91 4 Pooja l Range : 180-9 14 pg/mL . Indet ermin ate Range : 145-1 80 pg/mL . Defic ient Range : <=145 pg/mL . Not Available [facility] (Lab) [address] [place], [address], 03/02/2025 21:12:33 02/25/20 25 02/24/2025 VITAM IN B12 / FOLAT E PANEL folate, serum 19.8 NG/mL >=6.0 Not Available [facility] (Lab) [address], [place], [address], 03/02/2025 21:12:33 02/25/20 25 02/24/2025 VITAM IN A (RETI NOL) vitamin A 26 mcg/d L 38-98 low (Note ) Cli n Chem Vol. 34.No .8. pp162 5-162 1997 Vitam in suppl ement ation withi n 24 hours prior to blood draw may affec t the accur acy of [facility] ts. This test was devel oped and its linda tical perfo rmanc e che cteri stics have been deter mined by [employer]. It has not been clear ed or appro doug by the FDA. This assay has been valid ated pursu ant to the CLIA regul ation s and is used for clini robinson purpo ses. MDF med fusio n [address] [facility] [address] [phone] Victorina Johnson MD, PhD Perfo rming Organ izati on Infor matio n: Site ID: [id number] Name: MedFu jaylene- MedFu jaylene Addre ss: [address] [facility] [address], [address] [place] [address] Direc tor: Victorina Johnson MD,Ph D Not Available [facility] (Lab) [address], [place], [address], 03/02/2025 21:12:34 10/12/19 25 10/11/2024 US, obste tric, nucha l trans lucen cy No observ ation record ed. [email or web address] [address], [place], [address], 10/11/2024 13:10:00 10/12/19 25 10/11/2024 US, obste tric, 1st trime ster No observ ation record ed. [email or web address] [address], [place], [address], 10/11/2024 13:10:09 10/12/19 25 10/11/2024 US, obste tric, nucha l trans lucen cy No observ ation record ed. [email or web address] [address], [place], [address], 10/14/2024 09:45:42 11/17/1911/16/2024 imagi ng/di agnos tic resul t No observ ation record ed. [facility] [address], [address], 2024 21:39:44 11/19/19 25 11/16/2024 imagi ng/di agnos tic resul t No observ ation record ed. [facility] [address], [address], 2024 21:39:44 12/17/1912/16/2024 US, obste tric, follo w-up No observ ation record ed. [email or web address] [facility] [address] [place] [address], [address], 12/23/2024 13:18:27 12/17/19 25 12/16/2024 US, obste tric, follo w-up No observ ation record ed. [email or web address] [facility] [address], [address], 12/20/2024 09:13:00 01/14/20 25 01/13/2025 US, obste tric, follo w-up No observ ation record ed. [email or web address] [facility] [address], [address], 01/17/2025 11:47:51 10/24/01/13/2025 US, obste tric, follo w-up No observ ation record ed. [email or web address] [facility] [address], [place], [address], 01/17/2025 16:04:16 01/27/20 25 01/26/2025 US, obste tric, follo w-up No observ ation record ed. [email or web address] [address], [place], [address], 01/26/2025 15:11:31 01/27/20 25 01/26/2025 US, obste tric, follo w-up No observ ation record ed. NORI Estrell[address], [place], [address], 01/29/2025 15:19:23 02/18/20 25 02/17/2025 imagi ng/di agnos tic resul t No observ ation record ed. [facility] [address], [place], [address], 02/21/2025 12:50:54 02/25/20 25 02/24/2025 US, obste tric, follo w-up No observ ation record ed. NORI Estrell[address], [place], [address], 02/25/2025 15:24:35 02/25/20 25 02/24/2025 US, obste tric, follo w-up No observ ation record ed. [email or web address] [address], [place], [address], 02/24/2025 16:55:50 Result Notes None recorded. Problems Name Problem SNOMED Code Status Onset Date Resolution Date Notes Provider Name and Address Organization Details Recorded Time Pregnanc y 51351982 Active 2024 Freida Morales [place], [place] - [facility] 10:40:36 History of sleeve gastrect lety 49038673734 9107 Active 2024 - partial sleeve gastrecto my 04/2024 - baseline vitamin labs ordered at 12 weeks - serial growth US TRUONG MCGOWAN MD [address], [place], [address], [facility] 11:26:50 Past pregnanc y history of section 423941322 Active 2024 G2 under GETA, umbilical cord prolapse desires RCS TRUONG MCGOWAN MD [address], [place], [address], [facility] 11:24:36 Migraine 11523925 Active 2024 Eduar Gautam MD [address], [place], [address], [facility] 10:20:53 Problem Notes None recorded. Procedures Surgical History Date Name Laterality Status Provider Name and Address Organization Details Recorded Time 09/15/19 25 Date of Last Pap Smear completed [facility] 09/14/2024 10:20:33 05/11/19 25 Bariatric Surgery completed [facility] 09/14/2024 10:10:08 03/23/19 19 Appendectomy completed [facility] 09/14/2024 10:26:43 07/28/19 18 Caesarean Section completed [facility] 09/14/2024 10:10:08 03/23/19 09 Cholecystectomy completed [facility] 09/14/2024 10:26:22 03/23/19 00 Tonsillectomy completed [facility] 09/14/2024 10:26:04 Imaging Results None recorded. Procedure Notes None recorded. Medical Equipment None Reported. Allergies Allergen ID Allergen Name Allergen Category Reaction Reaction Severity Criticality Documentation Date Start Date Code Code System Note Provider Name and Address Organization Details Recorded Time 68227 iodine medicatio n palpitati ons severe Not available 09/14/2024 5933 RxNorm Elizabeth [place] yazan, [facility] 5 10:09:38 82393 Augmentin medicatio n hives moderate Not available 09/14/2024 62000 2 RxNorm Elizabeth [place] [facility], [facility] 5 10:09:38 66434 clavulani c acid Not available vomiting Not available high 02/03/20252021 37782 RxNorm Not Available [employer] - prod 09:16:51 96382 amoxicill in / clavulana te medicatio n hives rash Not available Not available high 02/03/20252023 98033 RxNorm VOMIT ING Not Available [employer] - prod 09:16:55 Medications Name [...] Updated DateTime 03/10/2025 154.94 cm 33.6 kg/m2 65102.44 g 129/78 mm[Hg] ANNMARIE CARLOS [facility] 03/10/2025 14:08:27 Social History Question Answer [...] Or The Highest Degree You Have Received? PA53750-3 Information not available 09/14/2024 Are There Any [...] anxious, or unable to sleep at night)? [id number] Information not available 09/14/2024 Family History Relationship [...] ICD10 Code Diagnosis IMO Codes Diagnosis Note [id number] TRUONG MCGOWAN MD [facility] [address] [address] 02/14/2025 10:26:25 02/14/2025 10:54:43 Past history of section 883094301 Z98.891 706964 - PLTCS under GETA for cord prolapse- desires RCS History of sleeve gastrectomy 7094568386 69852 Z90.3 2868100616 - partial sleeve gastrectom y 04/2024- baseline labs with mild vitamin A and vitamin D deficiency 10/11- plan for serial growth US q4 weeks Gestation period, 31 weeks 84306607 Z3A.31 6616148 - continue PNV [id number] TRUONG MCGOWAN MD [facility] [address],[place] [address] 02/24/2025 16:09:06 02/24/2025 16:58:25 History of bariatric surgical procedure 404021524 Z98.84 Z3A.32 572384 [id number] TRUONG MCGOWAN MD [facility] [address],[place] [address] 02/24/2025 16:09:40 02/27/2025 09:14:00 Iron deficiency anemia 22932952 D50.9 70253778 - Hgb 9.3 at [facility] last weekend- repeat labs today- plan to start Fe infusions Past pregn carlos history of section 891889305 Z98.891 697208 - PLTCS under GETA for cord prolapse- desires RCS History of sleeve gastrectomy 3465407389 90244 Z90.3 5032153212 - partial sleeve gastrectom y 04/2024- baseline labs with mild vitamin A and vitamin D deficiency 10/11- plan for serial growth US q4 weeks- repeat labs today [id number] TRUONG MCGOWAN MD [facility] [address] [address] 03/10/2025 13:44:50 03/10/2025 14:28:33 Past history of section 012817174 Z98.891 166795 - PLTCS under GETA for cord prolapse- desires RCS History of sleeve gastrectomy 4810964289 23278 Z90.3 1822934376 - partial sleeve gastrectom y 04/2024- baseline labs with mild vitamin A and vitamin D deficiency 10/11- plan for serial growth US q4 weeks Gestation period, 34 weeks 90528025 Z3A.34 4746797 - continue PNV Health Concerns Section Related Observation LastModified by Organization Detai ls LastModified Time None Recorded Concern Status LastModified by Organization Details LastModified Time None Recorded Payers Encounter Date Sequence Insurance Name Policy Number Policy Paez Covered Member ID Paez Member ID Guarantor Name 03/10/2025 1 [facility] (MEDICAID HMO) [id number] Radha Barbrasven [id number] Radha Sheppard Notes Date Note Type Note Provider Name and Address Organization Details Recorded Time 03/10/2025 text/html Generic HPI TemplateReported by Patient TRUONG MCGOWAN MD [address], [place], [address], [facility] 03/10/2025 14:26:18 OBGyn Episode Ob Episode Information Episode Created Date Number of Fetuses Patient Bloodtype Patient rh Status Prepregnancy Weight lbs Domestic Partner Domestic Partner Phone Father Name Industrial Chemistry Teacher Status 10/12/19 25 1 O Positive 165 Kent[address] l Harley OPEN Fetus Data First Name Last Name Admitted to NICU Weight (g) Sex Living Outcome Pediatric Complications Fetus ID Race Codes Race Delivery Type [id number] Problems Problem Notes Scheduled 11/16 1:00PM Level II US & office visit scheduled [facility] 01/13 0730 us only Problem Name Start Date End Date Resolution Snomed Code Not e Migraine 12/02/2024 96517847 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 623147521854831 - partial sl eeve gastrectomy 04/2024- baseline vitamin labs ordered at 12 weeks- serial growth US Past history of section 10/11/2024 898420828 G2 under GE TA, umbilical cord prolapsedesires [...] Sound Latest Days Gestation 11/17/19 25 18 [email or web address] 10/11/2024 04/17/19 26 2 Pre-kaykay Flowsheet Flowsheet Date 10/11/2024 Espinoza Score Blood Edema Fundus Height Fundus Units Glucose Ketones Leukocytes Nitrite Labor Signs Protein Cervic Dilation Cervic Effacement Cervic Station Type Weight in lbs Pre/Post Dialysis Refused Weight 163.922027682158 BP Diastolic BP Location Tested BP Systolic BP Type 74 L arm 115 sitting Fetus Heart Rate Present Fetus Movement Comments Patient presents to [facility] care. Headaches still worsening, will [...] Weight in lbs Pre/Post Dialysis Refused Weight 161.287942172601 BP Diastolic BP Location Tested BP Systolic [...] Type Weight in lbs Pre/Post Dialysis Refused 167.304745381358 BP Diastolic BP Location Tested BP Systolic [...] if she is still suffering. Seen at [facility]. Flowsheet Date 12/30/2024 Espinoza Score Blood Edema Fundus Height Fundus Units Glucose Ketones Leukocytes Nitrite Labor Signs Protein Cervic Dilation Cervic Effacement Cervic Station Type Weight in lbs Pre/Post Dialysis Refused 168.314421423206 BP Diastolic BP Location Tested BP Systolic [...] Type Weight in lbs Pre/Post Dialysis Refused 170.238603420255 BP Diastolic BP Location Tested BP Systolic [...] Weight in lbs Pre/Post Dialysis Refused Weight 172.821150056463 BP Diastolic BP Location Tested BP Systolic [...] Weight in lbs Pre/Post Dialysis Refused Weight 174.915865549197 BP Diastolic BP Location Tested BP Systolic BP Type 76 L arm 119 sitting Fetus Heart Rate Present A Present Fetus Movement A Yes Comments Baby active. Feeling more fa tigued. Was seen on Thursday at [facility] for low blood pressures, found to be anemic to Hgb 9.3. Will draw labs today and start Fe infusions. EFW 21%, vertex! Flowsheet Date 03/10/2025 Espinoza Score Blood Edema Fundus Height Fundus Units Glucose Ketones Leukocytes Nitrite Labor Signs Protein Cervic Dilation Cervic Effacement Cervic Station Type Weight in lbs Pre/Post Dialysis Refused Weight 178.771766162716 BP Diastolic BP Location Tested BP Systolic [...]
--- OUTSIDE RECORDS SUMMARY | 2025-03-21 01:21 | XMS_ITS | Continuity of Care Document ---
Author Organization [facility] Address [address] [place] [address] [place] [address] Assessment No assessment recorded. Plan of Treatment [...] Surgeries cesarea n section (SURG) 2024 026 [id number] [facility], [address], [address], 02/14/2025 12:10:15 Imaging None recorde d. Medication Orders None recorde d. Patient TargetsNo targets recorded. Patient InstructionsNo instructions recorded. Reason for Referral None Reported. Results Created Date Observation Date Name Description Value Unit Range Abnormal Flag Note LastModifiedBy Organization Detail LastModifiedTime 10/18/19 25 10/17/2024 [UNIT Y] ANEUP LOIDY NIPT fraction 7.5% normal Not Available [facility] [address], [place], [address], 10/17/2024 23:58:00 10/18/19 25 10/17/2024 [UNIT Y] ANEUP LOIDY NIPT 22Q11.2 microdeletio n LOW RISK <1 in 10,000 normal Not Available [facility] [address], [place], [address], 10/17/2024 23:58:00 10/18/19 25 10/17/2024 [UNIT Y] ANEUP LOIDY NIPT sex chromosome aneuploidy NOT DETECT ED normal Not Available [facility] [address], [place], [address], 10/17/2024 23:58:00 10/18/19 25 10/17/2024 [UNIT Y] ANEUP LOIDY NIPT monosomy X LOW RISK <1 in 10,000 normal Not Available [facility] [address], [place], [address], 10/17/2024 23:58:00 10/18/19 25 10/17/2024 [UNIT Y] ANEUP LOIDY NIPT trisomy 13 LOW RISK <1 in 10,000 normal Not Available [facility] [address], [place], [address], 10/17/2024 23:58:00 10/18/19 25 10/17/2024 [UNIT Y] ANEUP LOIDY NIPT trisomy 18 LOW RISK <1 in 10,000 normal Not Available [facility] [address], [place], [address], 10/17/2024 23:58:00 10/18/19 25 10/17/2024 [UNIT Y] ANEUP LOIDY NIPT trisomy 21 LOW RISK <1 in 10,000 normal Not Available [facility] [address], [place], [address], 10/17/2024 23:58:00 10/18/19 25 10/17/2024 [UNIT Y] ANEUP LOIDY NIPT sex MALE normal Not Available [facility] [address], [place], [address], 10/17/2024 23:58:00 10/18/19 25 10/17/2024 [UNIT Y] ANEUP LOIDY NIPT gestation SINGLE TON normal Not Available [facility] [address], [place], [address], 10/17/2024 23:58:00 10/18/19 25 10/17/2024 [UNIT Y] ANEUP LOIDY NIPT for detailed report, see pdf See PDF normal Not Available [facility] [address], [place], [address], 10/17/2024 23:58:00 10/22/19 25 10/21/2024 [UNIT Y] MIKE Galvez sickle cell disease/beta -thalassemia /hemoglobino pathies carrier screen NEGATI VE normal Not Available [facility] [address], [place], [address], 10/21/2024 17:38:31 10/22/19 25 10/21/2024 [UNIT Y] MIKE Galvez alpha-thalas semia carrier screen NEGATI VE normal Not Available [facility] [address], [place], [address], 10/21/2024 17:38:31 10/22/19 25 10/21/2024 [UNIT Y] MIKE Galvez cystic fibrosis carrier screen NEGATI VE normal Not Available [facility] [address], [place], [address], 10/21/2024 17:38:31 10/22/19 25 10/21/2024 [UNIT Y] MIKE Galvez spinal muscular atrophy carrier screen NEGATI VE 2 SMN1 copies , SNP not presen t normal Not Available [facility] [address], [place], [address], 10/21/2024 17:38:31 10/22/19 25 10/21/2024 [UNIT Y] MIKE MACIAS Leonor for detailed report, see pdf See PDF normal Not Available [facility] [address], [place], [address], 10/21/2024 17:38:31 10/12/19 25 10/11/2024 CBC W/DIF F WBC 7.0 10'3/ uL 3.5-10 .5 Not Available [facility] (Lab) [address] [facility], [place], [address], 10/12/2024 13:07:49 10/12/19 25 10/11/2024 CBC W/DIF F RBC 3.94 10'6/ uL (based on docume nted legal sex) 3.80-5 .20 Not Available [facility] (Lab) [address], [place], [address], 10/12/2024 13:07:49 10/12/19 25 10/11/2024 CBC W/DIF F HGB 12.1 g/dL (based on docume nted legal sex) 11.6-1 5.4 Not Available [facility] (Lab) [address], [place], [address], 10/12/2024 13:07:49 10/12/19 25 10/11/2024 CBC W/DIF F HCT 36.3 % (based on docume nted legal sex) 34.0-4 5.0 Not Available [facility] (Lab) [address] , [place], [address], 10/12/2024 13:07:49 10/12/19 25 10/11/2024 CBC W/DIF F MCV 92.1 fL 80.0-9 9.0 Not Available [facility] (Lab) [address], [place], [address], 10/12/2024 13:07:49 10/12/19 25 10/11/2024 CBC W/DIF F MCH 30.7 pg 27.0-3 4.0 Not Available [facility] (Lab) [address], [place], [address], 10/12/2024 13:07:49 10/12/19 25 10/11/2024 CBC W/DIF F MCHC 33.3 g/dL 32.0-3 5.5 Not Available [facility] (Lab) [address], [place], [address], 10/12/2024 13:07:49 10/12/19 25 10/11/2024 CBC W/DIF F RDW 12.4 % 11.0-1 5.0 Not Available [facility] (Lab) [address], [place], [address], 10/12/2024 13:07:49 10/12/19 25 10/11/2024 CBC W/DIF F plt 278 10'3/ uL 150-40 0 Not Available [facility] (Lab) [address], [place], [address], 10/12/2024 13:07:49 10/12/19 25 10/11/2024 CBC W/DIF F MPV 11.7 fL 8.8-12 .1 Not Available [facility] (Lab) [address], [place], [address], 10/12/2024 13:07:49 10/12/19 25 10/11/2024 CBC W/DIF F NRBC's 0.0 % 0.0 Not Available [facility] (Lab) [address], [place], [address], 10/12/2024 13:07:49 10/12/19 25 10/11/2024 CBC W/DIF F absolute NRBCs 0.0 10'3/ uL no refere nce range establ ished Not Available [facility] (Lab) [address], [place], [address], 10/12/2024 13:07:49 10/12/19 25 10/11/2024 CBC W/DIF F neutrophils 71.6 % 34.0-7 3.0 Not Available [facility] (Lab) [address] [facility], [place], [address], 10/12/2024 13:07:49 10/12/19 25 10/11/2024 CBC W/DIF F lymphocytes 22.8 % 15.0-5 0.0 Not Available [facility] (Lab) [address], [place], [address], 10/12/2024 13:07:49 10/12/19 25 10/11/2024 CBC W/DIF F monocytes 4.7 % 1.0-15 .0 Not Available [facility] (Lab) [address] [facility], [place], [address], 10/12/2024 13:07:49 10/12/19 25 10/11/2024 CBC W/DIF F eosinophils 0.3 % 0.0-8. 0 Not Available [facility] (Lab) [address] [facility], [place], [address], 10/12/2024 13:07:49 10/12/19 25 10/11/2024 CBC W/DIF F basophils 0.3 % 0.0-2. 0 Not Available [facility] (Lab) [address], [place], [address], 10/12/2024 13:07:49 10/12/19 25 10/11/2024 CBC W/DIF [...] separ ately if prese nt. Not Available [facility] (Lab) [address], [place], [address], 10/12/2024 13:07:49 10/12/19 25 10/11/2024 CBC W/DIF F absolute neutrophils 5.0 10'3/ uL 1.5-8. 0 Not Available [facility] (Lab) [address], [place], [address], 10/12/2024 13:07:49 10/12/19 25 10/11/2024 CBC W/DIF F absolute lymphocytes 1.6 10'3/ uL 1.0-4. 0 Not Available [facility] (Lab) [address] [facility], [place], [address], 10/12/2024 13:07:49 10/12/19 25 10/11/2024 CBC W/DIF F absolute monocytes 0.3 10'3/ uL 0.2-1. 0 Not Available [facility] (Lab) [address] [facility], [place], [address], 10/12/2024 13:07:49 10/12/19 25 10/11/2024 CBC W/DIF F absolute eosinophils 0.0 10'3/ uL 0.0-0. 6 Not Available [facility] (Lab) [address] [facility], [place], [address], 10/12/2024 13:07:49 10/12/19 25 10/11/2024 CBC W/DIF F absolute basophils 0.0 10'3/ uL 0.0-0. 3 Not Available [facility] (Lab) [address] [facility], [place], [address], 10/12/2024 13:07:49 10/12/19 25 10/11/2024 CBC W/DIF F absolute immature granulocytes 0.0 10'3/ uL 0.00-0 .10 Refer ence range s for nonbi nary/ inter sex or unspe cifie d gende r patie nts have not been estab lishe d. Pleinessa e refer [facility] for range s estab lishe d for cisge nder patie nts and evalu ate in the clini robinson leonard xt of the indiv idual patie nt: https :[email or web address] patterson book. nm.or g/gen derx Not Available [facility] (Lab) [address], [place], [address], 10/12/2024 13:07:49 10/12/19 25 10/11/2024 HIV 1/2 ANTIG EN/AN TIBOD Y, REFLE X CONFI RMATI ON HIV antigen/anti body Nonrea ctive nonrea ctive HIV-1 antig en and HIV-1 /HIV- 2 antib odies were not detec nishant. No labor atory evide nce of HIV infec tion. Not Available [facility] (Lab) [address], [place], [address], 10/12/2024 13:07:50 10/12/19 25 10/11/2024 HEPAT ITIS B SURFA CE ANTIG EN hepatitis B surface antigen Non-re active non-re active This assay was perfo rmed using [employer] ratio n reage nts and test kits. Value s obtai francois with other assay metho ds or kits canno t be used inter serna eably . Not Available [facility] (Lab) [address], [place], [address], 10/12/2024 13:07:50 10/12/19 25 10/11/2024 HEPAT ITIS C ANTIB KERI SCREE N, REFLE X TO CONFI RMATI ON hepatitis C antibody Non-re active non-re active Antib odies to HCV Not Detec nishant, does not exclu de the possi bilit y of expos ure to HCV. Not Available [facility] (Lab) [address], [place], [address], 10/12/2024 13:07:51 10/12/19 25 10/11/2024 RUBEL LA IGG ANTIB KERI, QUANT rubella antibodies, IgG Reacti ve reacti ve Not Available [facility] (Lab) [address] [place], [address], 10/12/2024 13:07:51 10/12/19 25 10/11/2024 RUBEL LA IGG ANTIB KERI, QUANT rubella antibodies, IgG quant 18.4 IU/mL >=10 Non-r eacti ve (Non- Immun e) <10 IU/mL React filippo (Immu ne) > or = 10 IU/mL Not Available [facility] (Lab) [address], [place], [address], 10/12/2024 13:07:51 10/12/19 25 10/11/2024 TYPE/ RH/SC REEN ABO/Rh type O POS Not Available [facility] (Lab) [address], [place], [address], 10/12/2024 13:07:51 10/12/19 25 10/11/2024 TYPE/ RH/SC REEN antibody screen NEG Not Available [facility] (Lab) [address], [place], [address], 10/12/2024 13:07:51 10/12/19 25 10/11/2024 TYPE/ RH/SC REEN exp date 2024 23:59 Not Available [facility] (Lab) [address], [place], [address], 10/12/2024 13:07:51 10/12/19 25 10/11/2024 HEMOG LOBIN [...] >8.0% Actio n sugge sted Not Available [facility] (Lab) [address], [place], [address], 10/12/2024 13:07:52 10/12/19 25 10/11/2024 RPR SCREE N, REFLE X TITER /CONF IRMAT ION RPR qualitative Nonrea ctive nonrea ctive Not Available [facility] (Lab) [address], [place], [address], 10/12/2024 13:07:53 10/12/19 25 10/11/2024 CULTU RE: URINE result report SEE RESULT S BELOW Test: Cultu re: Urine Speci men Sourc e: Urine Voide d Speci men Type: Urine Speci men Date: 2024 1251 Resul t Date: 20246 Resul t Statu s: Final resul t Abnor mal: No Resul ting Lab: [facility] [address] [facility] [address] Tel: CULTU RE ----- ----- ----- --- No growt h in 1 day (dete ction level of 10,00 0 colon ies / ml.) Not Available [facility] (Lab) [address], [place], [address], 10/12/2024 22:51:14 10/12/19 25 10/11/2024 drug scree n, urine Amphetamines : negati ve Not Available [facility] [address], [place], [address], 10/11/2024 12:03:44 10/12/19 25 10/11/2024 drug scree n, urine Cannabinoids : negati ve Not Available [facility] [address], [place], [address], 10/11/2024 12:03:44 10/12/19 25 10/11/2024 drug scree n, urine Cocaine: negati ve Not Available [facility] [address], [place], [address], 10/11/2024 12:03:44 10/12/19 25 10/11/2024 drug scree n, urine Opiates: negati ve Not Available [facility] [address], [place], [address], 10/11/2024 12:03:44 10/12/19 25 10/11/2024 drug scree n, urine Phenocyclidi ne: negati ve Not Available [facility] [address], [place], [address], 10/11/2024 12:03:44 10/12/19 25 10/11/2024 drug scree n, urine Barbiturates : negati ve Not Available [facility] [address], [place], [address], 10/11/2024 12:03:44 10/12/19 25 10/11/2024 drug scree n, urine Benzodiazepi aaron: negati ve Not Available [facility] [address], [place], [address], 10/11/2024 12:03:44 10/12/19 25 10/11/2024 drug scree n, urine Ethanol: negati ve Not Available [facility] [address], [place], [address], 10/11/2024 12:03:44 10/12/19 25 10/11/2024 drug scree n, urine Hallucinogen s: negati ve Not Available [facility] [address], [place], [address], 10/11/2024 12:03:44 10/12/19 25 10/11/2024 drug scree n, urine Inhalants: negati ve Not Available [facility] [address], [place], [address], 10/11/2024 12:03:44 12/03/19 25 12/02/2024 CMP(C OMPRE HENSI VE METAB OLIC PANEL ) sodium 136 mmol/ L 133-14 6 Not Available [facility] (Lab) [address], [place], [address], 12/08/2024 16:08:48 12/03/19 25 12/02/2024 CMP(C OMPRE HENSI VE METAB OLIC PANEL ) potassium 4.4 mmol/ L 3.5-5. 1 Not Available [facility] (Lab) [address], [place], [address], 12/08/2024 16:08:48 12/03/19 25 12/02/2024 CMP(C OMPRE HENSI VE METAB OLIC PANEL ) chloride 107 mmol/ L 98-107 Not Available [facility] (Lab) [address], [place], [address], 12/08/2024 16:08:48 12/03/19 25 12/02/2024 CMP(C OMPRE HENSI VE METAB OLIC PANEL ) carbon dioxide 19 mmol/ L 21-31 low Not Available [facility] (Lab) [address], [place], [address], 12/08/2024 16:08:48 12/03/19 25 12/02/2024 CMP(C OMPRE HENSI VE METAB OLIC PANEL ) anion gap 10 mmol/ L 4-13 Not Available [facility] (Lab) [address], [place], [address], 12/08/2024 16:08:48 12/03/19 25 12/02/2024 CMP(C OMPRE HENSI VE METAB OLIC PANEL ) blood urea nitrogen 7 mg/dL 7-25 Not Available [facility] (Lab) [address] [place], [address], 12/08/2024 16:08:48 12/03/19 25 12/02/2024 CMP(C OMPRE HENSI VE METAB OLIC PANEL ) creatinine 0.48 mg/dL 0.60-1 .30 low Not Available [facility] (Lab) [address], [place], [address], 12/08/2024 16:08:48 12/03/1912/02/2024 CMP(C OMPRE HENSI VE METAB OLIC PANEL ) egfrcr (CKD-epi 2020) >90 mL/mi n/1.7 3_m2 >=60 Not Available [facility] (Lab) [address], [place], [address], 12/08/2024 16:08:48 12/03/1912/02/2024 CMP(C OMPRE HENSI VE METAB OLIC PANEL ) calcium 8.5 mg/dL 8.3-10 .5 Not Available [facility] (Lab) [address], [place], [address], 12/08/2024 16:08:48 12/03/1912/02/2024 CMP(C OMPRE HENSI VE METAB OLIC PANEL ) glucose 74 mg/dL 70-100 Not Available [facility] (Lab) [address] [facility], [place], [address], 12/08/2024 16:08:48 12/03/1912/02/2024 CMP(C OMPRE HENSI VE METAB OLIC PANEL ) protein, total 6.3 g/dL 6.4-8. 3 low Not Available [facility] (Lab) [address] [facility], [place], [address], 12/08/2024 16:08:48 12/03/1912/02/2024 CMP(C OMPRE HENSI VE METAB OLIC PANEL ) albumin 3.5 g/dL 3.5-5. 0 Not Available [facility] (Lab) [address] [place], [address], 12/08/2024 16:08:48 12/03/1912/02/2024 CMP(C OMPRE HENSI VE METAB OLIC PANEL ) ALT 8 units /L 9-43 low Not Available [facility] (Lab) [address], [place], [address], 12/08/2024 16:08:48 12/03/19 25 12/02/2024 CMP(C OMPRE HENSI VE METAB OLIC PANEL ) alkaline phosphatase 57 units /L 34-104 Not Available [facility] (Lab) [address], [place], [address], 12/08/2024 16:08:48 12/03/19 25 12/02/2024 CMP(C OMPRE HENSI VE METAB OLIC PANEL ) AST 17 units /L 13-39 Not Available [facility] (Lab) [address], [place], [address], 12/08/2024 16:08:48 12/03/19 25 12/02/2024 CMP(C OMPRE HENSI VE METAB OLIC PANEL ) bilirubin, total 0.4 mg/dL 0.2-1. 2 Not Available [facility] (Lab) [address] [facility], [place], [address], 12/08/2024 16:08:48 12/03/19 25 12/02/2024 FABIOLA TIN / IRON / TRANS FABIOLA N / TIBC iron 83 ug/dL 40-170 Not Available [facility] (Lab) [address] [facility], [place], [address], 12/08/2024 16:08:49 12/03/19 25 12/02/2024 FABIOLA TIN / IRON / TRANS FABIOLA N / TIBC transferrin 305 mg/dL 200-36 0 Not Available [facility] (Lab) [address] [place], [address], 12/08/2024 16:08:49 12/03/19 25 12/02/2024 FABIOLA TIN / IRON / TRANS FABIOLA N / TIBC ferritin 82.3 NG/mL 8.0-25 2.0 Not Available [facility] (Lab) [address] [facility], [place], [address], 12/08/2024 16:08:49 12/03/1912/02/2024 FABIOLA TIN / IRON / TRANS FABIOLA N / TIBC TIBC 427 ug/dL 250-45 0 Not Available [facility] (Lab) [address], [place], [address], 12/08/2024 16:08:49 12/03/19 25 12/02/2024 FABIOLA TIN / IRON / TRANS FABIOLA N / TIBC iron saturation 19 % 20-55 low Not Available [facility] (Lab) [address], [place], [address], 12/08/2024 16:08:49 12/03/1912/02/2024 VITAM IN B12 / FOLAT E PANEL vitamin B12 202 pg/mL 180-91 4 Pooja l Range : 180-9 14 pg/mL . Indet ermin ate Range : 145-1 80 pg/mL . Defic ient Range : <=145 pg/mL . Not Available [facility] (Lab) [address], [place], [address], 12/08/2024 16:08:49 12/03/1912/02/2024 VITAM IN B12 / FOLAT E PANEL folate, serum >20.0 NG/mL 6.0-20 .0 high Not Available [facility] (Lab) [address] [place], [address], 12/08/2024 16:08:49 12/03/19 25 12/02/2024 VITAM IN D, 25-OH (TOTA L D2/D3 ) vitamin D, 25-hydroxy, total 28.2 NG/mL 30.0-1 00.0 low Sugge stive of Defic iency : <20 ng/mL Sugge stive of Insuf ficie ncy: 20-29 ng/mL Sugge stive of Suffi cienc y: 30-10 0 ng/mL Sugge stive of Toxic ity: >150 ng/mL Not Available [facility] (Lab) [address] [facility], [place], [address], 12/08/2024 16:08:49 12/03/19 25 12/02/2024 LEAD, BLOOD (ADUL T/PED IATRI C) lead, whole blood <1.0 mcg/d L <3.5 See Note 1 Linda sis was perfo rmed by Gertrude Holloway ed Plasm a Mass Spect romet ry (ICPM S) Note 1 This test was devel oped and its linda tical perfo rmanc e che cteri stics have been deter mined by [employer]. It has not been clear ed or appro doug by the FDA. This assay has been valid ated pursu ant to the CLIA regul ation s and is used for clini robinson purpo ses. Perfo rming Organ izati on Infor naresh n: Site ID: [id number] Name: [employer] [facility] [facility]-Jared Lowry Addre ss: [id number] [place] [address] Dire tor: Bhaskar Doll s Not Available [facility] (Lab) [address] [facility], [place], [address], 12/08/2024 16:08:50 12/03/19 25 12/02/2024 VITAM IN [...] purpo ses. MDF med fusio n [address] [facility] [address] [place] [address] [phone] Victorina Johnson MD, PhD Perfo rming Organ izati on Infor matmery n: Site ID: [id number] Name: Park mariee- Park mariee Addre ss: Aneta1 [facility] [address] [place] [address] Direc tor: Victorina Johnson MD,Ph D Not Available [facility] (Lab) [address], [place], [address], 12/08/2024 16:08:50 02/04/20 25 02/03/2025 HEMAT OCRIT (HCT) HCT 31.1 % (based on docume nted legal sex) 34.0-4 5.0 low Not Available [facility] (Lab) [address], [place], [address], 02/06/2025 17:22:48 02/04/20 25 02/03/2025 HEMOG LOBIN (HGB) HGB 10.0 g/dL (based on docume nted legal sex) 11.6-1 5.4 low Not Available [facility] (Lab) [address] [facility], [place], [address], 02/06/2025 17:22:48 02/04/20 25 02/03/2025 HIV 1/2 ANTIG EN/AN TIBOD Y, REFLE X CONFI RMATI ON HIV antigen/anti body Nonrea ctive nonrea ctive HIV-1 antig en and HIV-1 /HIV- 2 antib odies were not detec nishant. No labor atory evide nce of HIV infec tion. Not Available [facility] (Lab) [address], [place], [address], 02/06/2025 17:22:48 02/04/20 25 02/03/2025 RPR SCREE N, REFLE X TITER /CONF IRMAT ION RPR qualitative Nonrea ctive nonrea ctive Not Available [facility] (Lab) [address], [place], [address], 02/06/2025 17:22:49 02/04/20 25 02/03/2025 LEAD, BLOOD (ADUL T/PED IATRI C) lead, whole blood <1.0 mcg/d L <3.5 See Note 1 Linda sis was perfo rmed by Gertrude Holloway ed Plasm a Mass Spect romet ry (ICPM S) Note 1 This test was devel oped and its linda tical perfo rmanc e che cteri stics have been deter mined by [employer]. It has not been clear ed or appro doug by the FDA. This assay has been valid ated pursu ant to the CLIA regul ation s and is used for clini robinson purpo ses. Perfo rming Organ izati on Infor matio n: Site ID: [id number] Name: [employer] [facility]-Coleman d Alen Addre ss: [id number] [place] [address] Direc tor: Bhaskar Doll s Not Available [facility] (Lab) [address] [facility], [place], [address], 02/06/2025 17:22:49 10/12/19 25 10/11/2024 US, obste tric, nucha l trans lucen cy No observ ation record ed. [email or web address] [facility] [address] [facility] [address], [place], [address], 10/11/2024 13:10:00 10/12/19 25 10/11/2024 , evgeny goss, 1st trime ster No observ ation record ed. [email or web address] [facility] [address], [place], [address], 10/11/2024 13:10:09 10/12/19 25 10/11/2024 US, obste tric, nucha l trans lucen cy No observ ation record ed. [email or web address] [address] [place], [place] [address]b [address], [place], [address], 10/14/2024 09:45:42 11/17/19 25 11/16/2024 imagi ng/di agnos tic resul t No observ ation record ed. [facility] [address], [address], 2024 21:39:44 11/19/19 25 11/16/2024 imagi ng/di agnos tic resul t No observ ation record ed. [facility] [address], [address], 2024 21:39:44 12/17/19 25 12/16/2024 US, obste tric, follo w-up No observ ation record ed. [email or web address] [address], [address], 12/23/2024 13:18:27 12/17/19 25 12/16/2024 US, obste tric, follo w-up No observ ation record ed. [email or web address] [facility] [address], [address], 12/20/2024 09:13:00 01/14/20 25 01/13/2025 US, obste tric, follo w-up No observ ation record ed. [email or web address] [facility] [address], [address], 01/17/2025 11:47:51 01/14/20 25 01/13/2025 US, obste tric, follo w-up No observ ation record ed. [email or web address] [facility] [address], [address], 01/17/2025 16:04:16 01/27/20 25 01/26/2025 US, obste tric, follo w-up No observ ation record ed. [email or web address] [address], [place], [address], 01/26/2025 15:11:31 01/27/20 25 01/26/2025 US, obste tric, follo w-up No observ ation record ed. NORI Haro [address], [place], [address], 01/29/2025 15:19:23 02/18/20 25 02/17/2025 imagi ng/di agnos tic resul t No observ ation record ed. [facility] [address], [place], [address], 02/21/2025 12:50:54 02/25/20 25 02/24/2025 US, obste tric, follo w-up No observ ation record ed. NORI Haro [address], [place], [address], 02/25/2025 15:24:35 02/25/20 25 02/24/2025 US, obste tric, follo w-up No observ ation record ed. [facility] [address], [place], [address], 02/24/2025 16:55:50 Result Notes None recorded. Problems Name Problem SNOMED Code Status Onset Date Resolution Date Notes Provider Name and Address Organization Details Recorded Time Pregnanc y 99271809 Active 2024 [facility], [facility] 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 5 11:26:50 Past pregnanc y history of section [id number] Active 2024 G2 under GETA, umbilical cord prolapse desires [facility] TRUOGN MCGOWAN MD [address], [place], [address], [facility] 11:24:36 Migraine 58331750 Active 2024 Eduar Gautam MD [address], [place], [address], [facility] 10:20:53 Problem Notes None recorded. Procedures Surgical History Date Name Laterality Status Provider Name and Address Organization Details Recorded Time 09/15/19 25 Date of Last Pap Smear completed [facility] 09/14/2024 10:20:33 05/11/19 25 Bariatric Surgery completed [facility] 09/14/2024 10:10:08 03/23/19 19 Appendectomy completed [facility] 09/14/2024 10:26:43 07/28/19 18 Caesarean Section completed [facility] 09/14/2024 10:10:08 03/23/19 09 Cholecystectomy completed [facility] 09/14/2024 10:26:22 03/23/19 00 Tonsillectomy completed [facility] 09/14/2024 10:26:04 Imaging Results None recorded. Procedure Notes None recorded. Medical Equipment None Reported. Allergies Allergen ID Allergen Name Allergen Category Reaction Reaction Severity Criticality Documentation Date Start Date Code Code System Note Provider Name and Address Organization Details Recorded Time 69038 iodine medicatio n palpitati ons severe Not available 09/14/2024 5933 RxNorm Elizabeth Liu [facility] 10:09:38 90951 Augmentin medicatio n hives moderate Not available 09/14/2024 99158 2 RxNorm Elizabeth Liu [facility] 10:09:38 96781 clavulani c acid Not available vomiting Not available high 02/03/20252021 84061 RxNorm Not Available [facility] - External Data Service - prod 09:16:51 65414 amoxicill in / clavulana te medicatio n hives rash Not available Not available high 02/03/20252023 78720 RxNorm VOMIT ING Not Available [facility] External Data Service - prod 09:16:55 Medications [...] Updated DateTime 02/14/2025 154.94 cm 32.5 kg/m2 69262.89 g 108/72 mm[Hg] Cristina Tubbs [facility] 02/14/2025 10:38:32 Social History Question Answer [...] Or The Highest Degree You Have Received? RI12706-7 Information not available 09/14/2024 Are There Any [...] anxious, or unable to sleep at night)? EG68812-8 Information not available 09/14/2024 Family History Relationship [...] ICD10 Code Diagnosis IMO Codes Diagnosis Note [id number] TRUONG MCGOWAN MD [place] [address] [address] 01/26/2025 11:47:35 01/26/2025 13:17:13 History of sleeve gastrectomy 1851445918 68580 Z90.3 O99.891 Z3A.28 4236128057 - partial sleeve gastrectom y 04/2024- baseline labs ordered 10/11- plan for serial growth [id number] TRUONG MCGOWAN MD [place] [address] [address] 02/03/2025 09:16:35 02/03/2025 10:15:39 Past history of section 464094397 Z98.891 854540 - PLTCS under GETA for cord prolapse- desires RCS History of sleeve gastrectomy 4229195617 78476 Z90.3 8134342181 - partial sleeve gastrectom y 04/2024- baseline labs with mild vitamin A and vitamin D deficiency 10/11- plan for serial growth US q4 weeks Gestation period, 29 weeks 29879961 Z3A.29 1143537 - continue PNV [id number] TRUONG MCGOWAN MD [place] [address] [address] 02/14/2025 10:26:25 02/14/2025 10:54:43 Past history of section 728542296 Z98.891 220689 - PLTCS under GETA for cord prolapse- desires RCS History of sleeve gastrectomy 7938122346 80889 Z90.3 1698073960 - partial sleeve gastrectom y 04/2024- baseline labs with mild vitamin A and vitamin D deficiency 10/11- plan for serial growth US q4 weeks Gestation period, 31 weeks 01711981 Z3A.31 1601604 - continue PNV Health Concerns Section Related Observation LastModified by Organization Detai ls LastModified Time None Recorded Concern Status LastModified by Organization Details LastModified Time None Recorded Payers Encounter Date Sequence Insurance Name Policy Number Policy Paez Covered Member ID Paez Member ID Guarantor Name 02/14/2025 1 [facility] (MEDICAID HMO) [id number] Radha Sheppard [id number] Radha Sheppard Notes Date Note Type Note Provider Name and Address Organization Details Recorded Time 02/14/2025 text/html Generic HPI TemplateReported by Patient TRUONG MCGOWAN MD [address], [place], [address], [facility] 02/14/2025 10:54:19 OBGyn Episode Ob Episode Information Episode Created Date Number of Fetuses Patient Bloodtype Patient rh Status Prepregnancy Weight lbs Domestic Partner Domestic Partner Phone Father Name Assistant Import Manager Status 10/12/19 25 1 O Positive 165 [address] l Harley OPEN Fetus Data First Name Last Name Admitted to NICU Weight (g) Sex Living Outcome Pediatric Complications Fetus ID Race Codes Race Delivery Type [id number] Problems Problem Notes Scheduled 11/16 1:00PM Level II [facility] 0730 us only Problem Name Start Date End Date Resolution Snomed Code Not e Migraine 12/02/2024 [id number] 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 078673719578883 - partial sl eeve gastrectomy 04/2024- baseline vitamin labs ordered at 12 weeks- serial growth US Past history of section 10/11/2024 020639913 G2 under GE TA, umbilical cord prolapsedesires [...] Sound Latest Days Gestation 11/17/19 25 18 [email or web address] 10/11/2024 04/17/19 26 2 Pre-kaykay Flowsheet Flowsheet Date 10/11/2024 Espinoza Score Blood Edema Fundus Height Fundus Units Glucose Ketones Leukocytes Nitrite Labor Signs Protein Cervic Dilation Cervic Effacement Cervic Station Type Weight in lbs Pre/Post Dialysis Refused Weight 163.088272031570 BP Diastolic BP Location Tested BP Systolic BP Type 74 L arm 115 sitting Fetus Heart Rate Present Fetus Movement Comments Patient presents to [facility] care. Headaches still worsening, will send [...] Weight in lbs Pre/Post Dialysis Refused Weight 161.400375005205 BP Diastolic BP Location Tested BP Systolic BP Type 74 L arm 116 sitting Fetus Heart Rate Present Fetus Movement A Yes Comments Still having some nausea. Mi graines not improved with tylenol, reglan, and sumatriptan. Will send [facility] referral. LR male NIPT! All other OB labs wnl. Anatomy US next visit. RTC 4 weeks. Flowsheet Date 12/02/2024 Espinoza Score Blood Edema Fundus Height Fundus Units Glucose Ketones Leukocytes Nitrite Labor Signs Protein Cervic Dilation Cervic Effacement Cervic Station Type Weight in lbs Pre/Post Dialysis Refused 167.896324054129 BP Diastolic BP Location Tested BP Systolic [...] if she is still suffering. Seen at [facility]. Flowsheet Date 12/30/2024 Espinoza Score Blood Edema Fundus Height Fundus Units Glucose Ketones Leukocytes Nitrite Labor Signs Protein Cervic Dilation Cervic Effacement Cervic Station Type Weight in lbs Pre/Post Dialysis Refused 168.838775900408 BP Diastolic BP Location Tested BP Systolic [...] Type Weight in lbs Pre/Post Dialysis Refused 170.350460750943 BP Diastolic BP Location Tested BP Systolic [...] Weight in lbs Pre/Post Dialysis Refused Weight 172.175970958323 BP Diastolic BP Location Tested BP Systolic [...] Weight in lbs Pre/Post Dialysis Refused Weight 174.723759222587 BP Diastolic BP Location Tested BP Systolic BP Type 76 L arm 119 sitting Fetus Heart Rate Present A Present Fetus Movement A Yes Comments Baby active. Feeling more fa tigued. Was seen on Thursday at [facility] for low blood pressures, found to be anemic to Hgb 9.3. Will draw labs today and start Fe infusions. EFW 21%, vertex! Flowsheet Date 03/10/2025 Espinoza Score Blood Edema Fundus Height Fundus Units Glucose Ketones Leukocytes Nitrite Labor Signs Protein Cervic Dilation Cervic Effacement Cervic Station Type Weight in lbs Pre/Post Dialysis Refused Weight 178.086063206196 BP Diastolic BP Location Tested BP Systolic [...]
--- OUTSIDE RECORDS SUMMARY | 2025-03-21 01:21 | XMS_ITS | Clinical Summary ---
Author Organization [facility] Address [address] [place] [address] Phone Care Team Providers Care Foiling Machine Operator Name Role Phone Ophelia Belle MD Primary Care Provider [phone] Allergies Active Allergy Reactions Criticality Noted Date [...] measures to stabilize the patient. Care Teams Foiling Machine Operator Relationship Specialty Start Date End Date Ophelia Belle MD PCP - General Family Medicine 09/22/23
--- OUTSIDE RECORDS SUMMARY | 2025-03-21 01:21 | XMS_ITS | Clinical Summary ---
Author Organization [facility] [address] Address [address] [address] Phone Care Team Providers Care Head Of Business Development Name Role Phone No, Physician Unavailable Ophelia Castrejon MD Primary Care Provider [phone] Allergies Active Allergy Reactions Criticality Noted Date [...] 1 tablet by mouth as needed Active vit 57-vfyx-iidna-d lopez 27mg iron- 800 mcg-250 mg capsule Take 1 tablet by mouth daily Active ferrous sulfate 325 mg (65 mg of elemental iron) tabletIndicatio ns:Iron Deficiency Anemia Take 1 tablet (325 mg total) by mouth daily with breakfast Active Active Problems Problem Noted Date Diagnosed Date contractions 03/03/2025 Dehydration 02/19/2025 Morbid obesity 04/01/2024 Asthma in adult 03/04/2024 Eosinophilic esophagitis 03/03/2024 Heartburn 02/29/2024 Morbid obesity due to excess calories 10/01/2023 Assessment & Plan (05/19/2024 9:07 AM HOSPITAL CHIEF FINANCIAL OFFICER): Continue small frequent meals encouraging protein supplementation. [...] Encounters Date Type Department Care Team Description 03/02/2025 5:13 PM HOSPITAL CHIEF FINANCIAL OFFICER - 03/03/2025 1:55 PM HOSPITAL CHIEF FINANCIAL OFFICER Hospital Encounter [facility] 1 [place] [address] Tim Hernandez MD Discharge Disposition: Discharge to home or self care 02/19/2025 11:53 AM HOSPITAL CHIEF FINANCIAL OFFICER - 02/19/2025 2:10 PM HOSPITAL CHIEF FINANCIAL OFFICER Hospital Encounter [facility] 1 [place] [address] Tim Hernandez MD Discharge Disposition: Discharge to home or self [...] often do you attend chur ch or congregational services? Patient declined 05/12/2024 Do you belong to any clubs o r organizations such as evangelical groups, unions, fraternal or athletic groups, or [...] points, staff should administer the PHQ-9) 0 03/02/2025 PRAPARE - Transportation Answer Date Re corded [...] any time in the past 12 m ont, were you homeless or living in a [place] health care facility (including now)? No 05/12/2024 Humiliation, Afraid, Rape, and Kick questionnair e Answer Date Recorded Within the last year, have y ou been afraid of your partner or ex-partner? No 03/02/2025 Within the last year, have y ou been humiliated or emotionally abused in other ways by your partner or ex-partner? No Within the last year, have y ou been kicked, hit, slapped, or otherwise physically hurt by your partner or ex-partner? No 03/02/2025 Within the last year, have y ou been raped or forced to have any kind of sexual activity by your partner or ex-partner? No 03/02/2025 Social Connection and Isolation Panel Answer Date Recorded In a typical week, how many times do you talk on the phone with family, friends, or neighbors? More than three times a week 03/02/2025 How often do you get togethe r with friends or relatives? More than three times a week 03/02/2025 How often do you attend [facility] or congregational services? Patient declined 03/02/2025 Do you belong to any clubs o r organizations such as evangelical groups, unions, fraternal or athletic groups, or school groups? Patient declined 03/02/2025 How often do you attend meet ings of the clubs or organizations you belong to? Patient declined 03/02/2025 Are you , , di vorced, , never , or living with a partner? Living with partner 03/02/2025 AUDIT-C Answer Date Recorded Q1: How often do you have a drink containing alcohol? Never 03/02/2025 Q2: How many drinks containi ng alcohol do you have on a typical day when you are drinking? Patient does not drink Q3: How often do you have si x or more drinks on one occasion? Never 03/02/2025 Overall Financial Resource Strain (CARDIA) Answe r Date Recorded How hard is it for you to pa y for the very basics like food, housing, medical care, and heating? Not hard at all 03/02/2025 [facility] - Occupational Stress Questionnaire Answer Date Recorded Do you feel stress - tense, restless, nervous, or anxious, or unable to sleep at night because your mind is troubled all the time - these days? To some extent 03/02/2025 Exercise Vital Sign Answer Date Recorde d On average, how many days pe r week do you engage in moderate to strenuous exercise (like a brisk walk)? 0 days 03/02/2025 On average, how many minutes do you engage in exercise at this level? 0 min 03/02/2025 Hunger Vital Sign Answer Date Recorded Within the past 12 months, y ou worried that your food would run out before you got the money to buy more. Never true 03/02/20 25 Within the past 12 months, t he food you bought just didn't last and you didn't have money to get more. Never true 03/02/2025 PRAPARE - Transportation Answer Date Re corded In the past 12 months, has l ack of transportation kept you from medical appointments or from getting medications? No 02/20 In the past 12 months, has l ack of transportation kept you from meetings, work, or from getting things needed for daily living? No 03/02/2025 Housing Stability Vital Sign Answer Alfie e Recorded In the last 12 months, was t here a time when you were not able to pay the mortgage or rent on time? No 03/02/2025 In the past 12 months, how m any times have you moved where you were living? 0 03/02/2025 At any time in the past [address] [facility], were you homeless or living in a [place] health care facility (including now)? No 03/02/2025 [facility] Utilities Answer Date Recorded In the past 12 months has e [place], gas, oil, or water [place] threatened to shut off services in your home? No 03/02/2025 Personal Safety Answer Date Recorded Have you ever been in or are you currently in a harmful physical or emotional relationship or is someone making you feel afraid or unsafe? Denies 03/02/2025 Estimated Date of Delivery Comme nts Yes 04/17/2025 Date entered alexx or to episode creation Sex and Gender Information Value Date Recorded Sex Assigned at Not on file Legal Sex Female 3:46 AM HOSPITAL CHIEF FINANCIAL OFFICER Gender Identity Not on file Sexual Orientation Straight 03/30/2024 3: 08 PM HOSPITAL CHIEF FINANCIAL OFFICER Obstetrics History Para Term AB IAB SAB Ectopic Multiple Livin g Live Births 3 1 1 1 0 1 1 Date Outcome GA Total Labor Labor/2nd/3rd Weight Sex Type Anes PTL Aurea A1 A5 Name Clin AB 2017 Term 39w 6d 0h 02m 0h 02m 3.309 kg (7 lb 4.7 oz) F CS-LT ranv Genera l N Livin g 5 7 MAYRA MCDUFFIE,Sebastian De Leon MD Delivery Location:This [facility] ([facility]) Current Summary Episode Dates Number of Fetuses Estimated Date of Delivery 12/01/2024 - Present (03/21/2025) 04/17/2025 (based on Alternate PATRICA Entry) Dating Summary Based On PATRICA GA Diff Last Menstrual Period (Exact Date) Alternate PATRICA Entry 04/17/2025 Working Comment:Date entered prior t o episode creation Vitals Pregravid Weight Height TWG (As of 03/21/2025) Pregrav id BMI 154.9 cm (5' 1) Date GA Fund Present FHR Mvmt BP Weight Edema Alb Glu Ket Dil/ Eff/Sta 5 20w3d Inpatient data not displayed here. See encounter summary. 5 31w6d Inpatient data not displayed here. See encounter summary. 5 33w4d Inpatient data not displayed here. See encounter summary. Notes Progress Notes - Hospital En counter - 12/01/2024 - GA:20w3d 12/01/2024 - - Ayla Ward RN Orders received for discharge. Follow up and D/C instructions including pre- eclampsia reviewed with pt. Pt stated understanding and denied any questions or concerns at this time. Ambulated out of L&D with no apparent distress. Ayla Miramontes RN 12/01/2024 - - Ayla Ward RN Discussed pt's status with Dr. Pagan claim professional. Dr. Pagan requested that caffeine and nutrition [...] Sign Reading Time Taken Comments Blood Pressure 96/56 03/03/2025 1:18 PM HOSPITAL CHIEF FINANCIAL OFFICER Pulse 76 03/03/2025 1:18 PM HOSPITAL CHIEF FINANCIAL OFFICER Temperature 36.2 C (97.1 F) 03/03/2025 1:26 AM HOSPITAL CHIEF FINANCIAL OFFICER Respiratory Rate 16 03/03/2025 1:15 AM HOSPITAL CHIEF FINANCIAL OFFICER Oxygen Saturation 100% 03/03/2025 9:51 AM HOSPITAL CHIEF FINANCIAL OFFICER Inhaled Oxygen Concentration - - Weight 74.4 kg (164 lb) 12/01/2024 8:22 AM CDT Height 154.9 cm (5' 1) 12/01/2024 8:22 AM CDT Body Mass Index 30.99 12/01/2024 8:22 AM CDT Plan of Treatment Upcoming Encounters Date Type Department Care Team (Late st Contact Info) Description 04/09/2025 Hospital Encounter [facility] 1 [place] [address] Tim Hernandez MD [address] [place] [address] [address] [place] [address] Health Maintenance Due Date Last Done Comments [...] Influenza Vaccine (#1) 2024 01/12/2021 Depression Screening 02/19/2026 02/19/2025, 02/19/2025, 12/01/2024, Additional history exists DTaP/Tdap/Td Vaccine (8 - Td or Tdap) 08/15/2030 08/15/2020, 01/11/2007, 02/09/1998, Additional history exists Hepatitis B Screening Completed 08/19/1994 , 1993, 1993 Procedures Procedure Name Priority Date/Time Associated Diagnosis Comments URINALYSIS, MICROSCOPIC ONLY STAT 03/02/2025 5:33 PM HOSPITAL CHIEF FINANCIAL OFFICER PAMG-1 PROTEIN MARKER (ROM) STAT 03/02/2025 5:33 PM HOSPITAL CHIEF FINANCIAL OFFICER URINALYSIS AND REFLEX TO MICROSCOPIC AND CULTURE STAT 03/02/2025 5:33 PM HOSPITAL CHIEF FINANCIAL OFFICER URINALYSIS, MICROSCOPIC ONLY STAT 02/19/2025 1:15 PM HOSPITAL CHIEF FINANCIAL OFFICER URINALYSIS AND REFLEX TO MICROSCOPIC AND CULTURE STAT 02/19/2025 1:15 PM HOSPITAL CHIEF FINANCIAL OFFICER EGFR STAT 02/19/2025 12:34 PM HOSPITAL CHIEF FINANCIAL OFFICER DIFFERENTIAL AUTO STAT 02/19/2025 12: 34 PM HOSPITAL CHIEF FINANCIAL OFFICER SEPSIS LACTATE WITH REFLEX STAT 02/19/2025 12:34 PM HOSPITAL CHIEF FINANCIAL OFFICER COMPREHENSIVE METABOLIC PANEL STAT 02/19/2025 12:34 PM HOSPITAL CHIEF FINANCIAL OFFICER CBC WITH AUTO DIFFERENTIAL STAT 02/19/2025 12:34 PM HOSPITAL CHIEF FINANCIAL OFFICER POCT GLUCOSE DEVICE Routine 02/19/2025 1 2:09 PM HOSPITAL CHIEF FINANCIAL OFFICER from Last 3 Months Results * ROM Plus (IGFBP-1/AFP) (03/02/2025 5:33 PM HOSPITAL CHIEF FINANCIAL OFFICER) IFG Binding Protein-1 / AFP Negative Swab 03/02/2025 5:33 PM HOSPITAL CHIEF FINANCIAL OFFICER 03/02/2025 5:40 PM HOSPITAL CHIEF FINANCIAL OFFICER us Tim Hernandez MD LAB BODY FLUIDS AND ST OOLS ORDERABLES Final Result [facility] ([place]) 1 [facility] Department of Laboratories [id number] * (ABNORMAL) Urinalysis reflex to microscopic and culture Urine, clean voided (03/02/2025 5:33 PM HOSPITAL CHIEF FINANCIAL OFFICER) Color, ur Yellow Yellow Clarity, ur Clear Clear [facility] ([place]) Specific gravity, ur 1.030 1.003 - 1.030 [facility] ([place]) pH, urine 7.0 [facility] ([place]) Comment: Interpretive Data U rine pH is affected by diet, medications, systemic acid-base disturbances, and renal tubular function. pH may affect urinary stone formation. For example, urine pH below 6.0 may help reduce the tendency for calcium phosphate stones and pH greater than 6.0 may reduce the tendency for uric acid stone formation. Source: [facility] Current Interpretive Data was last revised on 2017 Protein, ur ql 1+(A) Negative [facility] ([place]) Glucose, ur ql Negative Negative [facility] ([place]) Ketones, ur Trace Negative [facility] ([place]) Bilirubin, ur Negative Negative [facility] ([place]) Blood, ur Negative Negative [facility] ([place]) Urobilinogen, ur 2.0(A) <2.0 mg/dL [facility] ([place]) Nitrite, ur Negative Negative [facility] ([place]) Leukocyte esterase, ur 2+(A) Negative [facility] ([place]) UA reflex comment Reflex to microscopic UA will be performed. [facility] ([place]) Urine, clean voided 03/02/2025 5:33 PM HOSPITAL CHIEF FINANCIAL OFFICER 03/02/2025 5:40 PM HOSPITAL CHIEF FINANCIAL OFFICER us Tim Hernandez MD LAB MICROBIOLOGY - GEN ERAL ORDERABLES Final Result [facility] ([place]) 1 [facility] Department of Laboratories [id number] * (ABNORMAL) Urinalysis, microscopic only (03/02/2025 5:33 PM HOSPITAL CHIEF FINANCIAL OFFICER) WBC, ur 0-5 0 - 5 /HPF RBC, ur 0-2 0 - 2 /HPF [facility] ([place]) Epithelial cells, squamous, ur 1-5 0 - 5 /HPF [facility] ([place]) Bacteria, ur Trace(A) [facility] ([place]) Mucous, ur Present(A) [facility] ([place]) Culture Reflex Comment Reflex conditions for urine culture (WBC >10) not met. [facility] ([place]) Urine, clean voided 03/02/2025 5:33 PM HOSPITAL CHIEF FINANCIAL OFFICER 03/02/2025 5:40 PM HOSPITAL CHIEF FINANCIAL OFFICER Tim Hernandez MD LAB URINE ORDERABLES F inal Result [facility] ([place]) 1 [facility] Department of Laboratories [id number] * (ABNORMAL) Urinalysis reflex to microscopic and culture Urine, clean voided (02/19/2025 1:15 PM HOSPITAL CHIEF FINANCIAL OFFICER) Color, ur Yellow Yellow Clarity, ur Clear Clear [facility] ([place]) Specific gravity, ur 1.018 1.003 - 1.030 [facility] ([place]) pH, urine 7.0 [facility] ([place]) Comment: Interpretive Data U rine pH is affected by diet, medications, systemic acid-base disturbances, and renal tubular function. pH may affect urinary stone formation. For example, urine pH below 6.0 may help reduce the tendency for calcium phosphate stones and pH greater than 6.0 may reduce the tendency for uric acid stone formation. Source: [facility] [employer] Current Interpretive Data was last revised on 2017 Protein, ur ql Trace Negative [facility] ([place]) Glucose, ur ql Negative Negative [facility] ([place]) Ketones, ur Negative Negative [facility] ([place]) Bilirubin, ur Negative Negative [facility] ([place]) Blood, ur Negative Negative [facility] ([place]) Urobilinogen, ur <2.0 <2.0 mg/dL [facility] ([place]) Nitrite, ur Negative Negative [facility] ([place]) Leukocyte esterase, ur 1+(A) Negative [facility] ([place]) UA reflex comment Reflex to microscopic UA will be performed. [facility] ([place]) Urine, clean voided 02/19/2025 1:15 PM HOSPITAL CHIEF FINANCIAL OFFICER 02/19/2025 1:21 PM HOSPITAL CHIEF FINANCIAL OFFICER Tim Hernandez MD LAB MICROBIOLOGY - GEN ERAL ORDERABLES Final Result Performing Organization Address [facility] Co de Phone Number [facility] ([place]) 1 [place] [address] * (ABNORMAL) Urinalysis, microscopic only (02/19/2025 1:15 PM HOSPITAL CHIEF FINANCIAL OFFICER) [facility] WBC, ur 0-5 0 - 5 /HPF RBC, ur 0-2 0 - 2 /HPF [facility] ([place]) Epithelial cells, squamous, ur 1-5 0 - 5 /HPF [facility] ([place]) Mucous, ur Present(A) [facility] ([place]) Culture Reflex Comment Reflex conditions for urine culture (WBC >10) not met. [facility] ([place]) Urine, clean voided 02/19/2025 1:15 PM HOSPITAL CHIEF FINANCIAL OFFICER 02/19/2025 1:21 PM HOSPITAL CHIEF FINANCIAL OFFICER Tim Hernandez MD LAB URINE ORDERABLES F inal Result Performing Organization Address [facility] Co de Phone Number [facility] ([place]) 1 [place] [address] * Sepsis Lactate w/ Reflex (02/19/2025 12:34 PM HOSPITAL CHIEF FINANCIAL OFFICER) [facility] Sepsis Lactate 1.4 0.7 - 2.0 mmol/L Blood 02/19/2025 12:3 4 PM HOSPITAL CHIEF FINANCIAL OFFICER 02/19/2025 12:42 PM HOSPITAL CHIEF FINANCIAL OFFICER Ellis Coleman MD LAB BLOOD ORDERABLE S Final Result Performing Organization Address [facility] Co de Phone Number [facility] ([place]) 1 [place] [address] * eGFR (02/19/2025 12:34 PM HOSPITAL CHIEF FINANCIAL OFFICER) [facility] eGFR >90 >=60 mL/min/1. 73 m2 Comment: Interpretive Data Reference Interval Normal >/= 90 mL/min/1.73m2 Mildly decreased* 60 - 89 mL/min/1.73m2 Mildly to moderately decreased 45 - 59 mL/min/1.73m2 Moderately to severely decreased 30 - 44 mL/min/1.73m2 Severely decreased 15 - 29 mL/min/1.73m2 Kidney Failure < 15 mL/min/1.73m2 *Relative to young adult level Estimated glomerular filtration rate is determined by the 2020 CKD-EPI equation recommended by the National Kidney Foundation (A Unifying Approach to GFR Estimation: Recommendations of the NKF-ASK Task Force on Reassessing the Inclusion of Race in Diagnosing Kidney Disease, JASN 2020). The CKD-EPI equation should not be used for patients with unstable renal function and has not been validated in children and those over 70. Current interpretive data was last reviewed 2021. Blood 02/19/2025 12:3 4 PM HOSPITAL CHIEF FINANCIAL OFFICER 02/19/2025 12:42 PM HOSPITAL CHIEF FINANCIAL OFFICER us Ellis Coleman MD LAB BLOOD ORDERABLE S Final Result [facility] ([place] 1 [facility] Department of Laboratories [id number] * Differential, auto (02/19/2025 12:34 PM HOSPITAL CHIEF FINANCIAL OFFICER) Neutrophil abs 4.63 1.50 - 6.50 K/cumm Imm gran abs 0.03 0.00 - 0.10 K/cumm [facility] ([place]) Lymphocyte abs 1.47 0.80 - 3.30 K/cumm [facility] ([place]) Monocyte abs 0.41 0.20 - 0.80 K/cumm [facility] ([place]) Eosinophil abs 0.03 0.00 - 0.50 K/cumm [facility] ([place]) Basophil abs 0.01 0.00 - 0.10 K/cumm [facility] ([place]) Neutrophil pct 70.3 % [facility] ([place]) Comment: Interpretive Data Percent cell count reference ranges are not reported, since discordance with absolute values may lead to misinterpretation of CBC data. Current Interpretive Data was last revised on 2017. Imm gran pct 0.5 % [facility] ([place]) Comment: Interpretive Data Percent cell count reference ranges are not reported, since discordance with absolute values may lead to misinterpretation of CBC data. Current Interpretive Data was last revised on 2017. Lymphocyte pct 22.3 % [facility] ([place]) Comment: Interpretive Data Percent cell count reference ranges are not reported, since discordance with absolute values may lead to misinterpretation of CBC data. Current Interpretive Data was last revised on 2017. Monocyte pct 6.2 % [facility] ([place]) Comment: Interpretive Data Percent cell count reference ranges are not reported, since discordance with absolute values may lead to misinterpretation of CBC data. Current Interpretive Data was last revised on 2017. Eosinophil pct 0.5 % [facility] ([place]) Comment: Interpretive Data Percent cell count reference ranges are not reported, since discordance with absolute values may lead to misinterpretation of CBC data. Current Interpretive Data was last revised on 2017. Basophil pct 0.2 % [facility] ([place]) Comment: Interpretive Data Percent cell count reference ranges are not reported, since discordance with absolute values may lead to misinterpretation of CBC data. Current Interpretive Data was last revised on 2017. Blood 02/19/2025 12:3 4 PM HOSPITAL CHIEF FINANCIAL OFFICER 02/19/2025 12:42 PM HOSPITAL CHIEF FINANCIAL OFFICER us Ellis Coleman MD LAB BLOOD ORDERABLE S Final Result [facility] ([place]) 1 [facility] Department of Laboratories [id number] * (ABNORMAL) CBC with auto differential (02/19/2025 12:34 PM HOSPITAL CHIEF FINANCIAL OFFICER) WBC 6.58 3.80 - 9.90 K/cumm Hgb 9.3(L) 11.9 - 15.5 g/dL [facility] ([place]) Hct 28.1(L) 35.6 - 45.5 % [facility] ([place]) Plt 243 150 - 400 K/cumm [facility] ([place]) MPV 10.9 9.1 - 12.3 fL [facility] ([place]) RBC 3.04(L) 3.90 - 5.20 M/cumm [facility] ([place]) MCV 92.4 81.3 - 96.4 fL [facility] ([place]) MCH 30.6 27.1 - 33.3 pg [facility] ([place]) MCHC 33.1 32.3 - 35.7 g/dL [facility] ([place]) RDW CV 13.1 11.1 - 14.9 % [facility] ([place]) RDW SD 43.7 35.7 - 48.1 fL [facility] ([place]) NRBC abs 0.00 0.00 - 0.01 K/cumm [facility] ([place]) Blood 02/19/2025 12:3 4 PM HOSPITAL CHIEF FINANCIAL OFFICER 02/19/2025 12:42 PM HOSPITAL CHIEF FINANCIAL OFFICER Ellis Coleman MD LAB BLOOD ORDERABLE S Final Result [facility] ([place] 1 [facility] Department of Laboratories [id number] * (ABNORMAL) Comprehensive metabolic panel (02/19/2025 12:34 PM HOSPITAL CHIEF FINANCIAL OFFICER) Sodium 132(L) 135 - 145 mmol/L Potassium, pl 3.4 3.3 - 4.9 mmol/L [facility] ([place]) Chloride 104 97 - 110 mmol/L [facility] ([place]) CO2 18(L) 22 - 32 mmol/L [facility] ([place]) Anion gap 10 2 - 15 mmol/L [facility] ([place]) BUN 7 6 - 25 mg/dL [facility] ([place]) Creatinine 0.54(L) 0.60 - 1.10 mg/dL [facility] ([place]) Glucose 100 70 - 199 mg/dL [facility] ([place]) Comment: Interpretive Data Fasting glucose >/= 126 mg/dl is diagnostic for diabetes. Fasting is defined as no caloric intake for at least 8 hours. Fasting glucose between 100 mg/dl to 125 mg/dl is diagnostic of prediabetes. In a patient with classic symptoms of hyperglycemia or hyperglycemic crisis, a random glucose >/= 200 mg/dl is diagnostic for diabetes. In the absence of unequivocal hyperglycemia, results should be confirmed by repeat testing. The classification and Diagnosis of Diabetes Diabetes Care 2021; 46: S19-S40. Current interpretive data was last revised 2022. Calcium 8.3(L) 8.5 - 10.3 mg/dL [facility] ([place]) Bilirubin, total 0.2 0.1 - 1.2 mg/dL [facility] ([place]) Protein, pl 5.9(L) 6.5 - 8.5 g/dL [facility] ([place]) Albumin 3.4(L) 3.5 - 5.0 g/dL [facility] ([place]) Alk phos 83 40 - 130 Units/L [facility] ([place]) ALT 7 7 - 45 Units/L [facility] ([place]) AST 15 10 - 45 Units/L [facility] ([place]) Blood 02/19/2025 12:3 4 PM HOSPITAL CHIEF FINANCIAL OFFICER 02/19/2025 12:42 PM HOSPITAL CHIEF FINANCIAL OFFICER Ellis Coleman MD LAB BLOOD ORDERABLE S Final Result [facility] ([place]) 1 [facility] [place] [id number] * POCT glucose (02/19/2025 12:09 PM HOSPITAL CHIEF FINANCIAL OFFICER) Glucose, POC 112 70 - 199 mg/dL Blood 02/19/2025 12:0 9 PM HOSPITAL CHIEF FINANCIAL OFFICER 02/19/2025 12:09 PM HOSPITAL CHIEF FINANCIAL OFFICER Tim Hernandez MD LAB POCT ORDERABLES - DEVICE Final Result [facility] ([place]) 1 [facility] [employer] [id number] from Last 3 Months Insurance [facility] Advance Directives For more information, please contact: [phone] * Full Code (Latest Code Status on [...] c ase of cardiopulmonary arrest Care Teams Head Of Business Development Relationship Specialty Start Date End Date Ophelia Castrejon MD PCP - General Family Medicine 10/12/23 No, Physician 07/13/17
--- OUTSIDE RECORDS SUMMARY | 2025-03-21 01:22 | XMS_ITS | Continuity of Care Document ---
Author Organization [facility] Address [address] [place] [address] Assessment Encounter Date Assessment Date Assessment LastModified [...] 7.5% normal Not Available [facility] [address], [place], [address], 10/17/2024 23:58:00 10/18/19 25 10/17/2024 [UNIT Y] ANEUP LOIDY NIPT 22Q11.2 microdeletio n LOW RISK <1 in 10,000 normal Not Available [facility] [address], [place], [address], 10/17/2024 23:58:00 10/18/19 25 10/17/2024 [UNIT Y] ANEUP LOIDY NIPT sex chromosome aneuploidy NOT DETECT ED normal Not Available [facility] [address], [place], [address], 10/17/2024 23:58:00 10/18/19 25 10/17/2024 [UNIT Y] ANEUP LOIDY NIPT monosomy X LOW RISK <1 in 10,000 normal Not Available [facility] [address], [place], [address], 10/17/2024 23:58:00 10/18/19 25 10/17/2024 [UNIT Y] ANEUP LOIDY NIPT trisomy 13 LOW RISK <1 in 10,000 normal Not Available [facility] [address], [place], [address], 10/17/2024 23:58:00 10/18/19 25 10/17/2024 [UNIT Y] ANEUP LOIDY NIPT trisomy 18 LOW RISK <1 in 10,000 normal Not Available [facility] [address], [place], [address], 10/17/2024 23:58:00 10/18/19 25 10/17/2024 [UNIT Y] ANEUP LOIDY NIPT trisomy 21 LOW RISK <1 in 10,000 normal Not Available [facility] [address], [place], [address], 10/17/2024 23:58:00 10/18/19 25 10/17/2024 [UNIT Y] ANEUP LOIDY NIPT sex MALE normal Not Available [facility] [address], [place], [address], 10/17/2024 23:58:00 10/18/19 25 10/17/2024 [UNIT Y] ANEUP LOIDY NIPT gestation SINGLE TON normal Not Available [facility] [address], [place], [address], 10/17/2024 23:58:00 10/18/19 25 10/17/2024 [UNIT Y] ANEUP LOIDY NIPT for detailed report, see pdf See PDF normal Not Available [facility] [address], [place], [address], 10/17/2024 23:58:00 10/22/19 25 10/21/2024 [UNIT Y] MIKE Galvez sickle cell disease/beta -thalassemia /hemoglobino pathies carrier screen NEGATI VE normal Not Available [facility] [address], [place], [address], 10/21/2024 17:38:31 10/22/19 25 10/21/2024 [UNIT Y] MIKE Galvez alpha-thalas semia carrier screen NEGATI VE normal Not Available [facility] [address], [place], [address], 10/21/2024 17:38:31 10/22/19 25 10/21/2024 [UNIT Y] MIKE Galvez cystic fibrosis carrier screen NEGATI VE normal Not Available [facility] [address], [place], [address], 10/21/2024 17:38:31 10/22/19 25 10/21/2024 [UNIT Y] MIKE Galvez spinal muscular atrophy carrier screen NEGATI VE 2 SMN1 copies , SNP not presen t normal Not Available [facility] [address], [place], [address], 10/21/2024 17:38:31 10/22/19 25 10/21/2024 [UNIT Y] MIKE MACIAS Leonor for detailed report, see pdf See PDF normal Not Available [facility] [address], [place], [address], 10/21/2024 17:38:31 10/12/19 25 10/11/2024 CBC W/DIF F WBC 7.0 10'3/ uL 3.5-10 .5 Not Available [facility] (Lab) [address] [facility], [place], [address], 10/12/2024 13:07:49 10/12/19 25 10/11/2024 CBC W/DIF F RBC 3.94 10'6/ uL (based on docume nted legal sex) 3.80-5 .20 Not Available [facility] (Lab) [address] [facility], [place], [address], 10/12/2024 13:07:49 10/12/19 25 10/11/2024 CBC W/DIF F HGB 12.1 g/dL (based on docume nted legal sex) 11.6-1 5.4 Not Available [facility] (Lab) [address] [facility], [place], [address], 10/12/2024 13:07:49 10/12/19 25 10/11/2024 CBC W/DIF F HCT 36.3 % (based on docume nted legal sex) 34.0-4 5.0 Not Available [facility] (Lab) [address] [facility], [place], [address], 10/12/2024 13:07:49 10/12/19 25 10/11/2024 CBC W/DIF F MCV 92.1 fL 80.0-9 9.0 Not Available [facility] (Lab) [address] [facility], [place], [address], 10/12/2024 13:07:49 10/12/19 25 10/11/2024 CBC W/DIF F MCH 30.7 pg 27.0-3 4.0 Not Available [facility] (Lab) [address] [facility], [place], [address], 10/12/2024 13:07:49 10/12/19 25 10/11/2024 CBC W/DIF F MCHC 33.3 g/dL 32.0-3 5.5 Not Available [facility] (Lab) [address] [facility], [place], [address], 10/12/2024 13:07:49 10/12/19 25 10/11/2024 CBC W/DIF F RDW 12.4 % 11.0-1 5.0 Not Available [facility] (Lab) [address] [facility], [place], [address], 10/12/2024 13:07:49 10/12/19 25 10/11/2024 CBC W/DIF F plt 278 10'3/ uL 150-40 0 Not Available [facility] (Lab) [address], [place], [address], 10/12/2024 13:07:49 10/12/19 25 10/11/2024 CBC W/DIF F MPV 11.7 fL 8.8-12 .1 Not Available [facility] (Lab) [address] [facility], [place], [address], 10/12/2024 13:07:49 10/12/19 25 10/11/2024 CBC W/DIF F NRBC's 0.0 % 0.0 Not Available [facility] (Lab) [address] [facility], [place], [address], 10/12/2024 13:07:49 10/12/19 25 10/11/2024 CBC W/DIF F absolute NRBCs 0.0 10'3/ uL no refere nce range establ ished Not Available [facility] (Lab) [address], [place], [address], 10/12/2024 13:07:49 10/12/19 25 10/11/2024 CBC W/DIF F neutrophils 71.6 % 34.0-7 3.0 Not Available [facility] (Lab) [address] [facility], [place], [address], 10/12/2024 13:07:49 10/12/19 25 10/11/2024 CBC W/DIF F lymphocytes 22.8 % 15.0-5 0.0 Not Available [facility] (Lab) [address] [facility], [place], [address], 10/12/2024 13:07:49 10/12/19 25 10/11/2024 CBC W/DIF F monocytes 4.7 % 1.0-15 .0 Not Available [facility] (Lab) [address] [facility], [place], [address], 10/12/2024 13:07:49 10/12/19 25 10/11/2024 CBC W/DIF F eosinophils 0.3 % 0.0-8. 0 Not Available [facility] (Lab) [address] [facility], [place], [address], 10/12/2024 13:07:49 10/12/19 25 10/11/2024 CBC W/DIF F basophils 0.3 % 0.0-2. 0 Not Available [facility] (Lab) [address] [place], [address], 10/12/2024 13:07:49 10/12/19 25 10/11/2024 CBC W/DIF [...] separ ately if prese nt. Not Available [facility] (Lab) [address] [facility], [place], [address], 10/12/2024 13:07:49 10/12/19 25 10/11/2024 CBC W/DIF F absolute neutrophils 5.0 10'3/ uL 1.5-8. 0 Not Available [facility] (Lab) [address] [facility], [place], [address], 10/12/2024 13:07:49 10/12/19 25 10/11/2024 CBC W/DIF F absolute lymphocytes 1.6 10'3/ uL 1.0-4. 0 Not Available [facility] (Lab) [address] [facility], [place], [address], 10/12/2024 13:07:49 10/12/19 25 10/11/2024 CBC W/DIF F absolute monocytes 0.3 10'3/ uL 0.2-1. 0 Not Available [facility] (Lab) [address] [facility], [place], [address], 10/12/2024 13:07:49 10/12/19 25 10/11/2024 CBC W/DIF F absolute eosinophils 0.0 10'3/ uL 0.0-0. 6 Not Available [facility] (Lab) [address] [facility], [place], [address], 10/12/2024 13:07:49 10/12/19 25 10/11/2024 CBC W/DIF F absolute basophils 0.0 10'3/ uL 0.0-0. 3 Not Available [facility] (Lab) [address] [facility], [place], [address], 10/12/2024 13:07:49 10/12/19 25 10/11/2024 CBC W/DIF F absolute immature granulocytes 0.0 10'3/ uL 0.00-0 .10 Refer ence range s for nonbi nary/ inter sex or unspe cifie d gende r patie nts have not been estab lishe d. Pleinessa e refer to the [facility] table for range s estab lishe d for cisge nder patie nts and evalu ate in the clini robinson leonard xt of the indiv idual patie nt: https ://la bhand book. nm.or g/gen derx Not Available [facility] (Lab) [address], [place], [address], 10/12/2024 13:07:49 10/12/19 25 10/11/2024 HIV 1/2 ANTIG EN/AN TIBOD Y, REFLE X CONFI RMATI ON HIV antigen/anti body Nonrea ctive nonrea ctive HIV-1 antig en and HIV-1 /HIV- 2 antib odies were not detec nishant. No labor atory evide nce of HIV infec tion. Not Available [facility] (Lab) [address], [place], [address], 10/12/2024 13:07:50 10/12/19 25 10/11/2024 HEPAT ITIS B SURFA CE ANTIG EN hepatitis B surface antigen Non-re active non-re active This assay was perfo rmed using [employer] [facility] [facility] [employer] ratio n reage nts and test kits. Value s obtai francois with other assay metho ds or kits canno t be used inter serna eably . Not Available [facility] (Lab) [address], [place], [address], 10/12/2024 13:07:50 10/12/19 25 10/11/2024 HEPAT ITIS C ANTIB KERI SCREE N, REFLE X TO CONFI RMATI ON hepatitis C antibody Non-re active non-re active Antib odies to HCV Not Detec nishant, does not exclu de the possi bilit y of expos ure to HCV. Not Available [facility] (Lab) [address], [place], [address], 10/12/2024 13:07:51 10/12/19 25 10/11/2024 RUBEL LA IGG ANTIB KERI, QUANT rubella antibodies, IgG Reacti ve reacti ve Not Available [facility] (Lab) [address] [place], [address], 10/12/2024 13:07:51 10/12/19 25 10/11/2024 RUBEL LA IGG ANTIB KERI, QUANT rubella antibodies, IgG quant 18.4 IU/mL >=10 Non-r eacti ve (Non- Immun e) <10 IU/mL React filippo (Immu ne) > or = 10 IU/mL Not Available [facility] (Lab) [address] [facility], [place], [address], 10/12/2024 13:07:51 10/12/19 25 10/11/2024 TYPE/ RH/SC REEN ABO/Rh type O POS Not Available [facility] (Lab) [address] [facility], [place], [address], 10/12/2024 13:07:51 10/12/19 25 10/11/2024 TYPE/ RH/SC REEN antibody screen NEG Not Available [facility] (Lab) [address] [facility], [place], [address], 10/12/2024 13:07:51 10/12/19 25 10/11/2024 TYPE/ RH/SC REEN exp date 2024 23:59 Not Available [facility] (Lab) [address] [facility], [place], [address], 10/12/2024 13:07:51 10/12/19 25 10/11/2024 HEMOG LOBIN [...] >8.0% Actio n sugge sted Not Available [facility] (Lab) [address] [facility], [place], [address], 10/12/2024 13:07:52 10/12/19 25 10/11/2024 RPR SCREE N, REFLE X TITER /CONF IRMAT ION RPR qualitative Nonrea ctive nonrea ctive Not Available [facility] (Lab) [address] [facility], [place], [address], 10/12/2024 13:07:53 10/12/19 25 10/11/2024 CULTU RE: URINE result report SEE RESULT S BELOW Test: Cultu re: Urine Speci men Sourc e: Urine Voide d Speci men Type: Urine Speci men Date: 2024 1251 Resul t Date: 20246 Resul t Statu s: Final resul t Abnor mal: No Resul ting Lab: [facility] [address] [facility] [address] Tel: CULTU RE ----- ----- ----- --- No growt h in 1 day (dete ction level of 10,00 0 colon ies / ml.) Not Available [facility] (Lab) [address] [facility], [place], [address], 10/12/2024 22:51:14 10/12/19 25 10/11/2024 drug scree n, urine Amphetamines : negati ve Not Available [facility] [address], [place], [address], 10/11/2024 12:03:44 10/12/19 25 10/11/2024 drug scree n, urine Cannabinoids : negati ve Not Available [facility] [address], [place], [address], 10/11/2024 12:03:44 10/12/19 25 10/11/2024 drug scree n, urine Cocaine: negati ve Not Available [facility] [address], [place], [address], 10/11/2024 12:03:44 10/12/19 25 10/11/2024 drug scree n, urine Opiates: negati ve Not Available [facility] [address], [place], [address], 10/11/2024 12:03:44 10/12/19 25 10/11/2024 drug scree n, urine Phenocyclidi ne: negati ve Not Available [facility] [address], [place], [address], 10/11/2024 12:03:44 10/12/19 25 10/11/2024 drug scree n, urine Barbiturates : negati ve Not Available [facility] [address], [place], [address], 10/11/2024 12:03:44 10/12/19 25 10/11/2024 drug scree n, urine Benzodiazepi aaron: negati ve Not Available [facility] [address], [place], [address], 10/11/2024 12:03:44 10/12/19 25 10/11/2024 drug scree n, urine Ethanol: negati ve Not Available [facility] [address], [place], [address], 10/11/2024 12:03:44 10/12/19 25 10/11/2024 drug scree n, urine Hallucinogen s: negati ve Not Available [facility] [address], [place], [address], 10/11/2024 12:03:44 10/12/19 25 10/11/2024 drug scree n, urine Inhalants: negati ve Not Available [facility] [address], [place], [address], 10/11/2024 12:03:44 12/03/19 25 12/02/2024 CMP(C OMPRE HENSI VE METAB OLIC PANEL ) sodium 136 mmol/ L 133-14 6 Not Available [facility] (Lab) [address] [facility], [place], [address], 12/08/2024 16:08:48 12/03/19 25 12/02/2024 CMP(C OMPRE HENSI VE METAB OLIC PANEL ) potassium 4.4 mmol/ L 3.5-5. 1 Not Available [facility] (Lab) [address] [facility], [place], [address], 12/08/2024 16:08:48 12/03/19 25 12/02/2024 CMP(C OMPRE HENSI VE METAB OLIC PANEL ) chloride 107 mmol/ L 98-107 Not Available [facility] (Lab) [address] [facility], [place], [address], 12/08/2024 16:08:48 12/03/19 25 12/02/2024 CMP(C OMPRE HENSI VE METAB OLIC PANEL ) carbon dioxide 19 mmol/ L 21-31 low Not Available [facility] (Lab) [address] [facility], [place], [address], 12/08/2024 16:08:48 12/03/19 25 12/02/2024 CMP(C OMPRE HENSI VE METAB OLIC PANEL ) anion gap 10 mmol/ L 4-13 Not Available [facility] (Lab) [address] [facility], [place], [address], 12/08/2024 16:08:48 12/03/19 25 12/02/2024 CMP(C OMPRE HENSI VE METAB OLIC PANEL ) blood urea nitrogen 7 mg/dL 7-25 Not Available [facility] (Lab) [address] [facility], [place], [address], 12/08/2024 16:08:48 12/03/19 25 12/02/2024 CMP(C OMPRE HENSI VE METAB OLIC PANEL ) creatinine 0.48 mg/dL 0.60-1 .30 low Not Available [facility] (Lab) [address] [facility], [place], [address], 12/08/2024 16:08:48 12/03/1912/02/2024 CMP(C OMPRE HENSI VE METAB OLIC PANEL ) egfrcr (CKD-epi 2020) >90 mL/mi n/1.7 3_m2 >=60 Not Available [facility] (Lab) [address] [facility], [place], [address], 12/08/2024 16:08:48 12/03/1912/02/2024 CMP(C OMPRE HENSI VE METAB OLIC PANEL ) calcium 8.5 mg/dL 8.3-10 .5 Not Available [facility] (Lab) [address] [facility], [place], [address], 12/08/2024 16:08:48 12/03/1912/02/2024 CMP(C OMPRE HENSI VE METAB OLIC PANEL ) glucose 74 mg/dL 70-100 Not Available [facility] (Lab) [address] [facility], [place], [address], 12/08/2024 16:08:48 12/03/1912/02/2024 CMP(C OMPRE HENSI VE METAB OLIC PANEL ) protein, total 6.3 g/dL 6.4-8. 3 low Not Available [facility] (Lab) [address] [facility], [place], [address], 12/08/2024 16:08:48 12/03/1912/02/2024 CMP(C OMPRE HENSI VE METAB OLIC PANEL ) albumin 3.5 g/dL 3.5-5. 0 Not Available [facility] (Lab) [address] [facility], [place], [address], 12/08/2024 16:08:48 09/12/20 25 12/02/2024 CMP(C OMPRE HENSI VE METAB OLIC PANEL ) ALT 8 units /L 9-43 low Not Available [facility] (Lab) [address] [facility], [place], [address], 12/08/2024 16:08:48 12/03/19 25 12/02/2024 CMP(C OMPRE HENSI VE METAB OLIC PANEL ) alkaline phosphatase 57 units /L 34-104 Not Available [facility] (Lab) [address] [facility], [place], [address], 12/08/2024 16:08:48 12/03/19 25 12/02/2024 CMP(C OMPRE HENSI VE METAB OLIC PANEL ) AST 17 units /L 13-39 Not Available [facility] (Lab) [address] [facility], [place], [address], 12/08/2024 16:08:48 12/03/19 25 12/02/2024 CMP(C OMPRE HENSI VE METAB OLIC PANEL ) bilirubin, total 0.4 mg/dL 0.2-1. 2 Not Available [facility] (Lab) [address] [facility], [place], [address], 12/08/2024 16:08:48 12/03/1912/02/2024 FABIOLA TIN / IRON / TRANS FABIOLA N / TIBC iron 83 ug/dL 40-170 Not Available [facility] (Lab) [address] [facility], [place], [address], 12/08/2024 16:08:49 12/03/1912/02/2024 FABIOLA TIN / IRON / TRANS FABIOLA N / TIBC transferrin 305 mg/dL 200-36 0 Not Available [facility] (Lab) [address] [place], [address], 12/08/2024 16:08:49 12/03/19 25 12/02/2024 FABIOLA TIN / IRON / TRANS FABIOLA N / TIBC ferritin 82.3 NG/mL 8.0-25 2.0 Not Available [facility] (Lab) [address] [facility], [place], [address], 12/08/2024 16:08:49 12/03/19 25 12/02/2024 FABIOLA TIN / IRON / TRANS FABIOLA N / TIBC TIBC 427 ug/dL 250-45 0 Not Available [facility] (Lab) [address] [facility], [place], [address], 12/08/2024 16:08:49 12/03/19 25 12/02/2024 FABIOLA TIN / IRON / TRANS FABIOLA N / TIBC iron saturation 19 % 20-55 low Not Available [facility] (Lab) [address] [facility], [place], [address], 12/08/2024 16:08:49 12/03/19 25 12/02/2024 VITAM IN B12 / FOLAT E PANEL vitamin B12 202 pg/mL 180-91 4 Pooja l Range : 180-9 14 pg/mL . Indet ermin ate Range : 145-1 80 pg/mL . Defic ient Range : <=145 pg/mL . Not Available [facility] (Lab) [address] [facility], [place], [address], 12/08/2024 16:08:49 12/03/19 25 12/02/2024 VITAM IN B12 / FOLAT E PANEL folate, serum >20.0 NG/mL 6.0-20 .0 high Not Available [facility] (Lab) [address] [place], [address], 12/08/2024 16:08:49 12/03/19 25 12/02/2024 VITAM IN D, 25-OH (TOTA L D2/D3 ) vitamin D, 25-hydroxy, total 28.2 NG/mL 30.0-1 00.0 low Sugge stive of Defic iency : <20 ng/mL Sugge stive of Insuf ficie ncy: 20-29 ng/mL Sugge stive of Suffi cienc y: 30-10 0 ng/mL Sugge stive of Toxic ity: >150 ng/mL Not Available [facility] (Lab) [address] [facility], [place], [address], 12/08/2024 16:08:49 12/03/1912/02/2024 LEAD, BLOOD (ADUL T/PED [...] Infor matmery n: Site ID: CB Name: [employer] [facility]-Jared Lowry Addre ss: [address] [place] [address] [facility] tor: Bhaskar sears Not Available [facility] (Lab) [address] [facility], [place], [address], 12/08/2024 16:08:50 12/03/1912/02/2024 VITAM IN A (RETI NOL) vitamin A 32 mcg/d L 38-98 low (Note ) Cli n Chem Vol. 34.No .8. pp162 5-162 1997 Vitam in suppl ement ation withi n 24 hours prior to blood draw may affec t the accur acy of [facility]. This test was devel oped and its linda tical perfo rmanc e che cteri stics have been deter mined by [facility]. It has not been clear ed or appro doug by the FDA. This assay has been valid ated pursu ant to the CLIA regul ation s and is used for clini robinson purpo ses. GRACIELA med fusio n [address] [facility] [address] [facility] [address] [phone] Victorina Johnson MD, PhD Perfo rming Organ izati on Infor matio n: Site ID: [id number] Name: Park Tinsley ss: [address] [facility] [address], [address] [place] [address] Direc tor: Victorina Johnson MD,Ph D Not Available [facility] (Lab) [address] [facility], [place], [address], 12/08/2024 16:08:50 10/12/19 25 10/11/2024 US, obste tric, nucha l trans lucen cy No observ ation record ed. [email or web address] [facility] [address], [place], [address], 10/11/2024 13:10:00 10/12/19 25 10/11/2024 US, obste tric, 1st trime ster No observ ation record ed. [email or web address] [facility] [address], [place], [address], 10/11/2024 13:10:09 10/12/19 25 10/11/2024 US, obste tric, nucha l trans lucen cy No observ ation record ed. [email or web address] [facility] [address] [address], [place], [address], 10/14/2024 09:45:42 11/17/19 25 11/16/2024 imagi ng/di agnos tic resul t No observ ation record ed. [facility] [address] [place], [address], 2024 21:39:44 11/19/19 25 11/16/2024 imagi ng/di agnos tic resul t No observ ation record ed. [facility] [address] [place], [address], 2024 21:39:44 09/2612/16/2024 US, obste tric, follo w-up No observ ation record ed. [email or web address] [facility] [place], [address], 12/23/2024 13:18:27 12/17/19 25 12/16/2024 US, obste tric, follo w-up No observ ation record ed. [email or web address] [facility] [address], [address], 12/20/2024 09:13:00 01/14/20 25 01/13/2025 US, obste tric, follo w-up No observ ation record ed. [facility] [address], [address], 01/17/2025 11:47:51 01/14/2001/13/2025 US, obste tric, follo w-up No observ ation record ed. [email or web address] [facility] [address], [address], 01/17/2025 16:04:16 01/27/20 25 01/26/2025 US, obste tric, follo w-up No observ ation record ed. [email or web address] [address], [place], [address], 01/26/2025 15:11:31 01/27/20 25 01/26/2025 US, obste tric, follo w-up No observ ation record ed. ILAN Haro [address], [place], [address], 01/29/2025 15:19:23 02/18/20 25 02/17/2025 imagi ng/genaro bryant tic resul t No observ ation record ed. [address], [place], [address], 02/21/2025 12:50:54 02/25/20 25 02/24/2025 US, obste tric, follo w-up No observ ation record ed. ILAN Haro [address] [facility] [address] [facility] [address], [place], [address], 02/25/2025 15:24:35 02/25/20 25 02/24/2025 US, obste tric, follo w-up No observ ation record ed. [facility] [address], [place], [address], 02/24/2025 16:55:50 Result Notes None recorded. Problems Name Problem SNOMED Code Status Onset Date Resolution Date Notes Provider Name and Address Organization Details Recorded Time Pregnanc y 04907239 Active 2024 Freida Carmen hand, [facility] 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 5 11:26:50 Past pregnanc y history of section [id number] Active 2024 G2 under GETA, umbilical cord prolapse desires [facility] TRUONG MCGOWAN MD [address], [place], [address], [facility] 5 11:24:36 Migraine 94248084 Active 2024 Eduar Gautam MD [address], [place], [address], [facility] 5 10:20:53 Problem Notes None recorded. Procedures Surgical History Date Name Laterality Status Provider Name and Address Organization Details Recorded Time 09/15/19 Date of Last Pap Smear completed Elizabeth Hatfield [facility] 09/14/2024 10:20:33 05/11/19 25 Bariatric Surgery completed [facility] 09/14/2024 10:10:08 03/23/19 19 Appendectomy completed [facility] 09/14/2024 10:26:43 07/28/19 18 Caesarean Section completed [facility] 09/14/2024 10:10:08 03/23/19 09 Cholecystectomy completed [facility] 09/14/2024 10:26:22 03/23/19 00 Tonsillectomy completed [facility] 09/14/2024 10:26:04 Imaging Results None recorded. Procedure Notes None recorded. Medical Equipment None Reported. Allergies Allergen ID Allergen Name Allergen Category Reaction Reaction Severity Criticality Documentation Date Start Date Code Code System Note Provider Name and Address Organization Details Recorded Time 25597 iodine medicatio n palpitati ons severe Not available 09/14/2024 5933 RxNorm [facility] 5 10:09:38 60707 Augmentin medicatio n hives moderate Not available 09/14/2024 30281 2 RxNorm [facility] 5 10:09:38 57693 clavulani c acid Not available vomiting Not available high 02/03/20252021 43357 RxNorm Not Available ilan - External Data Service - prod 09:16:51 11215 amoxicill in / clavulana te medicatio n hives rash Not available Not available high 02/03/20252023 02782 RxNorm VOMIT ING Not Available ilan - External Data Service - prod 09:16:55 [...] Address Organization Details Last Updated DateTime 12/30/2024 72366.518 16 g 31.7 kg/m2 154.94 cm 118/74 mm[Hg] Elizabeth Hatfield [facility] 12/30/2024 15:31:43 Social History Question Answer [...] Or The Highest Degree You Have Received? RL34836-3 Information not available 09/14/2024 Are There Any [...] anxious, or unable to sleep at night)? [id number] Information not available 09/14/2024 Family History Relationship [...] ICD10 Code Diagnosis IMO Codes Diagnosis Note [id number] Eduar Gautam MD [place] [address] [address] 12/02/2024 09:28:32 12/02/2024 10:41:35 Migraine 79884074 G43.909 [id number] Eduar Gautam MD [place] [address] [address] 12/30/2024 14:31:08 12/30/2024 16:29:45 care status [id number] Z34.82 [id number] Health Concerns Section Related Observation LastModified by Organization Detai ls LastModified Time None Recorded Concern Status LastModified by Organization Details LastModified Time None Recorded Payers Encounter Date Sequence Insurance Name Policy Number Policy Paez Covered Member ID Paez Member ID Guarantor Name 12/30/2024 1 [facility] (MEDICAID HMO) [id number] Radha Sheppard [id number] Radha Sheppard Notes Date Note Type Note Provider Name and Address Organization Details Recorded Time 12/30/2024 text/html Generic HPI TemplateReported by Patient Eduar Gautam MD [address], [place], [address], [place] [facility] 12/30/2024 16:12:30 OBGyn Episode Ob Episode Information Episode Created Date Number of Fetuses Patient Bloodtype Patient rh Status Prepregnancy Weight lbs Domestic Partner Domestic Partner Phone Father Name Healthcare Advisory Services Manager Status 10/12/19 25 1 O Positive 165 [address] l Harley OPEN Fetus Data First Name Last Name Admitted to NICU Weight (g) Sex Living Outcome Pediatric Complications Fetus ID Race Codes Race Delivery Type [id number] Problems Problem Notes Scheduled 11/16 1:00PM Level [facility] Problem Name Start Date End Date Resolution Snomed Code Not e Migraine 12/02/2024 22324514 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 [id number] - partial sl eeve gastrectomy 04/2024- baseline vitamin labs ordered at 12 weeks- serial growth US Past history of section 10/11/2024 219272938 G2 under GE TA, umbilical cord prolapsedesires [...] Sound Latest Days Gestation 11/17/19 25 18 [email or web address] 10/11/2024 04/17/19 26 2 Pre-[place] Flowsheet Flowsheet Date 10/11/2024 Espinoza Score Blood Edema Fundus Height Fundus Units Glucose Ketones Leukocytes Nitrite Labor Signs Protein Cervic Dilation Cervic Effacement Cervic Station Type Weight in lbs Pre/Post Dialysis Refused Weight 163.120329235337 BP Diastolic BP Location Tested BP Systolic BP Type 74 L arm 115 sitting Fetus Heart Rate Present Fetus Movement Comments Patient presents to [facility] care. Headaches still worsening, will [...] Weight in lbs Pre/Post Dialysis Refused Weight 161.674932538872 BP Diastolic BP Location Tested BP Systolic BP Type 74 L arm 116 sitting Fetus Heart Rate Present Fetus Movement A Yes Comments Still having some nausea. Mi graines not improved with tylenol, reglan, and sumatriptan. Will send [facility] referral. LR male NIPT! All other OB labs wnl. Anatomy US next visit. RTC 4 weeks. Flowsheet Date 12/02/2024 Espinoza Score Blood Edema Fundus Height Fundus Units Glucose Ketones Leukocytes Nitrite Labor Signs Protein Cervic Dilation Cervic Effacement Cervic Station Type Weight in lbs Pre/Post Dialysis Refused 167.945772968954 BP Diastolic BP Location Tested BP Systolic [...] if she is still suffering. Seen at [facility]. Flowsheet Date 12/30/2024 Espinoza Score Blood Edema Fundus Height Fundus Units Glucose Ketones Leukocytes Nitrite Labor Signs Protein Cervic Dilation Cervic Effacement Cervic Station Type Weight in lbs Pre/Post Dialysis Refused 168.537405323153 BP Diastolic BP Location Tested BP Systolic [...] Type Weight in lbs Pre/Post Dialysis Refused 170.317432312999 BP Diastolic BP Location Tested BP Systolic [...] Weight in lbs Pre/Post Dialysis Refused Weight 172.709504347094 BP Diastolic BP Location Tested BP Systolic [...] Weight in lbs Pre/Post Dialysis Refused Weight 174.915262139253 BP Diastolic BP Location Tested BP Systolic BP Type 76 L arm 119 sitting Fetus Heart Rate Present A Present Fetus Movement A Yes Comments Baby active. Feeling more fa tigued. Was seen on Thursday at [facility] for low blood pressures, found to be anemic to Hgb 9.3. Will draw labs today and start Fe infusions. EFW 21%, vertex! Flowsheet Date 03/10/2025 Espinoza Score Blood Edema Fundus Height Fundus Units Glucose Ketones Leukocytes Nitrite Labor Signs Protein Cervic Dilation Cervic Effacement Cervic Station Type Weight in lbs Pre/Post Dialysis Refused Weight 178.969350952842 BP Diastolic BP Location Tested BP Systolic [...]
--- OUTSIDE RECORDS SUMMARY | 2025-03-21 01:22 | XMS_ITS | Continuity of Care Document ---
Author Organization [facility] Address [address] [place] [address] [place] [address] Assessment No assessment recorded. Plan of Treatment [...] Not Available [facility] [address], [place], [address], 10/17/2024 23:58:00 10/18/19 25 10/17/2024 [UNIT Y] ANEUP LOIDY NIPT 22Q11.2 microdeletio n LOW RISK <1 in 10,000 normal Not Available [facility] [address], [place], [address], 10/17/2024 23:58:00 10/18/19 25 10/17/2024 [UNIT Y] ANEUP LOIDY NIPT sex chromosome aneuploidy NOT DETECT ED normal Not Available [facility] [address], [place], [address], 10/17/2024 23:58:00 10/18/19 25 10/17/2024 [UNIT Y] ANEUP LOIDY NIPT monosomy X LOW RISK <1 in 10,000 normal Not Available [facility] [address], [place], [address], 10/17/2024 23:58:00 10/18/19 25 10/17/2024 [UNIT Y] ANEUP LOIDY NIPT trisomy 13 LOW RISK <1 in 10,000 normal Not Available [facility] [address], [place], [address], 10/17/2024 23:58:00 10/18/19 25 10/17/2024 [UNIT Y] ANEUP LOIDY NIPT trisomy 18 LOW RISK <1 in 10,000 normal Not Available [facility] [address], [place], [address], 10/17/2024 23:58:00 10/18/19 25 10/17/2024 [UNIT Y] ANEUP LOIDY NIPT trisomy 21 LOW RISK <1 in 10,000 normal Not Available [facility] [address], [place], [address], 10/17/2024 23:58:00 10/18/19 25 10/17/2024 [UNIT Y] ANEUP LOIDY NIPT sex MALE normal Not Available [facility] [address], [place], [address], 10/17/2024 23:58:00 10/18/19 25 10/17/2024 [UNIT Y] ANEUP LOIDY NIPT gestation SINGLE TON normal Not Available [facility] [address], [place], [address], 10/17/2024 23:58:00 10/18/19 25 10/17/2024 [UNIT Y] ANEUP LOIDY NIPT for detailed report, see pdf See PDF normal Not Available [facility] [address], [place], [address], 10/17/2024 23:58:00 10/22/19 25 10/21/2024 [UNIT Y] MIKE Galvez sickle cell disease/beta -thalassemia /hemoglobino pathies carrier screen NEGATI VE normal Not Available [facility] [address], [place], [address], 10/21/2024 17:38:31 10/22/19 25 10/21/2024 [UNIT Y] MIKE Galvez alpha-thalas semia carrier screen NEGATI VE normal Not Available [facility] [address], [place], [address], 10/21/2024 17:38:31 10/22/19 25 10/21/2024 [UNIT Y] MIKE Galvez cystic fibrosis carrier screen NEGATI VE normal Not Available [facility] [address], [place], [address], 10/21/2024 17:38:31 10/22/19 25 10/21/2024 [UNIT Y] MIKE Galvez spinal muscular atrophy carrier screen NEGATI VE 2 SMN1 copies , SNP not presen t normal Not Available [facility] [address], [place], [address], 10/21/2024 17:38:31 10/22/19 25 10/21/2024 [UNIT Y] MIKE Galvez for detailed report, see pdf See PDF normal Not Available [facility] [address], [place], [address], 10/21/2024 17:38:31 10/12/19 25 10/11/2024 CBC W/DIF F WBC 7.0 10'3/ uL 3.5-10 .5 Not Available [facility] (Lab) [address], [place], [address], 10/12/2024 13:07:49 10/12/19 25 10/11/2024 CBC W/DIF F RBC 3.94 10'6/ uL (based on docume nted legal sex) 3.80-5 .20 Not Available [facility] (Lab) [address], [place], [address], 10/12/2024 13:07:49 10/12/19 25 10/11/2024 CBC W/DIF F HGB 12.1 g/dL (based on docume nted legal sex) 11.6-1 5.4 Not Available [facility] (Lab) [address], [place], [address], 10/12/2024 13:07:49 10/12/19 25 10/11/2024 CBC W/DIF F HCT 36.3 % (based on docume nted legal sex) 34.0-4 5.0 Not Available [facility] (Lab) [address], [place], [address], 10/12/2024 13:07:49 10/12/19 25 10/11/2024 CBC W/DIF F MCV 92.1 fL 80.0-9 9.0 Not Available [facility] (Lab) [address] [place], [address], 10/12/2024 13:07:49 10/12/19 25 10/11/2024 CBC W/DIF F MCH 30.7 pg 27.0-3 4.0 Not Available [facility] (Lab) [address] [place], [address], 10/12/2024 13:07:49 10/12/19 25 10/11/2024 CBC W/DIF F MCHC 33.3 g/dL 32.0-3 5.5 Not Available [facility] (Lab) [address], [place], [address], 10/12/2024 13:07:49 10/12/19 25 10/11/2024 CBC W/DIF F RDW 12.4 % 11.0-1 5.0 Not Available [facility] (Lab) [address], [place], [address], 10/12/2024 13:07:49 10/12/19 25 10/11/2024 CBC W/DIF F plt 278 10'3/ uL 150-40 0 Not Available [facility] (Lab) [address], [place], [address], 10/12/2024 13:07:49 10/12/19 25 10/11/2024 CBC W/DIF F MPV 11.7 fL 8.8-12 .1 Not Available [facility] (Lab) [address], [place], [address], 10/12/2024 13:07:49 10/12/19 25 10/11/2024 CBC W/DIF F NRBC's 0.0 % 0.0 Not Available [facility] (Lab) [address], [place], [address], 10/12/2024 13:07:49 10/12/19 25 10/11/2024 CBC W/DIF F absolute NRBCs 0.0 10'3/ uL no refere nce range establ ished Not Available [facility] (Lab) [address], [place], [address], 10/12/2024 13:07:49 10/12/19 25 10/11/2024 CBC W/DIF F neutrophils 71.6 % 34.0-7 3.0 Not Available [facility] (Lab) [address] [facility], [place], [address], 10/12/2024 13:07:49 10/12/19 25 10/11/2024 CBC W/DIF F lymphocytes 22.8 % 15.0-5 0.0 Not Available [facility] (Lab) [address] [facility], [place], [address], 10/12/2024 13:07:49 10/12/19 25 10/11/2024 CBC W/DIF F monocytes 4.7 % 1.0-15 .0 Not Available [facility] (Lab) [address] [facility], [place], [address], 10/12/2024 13:07:49 10/12/19 25 10/11/2024 CBC W/DIF F eosinophils 0.3 % 0.0-8. 0 Not Available [facility] (Lab) [address] [facility], [place], [address], 10/12/2024 13:07:49 10/12/19 25 10/11/2024 CBC W/DIF F basophils 0.3 % 0.0-2. 0 Not Available [facility] (Lab) [address] [facility], [place], [address], 10/12/2024 13:07:49 10/12/19 25 10/11/2024 CBC W/DIF [...] separ ately if prese nt. Not Available [facility] (Lab) [address] [facility], [place], [address], 10/12/2024 13:07:49 10/12/19 25 10/11/2024 CBC W/DIF F absolute neutrophils 5.0 10'3/ uL 1.5-8. 0 Not Available [facility] (Lab) [address] [facility], [place], [address], 10/12/2024 13:07:49 10/12/19 25 10/11/2024 CBC W/DIF F absolute lymphocytes 1.6 10'3/ uL 1.0-4. 0 Not Available [facility] (Lab) [address] [facility], [place], [address], 10/12/2024 13:07:49 10/12/19 25 10/11/2024 CBC W/DIF F absolute monocytes 0.3 10'3/ uL 0.2-1. 0 Not Available [facility] (Lab) [address] [facility], [place], [address], 10/12/2024 13:07:49 10/12/19 25 10/11/2024 CBC W/DIF F absolute eosinophils 0.0 10'3/ uL 0.0-0. 6 Not Available [facility] (Lab) [address] [facility], [place], [address], 10/12/2024 13:07:49 10/12/19 25 10/11/2024 CBC W/DIF F absolute basophils 0.0 10'3/ uL 0.0-0. 3 Not Available [facility] (Lab) [address] [facility], [place], [address], 10/12/2024 13:07:49 10/12/19 25 10/11/2024 CBC W/DIF [...] patterson book. nm.or g/gen derx Not Available [facility] (Lab) [address] [facility], [place], [address], 10/12/2024 13:07:49 10/12/19 25 10/11/2024 HIV 1/2 ANTIG EN/AN TIBOD Y, REFLE X CONFI RMATI ON HIV antigen/anti body Nonrea ctive nonrea ctive HIV-1 antig en and HIV-1 /HIV- 2 antib odies were not detec nishant. No labor atory evide nce of HIV infec tion. Not Available [facility] (Lab) [address] [facility], [place], [address], 10/12/2024 13:07:50 10/12/19 25 10/11/2024 HEPAT ITIS B SURFA CE ANTIG EN hepatitis B surface antigen Non-re active non-re active This assay was perfo rmed using [employer] ratio n reage nts and test kits. Value s obtai francois with other assay metho ds or kits canno t be used inter serna eably . Not Available [facility] (Lab) [address] [facility], [place], [address], 10/12/2024 13:07:50 10/12/19 25 10/11/2024 HEPAT ITIS C ANTIB KERI SCREE N, REFLE X TO CONFI RMATI ON hepatitis C antibody Non-re active non-re active Antib odies to HCV Not Detec nishant, does not exclu de the possi bilit y of expos ure to HCV. Not Available [facility] (Lab) [address] [facility], [place], [address], 10/12/2024 13:07:51 10/12/19 25 10/11/2024 RUBEL LA IGG ANTIB KERI, QUANT rubella antibodies, IgG Reacti ve reacti ve Not Available [facility] (Lab) [address] [facility], [place], [address], 10/12/2024 13:07:51 10/12/19 25 10/11/2024 RUBEL LA IGG ANTIB KERI, QUANT rubella antibodies, IgG quant 18.4 IU/mL >=10 Non-r eacti ve (Non- Immun e) <10 IU/mL React filippo (Immu ne) > or = 10 IU/mL Not Available [facility] (Lab) [address] [facility], [place], [address], 10/12/2024 13:07:51 10/12/19 25 10/11/2024 TYPE/ RH/SC REEN ABO/Rh type O POS Not Available [facility] (Lab) [address] [facility], [place], [address], 10/12/2024 13:07:51 10/12/19 25 10/11/2024 TYPE/ RH/SC REEN antibody screen NEG Not Available [facility] (Lab) [address] [facility], [place], [address], 10/12/2024 13:07:51 10/12/19 25 10/11/2024 TYPE/ RH/SC REEN exp date 2024 23:59 Not Available [facility] (Lab) [address] [facility], [place], [address], 10/12/2024 13:07:51 10/12/19 25 10/11/2024 HEMOG LOBIN [...] >8.0% Actio n sugge sted Not Available [facility] (Lab) [address] [facility], [place], [address], 10/12/2024 13:07:52 10/12/19 25 10/11/2024 RPR SCREE N, REFLE X TITER /CONF IRMAT ION RPR qualitative Nonrea ctive nonrea ctive Not Available [facility] (Lab) [address] [place], [address], 10/12/2024 13:07:53 10/12/19 25 10/11/2024 CULTU RE: URINE result report SEE RESULT S BELOW Test: Cultu re: Urine Speci men Sourc e: Urine Voide d Speci men Type: Urine Speci men Date: 2024 1251 Resul t Date: 2024 2146 Resul t Statu s: Final resul t Abnor mal: No Resul ting Lab: [facility] [address] [facility] [address] Tel: CULTU RE ----- ----- ----- --- No growt h in 1 day (dete ction level of 10,00 0 colon ies / ml.) Not Available [facility] (Lab) [address] [facility], [place], [address], 10/12/2024 22:51:14 10/12/19 25 10/11/2024 drug scree n, urine Amphetamines : negati ve Not Available [place] [address], [place], [address], 10/11/2024 12:03:44 10/12/19 25 10/11/2024 drug scree n, urine Cannabinoids : negati ve Not Available [place] [address], [place], [address], 10/11/2024 12:03:44 10/12/19 25 10/11/2024 drug scree n, urine Cocaine: negati ve Not Available [place] [address], [place], [address], 10/11/2024 12:03:44 10/12/19 25 10/11/2024 drug scree n, urine Opiates: negati ve Not Available [place] [address], [place], [address], 10/11/2024 12:03:44 10/12/19 25 10/11/2024 drug scree n, urine Phenocyclidi ne: negati ve Not Available [place] [address], [place], [address], 10/11/2024 12:03:44 10/12/19 25 10/11/2024 drug scree n, urine Barbiturates : negati ve Not Available [place] [address], [place], [address], 10/11/2024 12:03:44 10/12/19 25 10/11/2024 drug scree n, urine Benzodiazepi aaron: negati ve Not Available [place] [address], [place], [address], 10/11/2024 12:03:44 10/12/19 25 10/11/2024 drug scree n, urine Ethanol: negati ve Not Available [place] [address], [place], [address], 10/11/2024 12:03:44 10/12/19 25 10/11/2024 drug scree n, urine Hallucinogen s: negati ve Not Available [place] [address], [place], [address], 10/11/2024 12:03:44 10/12/19 25 10/11/2024 drug scree n, urine Inhalants: negati ve Not Available [place] [address], [place], [address], 10/11/2024 12:03:44 12/03/19 25 12/02/2024 CMP(C OMPRE HENSI VE METAB OLIC PANEL ) sodium 136 mmol/ L 133-14 6 Not Available [facility] (Lab) [address] [facility], [place], [address], 12/08/2024 16:08:48 12/03/19 25 12/02/2024 CMP(C OMPRE HENSI VE METAB OLIC PANEL ) potassium 4.4 mmol/ L 3.5-5. 1 Not Available [facility] (Lab) [address] [facility], [place], [address], 12/08/2024 16:08:48 12/03/19 25 12/02/2024 CMP(C OMPRE HENSI VE METAB OLIC PANEL ) chloride 107 mmol/ L 98-107 Not Available [facility] (Lab) [address] [facility], [place], [address], 12/08/2024 16:08:48 12/03/19 25 12/02/2024 CMP(C OMPRE HENSI VE METAB OLIC PANEL ) carbon dioxide 19 mmol/ L 21-31 low Not Available [facility] (Lab) [address] [facility], [place], [address], 12/08/2024 16:08:48 12/03/1912/02/2024 CMP(C OMPRE HENSI VE METAB OLIC PANEL ) anion gap 10 mmol/ L 4-13 Not Available [facility] (Lab) [address] [facility], [place], [address], 12/08/2024 16:08:48 12/03/19 25 12/02/2024 CMP(C OMPRE HENSI VE METAB OLIC PANEL ) blood urea nitrogen 7 mg/dL 7-25 Not Available [facility] (Lab) [address] [place], [address], 12/08/2024 16:08:48 12/03/19 25 12/02/2024 CMP(C OMPRE HENSI VE METAB OLIC PANEL ) creatinine 0.48 mg/dL 0.60-1 .30 low Not Available [facility] (Lab) [address] [facility], [place], [address], 12/08/2024 16:08:48 12/03/19 25 12/02/2024 CMP(C OMPRE HENSI VE METAB OLIC PANEL ) egfrcr (CKD-epi 2020) >90 mL/mi n/1.7 3_m2 >=60 Not Available [facility] (Lab) [address], [place], [address], 12/08/2024 16:08:48 12/03/19 25 12/02/2024 CMP(C OMPRE HENSI VE METAB OLIC PANEL ) calcium 8.5 mg/dL 8.3-10 .5 Not Available [facility] (Lab) [address], [place], [address], 12/08/2024 16:08:48 12/03/19 25 12/02/2024 CMP(C OMPRE HENSI VE METAB OLIC PANEL ) glucose 74 mg/dL 70-100 Not Available [facility] (Lab) [address], [place], [address], 12/08/2024 16:08:48 12/03/19 25 12/02/2024 CMP(C OMPRE HENSI VE METAB OLIC PANEL ) protein, total 6.3 g/dL 6.4-8. 3 low Not Available [facility] (Lab) [address], [place], [address], 12/08/2024 16:08:48 12/03/19 25 12/02/2024 CMP(C OMPRE HENSI VE METAB OLIC PANEL ) albumin 3.5 g/dL 3.5-5. 0 Not Available [facility] (Lab) [address], [place], [address], 12/08/2024 16:08:48 12/03/19 25 12/02/2024 CMP(C OMPRE HENSI VE METAB OLIC PANEL ) ALT 8 units /L 9-43 low Not Available [facility] (Lab) [address], [place], [address], 12/08/2024 16:08:48 12/03/19 25 12/02/2024 CMP(C OMPRE HENSI VE METAB OLIC PANEL ) alkaline phosphatase 57 units /L 34-104 Not Available [facility] (Lab) [address] [facility], [place], [address], 12/08/2024 16:08:48 12/03/19 25 12/02/2024 CMP(C OMPRE HENSI VE METAB OLIC PANEL ) AST 17 units /L 13-39 Not Available [facility] (Lab) [address] [facility], [place], [address], 12/08/2024 16:08:48 12/03/1912/02/2024 CMP(C OMPRE HENSI VE METAB OLIC PANEL ) bilirubin, total 0.4 mg/dL 0.2-1. 2 Not Available [facility] (Lab) [address] [facility], [place], [address], 12/08/2024 16:08:48 12/03/19 25 12/02/2024 FABIOLA TIN / IRON / TRANS FABIOLA N / TIBC iron 83 ug/dL 40-170 Not Available [facility] (Lab) [address] [facility], [place], [address], 12/08/2024 16:08:49 12/03/19 25 12/02/2024 FABIOLA TIN / IRON / TRANS FABIOLA N / TIBC transferrin 305 mg/dL 200-36 0 Not Available [facility] (Lab) [address] [facility], [place], [address], 12/08/2024 16:08:49 12/03/19 25 12/02/2024 FABIOLA TIN / IRON / TRANS FABIOLA N / TIBC ferritin 82.3 NG/mL 8.0-25 2.0 Not Available [facility] (Lab) [address] [facility], [place], [address], 12/08/2024 16:08:49 12/03/19 25 12/02/2024 FABIOLA TIN / IRON / TRANS FABIOLA N / TIBC TIBC 427 ug/dL 250-45 0 Not Available [facility] (Lab) [address] [facility], [place], [address], 12/08/2024 16:08:49 12/03/19 25 12/02/2024 FABIOLA TIN / IRON / TRANS FABIOLA N / TIBC iron saturation 19 % 20-55 low Not Available [facility] (Lab) [address] [facility], [place], [address], 12/08/2024 16:08:49 12/03/19 25 12/02/2024 VITAM IN B12 / FOLAT E PANEL vitamin B12 202 pg/mL 180-91 4 Pooja l Range : 180-9 14 pg/mL . Indet ermin ate Range : 145-1 80 pg/mL . Defic ient Range : <=145 pg/mL . Not Available [facility] (Lab) [address] [facility], [place], [address], 12/08/2024 16:08:49 12/03/19 25 12/02/2024 VITAM IN B12 / FOLAT E PANEL folate, serum >20.0 NG/mL 6.0-20 .0 high Not Available [facility] (Lab) [address] [facility], [place], [address], 12/08/2024 16:08:49 12/03/19 25 12/02/2024 VITAM IN D, 25-OH (TOTA L D2/D3 ) vitamin D, 25-hydroxy, total 28.2 NG/mL 30.0-1 00.0 low Sugge stive of Defic iency : <20 ng/mL Sugge stive of Insuf ficie ncy: 20-29 ng/mL Sugge stive of Suffi cienc y: 30-10 0 ng/mL Sugge stive of Toxic ity: >150 ng/mL Not Available [facility] (Lab) [address] [facility], [place], [address], 12/08/2024 16:08:49 09/03/11 2512/02/2024 LEAD, BLOOD (ADUL T/PED IATRI C) lead, whole blood <1.0 mcg/d L <3.5 See Note 1 Linda sis was perfo rmed by Gertrude Holloway ed Plasm a Mass Spect romet ry (ICPM S) Note 1 This test was devel oped and its linda tical perfo rmanc e che cteri stics have been deter mined by [facility]. It has not been clear ed or appro doug by the FDA. This assay has been valid ated pursu ant to the CLIA regul ation s and is used for clini robinson purpo ses. Perfo rming Organ izati on Infor mat n: Site ID: [id number] Name: [employer] [facility] [facility]-Jared hand Alen Addre ss: [id number] [place] [address] [facility] tor: Bhaskar sears Not Available [facility] (Lab) [address] [facility], [place], [address], 12/08/2024 16:08:50 12/03/1912/02/2024 VITAM IN A (RETI [...] purpo ses. GRACIELA med fusio n [address] [facility] [address] [place] [address] [phone] Victorina Johnson MD, PhD Perfo rming Organ izati on Infor matio n: Site ID: [id number] Name: [employer] jaylene- Med[employer] jaylene Addre ss: [address] [facility] [address] [place] [address] Direc tor: Victorina Johnson MD,Ph D Not Available [facility] (Lab) [address] [facility], [place], [address], 12/08/2024 16:08:50 02/04/20 25 02/03/2025 HEMAT OCRIT (HCT) HCT 31.1 % (based on docume nted legal sex) 34.0-4 5.0 low Not Available [facility] (Lab) [address] [facility], [place], [address], 02/06/2025 17:22:48 02/04/20 25 02/03/2025 HEMOG LOBIN (HGB) HGB 10.0 g/dL (based on docume nted legal sex) 11.6-1 5.4 low Not Available [facility] (Lab) [address] [facility], [place], [address], 02/06/2025 17:22:48 02/04/20 25 02/03/2025 HIV 1/2 ANTIG EN/AN TIBOD Y, REFLE X CONFI RMATI ON HIV antigen/anti body Nonrea ctive nonrea ctive HIV-1 antig en and HIV-1 /HIV- 2 antib odies were not detec nishant. No labor atory evide nce of HIV infec tion. Not Available [facility] (Lab) [address] [facility], [place], [address], 02/06/2025 17:22:48 02/04/20 25 02/03/2025 RPR SCREE N, REFLE X TITER /CONF IRMAT ION RPR qualitative Nonrea ctive nonrea ctive Not Available [facility] (Lab) [address] [place], [address], 02/06/2025 17:22:49 02/04/20 25 02/03/2025 LEAD, BLOOD (ADUL T/PED IATRI C) lead, whole blood <1.0 mcg/d L <3.5 See Note 1 Linda sis was perfo rmed by Induc tivel y Coupl ed Plasm a Mass Spect romet ry (ICPM S) Note 1 This test was devel oped and its linda tical perfo rmanc e che cteri stics have been deter mined by [employer]. It has not been clear ed or appro doug by the FDA. This assay has been valid ated pursu ant to the CLIA regul ation s and is used for clini robinson purpo ses. Perfo rming Organ izati on Infor matio n: Site ID: [id number] Name: [employer]-Coleman yazan Alen Addre ss: [address] [place] [address] Direc tor: Bhaskar sears Not Available [facility] (Lab) [address] [facility], [place], [address], 02/06/2025 17:22:49 10/12/19 25 10/11/2024 US, obste tric, nucha l trans lucen cy No observ ation record ed. [email or web address] [place] [address], [place], [address], 10/11/2024 13:10:00 10/12/19 25 10/11/2024 US, obste tric, 1st trime ster No observ ation record ed. [email or web address] [place] [address], [place], [address], 10/11/2024 13:10:09 10/12/19 25 10/11/2024 US, obste tric, nucha l trans lucen cy No observ ation record ed. [email or web address] [address], [place], [address], 10/14/2024 09:45:42 11/17/19 25 11/16/2024 imagi ng/di agnos tic resul t No observ ation record ed. [facility] [address] [place], [address], 2024 21:39:44 11/19/19 25 11/16/2024 imagi ng/di agnos tic resul t No observ ation record ed. ILAN [facility] [address], [address], 2024 21:39:44 12/17/19 25 12/16/2024 US, obste tric, follo w-up No observ ation record ed. [email or web address] [facility] [address], [address], 12/23/2024 13:18:27 12/17/19 25 12/16/2024 US, obste tric, follo w-up No observ ation record ed. [email or web address] [facility] [address], [address], 12/20/2024 09:13:00 01/14/20 25 01/13/2025 US, obste tric, follo w-up No observ ation record ed. [facility] [address], [address], 01/17/2025 11:47:51 01/14/20 25 01/13/2025 US, obste tric, follo w-up No observ ation record ed. [email or web address] [place] [address], [address], 01/17/2025 16:04:16 01/27/20 25 01/26/2025 US, obste tric, follo w-up No observ ation record ed. [email or web address] [place] [address] [facility] [address], [place], [address], 01/26/2025 15:11:31 01/27/20 25 01/26/2025 US, obste tric, follo w-up No observ ation record ed. ILAN Haro [address], [place], [address], 01/29/2025 15:19:23 02/18/20 25 02/17/2025 imagi ng/di agnos tic resul t No observ ation record ed. [facility] [address], [place], [address], 02/21/2025 12:50:54 02/25/20 25 02/24/2025 US, obste tric, follo w-up No observ ation record ed. [facility] [address], [place], [address], 02/25/2025 15:24:35 02/25/20 25 02/24/2025 US, obste tric, follo w-up No observ ation record ed. [facility] [address], [place], [address], 02/24/2025 16:55:50 Result Notes None recorded. Problems Name Problem SNOMED Code Status Onset Date Resolution Date Notes Provider Name and Address Organization Details Recorded Time Pregnanc y 71364384 [facility]36 History of sleeve gastrect lety 69856918493 9107 Active 2024 - partial sleeve gastrecto my 04/2024 - baseline vitamin labs ordered at 12 weeks - serial growth TRUONG MCGOWAN MD [address], [place], [address], [facility] 5 11:26:50 Past pregnanc y history of section 089237955 Active 2024 G2 under GETA, umbilical cord prolapse desires [facility] TRUONG MCGOWAN MD [address], [place], [address], [facility] 5 11:24:36 Migraine 08333976 Active 2024 Eduar Gautam MD [address], [place], [address], [place] [facility] 10:20:53 Problem Notes None recorded. Procedures Surgical History Date Name Laterality Status Provider Name and Address Organization Details Recorded Time 09/15/19 Date of Last Pap Smear completed [facility] 09/14/2024 10:20:33 05/11/19 25 Bariatric Surgery completed [facility] 09/14/2024 10:10:08 03/23/19 19 Appendectomy completed [facility] 09/14/2024 10:26:43 07/28/19 18 Caesarean Section completed [facility] 09/14/2024 10:10:08 03/23/19 09 Cholecystectomy completed [facility] 09/14/2024 10:26:22 03/23/19 00 Tonsillectomy completed [facility] 09/14/2024 10:26:04 Imaging Results None recorded. Procedure Notes None recorded. Medical Equipment None Reported. Allergies Allergen ID Allergen Name Allergen Category Reaction Reaction Severity Criticality Documentation Date Start Date Code Code System Note Provider Name and Address Organization Details Recorded Time 23721 iodine medicatio n palpitati ons severe Not available 09/14/2024 [address] [facility] 10:09:38 14690 Augmentin medicatio n hives moderate Not available 09/14/2024 [address] [facility] 10:09:38 58020 clavulani c acid Not available vomiting Not available high 02/03/20252021 33855 RxNorm Not Available [facility] - External Data Service - prod 09:16:51 12521 amoxicill in / clavulana te medicatio n hives rash Not available Not available high 02/03/20252023 03518 RxNorm VOMIT ING Not Available [place] - External Data Service - prod 09:16:55 [...] Address Organization Details Last Updated DateTime 02/03/2025 54814.7029 g 122/74 mm[Hg] Cristina Lorenzana [facility] 02/03/2025 09:47:14 Social History Question Answer [...] Or The Highest Degree You Have Received? [id number] Information not available 09/14/2024 Are There Any [...] anxious, or unable to sleep at night)? QT03934-7 Information not available 09/14/2024 Family History Relationship [...] ICD10 Code Diagnosis IMO Codes Diagnosis Note [id number] TRUONG MCGOWAN MD [place] [address] [address] 01/26/2025 11:47:35 01/26/2025 13:17:13 History of sleeve gastrectomy 6011718003 98406 Z90.3 O99.891 Z3A.28 [id number] - partial sleeve gastrectom y 04/2024- baseline labs ordered 10/11- plan for serial growth [id number] TRUONG MCGOWAN MD [place] [address] [address] 02/03/2025 09:16:35 02/03/2025 10:15:39 Past history of section 057422658 Z98.891 766944 - PLTCS under GETA for cord prolapse- desires RCS History of sleeve gastrectomy 1870303778 76124 Z90.3 6743832260 - partial sleeve gastrectom y 04/2024- baseline labs with mild vitamin A and vitamin D deficiency 10/11- plan for serial growth US q4 weeks Gestation period, 29 weeks 08960929 Z3A.29 4627511 - continue [facility] Concerns Section Related Observation LastModified by Organization Detai ls LastModified Time None Recorded Concern Status LastModified by Organization Details LastModified Time None Recorded Payers Encounter Date Sequence Insurance Name Policy Number Policy Paez Covered Member ID Paez Member ID Guarantor Name 02/03/2025 1 [facility] (MEDICAID HMO) [id number] Radha Barbrasven [id number] Radha Silver Notes Date Note Type Note Provider Name and Address Organization Details Recorded Time 02/03/2025 text/html Generic HPI TemplateReported by Patient TRUONG MCGOWAN MD [address], [place], [address], [facility] 02/03/2025 10:12:38 OBGyn Episode Ob Episode Information Episode Created Date Number of Fetuses Patient Bloodtype Patient rh Status Prepregnancy Weight lbs Domestic Partner Domestic Partner Phone Father Name Leather Sponger Status 10/12/19 25 1 O Positive 165 [address] l Harley OPEN Fetus Data First Name Last Name Admitted to NICU Weight (g) Sex Living Outcome Pediatric Complications Fetus ID Race Codes Race Delivery Type [id number] Problems Problem Notes Scheduled 11/16 1:00PM Level II US & office visit scheduled 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 814103303019933 - partial sl eeve gastrectomy 04/2024- baseline vitamin labs ordered at 12 weeks- serial growth US Past history of section 10/11/2024 [id number] G2 under GE TA, umbilical cord prolapsedesires [...] Sound Latest Days Gestation 11/17/19 25 18 [email or web address] 10/11/2024 04/17/19 26 2 Pre- Flowsheet Flowsheet Date 10/11/2024 Espinoza Score Blood Edema Fundus Height Fundus Units Glucose Ketones Leukocytes Nitrite Labor Signs Protein Cervic Dilation Cervic Effacement Cervic Station Type Weight in lbs Pre/Post Dialysis Refused Weight 163.506406924329 BP Diastolic BP Location Tested BP Systolic BP Type 74 L arm 115 sitting Fetus Heart Rate Present Fetus Movement Comments Patient presents to [facility] care. Headaches still worsening, will send [...] Weight in lbs Pre/Post Dialysis Refused Weight 161.477039576890 BP Diastolic BP Location Tested BP Systolic [...] Type Weight in lbs Pre/Post Dialysis Refused 167.814647435352 BP Diastolic BP Location Tested BP Systolic [...] if she is still suffering. Seen at [facility]. Flowsheet Date 12/30/2024 Espinoza Score Blood Edema Fundus Height Fundus Units Glucose Ketones Leukocytes Nitrite Labor Signs Protein Cervic Dilation Cervic Effacement Cervic Station Type Weight in lbs Pre/Post Dialysis Refused 168.705434507025 BP Diastolic BP Location Tested BP Systolic [...] Type Weight in lbs Pre/Post Dialysis Refused 170.625869611444 BP Diastolic BP Location Tested BP Systolic [...] Weight in lbs Pre/Post Dialysis Refused Weight 172.919429404576 BP Diastolic BP Location Tested BP Systolic [...] Weight in lbs Pre/Post Dialysis Refused Weight 174.681707569668 BP Diastolic BP Location Tested BP Systolic BP Type 76 L arm 119 sitting Fetus Heart Rate Present A Present Fetus Movement A Yes Comments Baby active. Feeling more fa tigued. Was seen on Thursday at [facility] for low blood pressures, found to be anemic to Hgb 9.3. Will draw labs today and start Fe infusions. EFW 21%, vertex! Flowsheet Date 03/10/2025 Esipnoza Score Blood Edema Fundus Height Fundus Units Glucose Ketones Leukocytes Nitrite Labor Signs Protein Cervic Dilation Cervic Effacement Cervic Station Type Weight in lbs Pre/Post Dialysis Refused Weight 178.503337881545 BP Diastolic BP Location Tested BP Systolic [...]
--- OUTSIDE RECORDS SUMMARY | 2025-03-21 01:22 | XMS_ITS | Data Portability ---
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 Plan of Treatment Reminders Order Date Submit Date Provider Last Modified By Organization Details Last Modified Time Details Appointments None recorded. Lab CMP, serum or plasma 2023 024 [facility], [address] [place] [address] 2, [place], [address], 4 09:15:24 albumin/cre atinine, mass ratio, urine 2023 024 [facility], [address] [place] [address], [place], [address], 4 09:15:22 BNP (B-type natriuretic peptide), serum or plasma 2023 024 [facility], [address] [place] [address] 2, [place], [address], 4 09:15:23 HbA1c (hemoglobin A1c), blood 2023 024 [facility], [address] [place] [address], [facility] 2, [place], [address], 4 09:15:25 TSH + free T4, serum 2023 024 [facility], [address] [place] [address], [facility] 2, [place], [address], 4 10:14:39 CBC w/ auto diff 2023 024 [facility], [address] [facility] 2, [place], [address], 4 10:14:41 HbA1c (hemoglobin A1c), blood 2023 024 [facility], [address] [facility] 2, [place], [address], 4 10:14:40 Referral bariatric surgery referral 2023 024 ILAN Denton MD, [address] [facility] [address], [place], [address], 4 18:06:49 nutritionis t/dietitian referral 2023 024 ILAN So[facility], [address] [facility] [place], [address], 4 18:06:33 Procedures None recorded. Surgeries None recorded. Imaging None recorded. Medication Orders furosemide 20 mg tablet 2023 025 [id number], [address] [place], [place], [id number], 5 12:24:04 Patient TargetsNo targets recorded. Patient Instructions Encounter Date Encounter Id Patient Instructions Last Modified By Organization Details Last Modified Time 08/26/2023 [id number] fatigue: care instructions Not available 08/26/2023 11:45:14 A healthy lifestyle: care instructions Not available 08/26/2023 11:45:14 learning about the mediterranean diet Not available 08/26/2023 11:45:14 I was present in the office and available during the visit. I discussed the patient s presentation, findings, assessment and plan with the resident during or immediately after the time of service. I agree with the resident s findings, assessment, and plan as documented in the note above. Radha Vincent MD. [facility] [email or web address] Not available 08/28/2023 09:24:15 09/10/2023 [id number] body mass index: care instructions Not available 09/13/2023 23:50:53 learning about healthy weight Not available 09/13/2023 23:50:53 12/09/2023 [id number] A healthy lifestyle: care instructions [email or web address] Not available 12/09/2023 09:59:00 On the date of this encounter, I was immediately available to assist the resident/fellow in the care of the patient, and have reviewed and agree with the resident s findings and plan of care. ~MD Kait [email or web address] Not available 12/09/2023 10:00:37 12/25/2023 [id number] This encounter was completed today by phone/video with the patient's informed consent. I was present in the clinic to discuss this patient at the time of the visit. I agree with the documented assessment and plan Paulino Cortez MD [email or web address] Not available 12/28/2023 09:17:08 Reason for Referral Bariatric Surgery Referral f or Morbid obesity Referring Physician: Yunior Stafford Manager Department, Encounter Date: 08/26/2023 Technical Specialist Cytology/dietitian Refer ral for Morbid obesity Referring Physician: [facility], Encounter Date: 08/26/2023 Results Created Date Observation Date Name Description Value Unit Range Abnormal Flag Note LastModifiedBy Organization Detail LastModifiedTime 08/16/19 24 08/16/2023 CBC W Auto Diffe renti al panel - Blood leukocytes [#/volume] in blood by automated count 9.45 text: 4.00 - 12.00 10(3)/ mcL WBC 9.45 4.00 - 12.00 10(3) /mcL 08/15 4:46 PM CDT [facility] Not Available Not Available 08/11/2024 16:32:55 08/16/19 24 08/16/2023 CBC W Auto Diffe renti al panel - Blood erythrocytes [#/volume] in blood by automated count 4.25 text: 3.80 - 5.30 10(6)/ mcL RBC 4.25 3.80 - 5.30 10(6) /mcL 08/15 4:46 PM CDT [facility] Not Available Not Available 08/11/2024 16:32:55 08/16/19 24 08/16/2023 CBC W Auto Diffe renti al panel - Blood hemoglobin [mass/volume ] in blood 12.9 g/dL low: 12g/dL high: 15.8g/ dL HEMOG LOBIN (HGB) 12.9 12.0 - 15.8 g/dL 08/15 4:46 PM CDT [facility] Not Available Not Available 08/11/2024 16:32:55 08/16/19 24 08/16/2023 CBC W Auto Diffe renti al panel - Blood hematocrit [volume fraction] of blood by automated count 37.5 % low: 36%hig h: 47% HEMAT OCRIT (HCT) 37.5 36.0 - 47.0 % 08/15 4:46 PM CDT [facility] Not Available Not Available 08/11/2024 16:32:55 08/16/19 24 08/16/2023 CBC W Auto Diffe renti al panel - Blood MCV [entitic mean volume] in red blood cells by automated count 88.2 fL low: 82fLhi gh: 96fL MCV 88.2 82.0 - 96.0 fL 08/15 4:46 PM CDT [facility] Not Available Not Available 08/11/2024 16:32:55 08/16/19 24 08/16/2023 CBC W Auto Diffe renti al panel - Blood MCH [entitic mass] by automated count 30.4 pg low: 26pghi gh: 34pg MCH 30.4 26.0 - 34.0 pg 08/15 4:46 PM CDT [facility] Not Available Not Available 08/11/2024 16:32:55 08/16/19 24 08/16/2023 CBC W Auto Diffe renti al panel - Blood MCHC [entitic mass/volume] in red blood cells by automated count 34.4 g/dL low: 31g/dL high: 36g/dL MCHC 34.4 31.0 - 36.0 g/dL 08/15 4:46 PM CDT [facility] Not Available Not Available 08/11/2024 16:32:55 08/16/19 24 08/16/2023 CBC W Auto Diffe renti al panel - Blood platelets [#/volume] in blood 287 text: 140 - 440 10(3)/ mcL PLATE LET COUNT 287 140 - 440 10(3) /mcL 08/15 4:46 PM CDT [facility] Not Available Not Available 08/11/2024 16:32:55 08/16/19 24 08/16/2023 CBC W Auto Diffe renti al panel - Blood erythrocyte [distwidth] in red blood cells by automated count 12.4 % low: 11.8%h igh: 15.5% RDW 12.4 11.8 - 15.5 % 08/15 4:46 PM CDT [facility] Not Available Not Available 08/11/2024 16:32:55 08/16/19 24 08/16/2023 CBC W Auto Diffe renti al panel - Blood platelet [entitic mean volume] in blood by automated count 11.2 fL low: 9.7fLh igh: 12.4fL MPV 11.2 9.7 - 12.4 fL 08/15 4:46 PM CDT [facility] Not Available Not Available 08/11/2024 16:32:55 08/16/19 24 08/16/2023 CBC W Auto Diffe renti al panel - Blood neutrophils/ leukocytes in blood by automated count 67 % low: 47%hig h: 73% NEUTR OPHIL S 67.0 47.0 - 73.0 % 08/15 4:46 PM CDT [facility] Not Available Not Available 08/11/2024 16:32:55 08/16/19 24 08/16/2023 CBC W Auto Diffe renti al panel - Blood lymphocytes/ leukocytes in blood by automated count 24.3 % low: 18%hig h: 42% LYMPH OCYTE S 24.3 18.0 - 42.0 % 08/15 4:46 PM CDT [facility] Not Available Not Available 08/11/2024 16:32:55 08/16/19 24 08/16/2023 CBC W Auto Diffe renti al panel - Blood monocytes/le ukocytes in blood by automated count 7.8 % low: 4%high : 12% MONOC YTES 7.8 4.0 - 12.0 % 08/15 4:46 PM CDT [facility] Not Available Not Available 08/11/2024 16:32:55 08/16/19 24 08/16/2023 CBC W Auto Diffe renti al panel - Blood eosinophils/ leukocytes in blood by automated count 0.6 % low: 0%high : 5% EOSIN OPHIL S 0.6 0.0 - 5.0 % 08/15 4:46 PM CDT [facility] Not Available Not Available 08/11/2024 16:32:55 08/16/19 24 08/16/2023 CBC W Auto Diffe renti al panel - Blood basophils/le ukocytes in blood by automated count 0.3 % low: 0%high : 1% BASOP HILS 0.3 0.0 - 1.0 % 08/15 4:46 PM CDT [facility] Not Available Not Available 08/11/2024 16:32:55 08/16/19 24 08/16/2023 CBC W Auto Diffe renti al panel - Blood neutrophils [#/volume] in blood by automated count 6.32 text: 1.60 - 7.70 10(3)/ mcL ABSOL RESIGHINI NEUTR OPHIL S 6.32 1.60 - 7.70 10(3) /mcL 08/15 4:46 PM CDT [facility] Not Available Not Available 08/11/2024 16:32:55 08/16/19 24 08/16/2023 CBC W Auto Diffe renti al panel - Blood lymphocytes [#/volume] in blood by automated count 2.3 text: 1.30 - 3.20 10(3)/ mcL ABSOL RESIGHINI LYMPH OCYTE S 2.30 1.30 - 3.20 10(3) /mcL 08/15 4:46 PM CDT [facility] Not Available Not Available 08/11/2024 16:32:55 08/16/19 24 08/16/2023 CBC W Auto Diffe renti al panel - Blood monocytes [#/volume] in blood by automated count 0.74 text: 0.20 - 1.00 10(3)/ mcL ABSOL RESIGHINI MONOC YTES 0.74 0.20 - 1.00 10(3) /mcL 08/15 4:46 PM CDT [facility] Not Available Not Available 08/11/2024 16:32:55 08/16/19 24 08/16/2023 CBC W Auto Diffe renti al panel - Blood eosinophils [#/volume] in blood by automated count 0.06 text: 0.00 - 0.40 10(3)/ mcL ABSOL RESIGHINI EOSIN OPHIL 0.06 0.00 - 0.40 10(3) /mcL 08/15 4:46 PM CDT [facility] Not Available Not Available 08/11/2024 16:32:55 08/16/19 24 08/16/2023 CBC W Auto Diffe renti al panel - Blood basophils [#/volume] in blood by automated count 0.03 text: 0.00 - 0.10 10(3)/ mcL ABSOL RESIGHINI BASOP HILS 0.03 0.00 - 0.10 10(3) /mcL 08/15 4:46 PM CDT [facility] Not Available Not Available 08/11/2024 16:32:55 08/16/19 24 08/16/2023 CBC W Auto Diffe renti al panel - Blood nucleated erythrocytes /leukocytes [ratio] in blood 0 NRBC PER 100 WBC 0 08/15 4:46 PM CDT [facility] Not Available Not Available 08/11/2024 16:32:55 08/16/19 24 08/16/2023 Lipas e [Enzy matic activ ity/v olume ] in Serum or Plasm a lipase [enzymatic activity/vol ume] in serum or plasma 10 U/L low: 8U/Lhi gh: 78U/L LIPAS E 10 8 - 78 U/L 08/15 4:59 PM CDT [facility] Not Available Not Available 08/11/2024 16:32:55 08/16/19 24 08/16/2023 Lipas e [Enzy matic activ ity/v olume ] in Serum or Plasm a interpretati on and review of laboratory results Normal Not Available Not Available 07/22 16:32:55 08/16/19 24 08/16/2023 Compr ehens filippo metab olic 1999 panel - Serum or Plasm a sodium [moles/volum e] in serum or plasma 141 mmol/ L low: 136mmo l/Lhig h: 145mmo l/L SODIU M 141 136 - 145 mmol/ L 08/15 4:59 PM CDT [facility] Not Available Not Available 08/11/2024 16:32:55 08/16/19 24 08/16/2023 Compr ehens filippo metab olic 1999 panel - Serum or Plasm a potassium [moles/volum e] in serum or plasma 3.6 mmol/ L low: 3.5mmo l/Lhig h: 5.1mmo l/L POTAS SIUM 3.6 3.5 - 5.1 mmol/ L 08/15 4:59 PM CDT [facility] Not Available Not Available 08/11/2024 16:32:55 08/16/19 24 08/16/2023 Compr ehens filippo metab olic 1999 panel - Serum or Plasm a chloride [moles/volum e] in serum or plasma 108 mmol/ L low: 98mmol /Lhigh : 107mmo l/L high CHLOR KESHIA 108 (H) 98 - 107 mmol/ L 08/15 4:59 PM CDT [facility] Not Available Not Available 08/11/2024 16:32:55 08/16/19 24 08/16/2023 Compr ehens filippo metab olic 1999 panel - Serum or Plasm a carbon dioxide, total [moles/volum e] in serum or plasma 22 mmol/ L low: 22mmol /Lhigh : 30mmol /L CO2, VENOU S 22 22 - 30 mmol/ L 08/15 4:59 PM CDT [facility] Not Available Not Available 08/11/2024 16:32:55 08/16/19 24 08/16/2023 Compr ehens filippo metab olic 1999 panel - Serum or Plasm a anion gap in serum or plasma by calculation 14.6 mmol/ L high: 18mmol /L ANION GAP 14.6 <18.0 mmol/ L 08/15 4:59 PM CDT [facility] Not Available Not Available 08/11/2024 16:32:55 08/16/19 24 08/16/2023 Compr ehens filippo metab olic 1999 panel - Serum or Plasm a glucose [mass/volume ] in serum or plasma 91 mg/dL low: 70mg/d Lhigh: 99mg/d L GLUCO SE 91 70 - 99 mg/dL 08/15 4:59 PM CDT [facility] Not Available Not Available 08/11/2024 16:32:55 08/16/19 24 08/16/2023 Compr ehens filippo metab olic 1999 panel - Serum or Plasm a urea nitrogen [mass/volume ] in serum or plasma 10 mg/dL low: 5mg/dL high: 18mg/d L BUN 10 5 - 18 mg/dL 08/15 4:59 PM CDT [facility] Not Available Not Available 08/11/2024 16:32:55 08/16/19 24 08/16/2023 Compr Vimodi filippo Devtap olic 1999 panel - Serum or Plasm a creatinine [mass/volume ] in serum or plasma 0.71 mg/dL low: 0.6mg/ dLhigh : 1mg/dL CREAT ININE , BLOOD 0.71 0.60 - 1.00 mg/dL 08/15 4:59 PM CDT [facility] [employer] R LAB Not Available Not Available 08/11/2024 16:32:55 08/16/19 24 08/16/2023 Compr ens filippo metab olic 1999 panel - Serum or Plasm a urea nitrogen/cre atinine [mass ratio] in serum or plasma 14 text: 12 - 20 ratio BUN/C REATI NINE RATIO 14 12 - 20 ratio 08/15 4:59 PM CDT [facility] Not Available Not Available 08/11/2024 16:32:55 08/16/19 24 08/16/2023 Compr BBOXXens filippo metab olic 1999 panel - Serum or Plasm a protein [mass/volume ] in serum or plasma 7.5 g/dL low: 6.3g/d Lhigh: 8.2g/d L TOTAL PROTE IN 7.5 6.3 - 8.2 g/dL 08/15 4:59 PM CDT [facility] [employer] [facility] Not Available Not Available 08/11/2024 16:32:55 08/16/19 24 08/16/2023 Compr Vimodi filippo Devtap olic 1999 panel - Serum or Plasm a albumin [mass/volume ] in serum or plasma 4.1 g/dL low: 3.5g/d Lhigh: 5g/dL ALBUM IN 4.1 3.5 - 5.0 g/dL 08/15 4:59 PM CDT [facility] Not Available Not Available 08/11/2024 16:32:55 08/16/19 24 08/16/2023 Compr Vimodi filippo Devtap olic 1999 panel - Serum or Plasm a albumin/glob ulin [mass ratio] in serum or plasma 1.2 low: 1high: 2.2 A/G RATIO 1.2 1.0 - 2.2 08/15 4:59 PM CDT [facility] Not Available Not Available 08/11/2024 16:32:55 08/16/19 24 08/16/2023 Compr ehens filippo metab olic 1999 panel - Serum or Plasm a calcium [mass/volume ] in serum or plasma 8.7 mg/dL low: 8.7mg/ dLhigh : 10.5mg /dL CALCI UM 8.7 8.7 - 10.5 mg/dL 08/15 4:59 PM CDT [facility] Not Available Not Available 08/11/2024 16:32:55 08/16/19 24 08/16/2023 Compr ehens filippo metab olic 1999 panel - Serum or Plasm a bilirubin.to christie [mass/volume ] in serum or plasma 0.5 mg/dL low: 0.2mg/ dLhigh : 1.2mg/ dL T BILI 0.5 0.2 - 1.2 mg/dL 08/15 4:59 PM CDT [facility] Not Available Not Available 08/11/2024 16:32:55 08/16/19 24 08/16/2023 Compr BBOXXens filippo metab olic 1999 panel - Serum or Plasm a aspartate aminotransfe rase [enzymatic activity/vol ume] in serum or plasma 17 U/L low: 5U/Lhi gh: 34U/L SGOT (AST) 17 5 - 34 U/L 08/15 4:59 PM CDT [facility] Not Available Not Available 08/11/2024 16:32:55 08/16/19 24 08/16/2023 Compr BBOXXens filippo metab olic 1999 panel - Serum or Plasm a alanine aminotransfe rase [enzymatic activity/vol ume] in serum or plasma 26 U/L low: 0U/Lhi gh: 55U/L SGPT (ALT) 26 0 - 55 U/L 08/15 4:59 PM CDT [facility] Not Available Not Available 08/11/2024 16:32:55 08/16/19 24 08/16/2023 Compr ehens filippo metab olic 1999 panel - Serum or Plasm a alkaline phosphatase [enzymatic activity/vol ume] in serum or plasma 70 U/L low: 40U/Lh igh: 150U/L ALKAL INE PHOSP HATAS E 70 40 - 150 U/L 08/15 4:59 PM CDT [facility] [employer] [facility] LAB Not Available Not Available 08/11/2024 16:32:55 08/16/19 24 08/16/2023 Compr ehens filippo metab olic 1999 panel - Serum or Plasm a glomerular filtration rate [volume rate/area] in serum, plasma or blood by creatinine-b ased formula (MDRD)/1.73 sq M among non black population low: 60 GFR, ESTIM ATED >60 >=60 08/15 4:59 PM CDT [facility] [employer] R LAB Not Available Not Available 08/11/2024 16:32:55 08/16/19 24 08/16/2023 Compr ehens filippo metab olic 1999 panel - Serum or Plasm a glomerular filtration rate [volume rate/area] in serum, plasma or blood by creatinine-b ased formula (MDRD)/1.73 sq M among black population low: 60 GFR, EST. AFRIC AN >60 >=60 08/15 4:59 PM CDT [facility] [employer] [facility] LAB Not Available Not Available 08/11/2024 16:32:55 08/16/19 24 08/16/2023 Compr BBOXXens filippo metab olic 2000 panel - Serum or Plasm a glomerular filtration rate [volume rate/area] in serum, plasma or blood by creatinine-b ased formula (MDRD)/1.73 sq M among non black population low: 60 GFR, EST. NONAF RICAN >60 >=60 08/15 4:59 PM CDT [facility] [employer] [facility] LAB Not Available Not Available 08/11/2024 16:32:55 08/16/19 24 08/16/2023 Compr BBOXXens filippo metab olic 2000 panel - Serum or Plasm a interpretati on and review of laboratory results Abnorm al Not Available Not Available 16:32:55 08/26/19 24 08/27/2023 TSH+F REE T4 TSH 1.170 uIU/m L 0.450- 4.500 Not Available [facility] ([facility]) [address] [facility], [place], [address], 08/27/2023 10:14:39 08/26/19 24 08/27/2023 TSH+F REE T4 T4,free(dire ct) 1.63 NG/dL 0.82-1 .77 Not Available [facility] ([facility]) [address] [place], [address], 08/27/2023 10:14:39 08/26/19 24 08/27/2023 HEMOG LOBIN A1C hemoglobin A1C 5.7 % 4.8-5. 6 above high normal Predi abete s: 5.7 - 6.4 Diabe brenna: >6.4 Glyce katerina contr ol for adult s with diabe brenna: <7.0 Not Available [facility] ([facility]) [address] [place], [address], 08/27/2023 10:14:40 08/26/19 24 08/27/2023 CBC WITH DIFFE RENTI AL/PL ATELE T WBC 7.9 x10e3 /uL 3.4-10 .8 Not Available [facility] ([facility]) [address] [place], [address], 08/27/2023 10:14:41 08/26/19 24 08/27/2023 CBC WITH DIFFE RENTI AL/PL ATELE T RBC 4.60 x10e6 /uL 3.77-5 .28 Not Available [facility] ([facility]) [address] [place], [address], 08/27/2023 10:14:41 08/26/19 24 08/27/2023 CBC WITH DIFFE RENTI AL/PL ATELE T hemoglobin 14.1 g/dL 11.1-1 5.9 Not Available [facility] ([facility]) [address] [facility], [place], [address], 08/27/2023 10:14:41 08/26/19 24 08/27/2023 CBC WITH DIFFE RENTI AL/PL ATELE T hematocrit 40.8 % 34.0-4 6.6 Not Available [facility] ([facility]) [address] [facility], [place], [address], 08/27/2023 10:14:41 08/26/19 24 08/27/2023 CBC WITH DIFFE RENTI AL/PL ATELE T MCV 89 fL 79-97 Not Available [facility] ([facility]) [address] [facility], [place], [address], 08/27/2023 10:14:41 08/26/19 24 08/27/2023 CBC WITH DIFFE RENTI AL/PL ATELE T MCH 30.7 pg 26.6-3 3.0 Not Available [facility] ([facility]) [address] [facility], [place], [address], 08/27/2023 10:14:41 08/26/19 24 08/27/2023 CBC WITH DIFFE RENTI AL/PL ATELE T MCHC 34.6 g/dL 31.5-3 5.7 Not Available [facility] ([facility]) [address] [facility], [place], [address], 08/27/2023 10:14:41 08/26/19 24 08/27/2023 CBC WITH DIFFE RENTI AL/PL ATELE T RDW 12.9 % 11.7-1 5.4 Not Available [facility] ([facility]) [address] [place], [address], 08/27/2023 10:14:41 08/26/19 24 08/27/2023 CBC WITH DIFFE RENTI AL/PL ATELE T platelets 366 x10e3 /uL 150-45 0 Not Available [facility] ([facility]) [address] [facility], [place], [address], 08/27/2023 10:14:41 08/26/19 24 08/27/2023 CBC WITH DIFFE RENTI AL/PL ATELE T neutrophils 66 % notest ab. Not Available [facility] ([facility]) [address] [facility], [place], [address], 08/27/2023 10:14:41 08/26/19 24 08/27/2023 CBC WITH DIFFE RENTI AL/PL ATELE T lymphs 27 % notest ab. Not Available [facility] ([facility]) [address] [facility], [place], [address], 08/27/2023 10:14:41 08/26/19 24 08/27/2023 CBC WITH DIFFE RENTI AL/PL ATELE T monocytes 6 % notest ab. Not Available [facility] ([facility]) [address] [facility], [place], [address], 08/27/2023 10:14:41 08/26/19 24 08/27/2023 CBC WITH DIFFE RENTI AL/PL ATELE T eos 1 % notest ab. Not Available [facility] ([facility]) [address] [facility], [place], [address], 08/27/2023 10:14:41 08/26/19 24 08/27/2023 CBC WITH DIFFE RENTI AL/PL ATELE T basos 0 % notest ab. Not Available [facility] ([facility]) [address] [facility], [place], [address], 08/27/2023 10:14:41 08/26/19 24 08/27/2023 CBC WITH DIFFE RENTI AL/PL ATELE T neutrophils (absolute) 5.2 x10e3 /uL 1.4-7. 0 Not Available [facility] ([facility]) [address] [facility], [place], [address], 08/27/2023 10:14:41 08/26/19 24 08/27/2023 CBC WITH DIFFE RENTI AL/PL ATELE T lymphs (absolute) 2.1 x10e3 /uL 0.7-3. 1 Not Available [facility] ([facility]) [address] [facility], [place], [address], 08/27/2023 10:14:41 08/26/19 24 08/27/2023 CBC WITH DIFFE RENTI AL/PL ATELE T monocytes(ab solute) 0.5 x10e3 /uL 0.1-0. 9 Not Available [facility] ([facility]) [address] [facility], [place], [address], 08/27/2023 10:14:41 08/26/19 24 08/27/2023 CBC WITH DIFFE RENTI AL/PL ATELE T eos (absolute) 0.1 x10e3 /uL 0.0-0. 4 Not Available [facility] ([facility]) [address] [facility], [place], [address], 08/27/2023 10:14:41 08/26/19 24 08/27/2023 CBC WITH DIFFE RENTI AL/PL ATELE T baso (absolute) 0.0 x10e3 /uL 0.0-0. 2 Not Available [facility] ([facility]) [address] [facility], [place], [address], 08/27/2023 10:14:41 08/26/19 24 08/27/2023 CBC WITH DIFFE RENTI AL/PL ATELE T immature granulocytes 0 % notest ab. Not Available [facility] ([facility]) [address] [facility], [place], [address], 08/27/2023 10:14:41 08/26/19 24 08/27/2023 CBC WITH DIFFE RENTI AL/PL ATELE T immature grans (abs) 0.0 x10e3 /uL 0.0-0. 1 Not Available [facility] ([facility]) [address] [place], [address], 08/27/2023 10:14:41 12/09/19 24 12/10/2023 ALBUM IN/CR EATIN INE RATIO ,URIN E creatinine, urine 110.9 mg/dL notest ab. Not Available [facility] ([facility]) [address] [facility], [place], [address], 12/10/2023 09:15:22 12/09/19 24 12/10/2023 ALBUM IN/CR EATIN INE RATIO ,URIN E albumin, urine <3.0 ug/mL notest ab. Not Available [facility] ([facility]) [address] [facility], [place], [address], 12/10/2023 09:15:22 12/09/19 24 12/10/2023 ALBUM IN/CR EATIN INE RATIO ,URIN E alb/creat ratio <3 Pooja l: 0 - 29 Moder ately incre ased: 30 - 300 Sever toño incre ased: >300 Not Available [facility] ([facility]) [address] [facility] [address], [place], [address], 12/10/2023 09:15:22 12/09/19 24 12/10/2023 B-TYP E NATRI URETI C PEPTI DE B-type natriuretic peptide 18.0 pg/mL 0.0-10 0.0 Sieme ns [facility] XP metho dolog y Not Available [facility] ([facility]) [address] [facility] [address], [place], [address], 12/10/2023 09:15:23 12/09/19 24 12/10/2023 COMP. METAB OLIC PANEL (14) glucose 91 mg/dL 70-99 Not Available [facility] ([facility]) [address] [place], [address], 12/10/2023 09:15:24 12/09/19 24 12/10/2023 COMP. METAB OLIC PANEL (14) BUN 15 mg/dL 6-20 Not Available [facility] ([facility]) [address] [place], [address], 12/10/2023 09:15:24 12/09/19 24 12/10/2023 COMP. METAB OLIC PANEL (14) creatinine 0.73 mg/dL 0.57-1 .00 Not Available [facility] ([facility]) [address] [facility], [place], [address], 12/10/2023 09:15:24 12/09/19 24 12/10/2023 COMP. METAB OLIC PANEL (14) eGFR 113 mL/mi n/1.7 3 >59 Not Available [facility] ([facility]) [address] [facility], [place], [address], 12/10/2023 09:15:24 12/09/19 24 12/10/2023 COMP. METAB OLIC PANEL (14) BUN/creatini ne ratio 21 9-23 Not Available [facility] ([facility]) [address] [place], [address], 12/10/2023 09:15:24 12/09/19 24 12/10/2023 COMP. METAB OLIC PANEL (14) sodium 138 mmol/ L 134-14 4 Not Available [facility] ([facility]) [address] [place], [address], 12/10/2023 09:15:24 12/09/19 24 12/10/2023 COMP. METAB OLIC PANEL (14) potassium 4.2 mmol/ L 3.5-5. 2 Not Available [facility] ([facility]) [address] [place], [address], 12/10/2023 09:15:24 12/09/19 24 12/10/2023 COMP. METAB OLIC PANEL (14) chloride 103 mmol/ L 96-106 Not Available [facility] ([facility]) [address], [place], [address], 12/10/2023 09:15:24 12/09/19 24 12/10/2023 COMP. METAB OLIC PANEL (14) carbon dioxide, total 22 mmol/ L 20-29 Not Available [facility] ([facility]) [address] [place], [address], 12/10/2023 09:15:24 12/09/19 24 12/10/2023 COMP. METAB OLIC PANEL (14) calcium 8.9 mg/dL 8.7-10 .2 Not Available [facility] ([facility]) [address] [place], [address], 12/10/2023 09:15:24 12/09/19 24 12/10/2023 COMP. METAB OLIC PANEL (14) protein, total 6.8 g/dL 6.0-8. 5 Not Available [facility] ([facility]) [address] [place], [address], 12/10/2023 09:15:24 12/09/19 24 12/10/2023 COMP. METAB OLIC PANEL (14) albumin 4.2 g/dL 4.0-5. 0 Not Available [facility] ([facility]) [address] [place], [address], 12/10/2023 09:15:24 12/09/19 24 12/10/2023 COMP. METAB OLIC PANEL (14) globulin, total 2.6 g/dL 1.5-4. 5 Not Available [facility] ([facility]) [address] [place], [address], 12/10/2023 09:15:24 12/09/19 24 12/10/2023 COMP. METAB OLIC PANEL (14) bilirubin, total 0.3 mg/dL 0.0-1. 2 Not Available [facility] ([facility]) [address] [place], [address], 12/10/2023 09:15:24 12/09/19 24 12/10/2023 COMP. METAB OLIC PANEL (14) alkaline phosphatase 73 IU/L 44-121 Not Available [facility] ([facility]) [address] [place], [address], 12/10/2023 09:15:24 12/09/19 24 12/10/2023 COMP. METAB OLIC PANEL (14) AST (SGOT) 28 IU/L 0-40 Not Available [facility] ([facility]) [address] [place], [address], 12/10/2023 09:15:24 12/09/19 24 12/10/2023 COMP. METAB OLIC PANEL (14) ALT (SGPT) 39 IU/L 0-32 above high normal Not Available [facility] ([facility]) [address] [facility], [place], [address], 12/10/2023 09:15:24 12/09/19 24 12/10/2023 HEMOG LOBIN A1C hemoglobin A1C 5.5 % 4.8-5. 6 Predi abete s: 5.7 - 6.4 Diabe brenna: >6.4 Glyce katerina contr ol for adult s with diabe brenna: <7.0 Not Available [facility] ([facility]) [address] [place], [address], 12/10/2023 09:15:25 08/19/19 25 08/18/2024 Chori ogona dotro pin.b eta subun it [Pres ence] in Urine choriogonado tropin.beta subunit [presence] in urine Positi ve Not Available Not Available 08:11:22 08/19/19 25 08/20/2024 Bacte karri ident ified in Urine by Cultu re bacteria identified in urine by culture Mixed Growth or 3 or More Organi sms, Probab le Collec tion Contam inatio n, Sugges t Repeat Not Available Not Available 08:11:21 08/19/1908/18/2024 CBC W Auto Diffe renti al panel - Blood leukocytes [#/volume] in blood by automated count 8.24 text: 4.00 - 12.00 10(3)/ mcL Not Available Not Available 08/25/2024 08:11:22 08/19/1908/18/2024 CBC W Auto Diffe renti al panel - Blood erythrocytes [#/volume] in blood by automated count 4.49 text: 3.80 - 5.30 10(6)/ mcL Not Available Not Available 08/25/2024 08:11:22 08/19/1908/18/2024 CBC W Auto Diffe renti al panel - Blood hemoglobin [mass/volume ] in blood 14.1 g/dL low: 12g/dL high: 15.8g/ dL Not Available Not Available 08/25/2024 08:11:22 08/19/1908/18/2024 CBC W Auto Diffe renti al panel - Blood hematocrit [volume fraction] of blood by automated count 41 % low: 36%hig h: 47% Not Available Not Available 08/25/2024 08:11:22 08/19/1908/18/2024 CBC W Auto Diffe renti al panel - Blood MCV [entitic mean volume] in red blood cells by automated count 91.3 fL low: 82fLhi gh: 96fL Not Available Not Available 08/25/2024 08:11:22 08/19/1908/18/2024 CBC W Auto Diffe renti al panel - Blood MCH [entitic mass] by automated count 31.4 pg low: 26pghi gh: 34pg Not Available Not Available 08/25/2024 08:11:22 08/19/1908/18/2024 CBC W Auto Diffe renti al panel - Blood MCHC [entitic mass/volume] in red blood cells by automated count 34.4 g/dL low: 31g/dL high: 36g/dL Not Available Not Available 08/25/2024 08:11:22 08/19/1908/18/2024 CBC W Auto Diffe renti al panel - Blood platelets [#/volume] in blood 248 text: 140 - 440 10(3)/ mcL Not Available Not Available 08/25/2024 08:11:22 08/19/1908/18/2024 CBC W Auto Diffe renti al panel - Blood erythrocyte [distwidth] in red blood cells by automated count 13.7 % low: 11.8%h igh: 15.5% Not Available Not Available 08/25/2024 08:11:22 08/19/1908/18/2024 CBC W Auto Diffe renti al panel - Blood platelet [entitic mean volume] in blood by automated count 12.3 fL low: 9.7fLh igh: 12.4fL Not Available Not Available 08/25/2024 08:11:22 08/19/1908/18/2024 CBC W Auto Diffe renti al panel - Blood neutrophils/ leukocytes in blood by automated count 62.2 % low: 47%hig h: 73% Not Available Not Available 08/25/2024 08:11:22 08/19/1908/18/2024 CBC W Auto Diffe renti al panel - Blood lymphocytes/ leukocytes in blood by automated count 31.6 % low: 18%hig h: 42% Not Available Not Available 08/25/2024 08:11:22 08/19/1908/18/2024 CBC W Auto Diffe renti al panel - Blood monocytes/le ukocytes in blood by automated count 5.5 % low: 4%high : 12% Not Available Not Available 08/25/2024 08:11:22 08/19/1908/18/2024 CBC W Auto Diffe renti al panel - Blood eosinophils/ leukocytes in blood by automated count 0.5 % low: 0%high : 5% Not Available Not Available 08/25/2024 08:11:22 08/19/1908/18/2024 CBC W Auto Diffe renti al panel - Blood basophils/le ukocytes in blood by automated count 0.2 % low: 0%high : 1% Not Available Not Available 08/25/2024 08:11:22 08/19/19 25 08/18/2024 CBC W Auto Diffe renti al panel - Blood neutrophils [#/volume] in blood by automated count 5.13 text: 1.60 - 7.70 10(3)/ mcL Not Available Not Available 08/25/2024 08:11:22 08/19/1908/18/2024 CBC W Auto Diffe renti al panel - Blood lymphocytes [#/volume] in blood by automated count 2.6 text: 1.30 - 3.20 10(3)/ mcL Not Available Not Available 08/25/2024 08:11:22 08/19/1908/18/2024 CBC W Auto Diffe renti al panel - Blood monocytes [#/volume] in blood by automated count 0.45 text: 0.20 - 1.00 10(3)/ mcL Not Available Not Available 08/25/2024 08:11:22 08/19/1908/18/2024 CBC W Auto Diffe renti al panel - Blood eosinophils [#/volume] in blood by automated count 0.04 text: 0.00 - 0.40 10(3)/ mcL Not Available Not Available 08/25/2024 08:11:22 08/19/1908/18/2024 CBC W Auto Diffe renti al panel - Blood basophils [#/volume] in blood by automated count 0.02 text: 0.00 - 0.10 10(3)/ mcL Not Available Not Available 08/25/2024 08:11:22 08/19/1908/18/2024 CBC W Auto Diffe renti al panel - Blood nucleated erythrocytes /leukocytes [ratio] in blood 0 Not Available Not Available 07/2024 08:11:22 08/19/1908/18/2024 Lipas e [Enzy matic activ ity/v olume ] in Serum or Plasm a lipase [enzymatic activity/vol ume] in serum or plasma 19 U/L low: 8U/Lhi gh: 78U/L Not Available Not Available 08/25/2024 08:11:22 08/19/1908/18/2024 Lipas e [Enzy matic activ ity/v olume ] in Serum or Plasm a interpretati on and review of laboratory results Normal Not Available Not Available 07/2024 08:11:22 08/19/1908/18/2024 Chori ogona dotro pin.b eta subun it [Unit s/vol ume] in Serum or Plasm a choriogonado tropin.beta subunit [units/volum e] in serum or plasma 8551.1 5 text: 0.00 - 5.00 mIU/mL high Not Available Not Available 08/25/2024 08:11:22 08/19/19 25 08/18/2024 Chori ogona dotro pin.b eta subun it [Unit s/vol ume] in Serum or Plasm a Unknown Analyte HCG levels should be interp reted with consid eratio n given to the patien t's clinic al condit ion. No curren tly availa ble hCG test is approv ed by the FDA for use as a tumor marker . hCG result s <5 mIU/mL are consid ered negati ve. Weeks post LMP hCG range (mIU/m L) 1 - 10 202 - 231,00 0 11 - 15 22,536 - 234,99 0 16 - 22 8,007 - 50,064 23 - 40 1,600 - 49,413 The concen tratio n of hCG in matern al serum rises rapidl y in early pregna ncy, hCG levels less than 25 mIU/mL do not exclud e pregna ncy. A furthe r sample should be tested after 48 hours if pregna ncy is suspec nishant. Hetero philic antibo dies presen t in the serum of some patien ts may cause a false positi ve result in the assay. Before making a diagno sis of malign carlos based on elevat ed hCG, confir m result s with a urine hCG. Not Available Not Available 08:11:22 08/19/1908/18/2024 Chori ogona dotro pin.b eta subun it [Unit s/vol ume] in Serum or Plasm a interpretati on and review of laboratory results Abnorm al Not Available Not Available 08:11:22 08/19/19 25 08/18/2024 Compr ehens filippo metab olic 2000 panel - Serum or Plasm a sodium [moles/volum e] in serum or plasma 138 mmol/ L low: 136mmo l/Lhig h: 145mmo l/L Not Available Not Available 08/25/2024 08:11:21 08/19/1908/18/2024 Compr BBOXXens filippo metab olic 1999 panel - Serum or Plasm a potassium [moles/volum e] in serum or plasma 3.7 mmol/ L low: 3.5mmo l/Lhig h: 5.1mmo l/L Not Available Not Available 08/25/2024 08:11:21 08/19/19 25 08/18/2024 Compr ehens filippo metab olic 1999 panel - Serum or Plasm a chloride [moles/volum e] in serum or plasma 108 mmol/ L low: 98mmol /Lhigh : 107mmo l/L high Not Available Not Available 08/25/2024 08:11:21 08/19/1908/18/2024 Compr ehens filippo metab olic 1999 panel - Serum or Plasm a carbon dioxide, total [moles/volum e] in serum or plasma 19 mmol/ L low: 22mmol /Lhigh : 30mmol /L low Not Available Not Available 08/25/2024 08:11:21 08/19/1908/18/2024 [facility] - Serum or Plasm a anion gap in serum or plasma by calculation 14.7 mmol/ L high: 18mmol /L Not Available Not Available 08/25/2024 08:11:21 08/19/1908/18/2024 [facility] panel - Serum or Plasm a glucose [mass/volume ] in serum or plasma 95 mg/dL low: 70mg/d Lhigh: 99mg/d L Not Available Not Available 08/25/2024 08:11:21 08/19/1908/18/2024 Compr BBOXXens filippo Devtap olic 1999 panel - Serum or Plasm a urea nitrogen [mass/volume ] in serum or plasma 8 mg/dL low: 5mg/dL high: 18mg/d L Not Available Not Available 08/25/2024 08:11:21 08/19/1908/18/2024 [facility] BBOXXens filippo Devtap olic 1999 panel - Serum or Plasm a creatinine [mass/volume ] in serum or plasma 0.7 mg/dL low: 0.6mg/ dLhigh : 1mg/dL Not Available Not Available 08/25/2024 08:11:21 08/19/1908/18/2024 [facility] BBOXXens filippo Devtap [facility] 1999 panel - Serum or Plasm a urea nitrogen/cre atinine [mass ratio] in serum or plasma 11 text: 12 - 20 ratio low Not Available Not Available 08/25/2024 08:11:21 08/19/19 25 08/18/2024 [facility] 1999 panel - Serum or Plasm a protein [mass/volume ] in serum or plasma 8.7 g/dL low: 6g/dLh igh: 8g/dL high Not Available Not Available 08/25/2024 08:11:21 08/19/19 25 08/18/2024 Compr BBOXXens filippo Devtap olic 1999 panel - Serum or Plasm a albumin [mass/volume ] in serum or plasma 4.7 g/dL low: 3.5g/d Lhigh: 5g/dL Not Available Not Available 08/25/2024 08:11:21 08/19/1908/18/2024 [facility] 1999 panel - Serum or Plasm a albumin/glob ulin [mass ratio] in serum or plasma 1.2 low: 1high: 2.2 Not Available Not Available 08/25/2024 08:11:21 08/19/1908/18/2024 [facility] 2000 panel - Serum or Plasm a calcium [mass/volume ] in serum or plasma 9.6 mg/dL low: 8.7mg/ dLhigh : 10.5mg /dL Not Available Not Available 08/25/2024 08:11:21 08/19/1908/18/2024 [facility] BBOXXens filippo Devtap ic 1999 panel - Serum or Plasm a bilirubin.to christie [mass/volume ] in serum or plasma 0.4 mg/dL low: 0.2mg/ dLhigh : 1.2mg/ dL Not Available Not Available 08/25/2024 08:11:21 08/19/1908/18/2024 [facility] BBOXXens filippo Devtap olic 2000 panel - Serum or Plasm a aspartate aminotransfe rase [enzymatic activity/vol ume] in serum or plasma 34 U/L high: 43U/L Speci men is hemol yzed. In vitro hemol ysis could affec t resul ts. Clini robinson corre latio n advis ed. Not Available Not Available 08/25/2024 08:11:21 08/19/1908/18/2024 Compr ehens filippo metab olic 1999 panel - Serum or Plasm a alanine aminotransfe rase [enzymatic activity/vol ume] in serum or plasma 21 U/L high: 56U/L Not Available Not Available 08/25/2024 08:11:21 08/19/1908/18/2024 Compr ehens filippo metab olic 1999 panel - Serum or Plasm a alkaline phosphatase [enzymatic activity/vol ume] in serum or plasma 73 U/L low: 40U/Lh igh: 150U/L Not Available Not Available 08/25/2024 08:11:21 08/19/1908/18/2024 Compr ehens filippo metab olic 2000 panel - Serum or Plasm a glomerular filtration rate [volume rate/area] in serum, plasma or blood by creatinine-b ased formula (CKD-epi 2020)/1.73 sq M low: 60 Creat inine Clear ance is the prefe rred crite karri for selec ting drug dose adjus tment s in renal ly impai red patie nts. The GFR is provi ded as addit ional perti nent clini robinson infor matio n. GFR is repor nishant in mL/mi n/1.7 3 sq m. Calcu latio n based on the Chron ic Kidne y Disea se Epide miolo gy Colla borat ion (CKD- EPI) equat ion refit witho ut adjus tment for race. Not Available Not Available 08/25/2024 08:11:21 08/19/1908/18/2024 Compr ehens filippo metab olic 1999 panel - Serum or Plasm a glomerular filtration rate [volume rate/area] in serum, plasma or blood by creatinine-b ased formula (MDRD)/1.73 sq M among black population low: 60 Not Available Not Available 08/25/2024 08:11:21 08/19/1908/18/2024 Compr ehens filippo metab olic 1999 panel - Serum or Plasm a glomerular filtration rate [volume rate/area] in serum, plasma or blood by creatinine-b ased formula (MDRD)/1.73 sq M among non black population low: 60 Not Available Not Available 08/25/2024 08:11:21 08/19/19 25 08/18/2024 Compr ehens filippo metab olic 1999 panel - Serum or Plasm a interpretati on and review of laboratory results Abnorm al Not Available Not Available 08:11:21 10/12/19 25 10/11/2024 cultu re, urine result report SEE RESULT S BELOW Test: Cultu re: Urine Speci men Sourc e: Urine Voide d Speci men Type: Urine Speci men Date: 2024 1251 Resul t Date: 20246 Resul t Statu s: Final resul t Abnor mal: No Resul ting Lab: [facility] [address] [facility] [address] Tel: CULTU RE ----- ----- ----- --- No growt h in 1 day (dete ction level of 10,00 0 colon ies / ml.) Not Available Not Available 02/23/2025 10:44:42 10/12/19 25 10/11/2024 drug scree n, urine amphetamines : negati ve Not Available Not Available 10:44:42 10/12/19 25 10/11/2024 drug scree n, urine cannabinoids : negati ve Not Available Not Available 10:44:42 10/12/19 25 10/11/2024 drug scree n, urine cocaine: negati ve Not Available Not Available 10:44:42 10/12/19 25 10/11/2024 drug scree n, urine opiates: negati ve Not Available Not Available 10:44:42 10/12/19 25 10/11/2024 drug scree n, urine phenocyclidi ne: negati ve Not Available Not Available 10:44:42 10/12/19 25 10/11/2024 drug scree n, urine barbiturates : negati ve Not Available Not Available 10:44:42 10/12/19 25 10/11/2024 drug scree n, urine benzodiazepi aaron: negati ve Not Available Not Available 10:44:42 10/12/19 25 10/11/2024 drug scree n, urine ethanol: negati ve Not Available Not Available 10:44:42 10/12/19 25 10/11/2024 drug scree n, urine hallucinogen s: negati ve Not Available Not Available 10:44:42 10/12/19 25 10/11/2024 drug scree n, urine inhalants: negati ve Not Available Not Available 10:44:42 10/12/1910/11/2024 RPR (rapi d plasm a reagi n), serum RPR qualitative Nonrea ctive text: nonrea ctive Not Available Not Available 02/23/2025 10:44:41 10/12/1910/11/2024 HbA1c (hemo globi n A1c), blood HbA1C (hemoglobin A1C), blood 5.3 % text: 4.0-5. 6 The Ameri can Diabe brenna [employer] iatio n recom mends that a prima ry goal of thera py naima d be a HBA1C of < 7% and that physi cians shoul d reeva luate the treat ment regim en in patie nts with HBA1C value s consi stent ly > 8%. <5.7% Pooja l 5.7 - 6.4% Incre ased risk for diabe brenna >=6.5 % Diagn ostic of diabe brenna <7.0% Goal of thera py >8.0% Actio n sugge sted Not Available Not Available 02/23/2025 10:44:41 10/12/1910/11/2024 type + scree n, blood ABO/Rh type O POS Not Available Not Av ailable 02/23/2025 10:44:41 10/12/19 25 10/11/2024 type + scree n, blood antibody screen NEG Not Available Not Available 06/2024 10:44:41 10/12/19 25 10/11/2024 type + scree n, blood exp date 2024 23:59 Not Available Not Available 10:44:41 10/12/19 25 10/11/2024 rubel la igg Ab, titer , serum rubella antibodies, IgG Reacti ve text: reacti ve Not Available Not Available 02/23/2025 10:44:41 10/12/19 25 10/11/2024 rubel la igg Ab, titer , serum rubella antibodies, IgG quant 18.4 IU/mL text: >=10 Non-r eacti ve (Non- Immun e) <10 IU/mL React filippo (Immu ne) > or = 10 IU/mL Not Available Not Available 02/23/2025 10:44:41 10/12/1910/11/2024 hepat itis C virus Ab, serum hepatitis C antibody Non-re active text: non-re active Antib odies to HCV Not Detec nishant, does not exclu de the possi bilit y of expos ure to HCV. Not Available Not Available 02/23/2025 10:44:41 10/12/19 25 10/11/2024 HBsAg (hepa titis B surfa ce Ag), serum hepatitis B surface antigen Non-re active text: non-re active This assay was perfo rmed using [employer] ratio n reage nts and test kits. Value s obtai francois with other assay metho ds or kits canno t be used inter serna eably . Not Available Not Available 02/23/2025 10:44:41 10/12/1910/11/2024 HIV 1+2 AB + HIV 1 p24 Ag, quali tativ e immun oassa y, serum HIV antigen/anti body Nonrea ctive text: nonrea ctive HIV-1 antig en and HIV-1 /HIV- 2 antib odies were not detec nishant. No labor atory evide nce of HIV infec tion. Not Available Not Available 02/23/2025 10:44:41 10/22/19 25 10/21/2024 char ic scree n, unspe cifie d speci men sickle cell disease/beta -thalassemia /hemoglobino pathies carrier screen NEGATI VE Not Available Not Available 10:44:41 10/22/19 25 10/21/2024 char ic scree n, unspe cifie d speci men alpha-thalas semia carrier screen NEGATI VE Not Available Not Available 10:44:41 10/22/19 25 10/21/2024 char ic scree n, unspe cifie d speci men cystic fibrosis carrier screen NEGATI VE Not Available Not Available 10:44:41 10/22/19 25 10/21/2024 char ic scree n, unspe cifie d speci men spinal muscular atrophy carrier screen NEGATI VE 2 SMN1 copies , SNP not presen t Not Available Not Available 10:44:41 10/22/19 25 10/21/2024 char ic scree n, unspe cifie d speci men for detailed report, see pdf See PDF Not Available Not Available 10:44:41 12/03/19 25 12/02/2024 vitam in A (reti nol), serum vitamin A 32 mcg/d L text: 38-98 low (Note ) Cli n Chem [...] purpo ses. MDF med fusio n [address] [facility] [address] [place] [address] [phone] Victorina Johnson MD, PhD Perfo rming Organ izati on Infor matio n: Site ID: [id number] Name: [facility] jaylene- [facility] jaylene Addre ss: [address] [facility] [address] [place] [address] Direc tor: Victorina Johnson MD,Ph D Not Available Not Available 02/23/2025 10:44:42 12/03/19 25 12/02/2024 LEAD, BLOOD (ADUL T/PED IATRI C) lead, whole blood <1.0 text: <3.5 See Note 1 Linda sis was perfo rmed by Gertrude Holloway ed Plasm a Mass Spect romet ry (ICPM S) Note 1 This test was devel oped and its linda tical perfo rmanc e che cteri stics have been deter mined by [employer]. It has not been clear ed or appro doug by the FDA. This assay has been valid ated pursu ant to the CLIA regul ation s and is used for clini robinson purpo ses. Perfo rming Organ izati on Infor matio n: Site ID: [id number] Name: [employer]-Jared hand Alen Addre ss: [address] [place] [address] Direc tor: Bhaskar sears Not Available Not Available 02/23/2025 10:44:42 12/03/19 25 12/02/2024 vitam in B12 + folat e, serum or blood vitamin B12 202 pg/mL text: 180-91 4 Pooja l Range : 180-9 14 pg/mL . Indet ermin ate Range : 145-1 80 pg/mL . Defic ient Range : <=145 pg/mL . Not Available Not Available 02/23/2025 10:44:42 12/03/19 25 12/02/2024 vitam in B12 + folat e, serum or blood folate, serum >20.0 text: 6.0-20 .0 high Not Available Not Available 02/23/2025 10:44:42 02/04/20 25 02/04/2025 HIV 1+2 AB + HIV 1 p24 Ag, quali tativ e immun oassa y, serum HIV 1+2 Ab + HIV 1 P24 Ag, qualitative immunoassay, serum Nonrea ctive text: nonrea ctive Not Available Not Available 02/23/2025 12:06:30 02/04/20 25 02/04/2025 HIV 1+2 AB + HIV 1 p24 Ag, quali tativ e immun oassa y, serum HIV-1 antigen and HIV-1/HIV-2 antibodies were not detected. no laboratory evidence of HIV infection. HIV-1 antige n and HIV-1/ HIV-2 antibo dies were not detect ed. No labora tory eviden ce of HIV infect ion. Not Available Not Available 12:06:30 02/04/2002/04/2025 HIV 1+2 AB + HIV 1 p24 Ag, quali tativ e immun oassa y, serum lab interpretati on Normal Not Available Not Available 06/2024 12:06:30 02/04/2002/06/2025 RPR (rapi d plasm a reagi n), serum RPR (rapid plasma reagin), serum Nonrea ctive text: nonrea ctive Not Available Not Available 02/23/2025 12:06:30 02/04/2002/06/2025 RPR (rapi d plasm a reagi n), serum lab interpretati on Normal Not Available Not Available 06/2024 12:06:30 02/04/2002/03/2025 LEAD, BLOOD (ADUL T/PED IATRI C) lead, whole blood <1.0 text: <3.5 See Note 1 Linda sis was [...] Diagn ostic s-Jared Lowry Addre ss: [address] [place] [address] Direc tor: Bhaskar mccormick V Lavon s Not Available Not Available 02/23/2025 10:44:42 02/04/2002/03/2025 RPR (rapi d plasm a reagi n), serum RPR qualitative Nonrea ctive text: nonrea ctive Not Available Not Available 02/23/2025 10:44:42 02/04/2002/03/2025 HIV 1+2 AB + HIV 1 p24 Ag, quali tativ e immun oassa y, serum HIV antigen/anti body Nonrea ctive text: nonrea ctive HIV-1 antig en and HIV-1 /HIV- 2 antib odies were not detec nishant. No labor atory evide nce of HIV infec tion. Not Available Not Available 02/23/2025 10:44:42 02/04/2002/03/2025 hemog lobin (Hb), blood HGB 10 g/dL text: (based on docume nted legal sex) 11.6-1 5.4 low Not Available Not Available 02/23/2025 10:44:42 02/04/2002/03/2025 hemat ocrit , blood HCT 31.1 % text: (based on docume nted legal sex) 34.0-4 5.0 low Not Available Not Available 02/23/2025 10:44:42 Result Notes None recorded. Problems Name Problem SNOMED Code Status Onset Date Resolution Date Notes Provider Name and Address Organization Details Recorded Time Bacteria l vaginosi s [id number] Completed 12/09/2023 Vivian Alvarenga MD Attn: Jey horne,[address] [place], [address], [facility] - [facility] 4 09:55:07 Infectio n by Trichomo syed [id number] Completed 12/09/2023 Vivian Alvarenga MD Attn: Jey horne,[address] [place], [address], [place] - [facility] 4 09:55:12 Pregnanc y 43840420 Completed 201608/03/2017 Bailee abad MA [facility], [place] - [facility] 8 12:17:51 Malaise and fatigue 846774663 Active 2023 Yunior Stafford MD Attn: Jey horne,[address] [place], [address], [facility] - [facility] 4 00:06:13 Divertic ulosis of colon 010154174 Active 2023 Yunior Stafford MD Attn: Jey horne,[address] [facility], [place], [address], [place] - [facility] 4 00:06:41 Steatoti c liver disease 765557131 Active [address] of abdomen 08/16/23 Yunior Stafford MD Attn: Jey horne,[address] [facility], [place], [address], [place] - [facility] 4 00:20:41 Abdomina l pain [id number] Active 2023 epiploic appendagi tis anterior to descendin g colon/sig moid- which is an ischemic infarctio n of an epiploic appendage caused by torsion or spontaneo us thrombosi s of the epiploic appendage central draining vein. -Epiploic appendagi tis is a benign and self-limi nishant condition but can cause abdomina pain Yunior Stafford MD Attn: Jey horne,[address] [facility], [place], [address], [place] [facility] 4 00:25:25 Body mass index 30+ - obesity 769157395 Active 2023 Yunior Stafford MD Attn: Jey horne,[address] [facility], [place], [address], [place] [facility] 4 11:45:20 Swelling of bilatera l lower limbs 254100296 Active 2023 SHAYE SHEEHAN MD Attn: Jey horne,[address] [facility], [place], [address], [place] [facility] 4 22:52:03 Prediabe brenna 221107017 Active 2023 SHAYE SHEEHAN MD Attn: Jey horne,[address] [facility], [place], [address], [place] [facility] 4 13:26:45 Obesity 354417405 Active 2023 SHAYE SHEEHAN MD Attn: Jey horne,[address] [facility], [place], [address], [facility] - [facility] 4 13:26:49 Problem Notes None recorded. Procedures Surgical History Date Name Laterality Status Provider Name and Address Organization Details Recorded Time 12/01/19 18 Suture/Staple removal completed Tim Dewey MD Attn: Accounting, [address] [facility], [place], [address], [facility] - [facility] 11/30/2017 11:38:29 11/25/19 18 Oophorectomy completed Bailee Bennett [place] - [place] 11/30/2017 11:20:07 09/23/19 18 Date of Last Pap Smear completed Bailee Bennett MA [facility] 05/17/2018 10:10:23 08/04/19 18 Suture/Staple removal completed Tim Dewey MD Attn: Accounting, [address] [facility], [place], [address], [facility] - [facility] 08/03/2017 14:04:26 07/28/19 18 Caesarean Section completed Bailee Bennett MA [facility] 05/17/2018 16:16:20 09/01/19 15 Control Implant Removal [facility] Attn: Accounting, [address] [place], [address], [facility] - [facility] 08/31/2014 17:16:36 03/23/19 10 Cholecystectomy completed Maritza Smith MA [facility] 08/31/2014 15:04:43 03/23/19 02 Tonsillectomy completed Maritza Smith MA [facility] 08/31/2014 15:04:43 Appendectomy completed Aida Abel MA [facility] 08/26/2023 10:54:42 Imaging Results None recorded. Procedure Notes None recorded. Medical Equipment None Reported. Allergies Allergen ID Allergen Name Allergen Category Reaction Reaction Severity Criticality Documentation Date Start Date Code Code System Note Provider Name and Address Organization Details Recorded Time 638101 iodine medicatio n tachycard ia Not available Not available 08/26/2023 5933 RxNorm dizzi ness Aida Abel MA null, [place] - [facility] 4 10:51:15 698947 Augmentin medicatio n hives moderate Not available 02/23/2025 17889 2 RxNorm Not Available [facility]an - External Data Service - prod 5 10:44:39 856386 clavulani c acid Not available vomiting Not available high 02/23/20252021 08130 RxNorm Not Available [facility] External Data Service - prod 5 10:44:39 611408 amoxicill in / clavulana te medicatio n hives rash Not available Not available high 02/23/20252023 76991 RxNorm amoxi cilli n / clavu lanat e Not Available [facility] External Data Service - prod 5 10:44:39 Medications Name Sig Start Date Stop Date Status Note LastModified by Organization Details LastModified Time cyclobenzap rine 10 mg tablet 12/07 completed Not Available Not Available Not Available amoxicillin 500 mg capsule 11/27 completed Not Available Not Available Not Available acetaminoph en 325 mg tablet TAKE 2 TABLETS BY MOUTH EVERY 4 HOURS NEEDED FOR MODERATE TO SEVERE PAIN OR FEVER 08/25 completed Not Available Not Available Not Available albuterol sulfate 2.5 mg/3 mL (0.083 %) solution for nebulizatio n 06/10 completed Not Available Not Available Not Available loperamide 2 mg capsule 08/25 completed Not Available Not Available Not Available cetirizine 10 mg tablet TAKE 1 TABLET BY MOUTH DAILY AT BEDTIME 08/25 completed Not Available Not Available Not Available azithromyci n 250 mg tablet TAKE 2 TABLETS BY MOUTH FOR 1 DAY THEN TAKE 1 TABLET BY MOUTH DAILY FOR 4 DAYS 09/06 completed Not Available Not Available Not Available ibuprofen 800 mg tablet 12/07 completed Not Available Not Available Not Available benzonatate 200 mg capsule TAKE 1 CAPSULE BY MOUTH THREE TIMES DAILY FOR UP TO 14 DAYS NEEDED FOR COUGH 08/16 completed Not Available Not Available Not Available valacyclovi r 1 gram tablet TAKE 1 TABLET BY MOUTH EVERY 12 HOURS FOR 7 DAYS 08/25 completed Not Available Not Available Not Available hydrocodone 5 mg-acetamin ophen 325 mg tablet TAKE 1 TABLET BY MOUTH EVERY 6 HOURS NEEDED FOR MODERATE TO SEVERE PAIN 08/25 completed Not Available Not Available Not Available ondansetron HCl 4 mg tablet TAKE 1 TABLET BY MOUTH EVERY 8 HOURS NEEDED FOR NAUSEA 08/16 completed Not Available Not Available Not Available famotidine 40 mg tablet 08/16 completed Not Available Not Available Not Available prednisone 20 mg tablet 06/10 completed Not Available Not Available Not Available dexamethaso ne 6 mg tablet TAKE 1 TABLET BY MOUTH TWICE DAILY WITH MEALS FOR 5 DAYS 02/05 completed Not Available Not Available Not Available terconazole 0.8 % vaginal cream Insert 1 applicato rful every day by vaginal route at bedtime. 12/07 completed Not Available Not Available Not Available metronidazo le 500 mg tablet TAKE 1 TABLET BY MOUTH THREE TIMES DAILY FOR 10 DAYS 09/09 completed Not Available Not Available Not Available acetaminoph en 300 mg-codeine 30 mg tablet TAKE 1 TABLET BY MOUTH EVERY 6 HOURS NEEDED FOR MODERATE TO SEVERE PAIN 08/25 completed Not Available Not Available Not Available ciprofloxac in 500 mg tablet TAKE 1 TABLET BY MOUTH TWICE DAILY FOR 10 DAYS 09/09 completed Not Available Not Available Not Available amoxicillin 500 mg tablet 09/06 completed Not Available Not Available Not Available oxycodone-a cetaminophe n 5 mg-325 mg tablet 12/07 completed Not Available Not Available Not Available ofloxacin 0.3 % ear drops 12/07 completed Not Available Not Available Not Available amoxicillin 875 mg tablet 12/07 completed Not Available Not Available Not Available benzonatate 100 mg capsule TAKE 2 CAPSULES BY MOUTH THREE TIMES DAILY NEEDED FOR COUGH 08/25 completed Not Available Not Available Not Available cephalexin 500 mg capsule 12/07 completed Not Available Not Available Not Available dexamethaso ne 4 mg tablet TAKE 1 TABLET BY MOUTH TWICE DAILY FOR 5 DAYS 08/16 completed Not Available Not Available Not Available prednisone 50 mg tablet 06/10 completed Not Available Not Available Not Available promethazin e 25 mg tablet Take 1 tablet every 6 hours by oral route. 12/07 completed Not Available Not Available Not Available docusate sodium 100 mg capsule TAKE ONE CAPSULE BY MOUTH TWICE DAILY FOR 14 DAYS 08/16 completed Not Available Not Available Not Available furosemide 20 mg tablet TAKE 1 TABLET BY MOUTH EVERY DAY FOR 5 DAYS 08/16 completed Not Available Not Available Not Available ibuprofen 600 mg tablet TAKE 1 TABLET BY MOUTH EVERY 8 HOURS 08/25 completed Not Available Not Available Not Available albuterol sulfate HFA 90 mcg/actuati on aerosol inhaler USE 2 PUFFS BY MOUTH EVERY 6 HOURS NEEDED FOR COUGH 2023 active Not Available Not Available Not Avai lable norethindro ne (contracept filippo) 0.35 mg tablet Take 1 tablet every day by oral route. 12/07 completed Not Available Not Available Not Available ondansetron 4 mg disintegrat ing tablet DISSOLVE ONE TABLET BY MOUTH EVERY 8 HOURS NEEDED FOR NAUSEA. FIRST LINE 09/09 completed Not Available Not Available Not Available fluticasone propionate 50 mcg/actuati on nasal spray,suspe nsion SHAKE LIQUID AND USE 1 SPRAY IN EACH NOSTRIL TWICE DAILY 08/25 completed Not Available Not Available Not Available naproxen 500 mg tablet TAKE 1 TABLET BY MOUTH TWICE DAILY NEEDED FOR PAIN 08/25 completed Not Available Not Available Not Available amoxicillin 875 mg-potassiu m clavulanate 125 mg tablet 09/09 completed Not Available Not Available Not Available Zithromax 500 mg tablet Take 2 tablets every day by oral route after meals for 1 day. 06/10 completed Not Available Not Available Not Available Mononessa (28) 0.25 mg-35 mcg tablet Take 1 tablet every day by oral route as directed. 12/23 completed Not Available Not Available Not Available nitrofurant oin monohydrate /macrocryst als 100 mg capsule 08/25 completed Not Available Not Available Not Available solifenacin 5 mg tablet 12/07 completed Not Available Not Available Not Available Ultra Thin Lancets 30 gauge 12/07 completed Not Available Not Available Not Available Gummy 400 mcg-35 mg-25 mg-5 mg chewable tablet one tab daily 12/07 completed Not Available Not Available Not Available True Metrix Glucose Test Strip 12/07 completed Not Available Not Available Not Available True Metrix Glucose Meter 12/07 completed Not Available Not Available Not Available with DHA and Folic Acid 400 mcg-32.5 mg chewable tablet TAKE 1 GUMMY DAILY 12/07 completed Not Available Not Available Not Available Estrella 24 Fe 1 mg-20 mcg (24)/75 mg (4) tablet TAKE 1 TABLET BY MOUTH EVERY DAY 08/25 completed Not Available Not Available Not Available ID NOW COVID-19 Test Kit TEST DIRECTED 02/05 completed Not Available Not Available Not Available Vitals Date Recorded Body height Body mass index (BMI) Body weight Heart rate Respiratory rate Body temperature Systolic And Diastolic Provider Name and Address Organization Details Last Updated DateTime 5 154.94 cm 33 kg/m2 58743.8 7 g 74 /min 16 /min 97.8 [degF] 112/70 mm[Hg] Melany Stone MA [facility] 5 12:26:07 Date Recorded Body weight Body mass index (BMI) Body height Body temperature Respiratory rate Heart rate Systolic And Diastolic Provider Name and Address Organization Details Last Updated DateTime 4 11467.3 7 g 41.6 kg/m2 154.94 cm 98.2 [degF] 16 /min 74 /min 123/86 mm[Hg] Aida Abel MA [facility] 4 10:55:51 Date Recorded Body height Body mass index (BMI) Body weight Body temperature Respiratory rate Heart rate Systolic And Diastolic Provider Name and Address Organization Details Last Updated DateTime 4 154.94 cm 41 kg/m2 18018.9 4 g 97.1 [degF] 16 /min 86 /min 118/82 mm[Hg] Aida Abel MA [facility] 4 11:25:47 Date Recorded Body height Body mass index (BMI) Body weight Body temperature Heart rate Respiratory rate Systolic And Diastolic Provider Name and Address Organization Details Last Updated DateTime 4 154.94 cm 39.9 kg/m2 78380.9 9 g 98.3 [degF] 80 /min 18 /min 119/80 mm[Hg] Melinda Cobian MA [facility] 4 09:20:28 Date Recorded Body height Provider Name an d Address Organization Details Last Updated DateTime 12/25/2023 154.94 cm Melinda Cobian MA [facility] 024 09:04:28 Social History Question Answer Notes LastModified by Organizat Praccel Details LastModified Time Tobacco Smoking Status Never Smoker Maritza Smith MA null, [facility] 08/31/2014 15:04:43 What Is Your Level Of Caffeine Consumption? Occasional Information not available 08/16/2024 What Was The Date Of Your Most Recent Tobacco Screening? 08/16/2024 Information not available 08/16/2024 Are You Sexually Active? Yes Information not available 11/27/2020 Are You Passively Exposed To Smoke? No [email or web address] Information not available 11/27/2020 How Much Tobacco Do You Smoke? No Information not available 12/08/2019 On What Date Was Tobacco Cessation Counseling Provided? 08/16/2024 Information not available 08/16/2024 Sex: Female Functional Status Question Answer Note LastModified by Organizat ion Details LastModified Time Do you use any illicit or recreational drugs? No Information not available 08/26/2023 Do you or have you ever used any other forms of tobacco or nicotine? No Information not available 11/27/2020 What is your level of alcohol consumption? None Information not available 08/26/2023 Do you or have you ever used smokeless tobacco? Never used smokeless tobacco Information not available 12/08/2019 Do you or have you ever used e-cigarettes or vape? Never used electronic cigarettes Information not available 12/08/2019 Mental Status None recorded. Family History Relationship Description Onset Age of this Age Resolved Age Notes LastModified by Organization Details LastModified Time Brother Malignant neoplasm of brain [email or web address] Not available 2014 16:48:15 Brother Malignant neoplasm of vertebral column [email or web address] Not available 2014 16:48:15 Father Hypertensive disorder Stroke s and heart proble ms [email or web address] Not available 01/17/2015 16:48:15 Father Malignant neoplasm of colon [email or web address] Not available 2023 10:53:40 Father Hyperlipidem ia [email or web address] Not available 2023 10:53:47 Notes:09/10/23 Medical History Condition Response Heart Problems N Other N Breast Cancer N Thyroid Problems N Kidney or Bladder Problems N Lung Disease N Depression N GI Problems N Acne N Breast Problem N Eating Disorder N Anemia N Anesthesia Complications N Headaches/Migraines N Ovarian Cancer N Diabetes N Anxiety Disorder N Blood Transfusions N Arthritis N Polyps N Infertility N Acid Reflux (GERD) N Cancer N Stroke N Abuse/Domestic Violence N Asthma N Endometriosis N High Cholesterol N Hepatitis N Heart Disease N Fibromyalgia N Pre-Eclampsia N Hypertension N Osteoporosis N Kidney Disease N Gynecological History Statement/Question Response Flow Heavy Date of LMP 12/22/2023 On BCP's at Conception? N STIs/STDs Yes HPV Vaccine N Duration of Flow (days) 4 Age at Menarche 10 Current Control Method None Frequency of Cycle (Q days) 28 Sexually Active? Y Menses Monthly Y Date of Last Pap Smear 09/22/2017 LMP Approximate Desired Control Method BCPs Obstetrics History GPAL:G 1 P 1 0 0 1 Type Value Full Term 1 Living 1 Total 1 Immunizations Vaccine Type Date Status Note Provider Nam e and Address Organization Details Recorded Time Hep B, adolescent or pediatric 4 completed Not Available [facility] 08/16/2024 12:15:33 Hep B, adolescent or pediatric 4 completed Not Available [facility] 08/16/2024 12:15:33 Hib, unspecified formulation 4 completed Not Available [facility] 08/16/2024 12:15:33 IPV 4 completed Not Available [facility] 08/16/2024 12:15:33 DTaP 4 completed Not Available [facility] 08/16/2024 12:15:33 DTaP 5 completed Not Available [facility] 08/16/2024 12:15:33 IPV 5 completed Not Available [facility] 08/16/2024 12:15:33 Hib, unspecified formulation 5 completed Not Available [facility] 08/16/2024 12:15:33 IPV 5 completed Not Available [facility] 08/16/2024 12:15:33 DTaP 5 completed Not Available [facility] 08/16/2024 12:15:33 Hib, unspecified formulation 5 completed Not Available [facility] 08/16/2024 12:15:33 Hep B, adolescent or pediatric 5 completed Not Available [facility] 08/16/2024 12:15:33 MMR 5 completed Not Available [facility] 08/16/2024 12:15:33 DTaP 6 completed Not Available [facility] 08/16/2024 12:15:33 Hib, unspecified formulation 6 completed Not Available [facility] 08/16/2024 12:15:33 DTaP 8 completed Not Available [facility] 08/16/2024 12:15:33 IPV 8 completed Not Available [facility] 08/16/2024 12:15:33 MMR 8 completed Not Available [facility] 08/16/2024 12:15:33 Hep A, pediatric, unspecified formulation 7 completed Not Available [facility] 08/16/2024 12:15:33 Tdap 7 completed Not Available [facility] 08/16/2024 12:15:33 HPV, quadrivalent 7 completed Not Available [facility] 08/16/2024 12:15:33 Tdap 1 completed Not Available [facility] 08/16/2024 12:15:33 Hep A, adult 1 completed Not Available [facility] 08/16/2024 12:15:33 varicella 1 completed Not Available [facility] 08/16/2024 12:15:33 Influenza, split virus, trivalent, preservative 1 completed Not Available [facility] 08/16/2024 12:15:33 COVID-19, mRNA, LNP-S, PF, 30 mcg/0.3 mL dose 1 completed Not Available [facility] 08/16/2024 12:15:33 Past Encounters Encounter ID Performer Location Encounter Start Date Encounter Closed Date Diagnosis/Indication Diagnosis SNOMED-CT Code Diagnosis ICD10 Code Diagnosis IMO Codes Diagnosis Note [id number] Christin Adelso [facility] ([facility] [address]) [address] [place] [address] 08/31/2014 14:45:38 09/01/2014 08:58:26 Subcutaneous contraceptive implant present [id number] Christin Adelso [facility] ([facility] [address]) [address] [place] [address] 01/17/2015 16:35:48 01/17/2015 18:02:55 Venereal disease screening 985627944 Z11.3 detection examination 88543973 Z32.00 [id number] Christin Darden [facility] ([facility] [address]) [address] [place] [address] 06/10/2016 16:23:48 06/11/2016 12:11:25 Venereal disease screening 800513639 Z11.3 Uses oral contraception 4348100 Z30.41 [id number] RADHA Oliva ([facility]) [address] [facility] [place] [address] 12/23/2016 14:56:48 12/23/2016 16:22:51 test positive 480163338 Z32.01 Hyperemesi s gravidarum 35749963 O21.0 [id number] RADHA Oliva [facility] ([facility] [address]) [address] [place] [address] 01/20/2017 15:19:08 01/22/2017 13:03:17 Normal 51099505 Z34.91 Gynecologi c examination 50824290 Z01.419 Venereal d isease screening 229081646 Z11.3 [id number] RADHA Oliva [facility] ([facility]) [address] [place] [address] 02/17/2017 15:35:22 02/18/2017 08:56:02 Normal 42148845 Z34.91 [id number] RADHA Oliva [facility] ([facility]) [address] [place] [address] 03/19/2017 16:26:12 03/20/2017 12:35:52 Routine care 215151489 Z34.92 [id number] Edith Brar [facility] ([facility]) [address] [facility] [place] [address] 04/16/2017 10:41:09 04/20/2017 13:48:38 Normal 32485407 Z34.91 [id number] MD Viki Kelley ([facility]) [address] [facility] [place] [place] [address] 05/14/2017 10:53:20 05/14/2017 15:37:40 Body mass index 30+ - obesity 285095692 Z68.36 Normal 3896470 2 Z34.03 [id number] MD Viki Kelley ([facility]) [address] [facility] [place] [address] 05/28/2017 11:43:46 05/28/2017 15:16:49 Body mass index 30+ - obesity 797959216 Z68.36 Normal 5271741 2 Z34.03 [id number] MD Viki Kelley ([facility]) [address] [facility] [place] [address] 06/12/2017 10:15:25 06/16/2017 10:56:27 Body mass index 30+ - obesity 087290728 Z68.37 Normal 7110584 2 Z34.03 [id number] MD Viki Kelley ([facility]) [address] [facility] [place] [address] 06/25/2017 14:49:00 06/26/2017 10:37:33 Body mass index 30+ - obesity 648767532 Z68.38 Normal 9361419 2 Z34.03 [id number] MD Viki Kelley ([facility]) [address] [facility] [place] [address] 07/09/2017 11:48:34 07/09/2017 12:32:28 Body mass index 30+ - obesity 104183079 Z68.39 Normal 1870591 2 Z34.03 [id number] MD Viki Kelley ([facility]) [address] [facility] [place] [address] 07/16/2017 14:15:44 07/17/2017 16:15:02 Body mass index 30+ - obesity 546056536 Z68.39 Normal 8591586 2 Z34.03 [id number] MD [facility] ([facility] [address]) [address] [facility] [address] [place] [address] 07/22/2017 11:33:13 07/27/2017 11:07:58 Body mass index 30+ - obesity 768771347 Z68.39 Normal 7078265 2 Z34.03 [id number] MD Viki Kelley 14 OB [address] [facility] [place] [address] 08/03/2017 12:09:14 08/06/2017 14:26:51 Removal of isaac 50109065 Z48.02 Body mass index 30+ - obesity 226709651 Z68.33 [id number] MD Viki Kelley 14 OB 4 [facility] [place] [address] 08/11/2017 14:02:17 08/12/2017 14:13:32 Body mass index 30+ - obesity 898200974 Z68.32 depression 58 095168 O99.178 [id number] Edith Brar [employer]- [facility] 14 OB 4 [facility] [place] [address] 09/22/2017 14:24:04 09/29/2017 10:18:09 Gynecologic examination 81000760 Z01.419 state 1585061 1 Z39.2 [id number] MD Viki Kelley 14 OB 4 [facility] [place] [place] [address] 11/30/2017 11:04:00 12/02/2017 12:14:18 Removal of isaac 63304304 Z48.02 [id number] MD Viki Kelley 14 OB 4 [facility] [place] [place] [address] 05/17/2018 16:13:27 05/18/2018 08:35:29 Irregular periods 79465325 N92.6 [id number] MD Viki Kelley 14 OB 4 [facility] [place] [place] [address] 08/18/2019 11:18:22 08/18/2019 14:54:42 [id number] MD Viki Kelley 14 OB 4 [facility] [place] [address] 12/08/2019 12:10:54 12/09/2019 11:13:38 Irregular periods 49984751 N92.6 [id number] MD Viki Kelley 14 OB 4 [facility] [place] [address] 11/05/2020 12:43:38 11/07/2020 03:46:59 [id number] MD Viki Kelley 14 OB 4 [facility] [place] [address] 11/27/2020 16:22:07 11/28/2020 07:04:28 Gynecologic examination 61513515 Z01.419 Contracept ion care management 181783281 Z30.9 [id number] MD Viki Kelley 14 OB 4 [facility] [place] [address] 09/06/2021 13:50:42 09/08/2021 12:22:05 Amenorrhea 87682283 N91.2 [id number] MD Viki Kelley 14 OB 4 [facility] [place] [address] 02/20/2022 11:24:12 02/23/2022 15:34:59 Herpes simplex 54810976 B00.9 [id number] MD Viki Garcia 14 IM [address] [facility] [place] [address] 08/26/2023 10:24:25 08/28/2023 14:20:03 Morbid obesity 768789590 E66.01 Patient BMI 41.6first noticed/fe lt effects of weighPrevi ous attempts at weight loss-exerc ise and very restrictiv e diet. No successful long-term weight lossAssoci ated health problems-h epatic steatosis and concern for OSAHow effecting life -chronic fatigue or body imageAny depression /anxiety-p randolph PHQ next visitWhat is idea/goal weight -Do you have particular treatment you are interested in? Interested in learning more about bariatric surgery- would qualify for bariatric Sx-given BMI of 41.6 and noted hepatic steatosis and possible TEENA- encouraged to perform 30 to 60 minutes of moderate-i ntensity aerobic activity on most days of the week (at least 150 minutes of moderate-i ntensity aerobic exercise per week; no more than two consecutiv e days without exercise- exercise with free weights or weight machines) at least twice per week- Body weight loss of 5 to 10 percent may also improve hepatic steatosis s, sleep apnea, and other comorbidit ies -Will benefit from dedicated weight loss visit-sabra ent to log caloric intake and decreased to sustainabl e level. Once a day point can work on incrementa l reduction to initial goal of 1600. Will follow-up discuss intermitte nt fasting Malaise and fatigue 2717 15144 R53.81 - 3 points STOP-BANG IRisk for moderate to severe TEENA- daily fatigue, fatigue on waking- unknown is snores- neck circ > 40, BMI41.6, freq night awakenings - Sleep study ordered- CMP normal 08/16/2023 Diverticul osis of colon 911277809 K57.30 - Noted on CT after recent ER visit. CT did not note any diverticul itis.-Sabra ent was treated with ciprofloxa toya and metronidaz ole which she completes treatment today-Reinier es any current abdominal pain or blood in stool-Will continue to monitor symptoms [id number] Vivian Alvarenga MD Lulu 14 IM 4 [facility] [address] [place] [address] 09/10/2023 11:14:22 09/22/2023 09:07:29 Body mass index 30+ - obesity [id number] Z68.41 Patient BMI 41- ideal wiegh 150 lbs- first noticed/fe lt effects of weight- in the last year has increased weight to post weight- Previous attempts at weight loss- pos TEENA- Associated health problems- prediabete s- How effecting life- decreased exercise capacity. 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 none- TEENA f/u- pending sleep study appt- pending referral nutritioni st - Discussed website to find strategies for successful weight loss: https://ww w.nutritio n.gov/weig ht-managem ent/strate gies-succe ss, https://savage w.nutritio n.gov/weig ht-managem ent/strate gies-succe ss/interes nishant-losing -weight, : https://savage w.Prot-On.gov/ MyPlate-Da kathleen-Checkl ist - recommende d calorie count- discussed apps such as Echo it al to determine how many calories she is eating per day. Plan to slowly decrease by 300 robinson per week to ultimate goal of 1500. (unknown current intake per day to set short term goal)- encouraged to perform 30 to 60 minutes of moderate-i ntensity aerobic activity on most days of the week (at least 150 minutes of moderate-i ntensity aerobic exercise per week; no more than two consecutiv e days without exercise- exercise with free weights or weight machines) at least twice per week [id number] MD Viki Casillas 14 IM 4 [facility] [address] [place] [id number] 12/09/2023 09:07:30 12/23/2023 19:39:44 Obesity [id number] E66.8 Patient educated on healthy eating habits and exercise at least 30 mins per day. A diet comprised of four to five servings of fruit, four to five servings of vegetables , and two to three servings of low-fat dairy per day, with <25 percent of daily caloric intake from fat. Prediabetes [id number] R7 3.03 h/o prediabete s. Last A1C 5.7, will repeat lab today. Swelling o f bilateral lower limbs [id number] M79.89 Patient with ongoing lower extremity swelling and hand swelling since increasing fluid intake for her weight loss program. Patient is advised to take at least 100 fluid ounces of fluid daily which is half of her body weight. Since starting, she has noticed her rings are fitting tightly lower extremity swelling. discussed with patient about cutting down to 64 ounce of fluid ounces daily, to see if improvemen t of symptoms. Discussed with patient about checking kidney function, albumin/cr eatinine ratio and bnp. - plan to follow-up in 2 weeks to see how patient is doing.-Rec ommend low-sodium intake-Enc ouraged compressio n socks-Labs pending [id number] MD Viki Casillas 14 IM 4 [facility] [address] [place] [address] 12/25/2023 09:02:34 12/29/2023 10:05:51 Peripheral edema [id number] R60.9 Acute, stable.- Discussed lab findings with patient, which are all unremarkab le. There are currently no underlying health reasons for her peripheral edema.- Recommend patient to use compressio n socks but patient reports compressio n socks makes her legs feel numb. 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 BP readings are all within acceptable ranges for patient.- patient verbalized wanting to try some natural means of reducing the swelling and also keeping track of her sodium and water intake.- Discuss the option of trying a short course of low dose lasix for 5 days with repeat CMP.- Lasix ordered- follow up for repeat CMP after completion of lasix. [id number] Navneet Owens MD [facility] (Adult Med) [address] [place] [address] 08/16/2024 12:15:07 08/17/2024 14:43:12 Perforation of left tympanic membrane [id number] H72.92 [id number] pts drum gives an appearance of a perf but it is intact- Health Concerns Section Related Observation LastModified by Organization Detai ls LastModified Time None Recorded Concern Status LastModified by Organization Details LastModified Time None Recorded Advance Directives Directive None Recorded Payers Insurance Date Sequence Insurance Name Policy Number Policy Paez Covered Member ID Paez Member ID Guarantor Name 01/20/2017 SLIDING FEE SCHEDULE - DISCOUNT Radha Sheppard 08/26/2023 1 [place] Radha Sheppard [id number] Radha Sheppard 08/19/2024 1 [facility] (MEDICAID HMO) [id number] Radha Sheppard [id number] Radha Sheppard Notes Date Note Type Note Provider Name and Address Organization Details Recorded Time 08/26/2023 text/html Patient is a 27 y/o F w/ PMH of arrived to clinic for af/u after ER visit for abd pain. CT indicated diverticulosis. she was tx with metronidazole and ciprofloxacin that she completes tx today. Presenting today w/o abdominal pain but has started to increase PO intake diet. Also noted on the CT was Epiploic appendagitis anterior to descending colon/sigmoid. She has advanced her diet and denies any current pain. Normal bowel movement and no nausea or vomiting Concerned about weight gain and reports to gaining 60 lbs in one year. She denies any constipation. She denies h/o thyroid complications but brother does have hypothyroidism, No cold intolerance. but is chronically fatigued. Patient reports that she goes to the gym 4-5 times a week and walks/jogs- 30-45 min. Hr during exercise is 150s-160s. Also, does weight training. Diet- S/p cholecystectomy. Diet is not consistent and eats out freq. Only drinks water/poweraide etc. She has monitored calories initially 3000 and has decreased to 1500 robinson. but states it is difficult and she is not able to maintain this level of decreased calories. fatigue- always tired, unsure is she snores. She reports that she always wakes up during the night and unsure why. no h/o anemia. Sleeps 7 + hours a night. Annmarie Vincent MD Attn: Accounting,[address] [facility], [place], [address], [facility] 08/28/2023 09:35:28 09/10/2023 text/html Patient is a 27 y/o F w/ PMH of class 3 obesity arrived to clinic for a weight loss visit. She has been attempting to decrease caloric intake and hasstarted exercising. Has not monitored calories per day- states that would stress her out. She has tried to limit high calorie foods but eats out frequently,Using step counter- avg count 5000 steps a day -recently went to a theme park and noted to get fatigued with walking around. 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 States she was much more active when she had to walk around the hospital Vivian Alvarenga MD Attn: Accounting,[address] [facility], [place], [address], [facility] 09/14/2023 21:12:28 12/09/2023 text/html Radha is a 28 yo F who presents to the clinic today with concerns of hand and feet swelling since increasing water intake. Patient reports symptoms started since 3 months ago. Pt is currently in a weight loss program that encourages increased fluid intake. Pt is currently taking in 100 fluid oz per day per planer operator recommendation. She reports low sodium diet and takes in about 90 gram of protein daily. Patient was asked to follow up with PCP when they noticed that her hands and feet are swelling up. No cardiac history, or history of renal failure, no shortness of breath, no dizziness. Vivian Alvarenga MD Attn: [facility],[address] [facility], [place], [address], [facility] 12/22/2023 07:09:51 12/25/2023 text/html I conducted this encounter from the office via secure, live, conference with the patient. The patient is located at home and is accompanied by herself. Prior to the interview, the risks and benefits of telemedicine were discussed with the patient and verbal consent was obtained. Radha is a 28 yo F with PMH of prediabetes, diverticulosis and steatosis for follow up of peripheral edema. Pt reports few weeks ago while on a new diet and weight loss program started noticing more swelling to her fingers and lower extremities. Patient's diet includes fruits, salad, granula bars, 90 gram proteins per day and 30 g carbs per meal. During the last visit patient was asked to cut down on her water intake. Instead of drinking 100 fl oz to cut back down to 64 fluid oz. Patient reports little improvement with that intervention. Bloodwork from last visit came back unremarkable. Paulino Cortez MD Attn: [facility],[address] [facility], [place], [address], [facility] 12/28/2023 09:17:41 08/16/2024 text/html ROS as noted in the HPI Pt was denied admission to due to a perferation of her left ear drum. She does not have any complaints Navneet Owens MD Attn: [facility],[address] [facility], [place], [address], [facility] 08/16/2024 12:40:15 OBGyn Episode Ob Episode Information Episode Created Date Number of Fetuses Patient Bloodtype Patient rh Status Prepregnancy Weight lbs Domestic Partner Domestic Partner Phone Father Name Hr Specialist Status 12/24/19 17 1 O Positive 162 Alin Jo Alicia [facility] CLOSED Fetus Data First Name Last Name Admitted to NICU Weight (g) Sex Living Outcome Pediatric Complications Fetus ID Race Codes Race Delivery Type Shira ollie false 3316.89 15 F true Full Term [id number] White Mario Calculation Initial Mario Date Initial Exam Date Initial Exam Provider Initial Ultrasound Date Last Menstrual Period Date Ultra Sound Weeks Gestation 07/28/2017 12/23/2016 deldredsmith 01/09/2017 10/21/2016 11 Eighteen To Twenty Week Mario Update Ultra Sound Date Fundal Height At Umbil Quickening Date Ultra Sound Latest Weeks Gestation Final Mario Confirmed By Final Mario Confirmed Date Final Mario Date Ultra Sound Latest Days Gestation 03/03/20 17 19 07/29/19 18 3 Pre- Flowsheet Flowsheet Date 12/23/2016 Espinoza Score Blood Edema Fundus Height Fundus Units Glucose Ketones Leukocytes Nitrite Labor Signs Protein Cervic Dilation Cervic Effacement Cervic Station none Type Weight in lbs Pre/Post Dialysis Refused 172.829209593179 BP Diastolic BP Location Tested BP Systolic BP Type 64 118 sitting Fetus Heart Rate Present Fetus Movement Comments New ob, Patient doing well. New ob labs done and ultrasound orders given. Will follow up in 4 weeks for pap and nuswab. Flowsheet Date 01/20/2017 Espinoza Score Blood Edema Fundus Height Fundus Units Glucose Ketones Leukocytes Nitrite Labor Signs Protein Cervic Dilation Cervic Effacement Cervic Station none Type Weight in lbs Pre/Post Dialysis Refused 177.470294705383 BP Diastolic BP Location Tested BP Systolic BP Type 70 117 sitting Fetus Heart Rate Present Fetus Movement Comments Doing well. Pap and nuswab d one. Reviewed labs. Rubella non-immune. Follow up in 4 weeks, sooner if needed. Flowsheet Date 02/17/2017 Espinoza Score Blood Edema Fundus Height Fundus Units Glucose Ketones Leukocytes Nitrite Labor Signs Protein Cervic Dilation Cervic Effacement Cervic Station none none Type Weight in lbs Pre/Post Dialysis Refused 181.080961658008 BP Diastolic BP Location Tested BP Systolic BP Type 64 122 sitting Fetus Heart Rate Present A 142 Present Fetus Movement A Yes Comments Pt doing well, found out sex is a girl. Was in ED recently for URI but doing better. AFP done today and ultrasound order given. Follow up in 4 weeks. Flowsheet Date 03/19/2017 Espinoza Score Blood Edema Fundus Height Fundus Units Glucose Ketones Leukocytes Nitrite Labor Signs Protein Cervic Dilation Cervic Effacement Cervic Station none 20 cm none Type Weight in lbs Pre/Post Dialysis Refused 186.084710530880 BP Diastolic BP Location Tested BP Systolic BP Type 70 122 sitting Fetus Heart Rate Present A 148 Present Fetus Movement A Yes Comments Pt had questions about movement, educated on kick counts. Will obtain ultrasound from [facility]. Doing well with no complaints. Follow up in 4 weeks, sooner if needed. Flowsheet Date 04/16/2017 Espinoza Score Blood Edema Fundus Height Fundus Units Glucose Ketones Leukocytes Nitrite Labor Signs Protein Cervic Dilation Cervic Effacement Cervic Station none 25 cm none Type Weight in lbs Pre/Post Dialysis Refused 184.847517248598 BP Diastolic BP Location Tested BP Systolic BP Type 70 122 sitting Fetus Heart Rate Present A 158 Present Fetus Movement A Yes Comments One hour glucose done today. Kick counts reviewed and positive movement verbalized. Pt doing well with no complaints. Will follow up in 4 weeks. Flowsheet Date 05/14/2017 Espinoza Score Blood Edema Fundus Height Fundus Units Glucose Ketones Leukocytes Nitrite Labor Signs Protein Cervic Dilation Cervic Effacement Cervic Station 27 cm Type Weight in lbs Pre/Post Dialysis Refused 191.807322592981 BP Diastolic BP Location Tested BP Systolic BP Type 76 122 sitting Fetus Heart Rate Present A 144 Present Fetus Movement A Yes Comments doing well, discussed gettin g 3 hr gtt done before next visit Flowsheet Date 05/28/2017 Espinoza Score Blood Edema Fundus Height Fundus Units Glucose Ketones Leukocytes Nitrite Labor Signs Protein Cervic Dilation Cervic Effacement Cervic Station none 29 cm Type Weight in lbs Pre/Post Dialysis Refused 193.43600834010 BP Diastolic BP Location Tested BP Systolic BP Type 72 110 sitting Fetus Heart Rate Present A 144 Present Fetus Movement A Yes Comments doing well, heavy lifting no te for work Flowsheet Date 06/12/2017 Espinoza Score Blood Edema Fundus Height Fundus Units Glucose Ketones Leukocytes Nitrite Labor Signs Protein Cervic Dilation Cervic Effacement Cervic Station 1+ 32 cm none neg Type Weight in lbs Pre/Post Dialysis Refused 200.301809501896 BP Diastolic BP Location Tested BP Systolic BP Type 76 116 sitting Fetus Heart Rate Present A 143 Present Fetus Movement A Yes Comments doing OK, still bad reflux - suggested Zantachasnt done 3 hr GTT - will arrange Diabetes center apt. Flowsheet Date 06/25/2017 Espinoza Score Blood Edema Fundus Height Fundus Units Glucose Ketones Leukocytes Nitrite Labor Signs Protein Cervic Dilation Cervic Effacement Cervic Station none 34 cm Type Weight in lbs Pre/Post Dialysis Refused 205.268842003244 BP Diastolic BP Location Tested BP Systolic BP Type 76 134 sitting Fetus Heart Rate Present A 143 Present Fetus Movement A Yes Comments doing well, plan cervix chec k next time Flowsheet Date 07/09/2017 Espinoza Score Blood Edema Fundus Height Fundus Units Glucose Ketones Leukocytes Nitrite Labor Signs Protein Cervic Dilation Cervic Effacement Cervic Station trace 35 cm none trace 0cm 50% -3 Type Weight in lbs Pre/Post Dialysis Refused 209.036810807869 BP Diastolic BP Location Tested BP Systolic BP Type 84 122 sitting Fetus Heart Rate Present A 144 Present Fetus Movement A Yes Comments doing ok, tired of being pr egnantdiscussed induction risks, cervix is just a FT Flowsheet Date 07/16/2017 Espinoza Score Blood Edema Fundus Height Fundus Units Glucose Ketones Leukocytes Nitrite Labor Signs Protein Cervic Dilation Cervic Effacement Cervic Station 36 cm none 1+ Type Weight in lbs Pre/Post Dialysis Refused 211.165930699083 BP Diastolic BP Location Tested BP Systolic BP Type 76 126 sitting Fetus Heart Rate Present A 143 Present Fetus Movement A Yes Comments Discussed challenges of good diabetes control during end of . [place] sound ok. ( pt left book in car) But, occ PP is elevated. Difficulty eating and sleeping, appears quite miserable. Due date of the 8th was confirmed with 12 week US Flowsheet Date 07/22/2017 Espinoza Score Blood Edema Fundus Height Fundus Units Glucose Ketones Leukocytes Nitrite Labor Signs Protein Cervic Dilation Cervic Effacement Cervic Station trace 36 cm 2cm 50% -4 Type Weight in lbs Pre/Post Dialysis Refused 210.742193234465 BP Diastolic BP Location Tested BP Systolic BP Type 92 136 sitting Fetus Heart Rate Present A 144 Present Fetus Movement A Yes Comments cervix 2 cmplan thursday into thursday next week cervidil for post dates( Pt says LMP was ? - so EDC likely is 07/25 Flowsheet Date 08/03/2017 Espinoza Score Blood Edema Fundus Height Fundus Units Glucose Ketones Leukocytes Nitrite Labor Signs Protein Cervic Dilation Cervic Effacement Cervic Station Type Weight in lbs Pre/Post Dialysis Refused 178.406212633518 BP Diastolic BP Location Tested BP Systolic BP Type 78 122 sitting Fetus Heart Rate Present Fetus Movement Comments Flowsheet Date 08/11/2017 Espinoza Score Blood Edema Fundus Height Fundus Units Glucose Ketones Leukocytes Nitrite Labor Signs Protein Cervic Dilation Cervic Effacement Cervic Station Type Weight in lbs Pre/Post Dialysis Refused 172.827001458648 BP Diastolic BP Location Tested BP Systolic BP Type 76 110 sitting Fetus Heart Rate Present Fetus Movement Comments Menstrual History Last Menstrual Date Menses Monthly On Bcp Conception Prior Menses Frequency Hcg Plus Date Menarche Onset Age 0810/21/2016 true false 4 7 12 Genetic Screening And Infection History Question Response Note Patient's Age Will Be 35 Yea rs Or Older At Estimated Date of Delivery false Thalassemia (Portuguese, Vietnamese, Mediterranean, Or Background): MCV < 80 false Neural Tube Defect (Meningom yelocele, Spina Bifida, Or Anencephaly) false Congenital Heart Defect false Down Syndrome false Justin-Sachs (eg, Mandaen, Cajun , Sami-Harvey) false Lenny Disease false Sickle Cell Disease Or Trait () false Hemophilia Or Other Blood Disorders false Muscular Dystrophy false Cystic Fibrosis false Roberta's Chorea false Mental Retardation/Autism true mother 's brother has Autism If Yes, Was Person Tested Fo r Fragile X? false Other Inherited Genetic Or C hromosomal Disorder false Maternal Metabolic Disorder (eg, Type 1 Diabetes, PKU) false Patient Or Baby's Father Had A Child With Defects Not Listed Above false Recurrent Loss, Or A Stillbirth false Medications (including Suppl ements, Vitamins, Herbs, OTC Drugs), Illicit/Recreational Drugs, Alcohol false If Yes, Agent(s) And Strength/Dosage false Any Other Genetic History false Live With Someone With TB Or Exposed To TB false Patient Or Partner Has Histo ry Of Genital Herpes false Rash Or Viral Illness Since Last Menstrual Period false History Of STD, Gonorrhea, C hlamydia, HPV, Syphilis true mother and father had chlamy steph in past Other Infection History false Plans and Education First Trimester Discussed Date Discussion Item Discussion Note Discuss ed By 12/23/2016 [facility]/23/2016 Alcohol [facility] 12/23/2016 Intimate partner violence [facility] 12/23/2016 Environmental/work hazards [facility] 12/23/[address] [facility] 12/23/2016 Nutrition counseling ; special diet; dietary precautions (mercury, listeriosis) [facility] 12/23/2016 Childbirth classes/hospital facilities [facility] 12/23/2016 HIV and other routine tests [facility] 12/23/2016 Risk factors identif ied by history [facility] 12/23/2016 Weight gain counseling [facility] 12/23/2016 Exercise [facility] 12/23/2016 Teratogens [facility] 12/23/2016 Use of any medicatio ns (including supplements, vitamins, herbs, or OTC drugs) [facility] 12/23/2016 [facility] 12/23/2016 Sexual activity [facility] 12/23/2016 Tobacco/smoking cess ation counseling (ask, advise, assess, assist, and arrange) [facility] 12/23/2016 Illicit/recreational drugs [facility] 12/23/2016 [facility] 12/23/2016 Travel [facility] 12/23/2016 Seat belt use [facility] 12/23/2016 Indications for ultrasonography [facility] 12/23/2016 Avoidance of saunas or hot tubs [facility] 12/23/2016 Toxoplasmosis precautions (cats/raw meat) [facility] Second Trimester Discussed Date Discussion Item Discussion Note Discuss ed By 03/20/2017 Selecting a care provider [facility] 03/20/[address]ning/tubal sterilization [facility] 03/20/2017 Depression screening (when indicated) [facility] 03/20/2017 Abnormal lab values [facility] 03/20/2017 Signs and symptoms of labor [facility] 03/20/2017 Intimate partner violence [facility] 03/20/2017 Tobacco/smoking cess ation counseling (ask, advise, assess, assist, and arrange) [facility] Third Trimester Discussed Date Discussion Item Discussion Note Discuss ed By Delivery Information Delivery Date Delivery Type Labor Anesthesia Weeks Gestation Incision Type Labor Labor Length Hrs Delivered By Post Complications Tubal Sterilization Discharge Date Comments 8 Induce d Regional-Sp inal 39.[address] Dewey false Discharge Information Feeding Method Contraceptive Method Maternal HG B and HCT Levels Breast
--- OUTSIDE RECORDS SUMMARY | 2025-03-21 01:22 | XMS_ITS | Continuity of Care Document ---
Author Organization [facility] Address [address] [place] [address] [place] [address] Assessment No assessment recorded. Plan of Treatment [...] obstetr ic, follow- up 2024 025 [email or web address] Hanson, [facility] [address], [place], [address], 01/26/2025 15:12:32 Medication Orders None recorde d. Patient TargetsNo targets recorded. Patient InstructionsNo instructions recorded. Reason for Referral None Reported. Results Created Date Observation Date Name Description Value Unit Range Abnormal Flag Note LastModifiedBy Organization Detail LastModifiedTime 10/18/19 25 10/17/2024 [UNIT Y] ANEUP LOIDY NIPT fraction 7.5% normal Not Available [facility] [address], [place], [address], 10/17/2024 23:58:00 10/18/19 25 10/17/2024 [UNIT Y] ANEUP LOIDY NIPT 22Q11.2 microdeletio n LOW RISK <1 in 10,000 normal Not Available [facility] [address], [place], [address], 10/17/2024 23:58:00 10/18/19 25 10/17/2024 [UNIT Y] ANEUP LOIDY NIPT sex chromosome aneuploidy NOT DETECT ED normal Not Available [facility] [address], [place], [address], 10/17/2024 23:58:00 10/18/19 25 10/17/2024 [UNIT Y] ANEUP LOIDY NIPT monosomy X LOW RISK <1 in 10,000 normal Not Available [facility] [address], [place], [address], 10/17/2024 23:58:00 10/18/19 25 10/17/2024 [UNIT Y] ANEUP LOIDY NIPT trisomy 13 LOW RISK <1 in 10,000 normal Not Available [facility] [address], [place], [address], 10/17/2024 23:58:00 10/18/19 25 10/17/2024 [UNIT Y] ANEUP LOIDY NIPT trisomy 18 LOW RISK <1 in 10,000 normal Not Available [facility] [address], [place], [address], 10/17/2024 23:58:00 10/18/19 25 10/17/2024 [UNIT Y] ANEUP LOIDY NIPT trisomy 21 LOW RISK <1 in 10,000 normal Not Available [facility] [address], [place], [address], 10/17/2024 23:58:00 10/18/19 25 10/17/2024 [UNIT Y] ANEUP LOIDY NIPT sex MALE normal Not Available [facility] [address], [place], [address], 10/17/2024 23:58:00 10/18/19 25 10/17/2024 [UNIT Y] ANEUP LOIDY NIPT gestation SINGLE TON normal Not Available [facility] [address], [place], [address], 10/17/2024 23:58:00 10/18/19 25 10/17/2024 [UNIT Y] ANEUP LOIDY NIPT for detailed report, see pdf See PDF normal Not Available [facility] [address], [place], [address], 10/17/2024 23:58:00 10/22/19 25 10/21/2024 [UNIT Y] MIKE Galvez sickle cell disease/beta -thalassemia /hemoglobino pathies carrier screen NEGATI VE normal Not Available [facility] [address], [place], [address], 10/21/2024 17:38:31 10/22/19 25 10/21/2024 [UNIT Y] MIKE Galvez alpha-thalas semia carrier screen NEGATI VE normal Not Available [facility] [address], [place], [address], 10/21/2024 17:38:31 10/22/19 25 10/21/2024 [UNIT Y] MIKE Galvez cystic fibrosis carrier screen NEGATI VE normal Not Available [facility] [address], [place], [address], 10/21/2024 17:38:31 10/22/19 25 10/21/2024 [UNIT Y] MIKE Galvez spinal muscular atrophy carrier screen NEGATI VE 2 SMN1 copies , SNP not presen t normal Not Available [facility] [address] [place], [address], 10/21/2024 17:38:31 10/22/19 25 10/21/2024 [UNIT Y] MIKE MACIAS Leonor for detailed report, see pdf See PDF normal Not Available [facility] [address], [place], [address], 10/21/2024 17:38:31 10/12/19 25 10/11/2024 CBC W/DIF F WBC 7.0 10'3/ uL 3.5-10 .5 Not Available [facility] (Lab) [address], [place], [address], 10/12/2024 13:07:49 10/12/19 25 10/11/2024 CBC W/DIF F RBC 3.94 10'6/ uL (based on docume nted legal sex) 3.80-5 .20 Not Available [facility] (Lab) [address], [place], [address], 10/12/2024 13:07:49 10/12/19 25 10/11/2024 CBC W/DIF F HGB 12.1 g/dL (based on docume nted legal sex) 11.6-1 5.4 Not Available [facility] (Lab) [address], [place], [address], 10/12/2024 13:07:49 10/12/19 25 10/11/2024 CBC W/DIF F HCT 36.3 % (based on docume nted legal sex) 34.0-4 5.0 Not Available [facility] (Lab) [address], [place], [address], 10/12/2024 13:07:49 10/12/19 25 10/11/2024 CBC W/DIF F MCV 92.1 fL 80.0-9 9.0 Not Available [facility] (Lab) [address], [place], [address], 10/12/2024 13:07:49 10/12/19 25 10/11/2024 CBC W/DIF F MCH 30.7 pg 27.0-3 4.0 Not Available [facility] (Lab) [address], [place], [address], 10/12/2024 13:07:49 10/12/19 25 10/11/2024 CBC W/DIF F MCHC 33.3 g/dL 32.0-3 5.5 Not Available [facility] (Lab) [address], [place], [address], 10/12/2024 13:07:49 10/12/19 25 10/11/2024 CBC W/DIF F RDW 12.4 % 11.0-1 5.0 Not Available [facility] (Lab) [address], [place], [address], 10/12/2024 13:07:49 10/12/19 25 10/11/2024 CBC W/DIF F plt 278 10'3/ uL 150-40 0 Not Available [facility] (Lab) [address], [place], [address], 10/12/2024 13:07:49 10/12/19 25 10/11/2024 CBC W/DIF F MPV 11.7 fL 8.8-12 .1 Not Available [facility] (Lab) [address], [place], [address], 10/12/2024 13:07:49 10/12/19 25 10/11/2024 CBC W/DIF F NRBC's 0.0 % 0.0 Not Available [facility] (Lab) [address] [place], [address], 10/12/2024 13:07:49 10/12/19 25 10/11/2024 CBC W/DIF F absolute NRBCs 0.0 10'3/ uL no refere nce range establ ished Not Available [facility] (Lab) [address] [facility], [place], [address], 10/12/2024 13:07:49 10/12/19 25 10/11/2024 CBC W/DIF F neutrophils 71.6 % 34.0-7 3.0 Not Available [facility] (Lab) [address] [facility], [place], [address], 10/12/2024 13:07:49 10/12/19 25 10/11/2024 CBC W/DIF F lymphocytes 22.8 % 15.0-5 0.0 Not Available [facility] (Lab) [address] [facility], [place], [address], 10/12/2024 13:07:49 10/12/19 25 10/11/2024 CBC W/DIF F monocytes 4.7 % 1.0-15 .0 Not Available [facility] (Lab) [address] [facility], [place], [address], 10/12/2024 13:07:49 10/12/19 25 10/11/2024 CBC W/DIF F eosinophils 0.3 % 0.0-8. 0 Not Available [facility] (Lab) [address] [place], [address], 10/12/2024 13:07:49 10/12/19 25 10/11/2024 CBC W/DIF F basophils 0.3 % 0.0-2. 0 Not Available [facility] (Lab) [address] [facility], [place], [address], 10/12/2024 13:07:49 10/12/19 25 10/11/2024 CBC W/DIF [...] separ ately if prese nt. Not Available [facility] (Lab) [address] [facility], [place], [address], 10/12/2024 13:07:49 10/12/19 25 10/11/2024 CBC W/DIF F absolute neutrophils 5.0 10'3/ uL 1.5-8. 0 Not Available [facility] (Lab) [address] [facility], [place], [address], 10/12/2024 13:07:49 10/12/19 25 10/11/2024 CBC W/DIF F absolute lymphocytes 1.6 10'3/ uL 1.0-4. 0 Not Available [facility] (Lab) [address] [facility], [place], [address], 10/12/2024 13:07:49 10/12/19 25 10/11/2024 CBC W/DIF F absolute monocytes 0.3 10'3/ uL 0.2-1. 0 Not Available [facility] (Lab) [address] [facility], [place], [address], 10/12/2024 13:07:49 10/12/19 25 10/11/2024 CBC W/DIF F absolute eosinophils 0.0 10'3/ uL 0.0-0. 6 Not Available [facility] (Lab) [address] [facility], [place], [address], 10/12/2024 13:07:49 10/12/19 25 10/11/2024 CBC W/DIF F absolute basophils 0.0 10'3/ uL 0.0-0. 3 Not Available [facility] (Lab) [address] [facility], [place], [address], 10/12/2024 13:07:49 10/12/19 25 10/11/2024 CBC W/DIF [...] patterson book. nm.or g/gen derx Not Available [facility] (Lab) [address], [place], [address], 10/12/2024 13:07:49 10/12/19 25 10/11/2024 HIV 1/2 ANTIG EN/AN TIBOD Y, REFLE X CONFI RMATI ON HIV antigen/anti body Nonrea ctive nonrea ctive HIV-1 antig en and HIV-1 /HIV- 2 antib odies were not detec nishant. No labor atory evide nce of HIV infec tion. Not Available [facility] (Lab) [address] [facility], [place], [address], 10/12/2024 13:07:50 10/12/19 25 10/11/2024 HEPAT ITIS B SURFA CE ANTIG EN hepatitis B surface antigen Non-re active non-re active This assay was perfo rmed using [employer] ratio n reage nts and test kits. Value s obtai francois with other assay metho ds or kits canno t be used inter serna eably . Not Available [facility] (Lab) [address] [facility], [place], [address], 10/12/2024 13:07:50 10/12/19 25 10/11/2024 HEPAT ITIS C ANTIB KERI SCREE N, REFLE X TO CONFI RMATI ON hepatitis C antibody Non-re active non-re active Antib odies to HCV Not Detec nishant, does not exclu de the possi bilit y of expos ure to HCV. Not Available [facility] (Lab) [address], [place], [address], 10/12/2024 13:07:51 10/12/19 25 10/11/2024 RUBEL LA IGG ANTIB KERI, QUANT rubella antibodies, IgG Reacti ve reacti ve Not Available [facility] (Lab) [address] [facility], [place], [address], 10/12/2024 13:07:51 10/12/19 25 10/11/2024 RUBEL LA IGG ANTIB KERI, QUANT rubella antibodies, IgG quant 18.4 IU/mL >=10 Non-r eacti ve (Non- Immun e) <10 IU/mL React filippo (Immu ne) > or = 10 IU/mL Not Available [facility] (Lab) [address] [facility], [place], [address], 10/12/2024 13:07:51 10/12/19 25 10/11/2024 TYPE/ RH/SC REEN ABO/Rh type O POS Not Available [facility] ([facility] [address] [facility], [place], [address], 10/12/2024 13:07:51 10/12/19 25 10/11/2024 TYPE/ RH/SC REEN antibody screen NEG Not Available [facility] (Lab) [address] [facility], [place], [address], 10/12/2024 13:07:51 10/12/19 25 10/11/2024 TYPE/ RH/SC REEN exp date 2024 23:59 Not Available [facility] (Lab) [address] [facility], [place], [address], 10/12/2024 13:07:51 10/12/19 25 10/11/2024 HEMOG LOBIN [...] >8.0% Actio n sugge sted Not Available [facility] (Lab) [address] [facility], [place], [address], 10/12/2024 13:07:52 10/12/19 25 10/11/2024 RPR SCREE N, REFLE X TITER /CONF IRMAT ION RPR qualitative Nonrea ctive nonrea ctive Not Available [facility] (Lab) [address] [facility], [place], [address], 10/12/2024 13:07:53 10/12/19 25 10/11/2024 CULTU RE: URINE result report SEE RESULT S BELOW Test: Cultu re: Urine Speci men Sourc e: Urine Voide d Speci men Type: Urine Speci men Date: 2024 1251 Resul t Date: 20246 Resul t Statu s: Final resul t Abnor mal: No Resul ting Lab: [facility] [address] [facility] [place] [address] Tel: CULTU RE ----- ----- ----- --- No growt h in 1 day (dete ction level of 10,00 0 colon ies / ml.) Not Available [facility] (Lab) [address] [place], [address], 10/12/2024 22:51:14 10/12/19 25 10/11/2024 drug scree n, urine Amphetamines : negati ve Not Available [facility] [address], [place], [address], 10/11/2024 12:03:44 10/12/19 25 10/11/2024 drug scree n, urine Cannabinoids : negati ve Not Available [facility] [address], [place], [address], 10/11/2024 12:03:44 10/12/19 25 10/11/2024 drug scree n, urine Cocaine: negati ve Not Available [facility] [address], [place], [address], 10/11/2024 12:03:44 10/12/19 25 10/11/2024 drug scree n, urine Opiates: negati ve Not Available [facility] [address], [place], [address], 10/11/2024 12:03:44 10/12/19 25 10/11/2024 drug scree n, urine Phenocyclidi ne: negati ve Not Available [facility] [address], [place], [address], 10/11/2024 12:03:44 10/12/19 25 10/11/2024 drug scree n, urine Barbiturates : negati ve Not Available [facility] [address], [place], [address], 10/11/2024 12:03:44 10/12/19 25 10/11/2024 drug scree n, urine Benzodiazepi aaron: negati ve Not Available [facility] [address], [place], [address], 10/11/2024 12:03:44 10/12/19 25 10/11/2024 drug scree n, urine Ethanol: negati ve Not Available [facility] [address], [place], [address], 10/11/2024 12:03:44 10/12/19 25 10/11/2024 drug scree n, urine Hallucinogen s: negati ve Not Available [facility] [address], [place], [address], 10/11/2024 12:03:44 10/12/19 25 10/11/2024 drug scree n, urine Inhalants: negati ve Not Available [facility] [address], [place], [address], 10/11/2024 12:03:44 12/03/19 25 12/02/2024 CMP(C OMPRE HENSI VE METAB OLIC PANEL ) sodium 136 mmol/ L 133-14 6 Not Available [facility] (Lab) [address] [facility], [place], [address], 12/08/2024 16:08:48 12/03/19 25 12/02/2024 CMP(C OMPRE HENSI VE METAB OLIC PANEL ) potassium 4.4 mmol/ L 3.5-5. 1 Not Available [facility] (Lab) [address] [facility], [place], [address], 12/08/2024 16:08:48 12/03/19 25 12/02/2024 CMP(C OMPRE HENSI VE METAB OLIC PANEL ) chloride 107 mmol/ L 98-107 Not Available [facility] (Lab) [address] [facility], [place], [address], 12/08/2024 16:08:48 12/03/19 25 12/02/2024 CMP(C OMPRE HENSI VE METAB OLIC PANEL ) carbon dioxide 19 mmol/ L 21-31 low Not Available [facility] (Lab) [address] [place], [address], 12/08/2024 16:08:48 12/03/19 25 12/02/2024 CMP(C OMPRE HENSI VE METAB OLIC PANEL ) anion gap 10 mmol/ L 4-13 Not Available [facility] (Lab) [address] [place], [address], 12/08/2024 16:08:48 12/03/19 25 12/02/2024 CMP(C OMPRE HENSI VE METAB OLIC PANEL ) blood urea nitrogen 7 mg/dL 7-25 Not Available [facility] (Lab) [address] [place], [address], 12/08/2024 16:08:48 12/03/19 25 12/02/2024 CMP(C OMPRE HENSI VE METAB OLIC PANEL ) creatinine 0.48 mg/dL 0.60-1 .30 low Not Available [facility] (Lab) [address] [facility], [place], [address], 12/08/2024 16:08:48 12/03/19 25 12/02/2024 CMP(C OMPRE HENSI VE METAB OLIC PANEL ) egfrcr (CKD-epi 2020) >90 mL/mi n/1.7 3_m2 >=60 Not Available [facility] (Lab) [address] [facility], [place], [address], 12/08/2024 16:08:48 12/03/19 25 12/02/2024 CMP(C OMPRE HENSI VE METAB OLIC PANEL ) calcium 8.5 mg/dL 8.3-10 .5 Not Available [facility] (Lab) [address] [facility], [place], [address], 12/08/2024 16:08:48 12/03/19 25 12/02/2024 CMP(C OMPRE HENSI VE METAB OLIC PANEL ) glucose 74 mg/dL 70-100 Not Available [facility] (Lab) [address] [facility], [place], [address], 12/08/2024 16:08:48 12/03/19 25 12/02/2024 CMP(C OMPRE HENSI VE METAB OLIC PANEL ) protein, total 6.3 g/dL 6.4-8. 3 low Not Available [facility] (Lab) [address] [facility], [place], [address], 12/08/2024 16:08:48 12/03/19 25 12/02/2024 CMP(C OMPRE HENSI VE METAB OLIC PANEL ) albumin 3.5 g/dL 3.5-5. 0 Not Available [facility] (Lab) [address] [facility], [place], [address], 12/08/2024 16:08:48 12/03/19 25 12/02/2024 CMP(C OMPRE HENSI VE METAB OLIC PANEL ) ALT 8 units /L 9-43 low Not Available [facility] (Lab) [address] [facility], [place], [address], 12/08/2024 16:08:48 12/03/19 25 12/02/2024 CMP(C OMPRE HENSI VE METAB OLIC PANEL ) alkaline phosphatase 57 units /L 34-104 Not Available [facility] (Lab) [address] [facility], [place], [address], 12/08/2024 16:08:48 12/03/19 25 12/02/2024 CMP(C OMPRE HENSI VE METAB OLIC PANEL ) AST 17 units /L 13-39 Not Available [facility] (Lab) [address] [facility], [place], [address], 12/08/2024 16:08:48 12/03/19 25 12/02/2024 CMP(C OMPRE HENSI VE METAB OLIC PANEL ) bilirubin, total 0.4 mg/dL 0.2-1. 2 Not Available [facility] (Lab) [address] [facility], [place], [address], 12/08/2024 16:08:48 12/03/19 25 12/02/2024 FABIOLA TIN / IRON / TRANS FABIOLA N / TIBC iron 83 ug/dL 40-170 Not Available [facility] (Lab) [address] [facility], [place], [address], 12/08/2024 16:08:49 12/03/19 25 12/02/2024 FABIOLA TIN / IRON / TRANS FABIOLA N / TIBC transferrin 305 mg/dL 200-36 0 Not Available [facility] (Lab) [address] [facility], [place], [address], 12/08/2024 16:08:49 12/03/19 25 12/02/2024 FABIOLA TIN / IRON / TRANS FABIOLA N / TIBC ferritin 82.3 NG/mL 8.0-25 2.0 Not Available [facility] (Lab) [address] [facility], [place], [address], 12/08/2024 16:08:49 12/03/19 25 12/02/2024 FABIOLA TIN / IRON / TRANS FABIOLA N / TIBC TIBC 427 ug/dL 250-45 0 Not Available [facility] (Lab) [address] [facility], [place], [address], 12/08/2024 16:08:49 12/03/19 25 12/02/2024 FABIOLA TIN / IRON / TRANS FABIOLA N / TIBC iron saturation 19 % 20-55 low Not Available [facility] (Lab) [address] [facility], [place], [address], 12/08/2024 16:08:49 12/03/19 25 12/02/2024 VITAM IN B12 / FOLAT E PANEL vitamin B12 202 pg/mL 180-91 4 Pooja l Range : 180-9 14 pg/mL . Indet ermin ate Range : 145-1 80 pg/mL . Defic ient Range : <=145 pg/mL . Not Available [facility] (Lab) [address] [facility], [place], [address], 12/08/2024 16:08:49 12/03/1912/02/2024 VITAM IN B12 / FOLAT E PANEL folate, serum >20.0 NG/mL 6.0-20 .0 high Not Available [facility] (Lab) [address] [place], [address], 12/08/2024 16:08:49 12/03/19 25 12/02/2024 VITAM IN D, 25-OH (TOTA L D2/D3 ) vitamin D, 25-hydroxy, total 28.2 NG/mL 30.0-1 00.0 low Sugge stive of Defic iency : <20 ng/mL Sugge stive of Insuf ficie ncy: 20-29 ng/mL Sugge stive of Suffi cienc y: 30-10 0 ng/mL Sugge stive of Toxic ity: >150 ng/mL Not Available [facility] (Lab) [address] [facility], [place], [address], 12/08/2024 16:08:49 12/03/1912/02/2024 LEAD, BLOOD (ADUL T/PED IATRI C) lead, whole blood <1.0 mcg/d L <3.5 See Note 1 Linda sis was perfo rmed by Gertrude Holloway ed Plasm a Mass Spect romet ry (ICPM S) Note 1 This test was devel oped and its linda tical perfo rmanc e che cteri stics have been deter mined by [facility]. It has not been clear ed or appro doug by the FDA. This assay has been valid ated pursu ant to the CLIA regul ation s and is used for clini robinson purpo ses. Perfo rming Organ izati on Infor naresh n: Site ID: [id number] Name: [facility]Jared Lowry Addre ss: [address] [place] [address] Dire tor: Bhaskar Doll s Not Available [facility] (Lab) [address] [facility], [place], [address], 12/08/2024 16:08:50 12/03/1912/02/2024 VITAM IN A (RETI [...] purpo ses. MDF med fusio n [address] [facility] [address] [facility] [address] [phone] Victorina Johnson MD, PhD Perfo rming Organ izati on Infor matmery n: Site ID: [id number] Name: Park mariee Addre ss: [address] [facility] [address], [address] [place] , [place] [address] Direc tor: Victorina Johnson MD,Ph D Not Available [facility] (Lab) [address] [facility], [place], [address], 12/08/2024 16:08:50 10/12/19 25 10/11/2024 US, obste tric, nucha l trans lucen cy No observ ation record ed. [email or web address] [facility] [address] [facility] [address], [place], [address], 10/11/2024 13:10:00 10/12/19 25 10/11/2024 US, obste tric, 1st trime ster No observ ation record ed. [email or web address] [facility] [address] [facility] [address], [place], [address], 10/11/2024 13:10:09 10/12/19 25 10/11/2024 US, obste tric, nucha l trans lucen cy No observ ation record ed. Est[facility] [address] [address], [place], [address], 10/14/2024 09:45:42 11/17/19 25 11/16/2024 imagi ng/di agnos tic resul t No observ ation record ed. [facility] [address] [place], [address], 2024 21:39:44 11/19/19 25 11/16/2024 imagi ng/di agnos tic resul t No observ ation record ed. [facility] [address] [place], [address], 2024 21:39:44 12/17/19 25 12/16/2024 US, obste tric, follo w-up No observ ation record ed. [email or web address] [facility] [address], [address], 12/23/2024 13:18:27 12/17/19 25 12/16/2024 US, obste tric, follo w-up No observ ation record ed. [facility] [address], [address], 12/20/2024 09:13:00 01/14/20 25 01/13/2025 US, obste tric, follo w-up No observ ation record ed. [email or web address] [facility] [address], [address], 01/17/2025 11:47:51 01/14/20 25 01/13/2025 US, obste tric, follo w-up No observ ation record ed. [email or web address] [facility] [address], [address], 01/17/2025 16:04:16 01/27/20 25 01/26/2025 US, obste tric, follo w-up No observ ation record ed. [email or web address] [address], [place], [address], 01/26/2025 15:11:31 01/27/20 25 01/26/2025 US, obste tric, follo w-up No observ ation record ed. ILAN Haro [address], [place], [address], 01/29/2025 15:19:23 02/18/20 25 02/17/2025 imagi ng/di agnos tic resul t No observ ation record ed. [address], [place], [address], 02/21/2025 12:50:54 02/25/20 25 02/24/2025 US, obste tric, follo w-up No observ ation record ed. ILAN Haro [address], [place], [address], 02/25/2025 15:24:35 02/25/20 25 02/24/2025 US, obste tric, follo w-up No observ ation record ed. [facility] [address], [place], [address], 02/24/2025 16:55:50 Result Notes None recorded. Problems Name Problem SNOMED Code Status Onset Date Resolution Date Notes Provider Name and Address Organization Details Recorded Time Pregnanc y 61170434 Active 2024 [facility]36 History of sleeve gastrect lety [id number] Active 2024 - partial sleeve gastrecto my 04/2024 - baseline vitamin labs ordered at 12 weeks - serial growth TRUONG MCGOWAN MD [address], [place], [address], [facility] 5 11:26:50 Past pregnanc y history of section 843246686 Active 2024 G2 under GETA, umbilical cord prolapse desires [facility] TRUONG MCGOWAN MD [address], [place], [address], [facility] 5 11:24:36 Migraine 14919529 Active 2024 Eduar Gautam MD [address], [place], [id number], [facility] 5 10:20:53 Problem Notes None recorded. Procedures Surgical History Date Name Laterality Status Provider Name and Address Organization Details Recorded Time 09/15/19 [facility] 10:20:33 05/11/19 [address] [facility] 09/14/2024 10:10:08 03/23/[address] [facility] 09/14/2024 10:26:43 07/28/19 [address] [facility] 09/14/2024 10:10:08 03/23/[address] [facility] 09/14/2024 10:26:22 03/23/[address] [facility] 09/14/2024 10:26:04 Imaging Results None recorded. Procedure Notes None recorded. Medical Equipment None Reported. Allergies Allergen ID Allergen Name Allergen Category Reaction Reaction Severity Criticality Documentation Date Start Date Code Code System Note Provider Name and Address Organization Details Recorded Time 32062 iodine medicatio n palpitati ons severe Not available 09/14/2024 [address] [facility] 5 10:09:38 82616 Augmentin medicatio n hives moderate Not available 09/14/2024 778[address] [facility] 5 10:09:38 94395 clavulani c acid Not available vomiting Not available high 02/03/20252021 60046 RxNorm Not Available ilan - External Data Service - prod 09:16:51 02792 amoxicill in / clavulana te medicatio n hives rash Not available Not available high 02/03/20252023 17743 RxNorm VOMIT ING Not Available [employer] - prod 09:16:55 Medications Name [...] Or The Highest Degree You Have Received? [id number] Information not available 09/14/2024 Are There Any [...] Functional Status Question Answer Note LastModified by Vibes ion Details LastModified Time Do you use [...] anxious, or unable to sleep at night)? 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- baseline labs ordered 10/11- plan for serial growth US Health Concerns Section Related Observation LastModified by Organization Detai ls LastModified Time None Recorded Concern Status LastModified by Organization Details LastModified Time None Recorded Payers Encounter Date Sequence Insurance Name Policy Number Policy Paez Covered Member ID Paez Member ID Guarantor Name 01/26/2025 1 [facility] (MEDICAID HMO) [id number] Radha Sheppard [id number] Radha Sheppard OBGyn Episode Ob Episode Information Episode Created Date Number of Fetuses Patient Bloodtype Patient rh Status Prepregnancy Weight lbs Domestic Partner Domestic Partner Phone Father Name 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 Status 10/12/19 25 1 O Positive 165 [address] l [place] OPEN Fetus Data First Name Last Name Admitted to NICU Weight (g) Sex Living Outcome Pediatric Complications Fetus ID Race Codes Race Delivery Type [id number] Problems Problem Notes Scheduled 11/16 1:00PM Level II US & office visit scheduled [facility] 01/13 0730 us only Problem Name Start Date End Date Resolution Snomed Code Not e Migraine 12/02/2024 [id number] 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 [id number] - partial sl eeve gastrectomy 04/2024- baseline vitamin labs ordered at 12 weeks- serial growth US Past history of section 10/11/2024 [id number] G2 under GE TA, umbilical cord prolapsedesires [facility] Mario Calculation Initial Mario Date Initial [...] Sound Latest Days Gestation 11/17/19 25 18 [email or web address] 10/11/2024 04/17/19 26 2 Pre-kaykay Flowsheet Flowsheet Date 10/11/2024 Espinoza Score Blood Edema Fundus Height Fundus Units Glucose Ketones Leukocytes Nitrite Labor Signs Protein Cervic Dilation Cervic Effacement Cervic Station Type Weight in lbs Pre/Post Dialysis Refused Weight 163.553561325295 BP Diastolic BP Location Tested BP Systolic BP Type 74 L arm 115 sitting Fetus Heart Rate Present Fetus Movement Comments Patient presents to [facility] care. Headaches still worsening, will send [...] Weight in lbs Pre/Post Dialysis Refused Weight 161.967121762654 BP Diastolic BP Location Tested BP Systolic BP Type 74 L arm 116 sitting Fetus Heart Rate Present Fetus Movement A Yes Comments Still having some nausea. Mi graines not improved with tylenol, reglan, and sumatriptan. Will send [facility] referral. LR male NIPT! All other OB labs wnl. Anatomy US next visit. RTC 4 weeks. Flowsheet Date 12/02/2024 Espinoza Score Blood Edema Fundus Height Fundus Units Glucose Ketones Leukocytes Nitrite Labor Signs Protein Cervic Dilation Cervic Effacement Cervic Station Type Weight in lbs Pre/Post Dialysis Refused 167.386434776178 BP Diastolic BP Location Tested BP Systolic [...] if she is still suffering. Seen at [facility]. Flowsheet Date 12/30/2024 Espinoza Score Blood Edema Fundus Height Fundus Units Glucose Ketones Leukocytes Nitrite Labor Signs Protein Cervic Dilation Cervic Effacement Cervic Station Type Weight in lbs Pre/Post Dialysis Refused 168.447654967958 BP Diastolic BP Location Tested BP Systolic [...] Type Weight in lbs Pre/Post Dialysis Refused 170.643310808497 BP Diastolic BP Location Tested BP Systolic [...] Weight in lbs Pre/Post Dialysis Refused Weight 172.286638790516 BP Diastolic BP Location Tested BP Systolic [...] Weight in lbs Pre/Post Dialysis Refused Weight 174.661045362518 BP Diastolic BP Location Tested BP Systolic BP Type 76 L arm 119 sitting Fetus Heart Rate Present A Present Fetus Movement A Yes Comments Baby active. Feeling more fa tigued. Was seen on Thursday at [facility] for low blood pressures, found to be anemic to Hgb 9.3. Will draw labs today and start Fe infusions. EFW 21%, vertex! Flowsheet Date 03/10/2025 Espinoza Score Blood Edema Fundus Height Fundus Units Glucose Ketones Leukocytes Nitrite Labor Signs Protein Cervic Dilation Cervic Effacement Cervic Station Type Weight in lbs Pre/Post Dialysis Refused Weight 178.079018277656 BP Diastolic BP Location Tested BP Systolic [...]
[2025-03-21] MEDS: LACTATED RINGERS 1,000 ML 999 ML IV CONT (01:43)
[2025-03-21] MEDS: TERBUTALINE SULFATE 1 MG/ML VIAL 0.25 MG SUB-Q ×3 (01:46→02:55)
--- NOTE | 2025-03-21 01:54 | OBADM ---
This patient, Radha Sheppard, admitted to the OB room Labor/Delivery/Recovery 120 for observation. Patient/family oriented to hospital policies and general routines including ID bracelet, bed and alarms, visiting hours, pain management, procedures, bathroom and other care routines, personal items, smoking policy, room service/diet, and visiting hours. Patient/Family are encouraged to report perceived risks to care and to ask questions if they do not understand what they are told or what they should do.
[2025-03-21] MEDS: LACTATED RINGERS 1,000 ML 125 ML IV CONT (03:46)
--- NOTE | 2025-04-21 11:04 | PM.OBTRLD ---
OB - Triage/Final Diagnosis Visit Information Comments/Additional reasons for admission: I have assessed the risk for this patient, Radha Sheppard, and determined that she would benefit from observation care. Final Diagnosis (1) False labor: Code(s): O47.9 - False labor, unspecified Status: Acute
== END 2025-03-21 06:59 | disposition home or self-care (01) ==
PROVIDERS: Admitting Provider Obstetrics & Gynecology; Visit Provider Obstetrics & Gynecology
DX: O47.03 False labor before 37 completed weeks of gestation, third trimester (principal); Z3A.39 39 weeks gestation of pregnancy
CPT/HCPCS: 96372; A9270; G0378; G0379; J3105; J7120